=== PATIENT | female | born 1930 | race Hispanic/Latino ===

== ENCOUNTER 2017-04-28 13:45 | Emergency (ER) | payer MEDICARE, OTHER ==
[2017-04-28 14:05] VITALS: BMI 29.5
--- NOTE | 2017-04-28 14:32 | ED PDOC ---
Arrival/HPI - General Chief Complaint: GI Problem Time Seen by Provider: 04/28/17 14:11 Historian: Patient - History of Present Illness Narrative History of Present Illness (Text): 04/28/17 14:43 An 86 year old female presents to the emergency department complaining of constipation for the past five days. Patient reports last bowel movement was three days ago. Reports diaphoresis and some generalized weakness, but denies any abdominal pain, rectal pain, hematochezia, nausea, vomiting, appetite changes or any other complaints at this time. Patient with past medical history of colon cancer, tumor removal 10 years ago. PMD: Dr. Savage Symptom Onset: Sudden Symptom Course: Unchanged Activities at Onset: Rest Context: Home Past Medical History - Provider Review Nursing Documentation Reviewed: Yes - Infectious Disease Hx of Infectious Diseases: None - Tetanus Immunization Tetanus Immunization: Unknown - Reproductive Menopause: Yes - Cardiac Hx Cardiac Disorders: Yes Hx Heart Murmur: Yes Hx Hypertension: Yes Hx Pacemaker: No Other/Comment: Heart murmur - Pulmonary Hx Respiratory Disorders: No - Neurological Hx Neurological Disorder: No Hx Paralysis: No - HEENT Hx Glaucoma: Yes - Renal Hx Renal Disorder: No - Endocrine/Metabolic Hx Endocrine Disorders: Yes Hx Diabetes Mellitus Type 1: Yes Hx Hypothyroidism: Yes - Hematological/Oncological Hx Blood Transfusions: No Hx Blood Transfusion Reaction: No - Musculoskeletal/Rheumatological Hx Musculoskeletal Disorders: No - Gastrointestinal Hx Gastrointestinal Disorders: No - Genitourinary/Gynecological Hx Genitourinary Disorders: No - Psychiatric Hx Depression: No Hx Emotional Abuse: No Hx Physical Abuse: No Hx Substance Use: No - Surgical History Hx Appendectomy: Yes Hx Cholecystectomy: Yes Other/Comment: Colon tumor removal (benign) - Anesthesia Hx Anesthesia: Yes Hx Anesthesia Reactions: No - Suicidal Assessment Feels Threatened In Home Enviroment: No Family/Social History - Physician Review Nursing Documentation Reviewed: Yes Family/Social History: No Known Family HX Smoking Status: Former Smoker Hx Alcohol Use: No Hx Substance Use: No Hx Substance Use Treatment: No Allergies/Home Meds Allergies/Adverse Reactions: Allergies No Known Allergies Allergy (Verified 04/28/17 14:05) Home Medications: Home Meds Medication Instructions Recorded Confirmed Levothyroxine Sodium 175 mcg PO DAILY 10/04/12 04/28/17 [Levothyroxine] Metoprolol Succinate 25 mg PO DAILY 10/04/12 04/28/17 Ezetimibe [Ezetimibe] 10 mg PO DAILY 04/28/17 04/28/17 Levothyroxine Sodium [Levothroid] 150 mcg PO DAILY 04/28/17 04/28/17 Review of Systems - Physician Review All systems were reviewed & negative as marked: Yes - Review of Systems Gastrointestinal: Constipation. absent: Abdominal Pain, Nausea, Vomiting, Appetite Changes, Hematochezia Endocrine: Diaphoresis Physical Exam - Physical Exam Narrative Physical Exam (Text): 04/28/17 14:30 Head: Atraumatic. Normocephalic. Eyes: PERRL. EOMI. Conjunctivae are not pale. ENT: Mucous membranes are moist and intact. Oropharynx is clear and symmetric. Neck: Supple. Full ROM. No JVD. No lymphadenopathy. Cardiovascular: Regular rate. Regular rhythm. No murmurs, rubs, or gallops. Distal pulses are 2+ and symmetric. Pulmonary/Chest: No evidence of respiratory distress. Clear to auscultation bilaterally. No wheezing, rales or rhonchi. Abdominal: mild distention, no pain. 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 external hemorrhoids, not thrombosed. Back: No CVA tenderness. Extremities: No edema. No cyanosis. No clubbing. Full range of motion in all extremities. No calf tenderness. Skin: Skin is warm and dry. No petechiae. No purpura. Neurological: Alert, awake, and oriented to person, place, time, and situation. Normal speech. Psychiatric: Good eye contact. Normal interaction, affect, and behavior. Vital Signs Reviewed: Yes Vital Signs Temp Pulse Resp BP Pulse Ox 04/28/17 15:53 68 17 149/65 98 04/28/17 14:07 98.1 F 72 17 151/66 H 97 Temperature: Afebrile Blood Pressure: Hypertensive Pulse: Regular Respiratory Rate: Normal Appearance: Positive for: Well-Appearing, Non-Toxic, Comfortable Pain Distress: None Mental Status: Positive for: Alert and Oriented X 3 Medical Decision Making ED Course and Treatment: 04/28/17 14:28 Impression: An 86 year old female with constipation. Differential Diagnosis included but are not limited to: bowel obstruction vs. colitis vs. constipation Plan: -- labs -- Radiology of abdomen -- Reassess and disposition Prior Visits: Notes and results from previous visits were reviewed. Patient was last seen in the emergency department on 09/27/16 for evaluation of left ankle pain. Progress Notes: Patient is currently asymptomatic. 04/28/17 15:15 Abdomen Xray: Creator : Elmer Uriarte MD FINDINGS: BOWEL: Normal. No obstruction. No free air. There is moderate to severe constipation BONES: Normal. IMPRESSION: Moderate to severe constipation 04/28/17 15:40 On reevaluation, patient has no pain, nausea or vomiting. Patient is eating without difficulty. Xray of abdomen by my interpretation shows no obstruction or free air, but there are signs of moderate constipation. As she is asymptomatic, will discharge patient home with stool softener. Advise follow up with Dr. Farrell to set up colonoscopy. - Lab Interpretations Lab Results: 04/28/17 14:45 04/28/17 14:45 Lab Results 04/28/17 14:45: Sodium 137, Potassium 4.4, Chloride 99, Carbon Dioxide 27, Anion Gap 15, BUN 15, Creatinine 0.7, Est GFR ( Amer) > 60, Est GFR (Non- Af Amer) > 60, Random Glucose 193 H, Calcium 9.6, Total Bilirubin 0.8, AST 35, ALT 35, Alkaline Phosphatase 127, Total Protein 7.5, Albumin 4.2, Globulin 3.3, Albumin/Globulin Ratio 1.3 04/28/17 14:45: WBC 6.2, RBC 4.52, Hgb 14.0, Hct 40.9, MCV 90.5, MCH 31.0, MCHC 34.2, RDW 12.5, Plt Count 214, MPV 10.4, Gran % 57.7, Lymph % (Auto) 31.2, Amador % (Auto) 8.1 H, Eos % (Auto) 2.7, Baso % (Auto) 0.3, Gran # 3.58, Lymph # 1.9, Amador # 0.5, Eos # 0.2, Baso # 0.02 I have reviewed the lab results: Yes - RAD Interpretation Radiology Orders: 04/28/17 14:26 ABD 2 VIEWS (FLAT/UP OR DECUB) [RAD] Stat - Scribe Statement The provider has reviewed the documentation as recorded by the Nesha Villeda Provider Scribe Attestation: All medical record entries made by the Scribe were at my direction and personally dictated by me. I have reviewed the chart and agree that the record accurately reflects my personal performance of the history, physical exam, medical decision making, and the department course for this patient. I have also personally directed, reviewed, and agree with the discharge instructions and disposition. Disposition/Present on Arrival - Present on Arrival History of DVT/PE: No History of Uncontrolled Diabetes: Yes Urinary Catheter: No History of Decub. 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 If you develop ANY abdominal pain, any nausea or vomiting, any chest pain or shortness of breath, any bloody urine or stool, any lightheadedness or dizziness , any swelling, any persistent or worsening of symptoms, get rechecked immediately. Take stool softener as directed. If you have not moved your bowels or develop any pain or symptoms, you must get rechecked. Prescriptions: Docusate [Colace] 100 mg PO DAILY #7 cap Referrals: Jose A Farrell MD [Staff Provider] - Follow up with primary Rj Savage MD [Primary Care Provider] - Follow up with primary Forms: [employer] (Serbian)
[2017-04-28 14:57] LABS: BASO # 0.02 K/mm3 (0.0-2.0); BASO % 0.3 % (0.0-3.0); EOS # 0.2 (0.0-0.7); EOS % 2.7 % (1.5-5.0); GRAN # 3.58 (1.4-6.5); GRAN % 57.7 % (50.0-68.0); LYMPH # 1.9 (1.2-3.4); LYMPH % 31.2 % (22.0-35.0); MEAN CELL VOLUME 90.5 fl (80.0-105.0); MEAN CORPUSCULAR HGB CONC 34.2 g/dl (31.0-37.0); MEAN PLATELET VOLUME 10.4 fl (7.0-11.0); MONO # 0.5 (0.1-0.6); MONO % 8.1 % (1.0-6.0); PLATELET COUNT 214 10^3/uL (120.0-450.0); RBC 4.52 10^6/uL (3.5-6.1); RED CELL DISTRIBUTION WIDTH 12.5 % (11.5-14.5); WHITE BLOOD COUNT 6.2 10^3/ul (4.5-11.0)
[2017-04-28 15:11] LABS: ALB/GLOB RATIO 1.3 (1.1-1.8); ALBUMIN 4.2 g/dL (3.0-4.8); ALT/SGPT 35 U/L (7-56); AST/SGOT 35 U/L (15-39); BLOOD UREA NITROGEN 15 mg/dL (7-21); CALCIUM 9.6 mg/dL (8.4-10.5); GFR AFRICAN-AMERICAN > 60; GFR NON-AFRICAN AMERICAN > 60
--- NOTE | 2017-04-28 15:14 | RAD ---
HISTORY: eval for obstruction COMPARISON: No prior. FINDINGS: BOWEL: Normal. No obstruction. No free air. There is moderate to severe constipation BONES: Normal. OTHER FINDINGS: None. IMPRESSION: Moderate to severe constipation
[2017-04-28 15:54] VITALS: BP 149/65; PULSE 68; RESP 17; TEMP 98.1; O2SAT 98
== END 2017-04-28 16:00 | disposition home or self-care (01) ==
LOC: ED 13:45
DX: K59.00 Constipation, unspecified (principal); I10 Essential (primary) hypertension; Z87.891 Personal history of nicotine dependence

== ENCOUNTER 2017-08-12 03:58 | Observation (INO) | payer MEDICARE, OTHER ==
[2017-08-12 03:58] VITALS: BMI 29.5
--- NOTE | 2017-08-12 04:31 | ED PDOC ---
Arrival/HPI - General Chief Complaint: Dizziness/Lightheaded Time Seen by Provider: 08/12/17 03:59 Historian: Patient, EMS - History of Present Illness Narrative History of Present Illness (Text): 08/12/17 04:21 Leia Mcgraw is an 86 year old female, whose past medical history includes diabetes on insulin, hypothyroidism, glaucoma, hypertension, and hyperlipidemia , who presents to the Emergency department brought in by EMS complaining of dizziness. Patient states she has been experiencing recurrent episodes of dizziness since 21:00 yesterday evening and notes she feels near-syncopal. Patient states she feels off-balance and fell back on to her bed twice tonight. Patient denies any headache, fever, chills, chest pain, shortness of breath, nausea, vomiting, diarrhea, urinary symptoms, back pain, neck pain, or any other complaints. Patient also complaining of incidental left lower extremity pain she has been experiencing for a while. PMD: Dr. Harjinder Savage Time/Duration: Other (tonight) Symptom Onset: Gradual Symptom Course: Unchanged Activities at Onset: Light Context: Home Past Medical History - Provider Review Nursing Documentation Reviewed: Yes - Infectious Disease Hx of Infectious Diseases: None - Tetanus Immunization Tetanus Immunization: Unknown - Reproductive Menopause: No - Cardiac Hx Cardiac Disorders: Yes Hx Heart Murmur: Yes Hx Hypertension: Yes Hx Pacemaker: No Other/Comment: Heart murmur - Pulmonary Hx Respiratory Disorders: No - Neurological Hx Neurological Disorder: No Hx Paralysis: No - HEENT Hx Glaucoma: Yes - Renal Hx Renal Disorder: No - Endocrine/Metabolic Hx Endocrine Disorders: Yes Hx Diabetes Mellitus Type 1: Yes Hx Hypothyroidism: Yes - Hematological/Oncological Hx Blood Transfusions: No Hx Blood Transfusion Reaction: No - Musculoskeletal/Rheumatological Hx Musculoskeletal Disorders: No - Gastrointestinal Hx Gastrointestinal Disorders: No - Genitourinary/Gynecological Hx Genitourinary Disorders: No - Psychiatric Hx Depression: No Hx Emotional Abuse: No Hx Physical Abuse: No Hx Substance Use: No - Surgical History Hx Appendectomy: Yes Hx Cholecystectomy: Yes Other/Comment: Colon tumor removal (benign) - Anesthesia Hx Anesthesia: Yes Hx Anesthesia Reactions: No - Suicidal Assessment Feels Threatened In Home Enviroment: No Family/Social History - Physician Review Nursing Documentation Reviewed: Yes Family/Social History: Unknown Family HX Smoking Status: Former Smoker Hx Alcohol Use: No Hx Substance Use: No Hx Substance Use Treatment: No Allergies/Home Meds Allergies/Adverse Reactions: Allergies No Known Allergies Allergy (Verified 04/28/17 14:05) Home Medications: Home Meds Medication Instructions Recorded Confirmed Levothyroxine Sodium 175 mcg PO DAILY 10/04/12 08/12/17 [Levothyroxine] Metoprolol Succinate 25 mg PO DAILY 10/04/12 08/12/17 Ezetimibe [Ezetimibe] 10 mg PO DAILY 04/28/17 08/12/17 Levothyroxine Sodium [Levothroid] 150 mcg PO DAILY 04/28/17 08/12/17 Review of Systems - Physician Review All systems were reviewed & negative as marked: Yes - Review of Systems Constitutional: Normal Eyes: Normal ENT: Normal Respiratory: Normal. absent: SOB, Cough Cardiovascular: Other (+near-syncopal) Gastrointestinal: Normal. absent: Abdominal Pain, Diarrhea, Nausea, Vomiting Genitourinary Female: Normal. absent: Dysuria, Frequency, Hematuria, Urine Output Changes Musculoskeletal: Other (+left lower extremity pain). absent: Back Pain, Neck Pain Skin: Normal. absent: Rash Neurological: Dizziness Endocrine: Normal Hemo/Lymphatic: Normal Psychiatric: Normal Physical Exam Vital Signs Reviewed: Yes Vital Signs Temp Pulse Resp BP Pulse Ox 08/12/17 03:58 97.7 F 71 18 157/75 H 96 Temperature: Afebrile Blood Pressure: Hypertensive Pulse: Regular Respiratory Rate: Normal Appearance: Positive for: Well-Appearing, Non-Toxic, Comfortable Pain Distress: None Mental Status: Positive for: Alert and Oriented X 3 - Systems Exam Head: Present: Atraumatic, Normocephalic Pupils: Present: PERRL Extroacular Muscles: Present: EOMI Conjunctiva: Present: Normal Mouth: Present: Moist Mucous Membranes Neck: Present: Normal Range of Motion. No: Meningeal Signs, MIDLINE TENDERNESS , Paraspinal Tenderness Respiratory/Chest: Present: Clear to Auscultation, Good Air Exchange. No: Respiratory Distress, Accessory Muscle Use Cardiovascular: Present: Regular Rate and Rhythm, Normal S1, S2. No: Murmurs Abdomen: Present: Normal Bowel Sounds. No: Tenderness, Distention, Peritoneal Signs Back: Present: Normal Inspection Upper Extremity: Present: Normal Inspection. No: Cyanosis, Edema Lower Extremity: Present: Normal Inspection. No: Edema Neurological: Present: GCS=15, CN II-XII Intact, Speech Normal, Motor Func Grossly Intact, Normal Sensory Function, Normal Cerebellar Funct, Memory Normal Skin: Present: Warm, Dry, Normal Color. No: Rashes Psychiatric: Present: Alert, Oriented x 3, Normal Insight, Normal Concentration Medical Decision Making ED Course and Treatment: 08/12/17 04:21 Impression: 86 year old female complaining of dizziness and near-syncope tonight. Differential Diagnosis included but are not limited to: near syncope Plan: -- CT Head w/o contrast -- EKG -- CXR -- Labs, cardiac enzymes -- US Duplex Lower Extremities -- Antivert -- Reassess and disposition Prior Visits: Notes and results from previous visits were reviewed. On 04/28/2017, pt was seen in the Emergency department for constipation. Pt was d/c home. Progress Notes: Reviewed EKG, NSR at 68 bpm. Non-specific T wave changes laterally. 08/12/17 05:11 Reviewed chest X-ray, shows no acute processes. 08/12/17 05:14 CT of head reviewed by radiologist, shows: Brain: No intracranial hemorrhage. No mass. Few scattered foci of decreased attenuation within periventricular/subcortical white matter. No definite edema. Ventricles: No hydrocephalus. Bones/joints: No acute fracture. Soft tissues: Unremarkable. Vasculature: Atherosclerotic disease of intracranial arteries. Lymph nodes: No pathologically enlarged lymph nodes. Sinuses: No acute sinusitis. Mastoid air cells: No mastoid effusion. Orbits: Unremarkable as visualized. IMPRESSION: 1. Nonspecific white matter changes. Acute infarction may be CT occult within first 24 hours. If a focal deficit persists, consider followup CT or MRI for further evaluation. 2. Incidental/non-acute findings are described above 08/12/17 05:22 Case discussed with adjunct faculty for medical terminology promotional advertising assistant, who is aware and agrees with plan. 08/12/17 05:[address]G. Dave, who is aware and agrees with plan. Accepts patient to the hospitalist service. Patient will go on to [facility] observation for near syncope and intractable dizziness. 08/12/17 06:21 Reviewed sono, US Duplex Lower Extremities negative for DVT. - Lab Interpretations Lab Results: 08/12/17 04:20 08/12/17 04:20 Lab Results 08/12/17 04:20: WBC 6.1, RBC 4.49, Hgb 14.1, Hct 41.4, MCV 92.2, MCH 31.4, MCHC 34.1, RDW 12.7, Plt Count 209, MPV 10.8 08/12/17 04:20: Sodium 136, Potassium 4.4, Chloride 99, Carbon Dioxide 28, Anion Gap 14, BUN 20, Creatinine 0.7, Est GFR ( Amer) > 60, Est GFR (Non- Af Amer) > 60, Random Glucose 366 H* D, Calcium 9.9, Total Bilirubin 0.7, AST 30 , ALT 36, Alkaline Phosphatase 133 H, Lactate Dehydrogenase 477, Total Creatine Kinase 74, Troponin I < 0.01, Total Protein 7.9, Albumin 4.2, Globulin 3.7, Albumin/Globulin Ratio 1.1 08/12/17 04:20: PT 10.4, INR 0.96, APTT 33.9 I have reviewed the lab results: Yes - RAD Interpretation Radiology Orders: 08/12/17 04:22 HEAD W/O CONTRAST [CT] Stat CHEST PORTABLE [RAD] Stat Fats And Oils Loader: ED Physician, Radiologist - EKG Interpretation Interpreted by ED Physician: Yes Type: 12 lead EKG - Medication Orders Current Medication Orders: Discontinued Medications Hydromorphone HCl (Dilaudid) 0.5 mg IVP STAT STA Stop: 08/12/17 06:18 Insulin Human Regular (Humulin R) 5 units SC STAT STA Stop: 08/12/17 05:18 Meclizine HCl (Antivert) 25 mg PO STAT STA Stop: 08/12/17 04:34 Last Admin: 08/12/17 04:56 Dose: 25 mg Tramadol/Acetaminophen (Ultracet 37.5/325 Mg) 1 tab PO STAT STA Stop: 08/12/17 05:32 - Scribe Statement The provider has reviewed the documentation as recorded by the Nesha Anthony Provider Scribe Attestation: All medical record entries made by the Scribe were at my direction and personally dictated by me. I have reviewed the chart and agree that the record accurately reflects my personal performance of the history, physical exam, medical decision making, and the department course for this patient. I have also personally directed, reviewed, and agree with the discharge instructions and disposition. Disposition/Present on Arrival - Present on Arrival Any Indicators Present on Arrival: No History of DVT/PE: No History of Uncontrolled Diabetes: Yes Urinary Catheter: No History of Decub. Ulcer: No History Surgical Site Infection Following: None - Disposition Have Diagnosis and Disposition been Completed?: Yes Diagnosis: Near syncope, Dizziness of unknown cause Disposition: HOSPITALIZED Disposition Time: 05:16 Patient Plan: Observation Patient Problems: Current Active Problems Problem Status Onset Dizziness of unknown cause Acute Near syncope Acute Condition: STABLE
[2017-08-12 04:46] LABS: HEMATOCRIT 41.4 % (36.0-48.0); MEAN CELL VOLUME 92.2 fl (80.0-105.0); MEAN CORPUSCULAR HEMOGLOBIN 31.4 pg (25.0-35.0); MEAN CORPUSCULAR HGB CONC 34.1 g/dl (31.0-37.0); WHITE BLOOD COUNT 6.1 10^3/ul (4.5-11.0)
[2017-08-12 04:47] LABS: MEAN PLATELET VOLUME 10.8 fl (7.0-11.0); RED CELL DISTRIBUTION WIDTH 12.7 % (11.5-14.5)
[2017-08-12 04:53] LABS: INR 0.96 (0.93-1.08); PARTIAL THROMBOPLASTIN TIME 33.9 Seconds (25.1-36.5)
[2017-08-12 04:56] LABS: TROPONIN I < 0.01 ng/mL
--- NOTE | 2017-08-12 05:05 | CT ---
EXAM: CT Head Without Intravenous Contrast CLINICAL HISTORY: 86 years old, female; Signs and symptoms; Dizziness; Additional info: Dizzy TECHNIQUE: Axial computed tomography images of the head/brain without intravenous contrast. All CT scans at this facility use one or more dose reduction techniques, viz.: automated exposure control; ma/kV adjustment per patient size (including targeted exams where dose is matched to indication; i.e. head); or iterative reconstruction technique. COMPARISON: No relevant prior studies available. FINDINGS: Brain: No intracranial hemorrhage. No mass. Few scattered foci of decreased attenuation within periventricular/subcortical white matter. No definite edema. Ventricles: No hydrocephalus. Bones/joints: No acute fracture. Soft tissues: Unremarkable. Vasculature: Atherosclerotic disease of intracranial arteries. Lymph nodes: No pathologically enlarged lymph nodes. Sinuses: No acute sinusitis. Mastoid air cells: No mastoid effusion. Orbits: Unremarkable as visualized. IMPRESSION: 1. Nonspecific white matter changes. Acute infarction may be CT occult within first 24 hours. If a focal deficit persists, consider followup CT or MRI for further evaluation. 2. Incidental/non-acute findings are described above.
[2017-08-12 05:09] LABS: ALB/GLOB RATIO 1.1 (1.1-1.8); ALKALINE PHOSPHATASE 133 U/L (38-126); ALT/SGPT 36 U/L (7-56); AST/SGOT 30 U/L (14-36); BILIRUBIN,TOTAL 0.7 mg/dL (0.2-1.3); BLOOD UREA NITROGEN 20 mg/dL (7-21); CALCIUM 9.9 mg/dL (8.4-10.5); CARBON DIOXIDE 28 mmol/L (21-33); CHLORIDE 99 mmol/L (98-107); GFR AFRICAN-AMERICAN > 60; POTASSIUM 4.4 mmol/L (3.6-5.0); SODIUM 136 mmol/L (132-148); TOTAL PROTEIN 7.9 g/dL (5.8-8.3)
[2017-08-12] MEDS ORDERED: Insulin Regular 1 UNITS/0.01 ML ML SC STA (05:17)
[2017-08-12] MEDS ORDERED: TraMADol/Apap 37.5/325 mg Tab PO STA (05:31)
[2017-08-12 05:57] LABS: GLUCOSE,RANDOM 366 mg/dL (70-110)
[2017-08-12] MEDS ORDERED: HYDROmorphone 0.5 mg/0.5 ml ISec IVP STA (06:17)
[2017-08-12] MEDS ORDERED: Sodium Chloride 0.9% 1,000 ML IV SCH (06:45)
--- NOTE | 2017-08-12 07:00 | CP.PCM.HP ---
<Donald Martinez - Last Filed: 08/12/17 08:13> History of Present Illness - History of Present Illness History of Present Illness: Donald Martinez DO PGY1 - Internal Medicine H&P CC: Lightheadedness HPI: 86 yo F with PMH of HTN, HLD, DM, hypothyroidism, and glaucoma, presents complaining of lightheadedness and falling into her bed last night. A few hours ago, she got up out of bed to use the restroom, and was dizzy and lightheaded when she stood up. This happened again two more times throughout the night, which caused her to fall backward into her bed. She describes the dizziness as seeing things slightly "wobbly" but denies room-spinning vertigo. She denies LOC , headache, focal weakness, confusion, tongue biting, or incontinence, chest pain, palpitations. She reports that she missed her nightly dose of levimir last night, and ended up taking after she was symptomatic. She denies any recent illness, sick contacts, recent travel, diarrhea, nausea/vomiting, dysuria , hematuria, abdominal pain, otalgia, sore throat. She does reports to frequent urination, but attributes that to drinking a lot of water. She also admits to profound thirst and dry mouth. ROS: 12 point ROS is negative except as in HPI. PMH: As above PSH: Appendectomy, unknown colon surgery for tumor, cholecystectomy Soc: 10pyh quit 30 years ago, denies alcohol or illicits FHx: Noncontributory All: NKDA Present on Admission - Present on Admission Any Indicators Present on Admission: No Past Patient History - Infectious Disease Hx of Infectious Diseases: None - Tetanus Immunizations Tetanus Immunization: Unknown - Past Social History Smoking Status: Former Smoker - CARDIAC Hx Cardiac Disorders: Yes Hx Heart Murmur: Yes Hx Hypertension: Yes Hx Pacemaker: No Other/Comment: Heart murmur - PULMONARY Hx Respiratory Disorders: No - NEUROLOGICAL Hx Neurological Disorder: No Hx Paralysis: No - HEENT Hx Glaucoma: Yes - RENAL Hx Chronic Kidney Disease: No - ENDOCRINE/METABOLIC Hx Endocrine Disorders: Yes Hx Diabetes Mellitus Type 1: Yes Hx Hypothyroidism: Yes - HEMATOLOGICAL/ONCOLOGICAL Hx Blood Transfusions: No Hx Blood Transfusion Reaction: No - MUSCULOSKELETAL/RHEUMATOLOGICAL Hx Musculoskeletal Disorders: No - GASTROINTESTINAL Hx Gastrointestinal Disorders: No - GENITOURINARY/GYNECOLOGICAL Hx Genitourinary Disorders: No - PSYCHIATRIC Hx Depression: No Hx Emotional Abuse: No Hx Physical Abuse: No Hx Substance Use: No - SURGICAL HISTORY Hx Appendectomy: Yes Hx Cholecystectomy: Yes Other/Comment: Colon tumor removal (benign) - ANESTHESIA Hx Anesthesia: Yes Hx Anesthesia Reactions: No Meds Allergies/Adverse Reactions: Allergies Allergy/AdvReac Type Severity Reaction Status Date / Time No Known Allergies Allergy Verified 08/12/17 13:10 Physical Exam - Constitutional Appears: Non-toxic, No Acute Distress - Head Exam Head Exam: ATRAUMATIC, NORMOCEPHALIC - Eye Exam Eye Exam: EOMI, Normal appearance - ENT Exam ENT Exam: Mucous Membranes Dry - Neck Exam Neck exam: Positive for: Normal Inspection - Respiratory Exam Respiratory Exam: Clear to Auscultation Bilateral, NORMAL BREATHING PATTERN - Cardiovascular Exam Cardiovascular Exam: RRR, +S1, +S2 - GI/Abdominal Exam GI & Abdominal Exam: Normal Bowel Sounds, Soft. absent: Firm, Guarding, Rebound , Rigid, Tenderness - Extremities Exam Extremities exam: Negative for: calf tenderness, pedal edema - Neurological Exam Neurological exam: Alert, Oriented x3 Additional comments: No pronator drift. CN II-XII grossly intact. 5/5 muscle strength throughout. - Psychiatric Exam Psychiatric exam: Normal Affect, Normal Mood - Skin Skin Exam: Dry, Intact, Normal Color Additional comments: Poor turgor Results - Vital Signs Recent Vital Signs: Last Vital Signs Temp 97.7 F 08/12/17 03:58 Pulse 71 08/12/17 03:58 Resp 18 08/12/17 03:58 BP 157/75 H 08/12/17 03:58 Pulse Ox 96 08/12/17 03:58 - Labs Result Diagrams: 08/12/17 04:20 08/12/17 04:20 Labs: Laboratory Results - last 24 hr 08/12/17 06:39 POC Glucose (mg/dL) 233 H Assessment & Plan - Assessment and Plan (Free Text) Assessment: 86 yo F with PMH of HTN, HLD, DM, hypothyroidism, and glaucoma, presents complaining of lightheadedness and falling into her bed last night. Plan: 1. Presyncope - Patient denies chest pain or palpitations; EKG shows no acute changes and troponin negative in the ER - Head CT negative for any acute intracranial abnormalities - Likely 2/2 dehydration 2/2 hyperglycemia vs hypothyroidism vs arrhythmia - Patient was hyperglycemic, and admits to missing her dose of insulin yesterday ; dehydrated on exam - Ordered orthostatics PRN - Rehydrate with IVF; bolus 1L if positive orthostatic vitals - Improve glycemic control as below - Check TSH - Consult neuro (Antonieta Ayon), appreciate help 2. h/o DM - Currently uncontrolled; no anion gap at this time - Start IVF - Start ISS med with accucheck ACHS - Start levimir 20u daily, which is what she takes at home - Continue to monitor 3. h/o HTN - Patient takes metoprolol at home, not sure if she takes anything else - Resume metoprolol - Continue to monitor and titrate medications 4. h/o Hypothyroidism - Patient is not sure of current dose of levothyroxine - Previously documented 150mcg; will resume, and monitor response; will call patient's pharmacy for more information - Check TSH 5. h/o HLD and glaucoma - Patient is not sure what she takes at home, will call her pharmacy to confirm GI/DVT Ppx - protonix and heparin Patient seen, discussed, and reviewed with attending <León Dave - Last Filed: 08/13/17 00:35> Results - Vital Signs Recent Vital Signs: Last Vital Signs Temp 98.4 F 08/12/17 14:02 Pulse 66 08/12/17 22:00 Resp 18 08/12/17 14:02 BP 160/90 H 08/12/17 14:02 Pulse Ox 96 08/12/17 03:58 - Labs Result Diagrams: 08/12/17 04:20 08/12/17 04:20 Labs: Laboratory Results - last 24 hr 08/12/17 08/12/17 08/12/17 06:39 10:00 13:30 POC Glucose (mg/dL) 233 H Lactate Dehydrogenase 457 Total Creatine Kinase 65 Troponin I < 0.01 Free T4 1.14 Urine Color Urine Appearance Urine pH Ur Specific [place] Urine Protein Urine Glucose (UA) Urine Ketones Urine Blood Urine Nitrate Urine Bilirubin Urine Urobilinogen Ur Leukocyte Esterase Urine RBC Urine WBC Ur Epithelial Cells Urine Bacteria 08/12/17 08/12/17 21:45 22:15 POC Glucose (mg/dL) Lactate Dehydrogenase 505 Total Creatine Kinase 92 Troponin I < 0.01 Free T4 Urine Color Yellow Urine Appearance Clear Urine pH 6.0 Ur Specific [place] 1.020 Urine Protein Negative Urine Glucose (UA) 250 H Urine Ketones Negative Urine Blood Negative Urine Nitrate Negative Urine Bilirubin Negative Urine Urobilinogen 0.2 Ur Leukocyte Esterase Small H Urine RBC 0 - 2 Urine WBC 2 - 5 Ur Epithelial Cells 0 - 2 Urine Bacteria Trace
[2017-08-12] MEDS: Insulin Reg-MEDIUM-Coverage SC SCH ×5 (07:30→21:13)
--- NOTE | 2017-08-12 08:48 | RAD ---
HISTORY: fever COMPARISON: 11/01/2016 FINDINGS: LUNGS: No active pulmonary disease. PLEURA: No significant pleural effusion identified, no pneumothorax apparent. CARDIOVASCULAR: Normal. OSSEOUS STRUCTURES: No significant abnormalities. VISUALIZED UPPER ABDOMEN: Normal. OTHER FINDINGS: None. IMPRESSION: No active disease.
[2017-08-12] MEDS: Metoprolol Succinate 25 mg XL Tab PO SCH (09:41)
[2017-08-12] MEDS: Levothyroxine 150 MCG TAB PO SCH (09:41)
--- NOTE | 2017-08-12 10:13 | CARD ---
APPROVED REPORT EKG Measurement Heart [id number] <Conclusion> Normal sinus rhythm ST & T wave abnormality, consider lateral ischemia, new since ECG 09/27/16
[2017-08-12 13:56] LABS: TROPONIN I < 0.01 ng/mL
[2017-08-12] MEDS ORDERED: Influenza Vaccine 60 mcg/0.5 mL SYR (4YR UP) IM ONE (14:29)
[2017-08-12] MEDS ORDERED: Pneumococcal 23-Valent Vaccine IM ONE (14:29)
[2017-08-12] MEDS ORDERED: Insulin Detemir 100 units/ml Vial (Levemir) SC SCH (22:00)
[2017-08-12 22:09] LABS: URINE BILIRUBIN NEGATIVE (NEGATIVE); URINE BLOOD NEGATIVE (NEGATIVE); URINE GLUCOSE (UA) 250 mg/dL (NEGATIVE); URINE KETONE NEGATIVE (NEGATIVE); URINE LEUKOCYTE ESTERASE SMALL Leu/uL (NEGATIVE); URINE PROTEIN NEGATIVE mg/dL (<30 mg/dL); URINE UROBILINOGEN 0.2 E.U./dL (<1 E.U./dL)
[2017-08-12 22:14] LABS: URINE APPEARANCE CLEAR (CLEAR); URINE COLOR YELLOW (YELLOW); URINE RBC 0 - 2 /hpf (0-2)
[2017-08-12 22:15] LABS: URINE BACTERIA TRACE (NEG); URINE EPITHELIAL CELLS 0 - 2 /hpf (0-5)
[2017-08-12 23:07] LABS: TROPONIN I < 0.01 ng/mL
--- NOTE | 2017-08-13 01:25 | CON ---
CARDIOLOGY CONSULTATION DATE: REASON FOR CONSULTATION: Recurrent dizziness. HISTORY OF PRESENT ILLNESS: The patient is an 86 years old female who has history of diabetes mellitus, hypothyroidism and hypertension as well as hyperlipidemia, presented because of dizziness. The patient did report dizziness as she was going from her bedroom to the bathroom where she lives in the senior citizen home. Patient denies any complete collapse or fainting spells, and denies any history of falls in the recent past. The patient did report that she had dizziness 3 times so far; she did activate EMS. The patient denies any retrosternal chest pain and is unaware of any history of heart attack or stroke in the past. SOCIAL HISTORY: Patient is a nonsmoker, nondrinker. She lives by herself. She has no family members alive and claims to have no friends. MEDICATIONS: Colace 100 mg daily, heparin 5000 units subcutaneously twice a day, Levemir 20 units subcutaneously once a day, Synthroid 150 mcg once a day, Toprol-XL 25 mg once a day, Zetia 10 mg once a day. REVIEW OF SYSTEMS: The patient does report left leg pain which she attributes to trying to push furniture with her leg. No fever or chills. No syncope or fall. PHYSICAL EXAMINATION: GENERAL: The patient is an elderly female, who does not appear to be in acute distress. VITAL SIGNS: Blood pressure 160/90, heart rate 64, temperature 98.4, respiration 18. HEENT: Normocephalic. NECK: No JVD. CHEST: Clear. HEART: S1, S2 regular. ABDOMEN: Soft. EXTREMITIES: No edema, no calf tenderness. LABORATORY DATA: CBC is entirely within normal limits. PT, PTT and INR are within normal limits. SMA-7 is within normal limits except for glucose of 366, alkaline phosphatase elevated at 133, TSH level is elevated at 7.34. Two sets of troponins are negative. EKG revealed sinus rhythm with nonspecific lateral ST-T wave changes although official reports consider lateral ischemia. Head CT scan without contrast revealed nonspecific white matter changes. Chest x-ray revealed borderline cardiomegaly, prominent bronchovascular markings and haziness involving the left lower lobe. ASSESSMENT: 1. Recurrent dizziness. 2. Uncontrolled diabetes mellitus. 3. Hypertension. 4. Hyperlipidemia. 5. Abnormal electrocardiogram with nonspecific wave changes. RECOMMENDATIONS: Continue current subcutaneous heparin 5000 units twice a day, normal saline at 10 mL an hour, Synthroid at 150 mcg once a day, Toprol-XL 25 mg once a day, Zetia 10 mg once a day. Continue telemetry monitoring, obtain an echocardiogram. I will follow the venous Doppler of lower extremities, obtain a carotid Doppler. Oliver Plascencia MD
--- NOTE | 2017-08-13 02:09 | CON ---
DATE: HISTORY OF PRESENT ILLNESS: This is an 86-year-old white female with past medical history of diabetes, hypothyroidism, hypertension, hyperlipidemia, came to the Emergency Room with dizziness and passing out kind of a spell. Patient off-balanced, fell backwards on her bed twice and did not hit her. LABORATORY DATA: WBC 6.1, hemoglobin 14.1, hematocrit 41.4, platelet 209. Sodium 136, potassium 4.4, chloride 99, CO2 of 28, glucose 366, BUN 20, creatinine 0.7. PHYSICAL EXAMINATION: VITAL SIGNS: Blood pressure 157/75. HEENT: Normocephalic, atraumatic. NECK: Supple. NEUROLOGIC: Alert, awake, oriented x3. No aphasia. Cranial nerves II to XII are tested. Pupils reactive. EOM intact. Visual field full. No facial asymmetry. Tongue midline. Motor examination, moves all the extremities equally. Tone normal. Deep tendon reflexes 1+. Both plantars downgoing. Sensory appears intact. Cerebellar and gait deferred. IMPRESSION: Dizziness, possibly vertebrobasilar, more likely benign positional vertigo. CAT scan of the head was negative. PLAN: Continue present management. We will follow up. Erik Ayno MD
[2017-08-13] MEDS: Levothyroxine 150 MCG TAB PO SCH (05:13)
[2017-08-13] MEDS ORDERED: Pantoprazole 40 mg EC Tab PO SCH (06:00)
[2017-08-13 07:09] LABS: BASO # 0.04 K/mm3 (0.0-2.0); BASO % 0.6 % (0.0-3.0); EOS # 0.2 (0.0-0.7); EOS % 2.7 % (1.5-5.0); GRAN # 3.61 (1.4-6.5); GRAN % 56.8 % (50.0-68.0); HEMATOCRIT 38.8 % (36.0-48.0); LYMPH % 31.9 % (22.0-35.0); MEAN CELL VOLUME 93.3 fl (80.0-105.0); MEAN CORPUSCULAR HEMOGLOBIN 31.3 pg (25.0-35.0); MEAN CORPUSCULAR HGB CONC 33.5 g/dl (31.0-37.0); MONO # 0.5 (0.1-0.6); RED CELL DISTRIBUTION WIDTH 12.7 % (11.5-14.5); WHITE BLOOD COUNT 6.4 10^3/ul (4.5-11.0)
[2017-08-13 07:29] LABS: ALB/GLOB RATIO 1.2 (1.1-1.8); ALKALINE PHOSPHATASE 136 U/L (38-126); ALT/SGPT 43 U/L (7-56); AST/SGOT 37 U/L (14-36); BILIRUBIN,TOTAL 0.7 mg/dL (0.2-1.3); BLOOD UREA NITROGEN 18 mg/dL (7-21); CALCIUM 9.4 mg/dL (8.4-10.5); CARBON DIOXIDE 31 mmol/L (21-33); CHLORIDE 100 mmol/L (98-107); GFR AFRICAN-AMERICAN > 60; GLUCOSE,RANDOM 196 mg/dL (70-110); MAGNESIUM 2.1 mg/dL (1.7-2.2); PHOSPHOROUS 3.9 mg/dL (2.5-4.5); POTASSIUM 4.1 mmol/L (3.6-5.0); SODIUM 135 mmol/L (132-148); TOTAL PROTEIN 6.9 g/dL (5.8-8.3)
[2017-08-13] MEDS: Insulin Reg-MEDIUM-Coverage SC SCH ×2 (08:12→11:53)
[2017-08-13 08:51] VITALS: O2SAT 97
[2017-08-13] MEDS: Metoprolol Succinate 25 mg XL Tab PO SCH (10:05)
--- NOTE | 2017-08-13 12:01 | CP.PCM.DIS ---
<Wolf Carmen - Last Filed: 08/13/17 15:12> Provider - Provider Date of Admission: 08/12/17 05:14 Attending physician: Ara Cruz MD Primary care physician: Rj Savage MD Time Spent in preparation of Discharge (in minutes): 45 Diagnosis - Discharge Diagnosis (1) Hypertension Status: Chronic Priority: Medium (2) Hyperlipidemia Status: Chronic Priority: Medium (3) Diabetes Status: Chronic Priority: Medium (4) Dizziness of unknown cause Status: Acute Priority: Medium (5) Near syncope Status: Acute Priority: Medium Hospital Course - Lab Results Lab Results: Most Recent Lab Values WBC 6.4 10^3/ul (4.5-11.0) 08/13/17 06:30 RBC 4.16 10^6/uL (3.5-6.1) 08/13/17 06:30 Hgb 13.0 g/dL (12.0-16.0) 08/13/17 06:30 Hct 38.8 % (36.0-48.0) 08/13/17 06:30 MCV 93.3 fl (80.0-105.0) 08/13/17 06:30 MCH 31.3 pg (25.0-35.0) 08/13/17 06:30 MCHC 33.5 g/dl (31.0-37.0) 08/13/17 06:30 RDW 12.7 % (11.5-14.5) 08/13/17 06:30 Plt Count 211 10^3/uL (120.0-450.0) 08/13/17 06:30 MPV 11.0 fl (7.0-11.0) 08/13/17 06:30 Gran % 56.8 % (50.0-68.0) 08/13/17 06:30 Lymph % (Auto) 31.9 % (22.0-35.0) 08/13/17 06:30 [place] % (Auto) 8.0 % (1.0-6.0) H 08/13/17 06:30 Eos % (Auto) 2.7 % (1.5-5.0) 08/13/17 06:30 Baso % (Auto) 0.6 % (0.0-3.0) 08/13/17 06:30 Gran # 3.61 (1.4-6.5) 08/13/17 06:30 Lymph # 2.0 (1.2-3.4) 08/13/17 06:30 [place] # 0.5 (0.1-0.6) 08/13/17 06:30 Eos # 0.2 (0.0-0.7) 08/13/17 06:30 Baso # 0.04 K/mm3 (0.0-2.0) 08/13/17 06:30 PT 10.4 SECONDS (9.4-12.5) 08/12/17 04:20 INR 0.96 (0.93-1.08) 08/12/17 04:20 APTT 33.9 Seconds (25.1-36.5) 08/12/17 04:20 Sodium 135 mmol/L (132-148) 08/13/17 06:30 Potassium 4.1 mmol/L (3.6-5.0) 08/13/17 06:30 Chloride 100 mmol/L (98-107) 08/13/17 06:30 Carbon Dioxide 31 mmol/L (21-33) 08/13/17 06:30 Anion Gap 9 (10-20) L 08/13/17 06:30 BUN 18 mg/dL (7-21) 08/13/17 06:30 Creatinine 0.7 mg/dl (0.7-1.2) 08/13/17 06:30 Est GFR ( Amer) > 60 08/13/17 06:30 Est GFR (Non-Af Amer) > 60 08/13/17 06:30 POC Glucose (mg/dL) 233 mg/dL (65-110) H 08/12/17 06:39 Random Glucose 196 mg/dL (70-110) H 08/13/17 06:30 Hemoglobin A1c 10.8 % (4.2-6.5) H 08/12/17 04:30 Calcium 9.4 mg/dL (8.4-10.5) 08/13/17 06:30 Phosphorus 3.9 mg/dL (2.5-4.5) 08/13/17 06:30 Magnesium 2.1 mg/dL (1.7-2.2) 08/13/17 06:30 Total Bilirubin 0.7 mg/dL (0.2-1.3) 08/13/17 06:30 AST 37 U/L (14-36) H D 08/13/17 06:30 ALT 43 U/L (7-56) 08/13/17 06:30 Alkaline Phosphatase 136 U/L (38-126) H 08/13/17 06:30 Lactate Dehydrogenase 505 U/L (333-699) 08/12/17 22:15 Total Creatine Kinase 92 U/L (35-230) 08/12/17 22:15 Troponin I < 0.01 ng/mL 08/12/17 22:15 Total Protein 6.9 g/dL (5.8-8.3) 08/13/17 06:30 Albumin 3.7 g/dL (3.0-4.8) 08/13/17 06:30 Globulin 3.2 gm/dL 08/13/17 06:30 Albumin/Globulin Ratio 1.2 (1.1-1.8) 08/13/17 06:30 Free T4 1.14 ng/dL (0.78-2.19) 08/12/17 10:00 TSH 3rd Generation 6.02 mIU/mL (0.46-4.68) H 08/13/17 06:30 Urine Color Yellow (YELLOW) 08/12/17 21:45 Urine Appearance Clear (CLEAR) 08/12/17 21:45 Urine pH 6.0 (4.7-8.0) 08/12/17 21:45 Ur Specific [place] 1.020 (1.005-1.035) 08/12/17 21:45 Urine Protein Negative mg/dL (<30 mg/dL) 08/12/17 21:45 Urine Glucose (UA) 250 mg/dL (NEGATIVE) H 08/12/17 21:45 Urine Ketones Negative mg/dL (NEGATIVE) 08/12/17 21:45 Urine Blood Negative (NEGATIVE) 08/12/17 21:45 Urine Nitrate Negative (NEGATIVE) 08/12/17 21:45 Urine Bilirubin Negative (NEGATIVE) 08/12/17 21:45 Urine Urobilinogen 0.2 E.U./dL (<1 E.U./dL) 08/12/17 21:45 Ur Leukocyte Esterase Small [place]/uL (NEGATIVE) H 08/12/17 21:45 Urine RBC 0 - 2 /hpf (0-2) 08/12/17 21:45 Urine WBC 2 - 5 /hpf (0-6) 08/12/17 21:45 Ur Epithelial Cells 0 - 2 /hpf (0-5) 08/12/17 21:45 Urine Bacteria Trace (NEG) 08/12/17 21:45 - Hospital Course Hospital Course: Patient is a a 86 year old female with a past medical history of HTN, HLD, DM, hypothyroidism, and glaucoma, who was admitted for evaluation and treatment of lightheadedness and fall. With the use of physical examinations, lab work, and imaging the patient was diagnosed with and treated for presyncope along with the patients chronic medical conditions. During their hospital stay the patient was seen by a geophysical observer, neurologist, and physical therapist whose recommendations were both appreciated and utilized in the care for this patient. During their hospital stay the patient underwent a carotid doppler ultrasound, and lower extremity which were reviewed, appreciated, and utilized in the management of the patients clinical course. Patient was treated with antihypertensive medications, analgestics, amongst other empiric/therapeutic medications. At this time the patient is medically stable for discharge. Patient understands and appreciates discharge plan. Patient instructed to follow up with primary care physicians and referrals within three to five days from discharge. Furthermore, the patient is instructed to take medications as prescribed and to return to emergency room for evaluation of intractable headache, fever, chills, dizziness, chest pain, shortness of breath, abdominal pain, nausea, vomiting, diarrhea, constipation, and urinary symptoms. This is a brief summary of the patients hospital course. Please see patient chart for full details. Discharge Exam - Head Exam Head Exam: ATRAUMATIC, NORMOCEPHALIC - Additional Findings Additional findings: - Constitutional Appears: Non-toxic, No Acute Distress - Head Exam Head Exam: ATRAUMATIC, NORMOCEPHALIC - Eye Exam Eye Exam: EOMI, Normal appearance - ENT Exam ENT Exam: Mucous Membranes Dry - Neck Exam Neck exam: Positive for: Normal Inspection - Respiratory Exam Respiratory Exam: Clear to Auscultation Bilateral, NORMAL BREATHING PATTERN - Cardiovascular Exam Cardiovascular Exam: RRR, +S1, +S2 - GI/Abdominal Exam GI & Abdominal Exam: Normal Bowel Sounds, Soft. absent: Firm, Guarding, Rebound , Rigid, Tenderness - Extremities Exam Extremities exam: Negative for: calf tenderness, pedal edema - Neurological Exam Neurological exam: Patient is awake, alert, responds to verbal stimuli, answers questions appropriately, follows commands, and moves extremities past midline Additional comments: - Psychiatric Exam Psychiatric exam: Normal Affect, Normal Mood - Skin Skin Exam: Dry, Intact, Normal Color Additional comments: Discharge Plan - Follow Up Plan Condition: STABLE Disposition: HOME/ ROUTINE Patient education suggested?: Yes Additional Instructions: Patient Instructions: Take medications as prescribed. Follow up with PMD and referrals within three to five days from discharge. Attain lipid profile from PMD. Attain echocardiogram from geophysical observer. Return to the emergency room for evaluation of intractable headache, fever, chills, dizziness, chest pain, shortness of breath, abdominal pain, nausea, vomiting, diarrhea, constipation, and urinary symptoms. Referrals: Rj Savage MD [Primary Care Provider] - Rafi Navas MD [Staff Provider] - Kane Ayon MD [Staff Provider] - <Ara Cruz - Last Filed: 08/13/17 15:54> Provider - Provider Date of Admission: 08/12/17 05:14 Attending physician: Ara Cruz MD Primary care physician: Rj Savage MD Hospital Course - Lab Results Lab Results: Most Recent Lab Values WBC 6.4 10^3/ul (4.5-11.0) 08/13/17 06:30 RBC 4.16 10^6/uL (3.5-6.1) 08/13/17 06:30 Hgb 13.0 g/dL (12.0-16.0) 08/13/17 06:30 Hct 38.8 % (36.0-48.0) 08/13/17 06:30 MCV 93.3 fl (80.0-105.0) 08/13/17 06:30 MCH 31.3 pg (25.0-35.0) 08/13/17 06:30 MCHC 33.5 g/dl (31.0-37.0) 08/13/17 06:30 RDW 12.7 % (11.5-14.5) 08/13/17 06:30 Plt Count 211 10^3/uL (120.0-450.0) 08/13/17 06:30 MPV 11.0 fl (7.0-11.0) 08/13/17 06:30 Gran % 56.8 % (50.0-68.0) 08/13/17 06:30 Lymph % (Auto) 31.9 % (22.0-35.0) 08/13/17 06:30 [place] % (Auto) 8.0 % (1.0-6.0) H 08/13/17 06:30 Eos % (Auto) 2.7 % (1.5-5.0) 08/13/17 06:30 Baso % (Auto) 0.6 % (0.0-3.0) 08/13/17 06:30 Gran # 3.61 (1.4-6.5) 08/13/17 06:30 Lymph # 2.0 (1.2-3.4) 08/13/17 06:30 [place] # 0.5 (0.1-0.6) 08/13/17 06:30 Eos # 0.2 (0.0-0.7) 08/13/17 06:30 Baso # 0.04 K/mm3 (0.0-2.0) 08/13/17 06:30 PT 10.4 SECONDS (9.4-12.5) 08/12/17 04:20 INR 0.96 (0.93-1.08) 08/12/17 04:20 APTT 33.9 Seconds (25.1-36.5) 08/12/17 04:20 Sodium 135 mmol/L (132-148) 08/13/17 06:30 Potassium 4.1 mmol/L (3.6-5.0) 08/13/17 06:30 Chloride 100 mmol/L (98-107) 08/13/17 06:30 Carbon Dioxide 31 mmol/L (21-33) 08/13/17 06:30 Anion Gap 9 (10-20) L 08/13/17 06:30 BUN 18 mg/dL (7-21) 08/13/17 06:30 Creatinine 0.7 mg/dl (0.7-1.2) 08/13/17 06:30 Est GFR ( Amer) > 60 08/13/17 06:30 Est GFR (Non-Af Amer) > 60 08/13/17 06:30 POC Glucose (mg/dL) 233 mg/dL (65-110) H 08/12/17 06:39 Random Glucose 196 mg/dL (70-110) H 08/13/17 06:30 Hemoglobin A1c 10.8 % (4.2-6.5) H 08/12/17 04:30 Calcium 9.4 mg/dL (8.4-10.5) 08/13/17 06:30 Phosphorus 3.9 mg/dL (2.5-4.5) 08/13/17 06:30 Magnesium 2.1 mg/dL (1.7-2.2) 08/13/17 06:30 Total Bilirubin 0.7 mg/dL (0.2-1.3) 08/13/17 06:30 AST 37 U/L (14-36) H D 08/13/17 06:30 ALT 43 U/L (7-56) 08/13/17 06:30 Alkaline Phosphatase 136 U/L (38-126) H 08/13/17 06:30 Lactate Dehydrogenase 505 U/L (333-699) 08/12/17 22:15 Total Creatine Kinase 92 U/L (35-230) 08/12/17 22:15 Troponin I < 0.01 ng/mL 08/12/17 22:15 Total Protein 6.9 g/dL (5.8-8.3) 08/13/17 06:30 Albumin 3.7 g/dL (3.0-4.8) 08/13/17 06:30 Globulin 3.2 gm/dL 08/13/17 06:30 Albumin/Globulin Ratio 1.2 (1.1-1.8) 08/13/17 06:30 Free T4 1.14 ng/dL (0.78-2.19) 08/12/17 10:00 TSH 3rd Generation 6.02 mIU/mL (0.46-4.68) H 08/13/17 06:30 Urine Color Yellow (YELLOW) 08/12/17 21:45 Urine Appearance Clear (CLEAR) 08/12/17 21:45 Urine pH 6.0 (4.7-8.0) 08/12/17 21:45 Ur Specific [place] 1.020 (1.005-1.035) 08/12/17 21:45 Urine Protein Negative mg/dL (<30 mg/dL) 08/12/17 21:45 Urine Glucose (UA) 250 mg/dL (NEGATIVE) H 08/12/17 21:45 Urine Ketones Negative mg/dL (NEGATIVE) 08/12/17 21:45 Urine Blood Negative (NEGATIVE) 08/12/17 21:45 Urine Nitrate Negative (NEGATIVE) 08/12/17 21:45 Urine Bilirubin Negative (NEGATIVE) 08/12/17 21:45 Urine Urobilinogen 0.2 E.U./dL (<1 E.U./dL) 08/12/17 21:45 Ur Leukocyte Esterase Small [place]/uL (NEGATIVE) H 08/12/17 21:45 Urine RBC 0 - 2 /hpf (0-2) 08/12/17 21:45 Urine WBC 2 - 5 /hpf (0-6) 08/12/17 21:45 Ur Epithelial Cells 0 - 2 /hpf (0-5) 08/12/17 21:45 Urine Bacteria Trace (NEG) 08/12/17 21:45 Attending/Attestation - Attestation I have personally seen and examined this patient.: Yes I have fully participated in the care of the patient.: Yes I have reviewed all pertinent clinical information, including history, physical exam and plan: Yes Notes (Text): 08/13/17 15:50 86 year old female with past medical history of hypertension, diabetes, and hypothyroidism who presented with complaint of dizziness and lightheadedness. CT head was negative for acute findings. Orthostatics were negative as well. Carotid dopplers were reviewed as above. She was seen by cardiology, neurology and physical therapy. Symptoms improved and she was ambulating without complaints. Patient is discharged home to follow up with her pmd. Recommend outpatient echocardiogram. Ara Cruz MD Hospitalist.
[2017-08-13 13:16] VITALS: RESP 16
[2017-08-13 13:21] VITALS: BP 177/98; PULSE 75; TEMP 98
--- NOTE | 2017-08-13 13:37 | US ---
PROCEDURE: Bilateral carotid artery duplex ultrasound HISTORY: Carotid stenosis syncope PHYSICIAN(S): Rafi Townsend MD. TECHNIQUE: Duplex sonography and color-flow Doppler were used to evaluate the carotid bifurcations and limited segments of the vertebral arteries bilaterally. FINDINGS: The exam is very limited by body habitus and tortuous vessels There is mild smooth heterogeneous plaque noted at the carotid bifurcations bilaterally. The peak systolic velocity in the proximal right internal carotid artery is 78 cm/sec. This corresponds to a 20 to 39% proximal right ICA stenosis. Normal systolic velocities are noted in the proximal right external carotid artery. There is antegrade flow in the right vertebral artery. The peak systolic velocity in the proximal left internal carotid artery is 61 cm/sec. This corresponds to a 20 to 39% proximal left ICA stenosis. Normal systolic velocities are noted in the proximal left external carotid artery. There is antegrade flow in the left vertebral artery. IMPRESSION: 1. Bilateral 20-39% proximal ICA stenoses. 2. Antegrade flow in both vertebral arteries.
--- NOTE | 2017-08-13 13:56 | US ---
PROCEDURE: Left lower extremity venous US HISTORY: Leg pain and swelling. Evaluate for DVT. PHYSICIAN(S): Rafi Townsend MD. TECHNIQUE: Duplex sonography and color-flow Doppler with graded compression were used to evaluate the deep venous system of the left lower extremity. FINDINGS: The visualized deep venous system of the left lower extremity is sonographically normal and compressible. Normal wave forms and augmentation are seen. There is no sonographic evidence for deep venous thrombosis in the visualized segments of the left lower extremity. IMPRESSION: 1. No sonographic evidence for deep venous thrombosis in the visualized segments of the left lower extremity.
--- NOTE | 2017-08-13 16:59 | PN ---
DATE: SUBJECTIVE: The patient denies any dizziness. She ambulated. No reported sustained arrhythmia. PHYSICAL EXAMINATION: VITAL SIGNS: Blood pressure 177/98, heart rate 75, temperature 98, and respirations 16. HEENT: Normocephalic. NECK: No JVD. CHEST: Clear. HEART: S1 and S2 regular. ABDOMEN: Soft. EXTREMITIES: No edema. LABORATORY DATA: SMA-7 is within normal limits except for glucose of 196 and anion gap of 9. TSH level is elevated at 6.02. Today's hemoglobin, hematocrit, white count, and platelet counts are within normal limit. I did review of the Neurology evaluation and the impression was dizziness, possibly vertebrobasilar, more likely benign positional vertigo and continue present management. ASSESSMENT: 1. Recurrent dizziness. 2. Uncontrolled diabetes mellitus. 3. Hypertension. 4. Hyperlipidemia. RECOMMENDATIONS: Continue current subcutaneous heparin 5000 units q.12 hours, Protonix 40 mg once a day, Synthroid 150 mcg once a day, Toprol XL 25 mg once a day, and Zetia 10 mg once a day. The case was discussed with medical team. Followup carotid Doppler prior to discharge. Oliver Plascencia MD
== END 2017-08-13 17:06 | disposition home or self-care (01) ==
LOC: ED 03:58 → ERH 05:14 → 3RSO 06:58
PROVIDERS: ADMIT Internal Medicine; ATTEND Internal Medicine
DX: H81.10 Benign paroxysmal vertigo, unspecified ear (principal); R42 Dizziness and giddiness; R55 Syncope and collapse; R40.2412 Glasgow coma scale score 13-15, at arrival to emergency department; I10 Essential (primary) hypertension; E10.65 Type 1 diabetes mellitus with hyperglycemia; E03.9 Hypothyroidism, unspecified; E78.5 Hyperlipidemia, unspecified; H40.9 Unspecified glaucoma; W19.XXXA Unspecified fall, initial encounter; Y92.003 Bedroom of unspecified non-institutional (private) residence as the place of occurrence of the external cause; Z79.4 Long term (current) use of insulin; Z87.891 Personal history of nicotine dependence; Z90.49 Acquired absence of other specified parts of digestive tract; R74.8 Abnormal levels of other serum enzymes; R94.31 Abnormal electrocardiogram [ECG] [EKG]
CPT/HCPCS: 36415; 70450; 71010; 80053; 81001; 82550; 82948; 83036; 83615; 83735; 84100; 84439; 84443; 84484; 85025; 85027; 85610; 85730; 87086; 93005; 93880; 93971; 96372; 96374; 97161; 99285; G0378; G8978; G8979; G8980; J1170; J1644

== ENCOUNTER 2017-12-24 13:36 | Emergency (ER) | payer MEDICARE, OTHER ==
[2017-12-24 13:39] VITALS: BMI 31.8
[2017-12-24 13:56] VITALS: RESP 18; TEMP 98.5
--- NOTE | 2017-12-24 14:22 | ED PDOC ---
Arrival/HPI - General Chief Complaint: Lower Extremity Problem/Injury Time Seen by Provider: 12/24/17 14:15 Historian: Patient - History of Present Illness Time/Duration: Other (2 days) Symptom Onset: Sudden Symptom Course: Unchanged Quality: Aching Severity Level: Moderate Associated Symptoms (Text): 12/24/17 14:20 Patient reports that 2 days prior to arrival the wind blew on her door which knocked her to the ground injuring her right lower extremity. This was a mechanical fall. No head trauma loss of consciousness syncope dizziness and lightheadedness numbness tingling or paresthesias. No chest pain palpitations or dyspnea. No abdominal pain nausea or vomiting. Patient has pain with weightbearing. She is fine when sitting or lying down. She lives at home alone and is unable to care for herself. 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) Hx Cataracts: Yes (LEFT WITH BLURRY VISION) Hx Glaucoma: Yes (RIGHT EYE) - Renal Hx Renal Disorder: No - Endocrine/Metabolic Hx Diabetes Mellitus Type 1: Yes Hx Hypothyroidism: Yes - Hematological/Oncological Hx Blood Disorders: No - Musculoskeletal/Rheumatological Hx Musculoskeletal Disorders: Yes Hx Falls: Yes (08-11-17) Hx Unsteady Gait: Yes - Gastrointestinal Hx Gastrointestinal Disorders: Yes (ACUTE COLITIS) Hx Gall Bladder Disease: Yes (CHOLECYSTECTOMY.APPENDECTOMY) - Genitourinary/Gynecological Hx Genitourinary Disorders: No - Psychiatric Hx Psychophysiologic Disorder: Yes (SMOKED CIGAREETES H/O) Hx Depression: No Hx Emotional Abuse: No Hx Physical Abuse: No Hx Substance Use: No - Surgical History Hx Appendectomy: Yes Hx Cholecystectomy: Yes Other/Comment: Colon tumor removal (benign) - Anesthesia Hx Anesthesia: Yes Hx Anesthesia Reactions: No - Suicidal Assessment Feels Threatened In Home Enviroment: No Family/Social History - Physician Review Nursing Documentation Reviewed: Yes Family/Social History: Unknown Family HX Smoking Status: Former Smoker Hx Alcohol Use: No Hx Substance Use: No Hx Substance Use Treatment: No Allergies/Home Meds Allergies/Adverse Reactions: Allergies No Known Allergies Allergy (Verified 08/12/17 13:10) Home Medications: Home Meds Medication Instructions Recorded Confirmed Levothyroxine Sodium 175 mcg PO DAILY 10/04/12 12/24/17 [Levothyroxine] Metoprolol Succinate 25 mg PO DAILY 10/04/12 12/24/17 Ezetimibe [Ezetimibe] 10 mg PO DAILY 04/28/17 12/24/17 Levothyroxine Sodium [Levothroid] 150 mcg PO DAILY 04/28/17 12/24/17 Insulin Glargine, Recombina 30 unit SC HS 12/24/17 12/24/17 [Lantus] Insulin Lispro [humALOG] 10 units SC TID 12/24/17 12/24/17 Review of Systems - Physician Review All systems were reviewed & negative as marked: Yes - Review of Systems Constitutional: Normal Respiratory: Normal Cardiovascular: Normal Gastrointestinal: Normal Genitourinary Female: Normal Neurological: Normal Physical Exam Vital Signs Temp Pulse Resp BP Pulse Ox 12/24/17 13:55 98.5 F 68 18 130/65 94 L Temperature: Afebrile Blood Pressure: Normal Pulse: Regular Respiratory Rate: Normal Appearance: Positive for: Well-Appearing, Non-Toxic, Comfortable Pain Distress: None Mental Status: Positive for: Alert and Oriented X 3 - Systems Exam Head: Present: Atraumatic, Normocephalic Pupils: Present: PERRL Extroacular Muscles: Present: EOMI Conjunctiva: Present: Normal Mouth: Present: Moist Mucous Membranes Respiratory/Chest: Present: Clear to Auscultation, Good Air Exchange. No: Respiratory Distress, Accessory Muscle Use Cardiovascular: Present: Regular Rate and Rhythm, Normal S1, S2. No: Murmurs Abdomen: No: Tenderness, Distention, Peritoneal Signs, Rebound, Guarding Upper Extremity: Present: Normal Inspection. No: Cyanosis, Edema Lower Extremity: Present: Normal Inspection, NORMAL PULSES, Normal ROM, Tenderness, Neurovascularly Intact, Other (Plus minus right knee tenderness with no swelling and no skin changes. The ankle and foot are normal. The hip is nontender.). No: Edema, CALF TENDERNESS, Cyanosis, Michael's Sign, Swelling, Erythema, Deformity Neurological: Present: GCS=15, CN II-XII Intact, Speech Normal, Motor Func Grossly Intact Skin: Present: Warm, Dry, Normal Color. No: Rashes Psychiatric: Present: Alert, Oriented x 3, Normal Insight, Normal Concentration Medical Decision Making ED Course and Treatment: 12/24/17 16:08 X-rays are negative. Patient has a walker at home. She lives in a building with an elevator. She feels that she will be able to manage at home on her own. She will be discharged to follow-up with PMD. Follow-up in the ER as needed. Tylenol or Advil for discomfort. - RAD Interpretation Radiology Orders: 12/24/17 14:15 HIP MIN 2V W/ PELVIS RT [RAD] Stat 12/24/17 14:16 FEMUR MIN 2 VIEWS RT [RAD] Stat KNEE RIGHT 2 VIEWS (AP & LAT) [RAD] Stat Pelvis, right knee, right femur, right hip show no fracture or dislocation. 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 Ulcer: No History Surgical Site Infection Following: None - Disposition Have Diagnosis and Disposition been Completed?: Yes Diagnosis: Contusion, hip and thigh Disposition: HOME/ ROUTINE Disposition Time: 16:10 Patient Plan: Discharge Condition: GOOD Discharge Instructions (ExitCare): Contusion (DC), Hip Pointer (DC) Additional Instructions: Rest ice and elevation. Tylenol or Advil as directed on bottle as needed. Follow -up with PMD. Follow up in ER as needed. Referrals: Rj Savage MD [Primary Care Provider] - Follow up with primary Forms: [employer] (Hungarian)
--- NOTE | 2017-12-24 16:17 | RAD ---
PROCEDURE: Right Femur Radiographs. HISTORY: trauma COMPARISON: None. TECHNIQUE: AP and Lateral Radiographs of the right femur. FINDINGS: FEMUR: Normal. No fracture. SOFT TISSUES: Normal. OTHER FINDINGS: None. IMPRESSION: Unremarkable radiographs of the right femur.
--- NOTE | 2017-12-24 16:17 | RAD ---
PROCEDURE: Right Hip and pelvis Radiographs. HISTORY: trauma COMPARISON: None. FINDINGS: BONES: Normal. No fracture. JOINTS: Normal. SOFT TISSUES: Normal. OTHER FINDINGS: None. IMPRESSION: Negative study
--- NOTE | 2017-12-24 16:18 | RAD ---
PROCEDURE: Right Knee Radiographs. HISTORY: trauma COMPARISON: None. FINDINGS: BONES: Normal. No fracture. JOINTS: Normal. No osteoarthritis. JOINT EFFUSION: None. OTHER FINDINGS: None. IMPRESSION: Normal radiographs of the right knee.
[2017-12-24 17:42] VITALS: BP 124/78; PULSE 72; O2SAT 98
== END 2017-12-24 17:47 | disposition home or self-care (01) ==
LOC: ED 13:36
DX: S70.01XA Contusion of right hip, initial encounter (principal); S70.11XA Contusion of right thigh, initial encounter; W18.39XA Other fall on same level, initial encounter; Y92.009 Unspecified place in unspecified non-institutional (private) residence as the place of occurrence of the external cause

== ENCOUNTER 2017-12-29 08:00 | Inpatient (IN) | payer MEDICARE ==
--- NOTE | 2017-12-29 08:23 | ED PDOC ---
Arrival/HPI - General Time Seen by Provider: 12/29/17 08:09 Historian: Patient - History of Present Illness Narrative History of Present Illness (Text): 12/29/17 08:20 87 year old female, whose PMH includes hypertension, diabetes, and COPD, who presents to the emergency department s/p mechanical fall one week ago. Patient was seen in the emergency department and x-ray readings were negative for fractures. Patient denies falling again and is complaining of not being able to bear weight or put pressure on right posterior leg. Patient denies head trauma, nausea, vomiting, shortness of breath, chest pain, or other complaints. PMD: Dr. 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) Hx Cataracts: Yes (LEFT WITH BLURRY VISION) Hx Glaucoma: Yes (RIGHT EYE) - Renal Hx Renal Disorder: No - Endocrine/Metabolic Hx Diabetes Mellitus Type 1: Yes Hx Hypothyroidism: Yes - Hematological/Oncological Hx Blood Disorders: No - Musculoskeletal/Rheumatological Hx Musculoskeletal Disorders: Yes Hx Falls: Yes (08-11-17) Hx Unsteady Gait: Yes - Gastrointestinal Hx Gastrointestinal Disorders: Yes (ACUTE COLITIS) Hx Gall Bladder Disease: Yes (CHOLECYSTECTOMY.APPENDECTOMY) - Genitourinary/Gynecological Hx Genitourinary Disorders: No - Psychiatric Hx Psychophysiologic Disorder: Yes (SMOKED CIGAREETES H/O) Hx Depression: No Hx Emotional Abuse: No Hx Physical Abuse: No Hx Substance Use: No - Surgical History Hx Appendectomy: Yes Hx Cholecystectomy: Yes Other/Comment: Colon tumor removal (benign) - Anesthesia Hx Anesthesia: Yes Hx Anesthesia Reactions: No - Suicidal Assessment Feels Threatened In Home Enviroment: No Family/Social History - Physician Review Nursing Documentation Reviewed: Yes Family/Social History: Unknown Family HX Smoking Status: Former Smoker Hx Alcohol Use: No Hx Substance Use: No Hx Substance Use Treatment: No Allergies/Home Meds Allergies/Adverse Reactions: Allergies No Known Allergies Allergy (Verified 08/12/17 13:10) Home Medications: Home Meds Medication Instructions Recorded Confirmed Levothyroxine Sodium 175 mcg PO DAILY 10/04/12 12/29/17 [Levothyroxine] Metoprolol Succinate 25 mg PO DAILY 10/04/12 12/29/17 Ezetimibe [Ezetimibe] 10 mg PO DAILY 04/28/17 12/29/17 Insulin Glargine, Recombina 30 unit SC HS 12/24/17 12/29/17 [Lantus] Insulin Lispro [humALOG] 10 units SC TID 12/24/17 12/29/17 Review of Systems - Physician Review All systems were reviewed & negative as marked: Yes - Review of Systems Constitutional: absent: Fevers Respiratory: absent: SOB Cardiovascular: absent: Chest Pain Musculoskeletal: Other (right leg posterior pain ) Physical Exam Vital Signs Reviewed: Yes Vital Signs Temp Pulse Resp BP Pulse Ox 12/29/17 12:00 82 18 155/80 H 96 12/29/17 10:00 78 18 165/70 H 96 12/29/17 08:00 98.5 F 82 18 169/67 H 96 Temperature: Afebrile Blood Pressure: Normal Pulse: Regular Respiratory Rate: Normal Appearance: Positive for: Well-Appearing, Non-Toxic, Comfortable Pain Distress: None Mental Status: Positive for: Alert and Oriented X 3 - Systems Exam Head: Present: Atraumatic, Normocephalic Pupils: Present: PERRL Extroacular Muscles: Present: EOMI Conjunctiva: Present: Normal Respiratory/Chest: Present: Clear to Auscultation, Good Air Exchange. No: Respiratory Distress, Accessory Muscle Use, Wheezes, Rales, Retracting, Rhonchi Cardiovascular: Present: Regular Rate and Rhythm, Normal S1, S2. No: Murmurs Abdomen: No: Tenderness, Distention, Peritoneal Signs, Rebound, Guarding Lower Extremity: Present: NORMAL PULSES, Normal ROM, Tenderness (right legt posterior tenderness), Neurovascularly Intact, Capillary Refill < 2 s. No: Normal Inspection, Edema, Erythema, Deformity Neurological: Present: GCS=15, CN II-XII Intact, Speech Normal Skin: Present: Warm, Dry, Normal Color. No: Rashes Psychiatric: Present: Alert, Oriented x 3, Normal Insight, Normal Concentration Medical Decision Making ED Course and Treatment: 12/29/17 Impression: 87 year old female with right leg posterior tenderness. Plan: -- CT lower extremity -- Labs -- Toradol -- Reassess and disposition Progress Notes: 12/29/17 10:[address]: Creator : Elmer Uriarte MD FINDINGS: There is no evidence of fracture or bony abnormality. There is no soft tissue abnormality.There is no evidence of subcutaneous edema or muscular edema. No evidence of hemorrhage. IMPRESSION: Negative study 12/29/17 13:50 pt lives byherself. cannot ambulate at home. needs pt eval for gait dysfunction. discussed with abigail bruno for admission - Lab Interpretations Lab Results: 12/29/17 08:30 12/29/17 08:30 Lab Results 12/29/17 08:41: POC Glucose (mg/dL) 268 H 12/29/17 08:30: Sodium 134, Potassium 3.9, Chloride 95 L, Carbon Dioxide 27, Anion Gap 15, BUN 20, Creatinine 0.8, Est GFR ( Amer) > 60, Est GFR (Non- Af Amer) > 60, Random Glucose 299 H, Calcium 9.4, Total Bilirubin 0.7, AST 39 H , ALT 34, Alkaline Phosphatase 129 H, Total Protein 7.6, Albumin 3.9, Globulin 3.7, Albumin/Globulin Ratio 1.0 L 12/29/17 08:30: PT 11.9, INR 1.03, APTT 32.2 12/29/17 08:30: WBC 5.9, RBC 4.29, Hgb 13.7, Hct 39.4, MCV 91.8, MCH 31.9, MCHC 34.8, RDW 12.8, Plt Count 198, MPV 10.2, Gran % 73.8 H, Lymph % (Auto) 12.4 L, [place] % (Auto) 13.6 H, Eos % (Auto) 0.0 L, Baso % (Auto) 0.2, Gran # 4.36, Lymph # (Auto) 0.7 L, [place] # (Auto) 0.8 H, Eos # (Auto) 0.0, Baso # (Auto) 0.01 I have reviewed the lab results: Yes - RAD Interpretation Radiology Orders: 12/29/17 08:21 EXT LOWER W/O CONTRAST RIGHT [CT] Stat 12/29/17 09:08 DUPLEX LOWER EXTRM VEIN RIGHT [US] Stat 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 - Medication Orders Current Medication Orders: Acetaminophen (Tylenol 325mg Tab) 650 mg PO Q4 PRN PRN Reason: Pain, moderate (4-7) Ezetimibe (Zetia) 10 mg PO DAILY ISAI Insulin Detemir (Levemir) 10 unit SC Q12 ISAI Insulin Human Lispro (Humalog) 5 units SC TID ISAI Insulin Human Lispro (Humalog Med) 0 units SC ACHS ISAI PRN Reason: Protocol Levothyroxine Sodium (Synthroid) 175 mcg PO DAILY ISAI Metoprolol Succinate (Toprol Xl) 25 mg PO DAILY ISAI Discontinued Medications Ketorolac Tromethamine (Toradol) 30 mg IVP STAT STA Stop: 12/29/17 08:21 Last Admin: 12/29/17 08:43 Dose: 30 mg MAR Pain Assessment Document 12/29/17 08:43 LUKASZ (Rec: 12/29/17 08:43 LUKASZ [id number]) Pain Reassessment Is this a pain reassessment? No Sleep Is patient sleeping during reassessment? No Presence of Pain Presence of Pain Yes Pain Scale Used Pain Scale Used Numeric Location Left, Right or Bilateral Right Pain Location Body Site Leg Description Description Constant Intensity of Pain at present 51 IVP Administration Document 12/29/17 08:43 LUKASZ (Rec: 12/29/17 08:43 LUKASZ [id number]) Charges for Administration # of IVP Administrations 1 - Scribe Statement The provider has reviewed the documentation as recorded by the Nesha Norwood Provider Scribe Attestation: All medical record entries made by the Scribmike were at my direction and personally dictated by me. I have reviewed the chart and agree that the record accurately reflects my personal performance of the history, physical exam, medical decision making, and the department course for this patient. I have also personally directed, reviewed, and agree with the discharge instructions and disposition. Disposition/Present on Arrival - Present on Arrival Any Indicators Present on Arrival: No History of DVT/PE: No History of Uncontrolled Diabetes: Yes Urinary Catheter: No History Surgical Site Infection Following: None - Disposition Have Diagnosis and Disposition been Completed?: Yes Diagnosis: Fall, Gait abnormality, Leg pain Disposition: HOSPITALIZED Disposition Time: 13:52 Condition: STABLE
[2017-12-29 08:59] LABS: BASO # 0.01 K/mm3 (0.0-2.0); BASO % 0.2 % (0.0-3.0); GRAN # 4.36 (1.4-6.5); GRAN % 73.8 % (50.0-68.0); HEMOGLOBIN 13.7 g/dL (12.0-16.0); LYMPH # 0.7 (1.2-3.4); LYMPH % 12.4 % (22.0-35.0); MEAN CELL VOLUME 91.8 fl (80.0-105.0); MEAN CORPUSCULAR HEMOGLOBIN 31.9 pg (25.0-35.0); MEAN CORPUSCULAR HGB CONC 34.8 g/dl (31.0-37.0); MEAN PLATELET VOLUME 10.2 fl (7.0-11.0); MONO # 0.8 (0.1-0.6); MONO % 13.6 % (1.0-6.0); RBC 4.29 10^6/uL (3.5-6.1); RED CELL DISTRIBUTION WIDTH 12.8 % (11.5-14.5); WHITE BLOOD COUNT 5.9 10^3/ul (4.5-11.0)
[2017-12-29 09:04] LABS: ALBUMIN 3.9 g/dL (3.0-4.8); BLOOD UREA NITROGEN 20 mg/dL (7-21); CALCIUM 9.4 mg/dL (8.4-10.5); GFR AFRICAN-AMERICAN > 60; GFR NON-AFRICAN AMERICAN > 60
[2017-12-29 09:05] LABS: ALT/SGPT 34 U/L (7-56); AST/SGOT 39 U/L (14-36)
[2017-12-29 09:14] LABS: INR 1.03 (0.93-1.08); PARTIAL THROMBOPLASTIN TIME 32.2 Seconds (25.1-36.5); PROTHROMBIN TIME 11.9 SECONDS (9.4-12.5)
--- NOTE | 2017-12-29 10:32 | CT ---
PROCEDURE: CT of the right hip and femur without contrast HISTORY: trauma- right hip to right knee pain COMPARISON: TECHNIQUE: CT was performed from the right hip to the knee. Sagittal and coronal reconstructions were provided FINDINGS: There is no evidence of fracture or bony abnormality. There is no soft tissue abnormality. There is no evidence of subcutaneous edema or muscular edema. No evidence of hemorrhage. IMPRESSION: Negative study
--- NOTE | 2017-12-29 11:01 | CP.PCM.HP ---
<Wolf Carmen - Last Filed: 12/29/17 14:59> History of Present Illness - History of Present Illness History of Present Illness: Subjective: CC: Fall HPI: Patient is a 86 yo F with PMHx of HTN, HLD, DM, hypothyroidism, and glaucoma who presents to the ED for evaluation and treatment of a fall. States she fell approximately 1 week ago without any provking event and was evaluated in an emergency department at that time. Patient was deemed to have experienced a mechanical fall without loss of consciousness. Now complains of a 5 day history of right thigh pain and sleepiness. She remembers the events of the fall and denies head trauma. The pain is described as being sharp, non-radiating, and remains localized to the right posterior/medial thigh when bearing weight. The pain relieved with lying down. She has taken Tylenol PRN for the pain with minimal relief. Admits to fatigue. Denies fever, chills, chest pain, shortness of breath, abdominal pain, nausea, vomiting, diarrhea, constipation, and urinary symptoms. PMH: HTN, HLD, DM, hypothyroidism, and glaucoma, colon cancer PSH: Appendectomy, unknown colon surgery for tumor, cholecystectomy Soc: 10pyh quit 30 years ago, denies alcohol or illicits FHx: Noncontributory Allergies: NKDA Primary care physician: Dr. Savage Pharmacy: [facility] in [place] [phone] Physical Examination: - Head Exam Head Exam: ATRAUMATIC, NORMOCEPHALIC - Constitutional Appears: Non-toxic, No Acute Distress - Head Exam Head Exam: ATRAUMATIC, NORMOCEPHALIC - Eye Exam Eye Exam: EOMI - ENT Exam ENT Exam: Mucous Membranes Moist - Neck Exam Neck exam: Positive for: Full Rom - Respiratory Exam Respiratory Exam: - Cardiovascular Exam Cardiovascular Exam: +S1, +S2 - GI/Abdominal Exam GI & Abdominal Exam: Normal Bowel Sounds, Soft, Non tender to palpation absent : Distended, Firm, Mass, Rebound, Rigid - Extremities Exam Extremities exam: Positive for: normal inspection. Negative for: calf tenderness, pedal edema - MSK Exam MSK exam: tender to palpation right lateral thigh - Neurological Exam Neurological exam: Alert, Oriented x3 - Psychiatric Exam Psychiatric exam: Normal Affect, Normal Mood - Skin Skin Exam: Intact, Normal Color, Warm Assessment and Plan: Patient is a 86 yo F with PMHx of HTN, HLD, DM, hypothyroidism, and glaucoma who was admitted for evaluation and treatment of a fall. Fall - CT of right LE reviewed and appreciated- There is no evidence of fracture or bony abnormality. There is no soft tissue abnormality. There is no evidence of subcutaneous edema or muscular edema. No evidence of hemorrhage - right LE US- ordered by ED attending, pending at time of admission - PT/OT consulted appreciate recommendations Hx of DM - blood glucoses trended and appreciated - achs - ISS - levemir - humalog Hx of HTN - continue toprol Hx of HLD - continue zeita Prophylaxis - dvt ppx- scd - gi ppx- not indicated Patient seen with, case reviewed with, and plan approved by attending physician , Dr. Dave. 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) Hx Cataracts: Yes (LEFT WITH BLURRY VISION) Hx Glaucoma: Yes (RIGHT EYE) - RENAL Hx Chronic Kidney Disease: No - ENDOCRINE/METABOLIC Hx Diabetes Mellitus Type 1: Yes Hx Hypothyroidism: Yes - HEMATOLOGICAL/ONCOLOGICAL Hx Blood Disorders: No - MUSCULOSKELETAL/RHEUMATOLOGICAL Hx Musculoskeletal Disorders: Yes Hx Falls: Yes (08-11-17) Hx Unsteady Gait: Yes - GASTROINTESTINAL Hx Gastrointestinal Disorders: Yes (ACUTE COLITIS) Hx Gall Bladder Disease: Yes (CHOLECYSTECTOMY.APPENDECTOMY) - GENITOURINARY/GYNECOLOGICAL Hx Genitourinary Disorders: No - PSYCHIATRIC Hx Psychophysiologic Disorder: Yes (SMOKED CIGAREETES H/O) Hx Depression: No Hx Emotional Abuse: No Hx Physical Abuse: No Hx Substance Use: No - SURGICAL HISTORY Hx Appendectomy: Yes Hx Cholecystectomy: Yes Other/Comment: Colon tumor removal (benign) - ANESTHESIA Hx Anesthesia: Yes Hx Anesthesia Reactions: No Meds Allergies/Adverse Reactions: Allergies Allergy/AdvReac Type Severity Reaction Status Date / Time No Known Allergies Allergy Verified 08/12/17 13:10 Results - Vital Signs Recent Vital Signs: Last Vital Signs Temp 98.5 F 12/29/17 08:00 Pulse 82 12/29/17 08:00 Resp 18 12/29/17 08:00 BP 169/67 H 12/29/17 08:00 Pulse Ox 96 12/29/17 08:00 - Labs Result Diagrams: 12/29/17 08:30 12/29/17 08:30 <Dolores Dave - Last Filed: 12/29/17 17:51> Results - Vital Signs Recent Vital Signs: Last Vital Signs Temp 99.4 F 12/29/17 14:25 Pulse 87 12/29/17 14:25 Resp 18 12/29/17 14:25 BP 111/55 L 12/29/17 14:25 Pulse Ox 92 L 12/29/17 14:00 - Labs Result Diagrams: 12/29/17 08:30 12/29/17 08:30 Labs: Laboratory Results - last 24 hr 12/29/17 16:05 POC Glucose (mg/dL) 261 H Attending/Attestation - Attestation I have personally seen and examined this patient.: Yes I have fully participated in the care of the patient.: Yes I have reviewed all pertinent clinical information: Yes Notes (Text): I have seen and examined the patient at bedside. Agree with the patient's note dictated by the resident. Labs, vitals and imaging reviewed by me. RLE US pending. PT eval pending. Upon discharge patient will follow up with Dr Tao. Dr Dolores Dave
--- NOTE | 2017-12-29 11:12 | US ---
PROCEDURE: Right lower extremity venous US HISTORY: Leg pain and swelling. Evaluate for DVT. PHYSICIAN(S): Rafi Townsend M.D. TECHNIQUE: Duplex sonography and color-flow Doppler with graded compression were used to evaluate the deep venous system of the right lower extremity. FINDINGS: The visualized deep venous system of the right lower extremity is sonographically normal and compressible. Normal waveforms and augmentation are seen. There is no sonographic evidence for deep venous thrombosis in the visualized segments of the right lower extremity. IMPRESSION: 1. No sonographic evidence for deep venous thrombosis in the visualized segments of the right lower extremity.
[2017-12-29] MEDS ORDERED: Metoprolol Succinate 25 mg XL Tab PO SCH (13:00)
[2017-12-29] MEDS ORDERED: Insulin Detemir 100 units/ml Vial (Levemir) SC SCH ×2 (13:00→22:00)
[2017-12-29] MEDS: Insulin Lispro 1 UNITS/0.01 ML SC SCH ×2 (13:58→17:57)
[2017-12-29] MEDS: Levothyroxine 175 MCG TAB PO SCH (17:55)
[2017-12-29] MEDS: Insulin Lispro (humaLOG) MEDIUM Coverage SC SCH ×2 (17:58→21:42)
[2017-12-30 08:46] LABS: BASO # 0.01 K/mm3 (0.0-2.0); BASO % 0.3 % (0.0-3.0); EOS % 0.3 % (1.5-5.0); GRAN # 2.08 (1.4-6.5); GRAN % 52.7 % (50.0-68.0); HEMOGLOBIN 12.8 g/dL (12.0-16.0); LYMPH # 1.3 (1.2-3.4); LYMPH % 32.5 % (22.0-35.0); MEAN CORPUSCULAR HEMOGLOBIN 31.1 pg (25.0-35.0); MEAN CORPUSCULAR HGB CONC 34.1 g/dl (31.0-37.0); MEAN PLATELET VOLUME 10.4 fl (7.0-11.0); MONO # 0.6 (0.1-0.6); MONO % 14.2 % (1.0-6.0); RBC 4.12 10^6/uL (3.5-6.1); RED CELL DISTRIBUTION WIDTH 12.8 % (11.5-14.5); WHITE BLOOD COUNT 3.9 10^3/ul (4.5-11.0)
[2017-12-30 09:02] LABS: ALB/GLOB RATIO 1.2 (1.1-1.8); ALBUMIN 3.7 g/dL (3.0-4.8); ALT/SGPT 34 U/L (7-56); AST/SGOT 45 U/L (14-36); BLOOD UREA NITROGEN 27 mg/dL (7-21); CALCIUM 8.3 mg/dL (8.4-10.5); GFR AFRICAN-AMERICAN > 60; GFR NON-AFRICAN AMERICAN > 60
[2017-12-30] MEDS ORDERED: Potassium Chloride 20 mEq ER Tab PO ONE (10:09)
[2017-12-30] MEDS: Insulin Detemir 100 units/ml Vial (Levemir) SC SCH ×2 (10:35→22:29)
[2017-12-30] MEDS: Insulin Lispro 1 UNITS/0.01 ML SC SCH ×3 (10:36→18:25)
[2017-12-30] MEDS: Insulin Lispro (humaLOG) MEDIUM Coverage SC SCH ×4 (10:37→22:24)
[2017-12-30] MEDS: Metoprolol Succinate 25 mg XL Tab PO SCH (10:37)
[2017-12-30] MEDS: Levothyroxine 175 MCG TAB PO SCH (10:37)
[2017-12-30] MEDS ORDERED: Albuterol-Ipratrop 3 mg / 0.5 (3 ml) UD IH PRN (13:08)
--- NOTE | 2017-12-30 17:49 | CP.PCM.PN ---
<Darryl Cheung - Last Filed: 12/30/17 17:45> Subjective - Date & Time of Evaluation Date of Evaluation: 12/30/17 Time of Evaluation: 10:00 - Subjective Subjective: Patient seen and examined at bedside. No overnight events reported. Patient complains of right medial thigh pain that hasn't improved since admision. Patient offers no other complaints at this time. Objective - Vital Signs/Intake and Output Vital Signs (last 24 hours): Temp Pulse Resp BP Pulse Ox 98.9 F 82 20 106/52 L 94 L 12/29/17 22:00 12/29/17 22:00 12/29/17 22:00 12/29/17 22:00 12/29/17 22:00 Intake and Output: 12/30/17 12/30/17 06:59 18:59 Intake Total 780 480 Balance 780 480 - Medications Medications: Current Medications Acetaminophen (Tylenol 325mg Tab) 650 mg PO Q4 PRN PRN Reason: Pain, moderate (4-7) Albuterol/Ipratropium (Duoneb 3 Mg/0.5 Mg (3 Ml) Ud) 3 ml IH [id number] PRN PRN Reason: Cough Ezetimibe (Zetia) 10 mg PO DAILY [facility] Last Admin: 12/30/17 10:37 Dose: 10 mg Insulin Detemir (Levemir) 12 unit SC Q12 [facility] Last Admin: 12/30/17 10:35 Dose: 12 unit Insulin Human Lispro (Humalog) 5 units SC TID [facility] Last Admin: 12/30/17 16:29 Dose: 5 units Insulin Human Lispro (Humalog Med) 0 units SC ACHS [facility] PRN Reason: Protocol Last Admin: 12/30/17 16:29 Dose: 1 units Levothyroxine Sodium (Synthroid) 175 mcg PO DAILY [facility] Last Admin: 12/30/17 10:37 Dose: 175 mcg Metoprolol Succinate (Toprol Xl) 12.5 mg PO DAILY [facility] Last Admin: 12/30/17 10:37 Dose: 12.5 mg Montelukast Sodium (Singulair) 10 mg PO HS [facility] - Labs Labs: 12/30/17 07:00 12/30/17 06:20 PT 11.9 SECONDS (9.4-12.5) 12/29/17 08:30 INR 1.03 (0.93-1.08) 12/29/17 08:30 APTT 32.2 Seconds (25.1-36.5) 12/29/17 08:30 - Additional Findings Additional findings: - Head Exam Head Exam: ATRAUMATIC, NORMOCEPHALIC - Constitutional Appears: Non-toxic, No Acute Distress - Head Exam Head Exam: ATRAUMATIC, NORMOCEPHALIC - Eye Exam Eye Exam: EOMI - ENT Exam ENT Exam: Mucous Membranes Moist - Neck Exam Neck exam: Positive for: Full Rom - Respiratory Exam Respiratory Exam: - Cardiovascular Exam Cardiovascular Exam: +S1, +S2 - GI/Abdominal Exam GI & Abdominal Exam: Normal Bowel Sounds, Soft, Non tender to palpation absent : Distended, Firm, Mass, Rebound, Rigid - Extremities Exam Extremities exam: Positive for: normal inspection. Negative for: calf tenderness, pedal edema - MSK Exam MSK exam: tender to palpation right medial thigh - Neurological Exam Neurological exam: Alert, Oriented x3 - Psychiatric Exam Psychiatric exam: Normal Affect, Normal Mood - Skin Skin Exam: Intact, Normal Color, Warm Assessment and Plan - Assessment and Plan (Free Text) Assessment: Patient is a 86 yo F with PMHx of HTN, HLD, DM, hypothyroidism, and glaucoma who was admitted for evaluation and treatment of a fall. Plan: Fall - CT of right LE reviewed and appreciated- There is no evidence of fracture or bony abnormality. There is no soft tissue abnormality. There is no evidence of subcutaneous edema or muscular edema. No evidence of hemorrhage - right LE US- ordered by ED attending, pending at time of admission - PT/OT consulted appreciate recommendations PT recommends TCU -TCU Eval. Hx of DM - blood glucoses trended and appreciated - achs - ISS - levemir - humalog Hx of HTN - continue toprol Hx of HLD - continue Ezetimibe Prophylaxis - dvt ppx- scd - gi ppx- not indicated Patient seen and examined with Dr. Dave <Dolores Dave - Last Filed: 12/31/17 16:17> Objective - Vital Signs/Intake and Output Vital Signs (last 24 hours): Temp Pulse Resp BP Pulse Ox 98.5 F 76 20 140/66 96 12/30/17 22:00 12/30/17 22:00 12/30/17 22:00 12/30/17 22:00 12/30/17 22:00 Intake and Output: 12/31/17 12/31/17 06:59 18:59 Intake Total 120 480 Balance 120 480 - Medications Medications: Current Medications Acetaminophen (Tylenol 325mg Tab) 650 mg PO Q4 PRN PRN Reason: Pain, moderate (4-7) Albuterol/Ipratropium (Duoneb 3 Mg/0.5 Mg (3 Ml) Ud) 3 ml IH [id number] PRN PRN Reason: Cough Last Admin: 12/31/17 09:16 Dose: 3 ml Benzonatate (Tessalon Perles) 100 mg PO TID [facility] Last Admin: 12/31/17 14:45 Dose: 100 mg Ezetimibe (Zetia) 10 mg PO DAILY [facility] Last Admin: 12/31/17 11:03 Dose: 10 mg Guaifenesin (Robitussin) 200 mg PO Q4H PRN PRN Reason: Cough and congestion Last Admin: 12/31/17 14:45 Dose: 200 mg Insulin Detemir (Levemir) 12 unit SC Q12 [facility] Last Admin: 12/31/17 12:31 Dose: 12 unit Insulin Human Lispro (Humalog) 5 units SC TID [facility] Last Admin: 12/31/17 14:49 Dose: 5 units Insulin Human Lispro (Humalog Med) 0 units SC ACHS [facility] PRN Reason: Protocol Last Admin: 12/31/17 14:46 Dose: 1 units Levothyroxine Sodium (Synthroid) 175 mcg PO DAILY [facility] Last Admin: 12/31/17 11:03 Dose: 175 mcg Metoprolol Succinate (Toprol Xl) 12.5 mg PO DAILY [facility] Last Admin: 12/31/17 11:03 Dose: 12.5 mg Montelukast Sodium (Singulair) 10 mg PO HS [facility] Last Admin: 12/30/17 22:35 Dose: 10 mg - Labs Labs: 12/31/17 06:00 12/31/17 06:00 PT 11.9 SECONDS (9.4-12.5) 12/29/17 08:30 INR 1.03 (0.93-1.08) 12/29/17 08:30 APTT 32.2 Seconds (25.1-36.5) 12/29/17 08:30 Attending/Attestation - Attestation I have personally seen and examined this patient.: Yes I have fully participated in the care of the patient.: Yes I have reviewed all pertinent clinical information, including history, physical exam and plan: Yes Notes (Text): I have seen and examined the patient at bedside. Agree with the patient's note dictated by the resident. Labs, vitals and imaging reviewed by me. PT recommended TCU. Upon discharge patient will follow up with Dr Tao. Dr Dolores Dave
[2017-12-31 07:09] LABS: BASO # 0.01 K/mm3 (0.0-2.0); BASO % 0.2 % (0.0-3.0); EOS % 0.5 % (1.5-5.0); GRAN # 2.11 (1.4-6.5); GRAN % 47.6 % (50.0-68.0); HEMOGLOBIN 12.6 g/dL (12.0-16.0); LYMPH # 1.6 (1.2-3.4); LYMPH % 36.1 % (22.0-35.0); MEAN CELL VOLUME 91.4 fl (80.0-105.0); MEAN CORPUSCULAR HEMOGLOBIN 30.9 pg (25.0-35.0); MEAN CORPUSCULAR HGB CONC 33.8 g/dl (31.0-37.0); MEAN PLATELET VOLUME 10.4 fl (7.0-11.0); MONO # 0.7 (0.1-0.6); MONO % 15.6 % (1.0-6.0); RBC 4.08 10^6/uL (3.5-6.1); RED CELL DISTRIBUTION WIDTH 12.9 % (11.5-14.5); WHITE BLOOD COUNT 4.4 10^3/ul (4.5-11.0)
[2017-12-31 07:34] LABS: ALB/GLOB RATIO 1.1 (1.1-1.8); ALBUMIN 3.6 g/dL (3.0-4.8); ALT/SGPT 34 U/L (7-56); AST/SGOT 41 U/L (14-36); BLOOD UREA NITROGEN 21 mg/dL (7-21); CALCIUM 8.5 mg/dL (8.4-10.5); GFR AFRICAN-AMERICAN > 60; GFR NON-AFRICAN AMERICAN 59
[2017-12-31] MEDS: Insulin Lispro (humaLOG) MEDIUM Coverage SC SCH ×4 (08:34→21:56)
[2017-12-31] MEDS: Insulin Lispro 1 UNITS/0.01 ML SC SCH ×3 (11:02→17:33)
[2017-12-31] MEDS: Levothyroxine 175 MCG TAB PO SCH (11:03)
[2017-12-31] MEDS: Metoprolol Succinate 25 mg XL Tab PO SCH (11:03)
[2017-12-31 12:25] LABS: HEPATITIS B SURFACE AG Negative (NEGATIVE)
[2017-12-31 12:31] LABS: HEPATITIS A IGM NEGATIVE (NEGATIVE); HEPATITIS B CORE AB NEGATIVE (NEGATIVE)
[2017-12-31] MEDS: Insulin Detemir 100 units/ml Vial (Levemir) SC SCH ×2 (12:31→22:00)
[2017-12-31 12:43] LABS: HEPATITIS C ANTIBODY NEGATIVE (NEGATIVE)
[2017-12-31] MEDS ORDERED: guaiFENesin 200 mg/10 ml Syrup UD PO PRN (12:57)
--- NOTE | 2017-12-31 15:26 | RAD ---
HISTORY: r/o infiltrate COMPARISON: 08/12/2017 FINDINGS: LUNGS: No active pulmonary disease. PLEURA: No significant pleural effusion identified, no pneumothorax apparent. CARDIOVASCULAR: Normal. OSSEOUS STRUCTURES: No significant abnormalities. VISUALIZED UPPER ABDOMEN: Normal. OTHER FINDINGS: None. IMPRESSION: No active disease.
--- NOTE | 2017-12-31 17:23 | CP.PCM.PN ---
<Darryl Cheung - Last Filed: 12/31/17 17:19> Subjective - Date & Time of Evaluation Date of Evaluation: 12/31/17 Time of Evaluation: 08:45 - Subjective Subjective: Patient seen and examined at beside. Reports little improvement in pain. Patient also reports worsening of her cough. Denies any CP or SOB. Objective - Vital Signs/Intake and Output Vital Signs (last 24 hours): Temp Pulse Resp BP Pulse Ox 98.5 F 76 20 140/66 96 12/30/17 22:00 12/30/17 22:00 12/30/17 22:00 12/30/17 22:00 12/30/17 22:00 Intake and Output: 12/31/17 12/31/17 06:59 18:59 Intake Total 120 480 Balance 120 480 - Medications Medications: Current Medications Acetaminophen (Tylenol 325mg Tab) 650 mg PO Q4 PRN PRN Reason: Pain, moderate (4-7) Albuterol/Ipratropium (Duoneb 3 Mg/0.5 Mg (3 Ml) Ud) 3 ml IH [id number] PRN PRN Reason: Cough Last Admin: 12/31/17 09:16 Dose: 3 ml Benzonatate (Tessalon Perles) 100 mg PO TID [facility] Last Admin: 12/31/17 14:45 Dose: 100 mg Ezetimibe (Zetia) 10 mg PO DAILY [facility] Last Admin: 12/31/17 11:03 Dose: 10 mg Guaifenesin (Robitussin) 200 mg PO Q4H PRN PRN Reason: Cough and congestion Last Admin: 12/31/17 14:45 Dose: 200 mg Insulin Detemir (Levemir) 12 unit SC Q12 [facility] Last Admin: 12/31/17 12:31 Dose: 12 unit Insulin Human Lispro (Humalog) 5 units SC TID [facility] Last Admin: 12/31/17 14:49 Dose: 5 units Insulin Human Lispro (Humalog Med) 0 units SC ACHS [facility] PRN Reason: Protocol Last Admin: 12/31/17 14:46 Dose: 1 units Levothyroxine Sodium (Synthroid) 175 mcg PO DAILY [facility] Last Admin: 12/31/17 11:03 Dose: 175 mcg Metoprolol Succinate (Toprol Xl) 12.5 mg PO DAILY [facility] Last Admin: 12/31/17 11:03 Dose: 12.5 mg Montelukast Sodium (Singulair) 10 mg PO HS [facility] Last Admin: 12/30/17 22:35 Dose: 10 mg - Labs Labs: 12/31/17 06:00 12/31/17 06:00 PT 11.9 SECONDS (9.4-12.5) 12/29/17 08:30 INR 1.03 (0.93-1.08) 12/29/17 08:30 APTT 32.2 Seconds (25.1-36.5) 12/29/17 08:30 - Additional Findings Additional findings: - Head Exam Head Exam: ATRAUMATIC, NORMOCEPHALIC - Constitutional Appears: Non-toxic, No Acute Distress - Head Exam Head Exam: ATRAUMATIC, NORMOCEPHALIC - Eye Exam Eye Exam: EOMI - ENT Exam ENT Exam: Mucous Membranes Moist - Neck Exam Neck exam: Positive for: Full Rom - Respiratory Exam Respiratory Exam: - Cardiovascular Exam Cardiovascular Exam: +S1, +S2 - GI/Abdominal Exam GI & Abdominal Exam: Normal Bowel Sounds, Soft, Non tender to palpation absent : Distended, Firm, Mass, Rebound, Rigid - Extremities Exam Extremities exam: Positive for: normal inspection. Negative for: calf tenderness, pedal edema - MSK Exam MSK exam: tender to palpation right medial thigh - Neurological Exam Neurological exam: Alert, Oriented x3 - Psychiatric Exam Psychiatric exam: Normal Affect, Normal Mood - Skin Skin Exam: Intact, Normal Color, Warm Assessment and Plan - Assessment and Plan (Free Text) Assessment: Patient is a 86 yo F with PMHx of HTN, HLD, DM, hypothyroidism, and glaucoma who was admitted for evaluation and treatment of a fall. Plan: Fall - CT of right LE reviewed and appreciated- There is no evidence of fracture or bony abnormality. There is no soft tissue abnormality. There is no evidence of subcutaneous edema or muscular edema. No evidence of hemorrhage - right LE US-NO DVT - PT/OT consulted appreciate recommendations PT recommends TCU -TCU Eval PENDING Cough PRN Robitussin [facility] Kathleen Chaney Hx of DM - blood glucoses trended and appreciated - achs - ISS - levemir - humalog Hx of HTN - continue toprol Hx of HLD - continue Ezetimibe Prophylaxis - dvt ppx- scd - gi ppx- not indicated Patient seen and examined with Dr. Jolie Cheung, PGY-1 <Dolores Dave - Last Filed: 12/31/17 17:36> Objective - Vital Signs/Intake and Output Vital Signs (last 24 hours): Temp Pulse Resp BP Pulse Ox 98.5 F 76 20 140/66 96 12/30/17 22:00 12/30/17 22:00 12/30/17 22:00 12/30/17 22:00 12/30/17 22:00 Intake and Output: 12/31/17 12/31/17 06:59 18:59 Intake Total 120 480 Balance 120 480 - Medications Medications: Current Medications Acetaminophen (Tylenol 325mg Tab) 650 mg PO Q4 PRN PRN Reason: Pain, moderate (4-7) Albuterol/Ipratropium (Duoneb 3 Mg/0.5 Mg (3 Ml) Ud) 3 ml IH [id number] PRN PRN Reason: Cough Last Admin: 12/31/17 09:16 Dose: 3 ml Benzonatate (Tessalon Perles) 100 mg PO TID [facility] Last Admin: 12/31/17 14:45 Dose: 100 mg Ezetimibe (Zetia) 10 mg PO DAILY [facility] Last Admin: 12/31/17 11:03 Dose: 10 mg Guaifenesin (Robitussin) 200 mg PO Q4H PRN PRN Reason: Cough and congestion Last Admin: 12/31/17 14:45 Dose: 200 mg Insulin Detemir (Levemir) 12 unit SC Q12 [facility] Last Admin: 12/31/17 12:31 Dose: 12 unit Insulin Human Lispro (Humalog) 5 units SC TID [facility] Last Admin: 12/31/17 14:49 Dose: 5 units Insulin Human Lispro (Humalog Med) 0 units SC ACHS [facility] PRN Reason: Protocol Last Admin: 12/31/17 14:46 Dose: 1 units Levothyroxine Sodium (Synthroid) 175 mcg PO DAILY [facility] Last Admin: 12/31/17 11:03 Dose: 175 mcg Metoprolol Succinate (Toprol Xl) 12.5 mg PO DAILY [facility] Last Admin: 12/31/17 11:03 Dose: 12.5 mg Montelukast Sodium (Singulair) 10 mg PO HS [facility] Last Admin: 12/30/17 22:35 Dose: 10 mg - Labs Labs: 12/31/17 06:00 12/31/17 06:00 PT 11.9 SECONDS (9.4-12.5) 12/29/17 08:30 INR 1.03 (0.93-1.08) 12/29/17 08:30 APTT 32.2 Seconds (25.1-36.5) 12/29/17 08:30 Attending/Attestation - Attestation I have personally seen and examined this patient.: Yes I have fully participated in the care of the patient.: Yes I have reviewed all pertinent clinical information, including history, physical exam and plan: Yes Notes (Text): I have seen and examined the patient at bedside. Agree with the patient's note dictated by the resident. Labs, vitals and imaging reviewed by me. Patient continues to complain of right thigh pain. US ordered for further evaluation. PT recommended TCU. Upon discharge patient will follow up with Dr Tao. Dr Dolores Dave
[2018-01-01 06:50] LABS: BASO # 0.02 K/mm3 (0.0-2.0); BASO % 0.5 % (0.0-3.0); EOS % 0.2 % (1.5-5.0); GRAN # 1.99 (1.4-6.5); GRAN % 48.8 % (50.0-68.0); HEMOGLOBIN 13.2 g/dL (12.0-16.0); LYMPH # 1.5 (1.2-3.4); LYMPH % 37.5 % (22.0-35.0); MEAN CELL VOLUME 91.5 fl (80.0-105.0); MEAN CORPUSCULAR HEMOGLOBIN 31.1 pg (25.0-35.0); MEAN CORPUSCULAR HGB CONC 33.9 g/dl (31.0-37.0); MONO # 0.5 (0.1-0.6); RBC 4.25 10^6/uL (3.5-6.1); RED CELL DISTRIBUTION WIDTH 12.9 % (11.5-14.5); WHITE BLOOD COUNT 4.1 10^3/ul (4.5-11.0)
[2018-01-01 07:11] LABS: ALB/GLOB RATIO 1.1 (1.1-1.8); ALBUMIN 3.6 g/dL (3.0-4.8); ALT/SGPT 31 U/L (7-56); AST/SGOT 40 U/L (14-36); BLOOD UREA NITROGEN 18 mg/dL (7-21); CALCIUM 8.7 mg/dL (8.4-10.5); GFR AFRICAN-AMERICAN > 60; GFR NON-AFRICAN AMERICAN > 60
[2018-01-01] MEDS: Insulin Lispro (humaLOG) MEDIUM Coverage SC SCH ×2 (08:13→11:52)
[2018-01-01] MEDS: Insulin Detemir 100 units/ml Vial (Levemir) SC SCH (10:00)
[2018-01-01] MEDS: Metoprolol Succinate 25 mg XL Tab PO SCH (10:00)
[2018-01-01] MEDS: Levothyroxine 175 MCG TAB PO SCH (10:00)
[2018-01-01] MEDS: Insulin Lispro 1 UNITS/0.01 ML SC SCH ×2 (10:04→14:13)
[2018-01-01] MEDS ORDERED: Hemorrohoidal Ointment (2 oz) TOP SCH (10:45)
[2018-01-01 11:20] VITALS: RESP 18
--- NOTE | 2018-01-01 13:18 | US ---
PROCEDURE: Ultrasound extremity nonvascular. HISTORY: right thigh pain after trauma COMPARISON: 12/29/2017 right lower extremity duplex venous sonography TECHNIQUE: Standard protocol for this study/examination. FINDINGS: No abnormal fluid collections or masses. No sinus tract identified. No cutaneous or subcutaneous edema identified. IMPRESSION: Negative study
--- NOTE | 2018-01-01 15:19 | CP.PCM.DIS ---
<Darryl Cheung - Last Filed: 01/01/18 15:13> Provider - Provider Date of Admission: 12/29/17 10:41 Attending physician: Selma Cochran MD Primary care physician: Rj Savage MD Time Spent in preparation of Discharge (in minutes): 45 Diagnosis - Discharge Diagnosis (1) Leg pain Status: Acute Hospital Course - Lab Results Lab Results: Most Recent Lab Values WBC 4.1 10^3/ul (4.5-11.0) L 01/01/18 06:15 RBC 4.25 10^6/uL (3.5-6.1) 01/01/18 06:15 Hgb 13.2 g/dL (12.0-16.0) 01/01/18 06:15 Hct 38.9 % (36.0-48.0) 01/01/18 06:15 MCV 91.5 fl (80.0-105.0) 01/01/18 06:15 MCH 31.1 pg (25.0-35.0) 01/01/18 06:15 MCHC 33.9 g/dl (31.0-37.0) 01/01/18 06:15 RDW 12.9 % (11.5-14.5) 01/01/18 06:15 Plt Count 179 10^3/uL (120.0-450.0) 01/01/18 06:15 MPV 10.0 fl (7.0-11.0) 01/01/18 06:15 Gran % 48.8 % (50.0-68.0) L 01/01/18 06:15 Lymph % (Auto) 37.5 % (22.0-35.0) H 01/01/18 06:15 Will % (Auto) 13.0 % (1.0-6.0) H 01/01/18 06:15 Eos % (Auto) 0.2 % (1.5-5.0) L 01/01/18 06:15 Baso % (Auto) 0.5 % (0.0-3.0) 01/01/18 06:15 Gran # 1.99 (1.4-6.5) 01/01/18 06:15 Lymph # (Auto) 1.5 (1.2-3.4) 01/01/18 06:15 Will # (Auto) 0.5 (0.1-0.6) 01/01/18 06:15 Eos # (Auto) 0.0 (0.0-0.7) 01/01/18 06:15 Baso # (Auto) 0.02 K/mm3 (0.0-2.0) 01/01/18 06:15 PT 11.9 SECONDS (9.4-12.5) 12/29/17 08:30 INR 1.03 (0.93-1.08) 12/29/17 08:30 APTT 32.2 Seconds (25.1-36.5) 12/29/17 08:30 Sodium 139 mmol/L (132-148) 01/01/18 06:15 Potassium 4.2 mmol/L (3.6-5.0) 01/01/18 06:15 Chloride 101 mmol/L (98-107) 01/01/18 06:15 Carbon Dioxide 30 mmol/L (21-33) 01/01/18 06:15 Anion Gap 12 (10-20) 01/01/18 06:15 BUN 18 mg/dL (7-21) 01/01/18 06:15 Creatinine 0.8 mg/dl (0.7-1.2) 01/01/18 06:15 Est GFR ( Amer) > 60 01/01/18 06:15 Est GFR (Non-Af Amer) > 60 01/01/18 06:15 POC Glucose (mg/dL) 181 mg/dL (65-110) H 01/01/18 14:17 Random Glucose 98 mg/dL (70-110) 01/01/18 06:15 Calcium 8.7 mg/dL (8.4-10.5) 01/01/18 06:15 Total Bilirubin 0.4 mg/dL (0.2-1.3) 01/01/18 06:15 AST 40 U/L (14-36) H 01/01/18 06:15 ALT 31 U/L (7-56) 01/01/18 06:15 Alkaline Phosphatase 88 U/L (38-126) 01/01/18 06:15 Total Protein 6.9 g/dL (5.8-8.3) 04/16/18 06:15 Albumin 3.6 g/dL (3.0-4.8) 01/01/18 06:15 Globulin 3.3 gm/dL 01/01/18 06:15 Albumin/Globulin Ratio 1.1 (1.1-1.8) 01/01/18 06:15 Procalcitonin 0.07 NG/ML (0.19-0.49) L 12/31/17 07:00 Hepatitis A IgM Ab Negative (NEGATIVE) 12/31/17 06:00 Hep Bs Antigen Negative (NEGATIVE) 12/31/17 06:00 Hep B Core IgM Ab Negative (NEGATIVE) 12/31/17 06:00 Hepatitis C Antibody Negative (NEGATIVE) 12/31/17 06:00 - Hospital Course Hospital Course: Patient is a 86 yo F with PMHx of HTN, HLD, DM, hypothyroidism, Colon CA, and glaucoma who was admitted for evaluation and treatment of right leg pain 2/2 to a mechanical fall. CT and US of the right lower extremity were negative for any acute abnormalities. Patient was treated with analgesic. PT recommended that patient go to TCU for rehab due to unsteady gait 2/2 to pain. Hospital course complicated with cough which was treated with PRN Robitussin and [facility] Tessalon Perles. Patient will cont. the medications she had during her inpatient stay in the TCU. She is agreeable to the plan. Patient discussed with Attending Darryl Cheung, PGY-1 Discharge Exam - Additional Findings Additional findings: - Head Exam Head Exam: ATRAUMATIC, NORMOCEPHALIC - Constitutional Appears: Non-toxic, No Acute Distress - Head Exam Head Exam: ATRAUMATIC, NORMOCEPHALIC - Eye Exam Eye Exam: EOMI - ENT Exam ENT Exam: Mucous Membranes Moist - Neck Exam Neck exam: Positive for: Full Rom - Respiratory Exam Respiratory Exam: - Cardiovascular Exam Cardiovascular Exam: +S1, +S2 - GI/Abdominal Exam GI & Abdominal Exam: Normal Bowel Sounds, Soft, Non tender to palpation absent : Distended, Firm, Mass, Rebound, Rigid - Extremities Exam Extremities exam: Positive for: normal inspection. Negative for: calf tenderness, pedal edema - MSK Exam MSK exam: tender to palpation right medial thigh - Neurological Exam Neurological exam: Alert, Oriented x3 - Psychiatric Exam Psychiatric exam: Normal Affect, Normal Mood - Skin Skin Exam: Intact, Normal Color, Warm Discharge Plan - Follow Up Plan Condition: STABLE Disposition: REHAB FACILITY/REHAB UNIT Instructions: Heart Healthy Diet, Preventing Falls in the Older Adult, Dizziness, Nonvertigo, (DC), Weakness (GEN) Additional Instructions: Patient transferred to TCU For rehab. SHe is to continue all the medications she was on during her inpatient stay. Referrals: Rj Savage MD [Primary Care Provider] - <Selma Cochran - Last Filed: 01/02/18 14:36> Provider - Provider Date of Admission: 12/29/17 10:41 Attending physician: Selma Cochran MD Primary care physician: Rj Savage MD Hospital Course - Lab Results Lab Results: Most Recent Lab Values WBC 4.1 10^3/ul (4.5-11.0) L 01/01/18 06:15 RBC 4.25 10^6/uL (3.5-6.1) 01/01/18 06:15 Hgb 13.2 g/dL (12.0-16.0) 01/01/18 06:15 Hct 38.9 % (36.0-48.0) 01/01/18 06:15 MCV 91.5 fl (80.0-105.0) 01/01/18 06:15 MCH 31.1 pg (25.0-35.0) 01/01/18 06:15 MCHC 33.9 g/dl (31.0-37.0) 01/01/18 06:15 RDW 12.9 % (11.5-14.5) 01/01/18 06:15 Plt Count 179 10^3/uL (120.0-450.0) 01/01/18 06:15 MPV 10.0 fl (7.0-11.0) 01/01/18 06:15 Gran % 48.8 % (50.0-68.0) L 01/01/18 06:15 Lymph % (Auto) 37.5 % (22.0-35.0) H 01/01/18 06:15 Will % (Auto) 13.0 % (1.0-6.0) H 01/01/18 06:15 Eos % (Auto) 0.2 % (1.5-5.0) L 01/01/18 06:15 Baso % (Auto) 0.5 % (0.0-3.0) 01/01/18 06:15 Gran # 1.99 (1.4-6.5) 01/01/18 06:15 Lymph # (Auto) 1.5 (1.2-3.4) 01/01/18 06:15 Will # (Auto) 0.5 (0.1-0.6) 01/01/18 06:15 Eos # (Auto) 0.0 (0.0-0.7) 01/01/18 06:15 Baso # (Auto) 0.02 K/mm3 (0.0-2.0) 01/01/18 06:15 PT 11.9 SECONDS (9.4-12.5) 12/29/17 08:30 INR 1.03 (0.93-1.08) 12/29/17 08:30 APTT 32.2 Seconds (25.1-36.5) 12/29/17 08:30 Sodium 139 mmol/L (132-148) 01/01/18 06:15 Potassium 4.2 mmol/L (3.6-5.0) 01/01/18 06:15 Chloride 101 mmol/L (98-107) 01/01/18 06:15 Carbon Dioxide 30 mmol/L (21-33) 01/01/18 06:15 Anion Gap 12 (10-20) 01/01/18 06:15 BUN 18 mg/dL (7-21) 01/01/18 06:15 Creatinine 0.8 mg/dl (0.7-1.2) 01/01/18 06:15 Est GFR ( Amer) > 60 01/01/18 06:15 Est GFR (Non-Af Amer) > 60 01/01/18 06:15 POC Glucose (mg/dL) 163 mg/dL (65-110) H 01/01/18 15:52 Random Glucose 98 mg/dL (70-110) 01/01/18 06:15 Calcium 8.7 mg/dL (8.4-10.5) 01/01/18 06:15 Total Bilirubin 0.4 mg/dL (0.2-1.3) 01/01/18 06:15 AST 40 U/L (14-36) H 01/01/18 06:15 ALT 31 U/L (7-56) 01/01/18 06:15 Alkaline Phosphatase 88 U/L (38-126) 01/01/18 06:15 Total Protein 6.9 g/dL (5.8-8.3) 01/01/18 06:15 Albumin 3.6 g/dL (3.0-4.8) 01/01/18 06:15 Globulin 3.3 gm/dL 01/01/18 06:15 Albumin/Globulin Ratio 1.1 (1.1-1.8) 01/01/18 06:15 Procalcitonin 0.07 NG/ML (0.19-0.49) L 12/31/17 07:00 Hepatitis A IgM Ab Negative (NEGATIVE) 12/31/17 06:00 Hep Bs Antigen Negative (NEGATIVE) 12/31/17 06:00 Hep B Core IgM Ab Negative (NEGATIVE) 12/31/17 06:00 Hepatitis C Antibody Negative (NEGATIVE) 12/31/17 06:00 Attending/Attestation - Attestation I have personally seen and examined this patient.: Yes I have fully participated in the care of the patient.: Yes I have reviewed all pertinent clinical information, including history, physical exam and plan: Yes Notes (Text): 01/02/18 14:34 attending note; patient seen and examined with resident. Patient is a 87-year-old female admitted with right thigh pain. CT is negative. Ultrasound is negative. PT evaluation appreciated. Diabetes; Continue Levemir and sliding scale. transferred to TCU for physical therapy and gait training. Upon discharge patient will follow up with Dr Tao.
[2018-01-01 15:57] VITALS: BP 141/78; PULSE 87; TEMP 98.6; O2SAT 98
[2018-01-01] MEDS ORDERED: Nystatin 100,000 Units/gm Topical Pow(15 gm) TOP SCH (18:00)
== END 2018-01-01 16:30 | DRG 556 ==
LOC: ED 08:00 → ERH 10:41 → 5RNO 13:43
PROVIDERS: ADMIT Hospitalist; ATTEND Internal Medicine
DX: M79.651 Pain in right thigh (principal); E03.9 Hypothyroidism, unspecified; E10.9 Type 1 diabetes mellitus without complications; E78.5 Hyperlipidemia, unspecified; H40.9 Unspecified glaucoma; H54.7 Unspecified visual loss; I10 Essential (primary) hypertension; J44.9 Chronic obstructive pulmonary disease, unspecified; Z87.891 Personal history of nicotine dependence; Z85.038 Personal history of other malignant neoplasm of large intestine; Z90.49 Acquired absence of other specified parts of digestive tract; Z79.4 Long term (current) use of insulin

== ENCOUNTER 2018-01-01 16:30 | Inpatient (IN) | payer OTHER ==
[2018-01-01 17:00] VITALS: BMI 26.7
[2018-01-01] MEDS ORDERED: Albuterol-Ipratrop 3 mg / 0.5 (3 ml) UD IH PRN (18:20)
[2018-01-01] MEDS ORDERED: Nystatin 100,000 Units/gm Topical Pow(15 gm) TOP PRN (18:20)
[2018-01-01] MEDS ORDERED: Hemorrohoidal Ointment (2 oz) TOP PRN (18:20)
[2018-01-01] MEDS ORDERED: Pneumococcal 23-Valent Vaccine IM ONE (19:06)
[2018-01-01] MEDS: Insulin Lispro 1 UNITS/0.01 ML SC SCH (22:28)
[2018-01-02] MEDS: Levothyroxine 175 MCG TAB PO SCH (05:33)
[2018-01-02] MEDS: Insulin Lispro 1 UNITS/0.01 ML SC SCH ×3 (06:29→17:38)
[2018-01-02 06:59] LABS: HEMOGLOBIN 12.1 g/dL (12.0-16.0); MEAN CELL VOLUME 91.1 fl (80.0-105.0); MEAN CORPUSCULAR HEMOGLOBIN 30.8 pg (25.0-35.0); MEAN CORPUSCULAR HGB CONC 33.8 g/dl (31.0-37.0); MEAN PLATELET VOLUME 10.4 fl (7.0-11.0); RBC 3.93 10^6/uL (3.5-6.1); RED CELL DISTRIBUTION WIDTH 12.9 % (11.5-14.5)
[2018-01-02 07:32] LABS: ALB/GLOB RATIO 1.1 (1.1-1.8); ALBUMIN 3.4 g/dL (3.0-4.8); ALT/SGPT 30 U/L (7-56); AST/SGOT 37 U/L (14-36); BLOOD UREA NITROGEN 16 mg/dL (7-21); CALCIUM 8.3 mg/dL (8.4-10.5); GFR AFRICAN-AMERICAN > 60; GFR NON-AFRICAN AMERICAN > 60
--- NOTE | 2018-01-02 07:40 | CP.PCM.HP ---
<Darryl Cheung - Last Filed: 01/02/18 08:57> History of Present Illness - History of Present Illness History of Present Illness: Patient is a 86 yo F with PMHx of HTN, HLD, DM, hypothyroidism, Colon CA, and glaucoma who was admitted for evaluation and treatment of right leg pain 2/2 to a mechanical fall. CT and US of the right lower extremity were negative for any acute abnormalities. Patient was treated with analgesic. PT recommended that patient go to TCU for rehab due to unsteady gait 2/2 to pain. Patient is being admitted to TCU for rehab. At this time she complains of right proximal lower extremity pain. Specific region is inconsistent. ROS: POSITIVES: Right proximal Lower extremity pain. NEGATIVES: Fever, chills, chest pain, SOB, abdominal pain, changes in bowel habits, urinary symptoms. PMH: HTN, HLD, DM, hypothyroidism, and glaucoma, colon cancer PSH: Appendectomy, unknown colon surgery for tumor, cholecystectomy Soc: 10pyh quit 30 years ago, denies alcohol or illicits FHx: Noncontributory Allergies: NKDA Primary care physician: Dr. Savage Pharmacy: [facility] in [place] [phone] Present on Admission - Present on Admission Any Indicators Present on Admission: No Review of Systems - Review of Systems All systems: reviewed and no additional remarkable complaints except Review of Systems: As per HPI 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) Hx Cataracts: Yes (LEFT WITH BLURRY VISION) Hx Glaucoma: Yes (RIGHT EYE) - RENAL Hx Chronic Kidney Disease: No - ENDOCRINE/METABOLIC Hx Diabetes Mellitus Type 2: Yes Hx Hypothyroidism: Yes - HEMATOLOGICAL/ONCOLOGICAL Hx Blood Disorders: No - MUSCULOSKELETAL/RHEUMATOLOGICAL Hx Falls: Yes (08-11-17) - GASTROINTESTINAL Hx Gastrointestinal Disorders: Yes - GENITOURINARY/GYNECOLOGICAL Hx Genitourinary Disorders: Yes (urinary frequency,stress incontinence) Hx Reproductive Disorders: No - PSYCHIATRIC Hx Psychophysiologic Disorder: Yes (SMOKED CIGAREETES H/O) Hx Depression: No Hx Emotional Abuse: No Hx Physical Abuse: No Hx Substance Use: No - SURGICAL HISTORY Hx Appendectomy: Yes Hx Cholecystectomy: Yes Other/Comment: Colon tumor removal (benign) - ANESTHESIA Hx Anesthesia: Yes Hx Anesthesia Reactions: No Meds Allergies/Adverse Reactions: Allergies Allergy/AdvReac Type Severity Reaction Status Date / Time No Known Allergies Allergy Verified 08/12/17 13:10 Physical Exam - Additional Findings Additional findings: - Head Exam Head Exam: ATRAUMATIC, NORMOCEPHALIC - Constitutional Appears: Non-toxic, No Acute Distress - Head Exam Head Exam: ATRAUMATIC, NORMOCEPHALIC - Eye Exam Eye Exam: EOMI - ENT Exam ENT Exam: Mucous Membranes Moist - Neck Exam Neck exam: Positive for: Full Rom - Respiratory Exam Respiratory Exam: - Cardiovascular Exam Cardiovascular Exam: +S1, +S2 - GI/Abdominal Exam GI & Abdominal Exam: Normal Bowel Sounds, Soft, Non tender to palpation absent : Distended, Firm, Mass, Rebound, Rigid - Extremities Exam Extremities exam: Positive for: normal inspection. Negative for: calf tenderness, pedal edema - MSK Exam MSK exam: tender to palpation right medial thigh - Neurological Exam Neurological exam: Alert, Oriented x3 - Psychiatric Exam Psychiatric exam: Normal Affect, Normal Mood - Skin Skin Exam: Intact, Normal Color, Warm Results - Vital Signs Recent Vital Signs: Last Vital Signs Temp 98 F 01/01/18 18:53 Pulse 80 01/01/18 18:53 Resp 18 01/01/18 18:53 BP 153/71 H 01/01/18 18:53 Pulse Ox - Labs Result Diagrams: 01/02/18 06:30 01/02/18 06:30 Labs: Laboratory Results - last 24 hr 01/01/18 01/01/18 01/02/18 17:03 21:59 05:27 WBC RBC Hgb Hct MCV MCH MCHC RDW Plt Count MPV Sodium Potassium Chloride Carbon Dioxide Anion Gap BUN Creatinine Est GFR ( Amer) Est GFR (Non-Af Amer) POC Glucose (mg/dL) 134 H 161 H 109 Random Glucose Calcium Total Bilirubin AST ALT Alkaline Phosphatase Total Protein Albumin Globulin Albumin/Globulin Ratio 01/02/18 01/02/18 06:30 06:30 WBC 4.0 L RBC 3.93 Hgb 12.1 Hct 35.8 L MCV 91.1 MCH 30.8 MCHC 33.8 RDW 12.9 Plt Count 172 MPV 10.4 Sodium 136 Potassium 3.8 Chloride 100 Carbon Dioxide 29 Anion Gap 11 BUN 16 Creatinine 0.7 Est GFR ( Amer) > 60 Est GFR (Non-Af Amer) > 60 POC Glucose (mg/dL) Random Glucose 113 H Calcium 8.3 L Total Bilirubin 0.5 AST 37 H ALT 30 Alkaline Phosphatase 93 Total Protein 6.5 Albumin 3.4 Globulin 3.1 Albumin/Globulin Ratio 1.1 Assessment & Plan - Assessment and Plan (Free Text) Assessment: 86 yo F with PMHx of HTN, HLD, DM, hypothyroidism, and glaucoma who was admitted to TCU for deconditioning and rehab for Right proximal lower extremity pain and weakness Plan: Right Proximal Lower Ext. Pain and Weakness - CT of right LE reviewed and appreciated- There is no evidence of fracture or bony abnormality. There is no soft tissue abnormality. There is no evidence of subcutaneous edema or muscular edema. No evidence of hemorrhage - right LE US-NO DVT - Cont. PT Cough PRN Robitussin ISAI Tesmeño Chaney Hx of DM - blood glucoses trended and appreciated - achs - ISS - levemir - humalog Hx of HTN - continue toprol Hx of HLD - continue Ezetimibe Prophylaxis - dvt ppx- scd - gi ppx- not indicated Patient seen and examined with Dr. Sammie Cheung, PGY-1 - Date & Time Date: 01/02/18 Time: 09:08 <Selma Cochran - Last Filed: 01/02/18 14:39> Results - Vital Signs Recent Vital Signs: Last Vital Signs Temp 98.3 F 01/02/18 10:00 Pulse 77 01/02/18 10:00 Resp 16 01/02/18 10:00 BP 123/76 01/02/18 10:00 Pulse Ox 96 01/02/18 10:00 - Labs Result Diagrams: 01/02/18 06:30 01/02/18 06:30 Labs: Laboratory Results - last 24 hr 01/01/18 01/01/18 01/02/18 17:03 21:59 05:27 WBC RBC Hgb Hct MCV MCH MCHC RDW Plt Count MPV Sodium Potassium Chloride Carbon Dioxide Anion Gap BUN Creatinine Est GFR ( Amer) Est GFR (Non-Af Amer) POC Glucose (mg/dL) 134 H 161 H 109 Random Glucose Calcium Total Bilirubin AST ALT Alkaline Phosphatase Total Protein Albumin Globulin Albumin/Globulin Ratio 01/02/18 01/02/18 01/02/18 06:30 06:30 11:26 WBC 4.0 L RBC 3.93 Hgb 12.1 Hct 35.8 L MCV 91.1 MCH 30.8 MCHC 33.8 RDW 12.9 Plt Count 172 MPV 10.4 Sodium 136 Potassium 3.8 Chloride 100 Carbon Dioxide 29 Anion Gap 11 BUN 16 Creatinine 0.7 Est GFR ( Amer) > 60 Est GFR (Non-Af Amer) > 60 POC Glucose (mg/dL) 191 H Random Glucose 113 H Calcium 8.3 L Total Bilirubin 0.5 AST 37 H ALT 30 Alkaline Phosphatase 93 Total Protein 6.5 Albumin 3.4 Globulin 3.1 Albumin/Globulin Ratio 1.1 Attending/Attestation - Attestation I have personally seen and examined this patient.: Yes I have fully participated in the care of the patient.: Yes I have reviewed all pertinent clinical information: Yes Notes (Text): 01/02/18 14:37 attending note; attending note; patient seen and examined with resident in TCU. Leg pain is improved. Able to ambulate with physical therapy. Patient is a 87-year-old female admitted with right thigh pain. CT is negative. Ultrasound is negative. continue physical therapy and occupational therapy in TCU. Diabetes; Continue Levemir and sliding scale. hypertension; continue metoprolol. Upon discharge patient will follow up with Dr Tao. 01/02/18 14:38
[2018-01-02] MEDS: Metoprolol Succinate 25 mg XL Tab PO SCH ×2 (08:02→10:14)
[2018-01-02] MEDS ORDERED: Insulin Detemir 100 units/ml Vial (Levemir) SC SCH (10:00)
[2018-01-02] MEDS: Insulin Lispro (humaLOG) MEDIUM Coverage SC SCH ×2 (17:38→21:22)
[2018-01-02] MEDS: Insulin Detemir 100 units/ml Vial (Levemir) SC SCH (21:23)
[2018-01-03] MEDS: Levothyroxine 175 MCG TAB PO SCH (05:26)
[2018-01-03] MEDS: Insulin Lispro 1 UNITS/0.01 ML SC SCH ×3 (06:32→17:31)
[2018-01-03] MEDS: Insulin Lispro (humaLOG) MEDIUM Coverage SC SCH ×4 (06:32→21:59)
[2018-01-03] MEDS: Metoprolol Succinate 25 mg XL Tab PO SCH (09:49)
--- NOTE | 2018-01-03 12:46 | CP.PCM.CON ---
History of Present Illness - History of Present Illness History of Present Illness: Palliative consult requested by Dr Juanis Cochran Reason:Goals of care 87 year old female with history of who was recently admitted after suffering a mechanical fall w/o acute injury. She has since been transitioned to [facility] for deconditioning. She has right lower extremity tenderness, denies fever, chills, nausea, vomiting, diarrhea, chest or abdominal pain, dizziness urinary or bowel changes PMHx: colon cancer, HTN, HLD, DM and glaucoma, hypothyroidism. PSH: appendectomy, cholecystectomy, colon resection. Social History: Former smoker, no alcohol or drug use. Lives alone. Family History: Non Contributory Advance Care Planning: The patient does not have an Advanced Directive/no POA. Review of Systems: Gait dysfunction, blindness, right lower extremity tenderness , otherwise negative 12 point review. 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) Hx Cataracts: Yes (LEFT WITH BLURRY VISION) Hx Glaucoma: Yes (RIGHT EYE) - RENAL Hx Chronic Kidney Disease: No - ENDOCRINE/METABOLIC Hx Diabetes Mellitus Type 2: Yes Hx Hypothyroidism: Yes - HEMATOLOGICAL/ONCOLOGICAL Hx Blood Disorders: No - MUSCULOSKELETAL/RHEUMATOLOGICAL Hx Falls: Yes (08-11-17) - GASTROINTESTINAL Hx Gastrointestinal Disorders: Yes - GENITOURINARY/GYNECOLOGICAL Hx Genitourinary Disorders: Yes (urinary frequency,stress incontinence) Hx Reproductive Disorders: No - PSYCHIATRIC Hx Psychophysiologic Disorder: Yes (SMOKED CIGAREETES H/O) Hx Depression: No Hx Emotional Abuse: No Hx Physical Abuse: No Hx Substance Use: No - SURGICAL HISTORY Hx Appendectomy: Yes Hx Cholecystectomy: Yes Other/Comment: Colon tumor removal (benign) - ANESTHESIA Hx Anesthesia: Yes Hx Anesthesia Reactions: No Meds Allergies/Adverse Reactions: Allergies Allergy/AdvReac Type Severity Reaction Status Date / Time No Known Allergies Allergy Verified 08/12/17 13:10 - Medications Medications: Current Medications Acetaminophen (Tylenol 325mg Tab) 650 mg PO Q4H PRN; Protocol PRN Reason: Pain, Mild (1-3) Albuterol/Ipratropium (Duoneb 3 Mg/0.5 Mg (3 Ml) Ud) 3 ml IH [id number] PRN; Protocol PRN Reason: Shortness of Breath Benzonatate (Tessalon Perles) 100 mg PO TID ISAI PRN Reason: Protocol Last Admin: 01/03/18 09:49 Dose: 100 mg Ezetimibe (Zetia) 10 mg PO DAILY ISAI PRN Reason: Protocol Last Admin: 01/03/18 09:50 Dose: 10 mg Insulin Detemir (Levemir) 30 unit SC HS ISAI PRN Reason: Protocol Last Admin: 01/02/18 21:23 Dose: 30 unit Insulin Human Lispro (Humalog) 10 units SC 0730,1130,1700 [facility] PRN Reason: Protocol Last Admin: 01/03/18 12:31 Dose: 10 units Insulin Human Lispro (Humalog Med) 0 units SC ACHS ISAI PRN Reason: Protocol Last Admin: 01/03/18 12:33 Dose: 3 units Levothyroxine Sodium (Synthroid) 175 mcg PO 0600 [facility] PRN Reason: Protocol Last Admin: 01/03/18 05:26 Dose: 175 mcg Metoprolol Succinate (Toprol Xl) 12.5 mg PO DAILY [facility] PRN Reason: Protocol Last Admin: 01/03/18 09:49 Dose: 12.5 mg Montelukast Sodium (Singulair) 10 mg PO HS [facility] PRN Reason: Protocol Last Admin: 01/02/18 21:24 Dose: 10 mg Multi-Ingredient Ointment (Prep-Hem) 1 ea TOP DAILY PRN; Protocol PRN Reason: Hemorrhoids Nystatin (Nystop Topical Powder) 1 gm TOP BID PRN; Protocol PRN Reason: Rash Physical Exam - Constitutional Appears: Chronically Ill - Head Exam Head Exam: NORMAL INSPECTION - ENT Exam ENT Exam: Mucous Membranes Moist, Normal Oropharynx - Neck Exam Neck exam: Positive for: Normal Inspection - Respiratory Exam Respiratory Exam: Clear to Auscultation Bilateral, NORMAL BREATHING PATTERN - Cardiovascular Exam Cardiovascular Exam: REGULAR RHYTHM, +S1, +S2 - GI/Abdominal Exam GI & Abdominal Exam: Normal Bowel Sounds, Soft Additional comments: no tenderness - Extremities Exam Extremities exam: Positive for: pedal pulses present Additional comments: right fu tenderness - Back Exam Back exam: NORMAL INSPECTION - Neurological Exam Neurological exam: Alert, Oriented x3 - Skin Skin Exam: Dry - Additional Findings Additional findings: Palliative performance scale rating 50% Results - Vital Signs Recent Vital Signs: Last Vital Signs Temp 98.6 F 01/02/18 17:05 Pulse 54 L 01/02/18 17:05 Resp 16 01/02/18 17:05 BP 130/77 01/03/18 09:49 Pulse Ox 100 01/02/18 17:05 - Labs Result Diagrams: 01/02/18 06:30 01/02/18 06:30 Labs: Laboratory Results - last 24 hr 01/02/18 01/03/18 01/03/18 16:14 05:31 11:39 POC Glucose (mg/dL) 176 H 129 H 218 H Assessment & Plan - Assessment and Plan (Free Text) Assessment: 87 year old female with history of glaucoma, DM, HTN, HLD who is admitted to [facility] for gait dysfunction, deconditioning s/p fall at home and right lower extremity tenderness. The patient is alert and oriented. We had a lengthy discussion about future goals of care. The patient lives alone and states she has some friends in the building but no relatives. She lives alone, she verbalizes that she needs to have help and can no longer live alone. States she wants to go to NH. She feels overwhelmed at having to plan for this major life change. Explained that SW would work with her in order to out plan for this change. I also spoke to Leia about advance care planning. Burdens of aggressive resuscitation explained. The patient needs time to think things through. Encouraged to make these decisions while she is able to, especially since she does not have a POA in mind. Reassured that I would continue to work with her in order to complete a directive prior to her discharge. Psychosocial support given. Time spent with patient goals of care and advance care planning discussion, 30 minutes Plan: DM: monitor glucose achs, continue Levemir, ISS, humulog HTN: Continue Tproplo HTN: Continue Ezetimibe Gait dysfunction/ deconditioning: PT/OT RLE tenderenss; US negatuve for DVT. Motor for swelling/pain. Discharge planning with SW for possible NH placement Goals of care abd advance care planning
[2018-01-03] MEDS: Insulin Detemir 100 units/ml Vial (Levemir) SC SCH (21:59)
[2018-01-04] MEDS: Levothyroxine 175 MCG TAB PO SCH (05:48)
[2018-01-04] MEDS: Insulin Lispro 1 UNITS/0.01 ML SC SCH ×3 (06:34→17:38)
[2018-01-04] MEDS: Insulin Lispro (humaLOG) MEDIUM Coverage SC SCH ×4 (06:34→21:48)
[2018-01-04 07:27] LABS: ALB/GLOB RATIO 1.2 (1.1-1.8); ALBUMIN 3.5 g/dL (3.0-4.8); ALT/SGPT 33 U/L (7-56); AST/SGOT 37 U/L (14-36); BLOOD UREA NITROGEN 15 mg/dL (7-21); CALCIUM 8.7 mg/dL (8.4-10.5); GFR AFRICAN-AMERICAN > 60; GFR NON-AFRICAN AMERICAN > 60
[2018-01-04 09:34] LABS: BASO # 0.01 K/mm3 (0.0-2.0); BASO % 0.2 % (0.0-3.0); EOS % 0.9 % (1.5-5.0); GRAN # 2.25 (1.4-6.5); GRAN % 50.3 % (50.0-68.0); HEMOGLOBIN 11.8 g/dL (12.0-16.0); LYMPH # 1.6 (1.2-3.4); LYMPH % 35.8 % (22.0-35.0); MEAN CELL VOLUME 92.4 fl (80.0-105.0); MEAN CORPUSCULAR HGB CONC 33.5 g/dl (31.0-37.0); MEAN PLATELET VOLUME 11.1 fl (7.0-11.0); MONO # 0.6 (0.1-0.6); MONO % 12.8 % (1.0-6.0); RBC 3.81 10^6/uL (3.5-6.1); RED CELL DISTRIBUTION WIDTH 12.8 % (11.5-14.5); WHITE BLOOD COUNT 4.5 10^3/ul (4.5-11.0)
[2018-01-04] MEDS: Metoprolol Succinate 25 mg XL Tab PO SCH (10:55)
[2018-01-04] MEDS ORDERED: Magnesium Citrate Oral SOL (300 ml) PO ONE (12:37)
--- NOTE | 2018-01-04 12:53 | CP.PCM.PN ---
<Darryl Cheung - Last Filed: 01/04/18 12:50> Subjective - Date & Time of Evaluation Date of Evaluation: 01/04/18 Time of Evaluation: 12:50 - Subjective Subjective: Patient has been seen and examined at bedside. Right lower extremity pain has improved. She now complains of left lower extremity pain. Patient also states she has not had a bowel movement in 2 days. Objective - Vital Signs/Intake and Output Vital Signs (last 24 hours): Temp Pulse Resp BP Pulse Ox 98.3 F 82 16 124/58 L 96 01/04/18 06:00 01/04/18 10:55 01/04/18 06:00 01/04/18 10:55 01/04/18 06:00 - Medications Medications: Current Medications Acetaminophen (Tylenol 325mg Tab) 650 mg PO Q4H PRN; Protocol PRN Reason: Pain, Mild (1-3) Last Admin: 01/04/18 10:59 Dose: 650 mg Albuterol/Ipratropium (Duoneb 3 Mg/0.5 Mg (3 Ml) Ud) 3 ml IH [id number] PRN; Protocol PRN Reason: Shortness of Breath Last Admin: 01/03/18 19:47 Dose: 3 ml Benzonatate (Tessalon Perles) 100 mg PO TID ISAI PRN Reason: Protocol Last Admin: 01/04/18 10:55 Dose: 100 mg Ezetimibe (Zetia) 10 mg PO DAILY ISAI PRN Reason: Protocol Last Admin: 01/04/18 10:56 Dose: 10 mg Gabapentin (Neurontin) 100 mg PO TID ISAI PRN Reason: Protocol Insulin Detemir (Levemir) 30 unit SC HS ISAI PRN Reason: Protocol Last Admin: 01/03/18 21:59 Dose: 30 unit Insulin Human Lispro (Humalog) 10 units SC 0730,1130,1700 ISAI PRN Reason: Protocol Last Admin: 01/04/18 11:14 Dose: Not Given Insulin Human Lispro (Humalog Med) 0 units SC ACHS ISAI PRN Reason: Protocol Last Admin: 01/04/18 11:17 Dose: Not Given Levothyroxine Sodium (Synthroid) 175 mcg PO 0600 ISAI PRN Reason: Protocol Last Admin: 01/04/18 05:48 Dose: 175 mcg Metoprolol Succinate (Toprol Xl) 12.5 mg PO DAILY ISAI PRN Reason: Protocol Last Admin: 01/04/18 10:55 Dose: 12.5 mg Montelukast Sodium (Singulair) 10 mg PO HS ISAI PRN Reason: Protocol Last Admin: 01/03/18 21:59 Dose: 10 mg Multi-Ingredient Ointment (Prep-Hem) 1 ea TOP DAILY PRN; Protocol PRN Reason: Hemorrhoids Nystatin (Nystop Topical Powder) 1 gm TOP BID PRN; Protocol PRN Reason: Rash - Labs Labs: 01/04/18 09:00 01/04/18 06:00 - Additional Findings Additional findings: - Head Exam Head Exam: ATRAUMATIC, NORMOCEPHALIC - Constitutional Appears: Non-toxic, No Acute Distress - Head Exam Head Exam: ATRAUMATIC, NORMOCEPHALIC - Eye Exam Eye Exam: EOMI - ENT Exam ENT Exam: Mucous Membranes Moist - Neck Exam Neck exam: Positive for: Full Rom - Respiratory Exam Respiratory Exam: - Cardiovascular Exam Cardiovascular Exam: +S1, +S2 - GI/Abdominal Exam GI & Abdominal Exam: Normal Bowel Sounds, Soft, Non tender to palpation absent : Distended, Firm, Mass, Rebound, Rigid - Extremities Exam Extremities exam: Positive for: normal inspection. Negative for: calf tenderness, pedal edema - MSK Exam MSK exam: tender to palpation right medial thigh - Neurological Exam Neurological exam: Alert, Oriented x3 - Psychiatric Exam Psychiatric exam: Normal Affect, Normal Mood - Skin Skin Exam: Intact, Normal Color, Warm Assessment and Plan - Assessment and Plan (Free Text) Assessment: 86 yo F with PMHx of HTN, HLD, DM, hypothyroidism, and glaucoma who was admitted to TCU for deconditioning and rehab for Right proximal lower extremity pain and weakness Plan: B/L Lower Ext. Pain and Weakness - CT of right LE reviewed and appreciated- There is no evidence of fracture or bony abnormality. There is no soft tissue abnormality. There is no evidence of subcutaneous edema or muscular edema. No evidence of hemorrhage - right LE US-NO DVT - Cont. PT - Start Neurontin 100 TID Cough PRN Robitussin ISAI Tessalon Perles Constipation Magnesium Citrate 300ml Hx of DM - blood glucoses trended and appreciated - achs - ISS - levemir - humalog Hx of HTN - continue toprol Hx of HLD - continue Ezetimibe Prophylaxis - dvt ppx- scd - gi ppx- not indicated Patient seen and examined with Dr. Sammie Cheung, PGY-1 <Selma Cochran - Last Filed: 01/04/18 14:22> Objective - Vital Signs/Intake and Output Vital Signs (last 24 hours): Temp Pulse Resp BP Pulse Ox 98.2 F 82 20 124/58 L 95 01/04/18 13:06 01/04/18 13:06 01/04/18 13:06 01/04/18 13:06 01/04/18 13:06 - Medications Medications: Current Medications Acetaminophen (Tylenol 325mg Tab) 650 mg PO Q4H PRN; Protocol PRN Reason: Pain, Mild (1-3) Last Admin: 01/04/18 10:59 Dose: 650 mg Albuterol/Ipratropium (Duoneb 3 Mg/0.5 Mg (3 Ml) Ud) 3 ml IH [id number] PRN; Protocol PRN Reason: Shortness of Breath Last Admin: 01/03/18 19:47 Dose: 3 ml Benzonatate (Tessalon Perles) 100 mg PO TID PRN; Protocol PRN Reason: Cough Ezetimibe (Zetia) 10 mg PO DAILY ISAI PRN Reason: Protocol Last Admin: 01/04/18 10:56 Dose: 10 mg Gabapentin (Neurontin) 100 mg PO TID ISAI PRN Reason: Protocol Insulin Detemir (Levemir) 30 unit SC HS ISAI PRN Reason: Protocol Last Admin: 01/03/18 21:59 Dose: 30 unit Insulin Human Lispro (Humalog) 10 units SC 0730,1130,1700 ISAI PRN Reason: Protocol Last Admin: 01/04/18 11:14 Dose: Not Given Insulin Human Lispro (Humalog Med) 0 units SC ACHS ISAI PRN Reason: Protocol Last Admin: 01/04/18 11:17 Dose: Not Given Levothyroxine Sodium (Synthroid) 175 mcg PO 0600 ISAI PRN Reason: Protocol Last Admin: 01/04/18 05:48 Dose: 175 mcg Metoprolol Succinate (Toprol Xl) 12.5 mg PO DAILY ISAI PRN Reason: Protocol Last Admin: 01/04/18 10:55 Dose: 12.5 mg Montelukast Sodium (Singulair) 10 mg PO HS ISAI PRN Reason: Protocol Last Admin: 01/03/18 21:59 Dose: 10 mg Multi-Ingredient Ointment (Prep-Hem) 1 ea TOP DAILY PRN; Protocol PRN Reason: Hemorrhoids Nystatin (Nystop Topical Powder) 1 gm TOP BID PRN; Protocol PRN Reason: Rash - Labs Labs: 01/04/18 09:00 01/04/18 06:00 Attending/Attestation - Attestation I have personally seen and examined this patient.: Yes I have fully participated in the care of the patient.: Yes I have reviewed all pertinent clinical information, including history, physical exam and plan: Yes Notes (Text): 01/04/18 14:15 attending note; patient seen and examined with resident in TCU. Leg pain is improved. Able to ambulate with physical therapy. Patient is a 87-year-old female admitted with right thigh pain. CT is negative. Ultrasound is negative. continue physical therapy and occupational therapy in TCU. Started on Neurontin. Diabetes; Continue Levemir and sliding scale. Levemir dosage adjusted. hypertension; continue metoprolol. Palliative care consultation appreciated. Upon discharge patient will follow up with Dr Tao. 01/04/18 14:21
[2018-01-04] MEDS: Insulin Detemir 100 units/ml Vial (Levemir) SC SCH (21:49)
[2018-01-05] MEDS: Levothyroxine 175 MCG TAB PO SCH (05:45)
[2018-01-05] MEDS: Insulin Lispro 1 UNITS/0.01 ML SC SCH ×3 (06:35→17:53)
[2018-01-05] MEDS: Insulin Lispro (humaLOG) MEDIUM Coverage SC SCH ×4 (06:36→21:44)
[2018-01-05] MEDS: Metoprolol Succinate 25 mg XL Tab PO SCH (07:45)
[2018-01-05] MEDS: Insulin Detemir 100 units/ml Vial (Levemir) SC SCH (21:45)
[2018-01-06] MEDS: Levothyroxine 175 MCG TAB PO SCH (05:33)
[2018-01-06] MEDS: Insulin Lispro 1 UNITS/0.01 ML SC SCH ×3 (06:42→17:33)
[2018-01-06] MEDS: Insulin Lispro (humaLOG) MEDIUM Coverage SC SCH ×4 (06:43→21:41)
--- NOTE | 2018-01-06 07:35 | CP.PCM.PN ---
<Wolf Carmen - Last Filed: 01/06/18 11:59> Subjective - Date & Time of Evaluation Date of Evaluation: 01/06/18 Time of Evaluation: 11:00 - Subjective Subjective: Subjective: Patient seen and examined at bedside. Resting comfortably in bed. No acute overnight events. Patient admits to baseline left lower extremity discomfort. Offers no new complaints at this time. Denies fever, chills, chest pain, shortness of breath, abdominal pain, nausea, vomiting, diarrhea, constipation, and urinary symptoms. 12-point review of systems negative except as indicated in the HPI Physical Examination: - Constitutional Appears: Non-toxic, No Acute Distress - Head Exam Head Exam: ATRAUMATIC, NORMOCEPHALIC - Eye Exam Eye Exam: EOMI - ENT Exam ENT Exam: Mucous Membranes Moist - Neck Exam Neck exam: Positive for: Full Rom - Respiratory Exam Respiratory Exam: - Cardiovascular Exam Cardiovascular Exam: +S1, +S2 - GI/Abdominal Exam GI & Abdominal Exam: Normal Bowel Sounds, Soft, Non tender to palpation absent : Distended, Firm, Mass, Rebound, Rigid - Extremities Exam Extremities exam: Positive for: normal inspection. Negative for: calf tenderness, pedal edema - Neurological Exam Neurological exam: Patient is awake, alert, responds to verbal stimuli, answers questions appropriately, follows commands - Psychiatric Exam Psychiatric exam: Normal Affect, Normal Mood - Skin Skin Exam: Intact, Normal Color, Warm Assessment and Plan: 86 yo F with PMHx of HTN, HLD, DM, hypothyroidism, and glaucoma who was admitted to TCU for deconditioning and rehab for Right proximal lower extremity pain and weakness B/L Lower Ext. Pain and Weakness - CT of right LE reviewed and appreciated- There is no evidence of fracture or bony abnormality. There is no soft tissue abnormality. There is no evidence of subcutaneous edema or muscular edema. No evidence of hemorrhage - right LE US-NO DVT - Cont. physical therapy - c/w tylenol prn pain - c/w neurontin 100 TID Cough - PRN Robitussin - ISAI Tessalon Perles Constipation - Magnesium Citrate 300ml Hx of DM - blood glucoses trended and appreciated - achs - ISS - levemir - humalog Hx of HTN - continue toprol Hx of HLD - continue Ezetimibe Prophylaxis - dvt ppx- scd - gi ppx- not indicated Patient seen, case discussed with, and plan approved by attending physician, Dr. Cochran. Objective - Vital Signs/Intake and Output Vital Signs (last 24 hours): Temp Pulse Resp BP Pulse Ox 98.6 F 68 20 118/88 95 01/05/18 16:48 01/05/18 16:48 01/05/18 16:48 01/05/18 16:48 01/05/18 16:48 - Medications Medications: Current Medications Acetaminophen (Tylenol 325mg Tab) 650 mg PO Q4H PRN; Protocol PRN Reason: Pain, Mild (1-3) Last Admin: 01/05/18 09:33 Dose: 650 mg Albuterol/Ipratropium (Duoneb 3 Mg/0.5 Mg (3 Ml) Ud) 3 ml IH [id number] PRN; Protocol PRN Reason: Shortness of Breath Last Admin: 01/03/18 19:47 Dose: 3 ml Benzonatate (Tessalon Perles) 100 mg PO TID PRN; Protocol PRN Reason: Cough Last Admin: 01/04/18 16:06 Dose: 100 mg Ezetimibe (Zetia) 10 mg PO DAILY ISAI PRN Reason: Protocol Last Admin: 01/05/18 09:36 Dose: 10 mg Gabapentin (Neurontin) 100 mg PO TID ISAI PRN Reason: Protocol Last Admin: 01/05/18 17:54 Dose: 100 mg Insulin Detemir (Levemir) 25 unit SC HS ISAI PRN Reason: Protocol Last Admin: 01/05/18 21:45 Dose: 25 unit Insulin Human Lispro (Humalog) 10 units SC 0730,1130,1700 ISAI PRN Reason: Protocol Last Admin: 01/06/18 06:42 Dose: Not Given Insulin Human Lispro (Humalog Med) 0 units SC ACHS ISAI PRN Reason: Protocol Last Admin: 01/06/18 06:43 Dose: Not Given Levothyroxine Sodium (Synthroid) 175 mcg PO 0600 ISAI PRN Reason: Protocol Last Admin: 01/06/18 05:33 Dose: 175 mcg Metoprolol Succinate (Toprol Xl) 12.5 mg PO 0800 ISAI PRN Reason: Protocol Montelukast Sodium (Singulair) 10 mg PO HS ISAI PRN Reason: Protocol Last Admin: 01/05/18 21:46 Dose: 10 mg Multi-Ingredient Ointment (Prep-Hem) 1 ea TOP DAILY PRN; Protocol PRN Reason: Hemorrhoids Nystatin (Nystop Topical Powder) 1 gm TOP BID PRN; Protocol PRN Reason: Rash - Labs Labs: 01/04/18 09:00 01/04/18 06:00 <Selma Cochran - Last Filed: 01/06/18 13:40> Objective - Vital Signs/Intake and Output Vital Signs (last 24 hours): Temp Pulse Resp BP Pulse Ox 98.6 F 61 20 165/76 H 95 01/05/18 16:48 01/06/18 08:10 01/05/18 16:48 01/06/18 08:10 01/05/18 16:48 - Medications Medications: Current Medications Acetaminophen (Tylenol 325mg Tab) 650 mg PO Q4H PRN; Protocol PRN Reason: Pain, Mild (1-3) Last Admin: 01/05/18 09:33 Dose: 650 mg Albuterol/Ipratropium (Duoneb 3 Mg/0.5 Mg (3 Ml) Ud) 3 ml IH [id number] PRN; Protocol PRN Reason: Shortness of Breath Last Admin: 01/03/18 19:47 Dose: 3 ml Benzonatate (Tessalon Perles) 100 mg PO TID PRN; Protocol PRN Reason: Cough Last Admin: 01/04/18 16:06 Dose: 100 mg Ezetimibe (Zetia) 10 mg PO DAILY ISAI PRN Reason: Protocol Last Admin: 01/06/18 09:53 Dose: 10 mg Gabapentin (Neurontin) 100 mg PO TID ISAI PRN Reason: Protocol Last Admin: 01/06/18 13:00 Dose: 100 mg Insulin Detemir (Levemir) 25 unit SC HS ISAI PRN Reason: Protocol Last Admin: 01/05/18 21:45 Dose: 25 unit Insulin Human Lispro (Humalog) 10 units SC 0730,1130,1700 ISAI PRN Reason: Protocol Last Admin: 01/06/18 12:56 Dose: 10 units Insulin Human Lispro (Humalog Med) 0 units SC ACHS ISAI PRN Reason: Protocol Last Admin: 01/06/18 11:30 Dose: 1 units Levothyroxine Sodium (Synthroid) 175 mcg PO 0600 ISAI PRN Reason: Protocol Last Admin: 01/06/18 05:33 Dose: 175 mcg Metoprolol Succinate (Toprol Xl) 12.5 mg PO 0800 ISAI PRN Reason: Protocol Last Admin: 01/06/18 08:10 Dose: 12.5 mg Montelukast Sodium (Singulair) 10 mg PO HS ISAI PRN Reason: Protocol Last Admin: 01/05/18 21:46 Dose: 10 mg Multi-Ingredient Ointment (Prep-Hem) 1 ea TOP DAILY PRN; Protocol PRN Reason: Hemorrhoids Nystatin (Nystop Topical Powder) 1 gm TOP BID PRN; Protocol PRN Reason: Rash - Labs Labs: 01/04/18 09:00 01/04/18 06:00 Attending/Attestation - Attestation I have personally seen and examined this patient.: Yes I have fully participated in the care of the patient.: Yes I have reviewed all pertinent clinical information, including history, physical exam and plan: Yes Notes (Text): 01/06/18 13:38 attending note; patient seen and examined with resident in TCU. Leg pain is improved. Able to ambulate with physical therapy. Patient is a 87-year-old female admitted with right thigh pain. CT is negative. Ultrasound is negative. continue physical therapy and occupational therapy in TCU. Started on Neurontin. Diabetes; Continue Levemir and sliding scale. Levemir dosage adjusted. hypertension; continue metoprolol. Palliative care consultation appreciated. patient is planning to go home next week. Patient is planning for long-term Placement at [place] after returning home. Upon discharge patient will follow up with Dr Tao. case discussed [facility] PMD in detail yesterday.
[2018-01-06] MEDS: Metoprolol Succinate 25 mg XL Tab PO SCH (08:10)
[2018-01-06] MEDS: Insulin Detemir 100 units/ml Vial (Levemir) SC SCH (21:40)
[2018-01-07] MEDS: Levothyroxine 175 MCG TAB PO SCH (05:26)
[2018-01-07] MEDS: Insulin Lispro 1 UNITS/0.01 ML SC SCH ×3 (07:31→17:12)
[2018-01-07] MEDS: Insulin Lispro (humaLOG) MEDIUM Coverage SC SCH ×4 (07:40→22:40)
[2018-01-07] MEDS: Metoprolol Succinate 25 mg XL Tab PO SCH (08:54)
[2018-01-07] MEDS: Insulin Detemir 100 units/ml Vial (Levemir) SC SCH (22:40)
[2018-01-08] MEDS: Levothyroxine 175 MCG TAB PO SCH (05:40)
[2018-01-08] MEDS: Insulin Lispro 1 UNITS/0.01 ML SC SCH ×3 (06:45→17:10)
[2018-01-08] MEDS: Insulin Lispro (humaLOG) MEDIUM Coverage SC SCH ×4 (06:45→21:29)
[2018-01-08] MEDS: Metoprolol Succinate 25 mg XL Tab PO SCH (08:12)
--- NOTE | 2018-01-08 14:27 | CP.PCM.PN ---
<Oscar Torres - Last Filed: 01/08/18 14:25> Subjective - Date & Time of Evaluation Date of Evaluation: 01/08/18 Time of Evaluation: 14:25 - Subjective Subjective: Medicine Progress Note Pt seen and examined at bedside. No acute overnight events. Pt states that her left hip is achey. But PT is going well overall. Pt denies CP, SOB, n/v/d, abdominal pain, fevers, chills, KHANNA, or dizziness. Objective - Vital Signs/Intake and Output Vital Signs (last 24 hours): Temp Pulse Resp BP Pulse Ox 98.7 F 73 18 135/66 93 L 01/07/18 16:00 01/08/18 08:12 01/07/18 16:00 01/08/18 08:12 01/07/18 16:00 - Medications Medications: Current Medications Acetaminophen (Tylenol 325mg Tab) 650 mg PO Q4H PRN; Protocol PRN Reason: Pain, Mild (1-3) Last Admin: 01/08/18 09:53 Dose: 650 mg Albuterol/Ipratropium (Duoneb 3 Mg/0.5 Mg (3 Ml) Ud) 3 ml IH [id number] PRN; Protocol PRN Reason: Shortness of Breath Last Admin: 01/03/18 19:47 Dose: 3 ml Benzonatate (Tessalon Perles) 100 mg PO TID PRN; Protocol PRN Reason: Cough Last Admin: 01/08/18 09:53 Dose: 100 mg Ezetimibe (Zetia) 10 mg PO DAILY ISAI PRN Reason: Protocol Last Admin: 01/08/18 09:53 Dose: 10 mg Gabapentin (Neurontin) 100 mg PO TID ISAI PRN Reason: Protocol Last Admin: 01/08/18 09:53 Dose: 100 mg Insulin Detemir (Levemir) 25 unit SC HS ISAI PRN Reason: Protocol Last Admin: 01/07/18 22:40 Dose: Not Given Insulin Human Lispro (Humalog) 10 units SC 0730,1130,1700 ISAI PRN Reason: Protocol Last Admin: 01/08/18 11:06 Dose: 10 units Insulin Human Lispro (Humalog Med) 0 units SC ACHS ISAI PRN Reason: Protocol Last Admin: 01/08/18 11:06 Dose: 3 units Levothyroxine Sodium (Synthroid) 175 mcg PO 0600 ISAI PRN Reason: Protocol Last Admin: 01/08/18 05:40 Dose: 175 mcg Metoprolol Succinate (Toprol Xl) 12.5 mg PO 0800 ISAI PRN Reason: Protocol Last Admin: 01/08/18 08:12 Dose: 12.5 mg Montelukast Sodium (Singulair) 10 mg PO HS ISAI PRN Reason: Protocol Last Admin: 01/07/18 21:51 Dose: 10 mg Multi-Ingredient Ointment (Prep-Hem) 1 ea TOP DAILY PRN; Protocol PRN Reason: Hemorrhoids Nystatin (Nystop Topical Powder) 1 gm TOP BID PRN; Protocol PRN Reason: Rash - Labs Labs: 01/04/18 09:00 01/04/18 06:00 - Constitutional Appears: No Acute Distress - Head Exam Head Exam: NORMAL INSPECTION - Eye Exam Eye Exam: Normal appearance - ENT Exam ENT Exam: Normal Exam - Neck Exam Neck Exam: Normal Inspection - Respiratory Exam Respiratory Exam: Clear to Ausculation Bilateral. absent: Rales, Rhonchi, Wheezes - Cardiovascular Exam Cardiovascular Exam: RRR, +S1, +S2. absent: Gallop, Rubs, Murmur - GI/Abdominal Exam GI & Abdominal Exam: Soft. absent: Distended, Guarding, Tenderness, Rebound - Extremities Exam Extremities Exam: Normal Inspection - Back Exam Back Exam: NORMAL INSPECTION - Neurological Exam Neurological Exam: Alert, Awake, Oriented x3 - Psychiatric Exam Psychiatric exam: Normal Affect, Normal Mood - Skin Skin Exam: Dry, Intact, Normal Color, Warm Assessment and Plan - Assessment and Plan (Free Text) Assessment: 86 yo F with PMHx of HTN, HLD, DM, hypothyroidism, and glaucoma who was admitted to TCU for deconditioning and rehab for Right proximal lower extremity pain and weakness Plan: B/L Lower Ext. Pain and Weakness - CT of right LE reviewed and appreciated- There is no evidence of fracture or bony abnormality. There is no soft tissue abnormality. There is no evidence of subcutaneous edema or muscular edema. No evidence of hemorrhage - right LE US-NO DVT - Cont. physical therapy - c/w tylenol prn pain - c/w neurontin 100 TID Cough - PRN Robitussin - ISAI Tessalon Perles Constipation - Magnesium Citrate 300ml Hx of DM - blood glucoses trended and appreciated - achs - ISS - levemir - humalog Hx of HTN - continue toprol Hx of HLD - continue Ezetimibe Prophylaxis - dvt ppx- scd - gi ppx- not indicated Dispo: Last day of TCU tomorrow, will d/c with med recs. Patient seen, case discussed with, and plan approved by attending physician, Dr. Dave. Mati Torres, PGY1 <Dolores Dave - Last Filed: 01/08/18 17:25> Objective - Vital Signs/Intake and Output Vital Signs (last 24 hours): Temp Pulse Resp BP Pulse Ox 98.3 F 84 19 164/82 H 94 L 01/08/18 10:00 01/08/18 10:00 01/08/18 10:00 01/08/18 10:00 01/08/18 10:00 - Medications Medications: Current Medications Acetaminophen (Tylenol 325mg Tab) 650 mg PO Q4H PRN; Protocol PRN Reason: Pain, Mild (1-3) Last Admin: 01/08/18 09:53 Dose: 650 mg Albuterol/Ipratropium (Duoneb 3 Mg/0.5 Mg (3 Ml) Ud) 3 ml IH [id number] PRN; Protocol PRN Reason: Shortness of Breath Last Admin: 01/03/18 19:47 Dose: 3 ml Benzonatate (Tessalon Perles) 100 mg PO TID PRN; Protocol PRN Reason: Cough Last Admin: 01/08/18 09:53 Dose: 100 mg Ezetimibe (Zetia) 10 mg PO DAILY ISAI PRN Reason: Protocol Last Admin: 01/08/18 09:53 Dose: 10 mg Gabapentin (Neurontin) 100 mg PO TID ISAI PRN Reason: Protocol Last Admin: 01/08/18 17:12 Dose: Not Given Insulin Detemir (Levemir) 25 unit SC HS ISAI PRN Reason: Protocol Last Admin: 01/07/18 22:40 Dose: Not Given Insulin Human Lispro (Humalog) 10 units SC 0730,1130,1700 ISAI PRN Reason: Protocol Last Admin: 01/08/18 17:10 Dose: 10 units Insulin Human Lispro (Humalog Med) 0 units SC ACHS ISAI PRN Reason: Protocol Last Admin: 01/08/18 17:10 Dose: 1 units Levothyroxine Sodium (Synthroid) 175 mcg PO 0600 ISAI PRN Reason: Protocol Last Admin: 01/08/18 05:40 Dose: 175 mcg Metoprolol Succinate (Toprol Xl) 12.5 mg PO 0800 ISAI PRN Reason: Protocol Last Admin: 01/08/18 08:12 Dose: 12.5 mg Montelukast Sodium (Singulair) 10 mg PO HS ISAI PRN Reason: Protocol Last Admin: 01/07/18 21:51 Dose: 10 mg Multi-Ingredient Ointment (Prep-Hem) 1 ea TOP DAILY PRN; Protocol PRN Reason: Hemorrhoids Nystatin (Nystop Topical Powder) 1 gm TOP BID PRN; Protocol PRN Reason: Rash - Labs Labs: 01/04/18 09:00 01/04/18 06:00 Attending/Attestation - Attestation I have personally seen and examined this patient.: Yes I have fully participated in the care of the patient.: Yes I have reviewed all pertinent clinical information, including history, physical exam and plan: Yes Notes (Text): I have seen and examined patient with resident in TCU. Agree with the above note. Briefly this is 87 year old female with DM-2, HTN who was admitted for right thigh pain which has resolved. She has been participating in PT without any problem. Upon discharge patient will follow up with Dr Tao.
[2018-01-08 17:39] VITALS: O2SAT 93
[2018-01-08] MEDS: Insulin Detemir 100 units/ml Vial (Levemir) SC SCH (22:00)
[2018-01-09] MEDS: Levothyroxine 175 MCG TAB PO SCH (05:36)
[2018-01-09] MEDS: Insulin Lispro (humaLOG) MEDIUM Coverage SC SCH (06:32)
[2018-01-09] MEDS: Insulin Lispro 1 UNITS/0.01 ML SC SCH (06:32)
[2018-01-09] MEDS: Metoprolol Succinate 25 mg XL Tab PO SCH (08:49)
[2018-01-09 11:11] VITALS: BP 127/89; PULSE 68; RESP 18; TEMP 98.5
--- NOTE | 2018-01-09 15:01 | CP.PCM.DIS ---
<Oscar Torres - Last Filed: 01/09/18 14:54> Provider - Provider Date of Admission: 01/01/18 16:30 Attending physician: Dolores Dave MD Primary care physician: Rj Savage MD Consults: Palliative: [place] Time Spent in preparation of Discharge (in minutes): 45 Hospital Course - Lab Results Lab Results: Most Recent Lab Values WBC 4.5 10^3/ul (4.5-11.0) 01/04/18 09:00 RBC 3.81 10^6/uL (3.5-6.1) 01/04/18 09:00 Hgb 11.8 g/dL (12.0-16.0) L 01/04/18 09:00 Hct 35.2 % (36.0-48.0) L 01/04/18 09:00 MCV 92.4 fl (80.0-105.0) 01/04/18 09:00 MCH 31.0 pg (25.0-35.0) 01/04/18 09:00 MCHC 33.5 g/dl (31.0-37.0) 01/04/18 09:00 RDW 12.8 % (11.5-14.5) 01/04/18 09:00 Plt Count 210 10^3/uL (120.0-450.0) 01/04/18 09:00 MPV 11.1 fl (7.0-11.0) H 01/04/18 09:00 Gran % 50.3 % (50.0-68.0) 01/04/18 09:00 Lymph % (Auto) 35.8 % (22.0-35.0) H 01/04/18 09:00 Ware % (Auto) 12.8 % (1.0-6.0) H 01/04/18 09:00 Eos % (Auto) 0.9 % (1.5-5.0) L 01/04/18 09:00 Baso % (Auto) 0.2 % (0.0-3.0) 01/04/18 09:00 Gran # 2.25 (1.4-6.5) 01/04/18 09:00 Lymph # (Auto) 1.6 (1.2-3.4) 01/04/18 09:00 Ware # (Auto) 0.6 (0.1-0.6) 01/04/18 09:00 Eos # (Auto) 0.0 (0.0-0.7) 01/04/18 09:00 Baso # (Auto) 0.01 K/mm3 (0.0-2.0) 01/04/18 09:00 Sodium 139 mmol/L (132-148) 01/04/18 06:00 Potassium 4.4 mmol/L (3.6-5.0) 01/04/18 06:00 Chloride 102 mmol/L (98-107) 01/04/18 06:00 Carbon Dioxide 30 mmol/L (21-33) 01/04/18 06:00 Anion Gap 12 (10-20) 01/04/18 06:00 BUN 15 mg/dL (7-21) 01/04/18 06:00 Creatinine 0.8 mg/dl (0.7-1.2) 01/04/18 06:00 Est GFR ( Amer) > 60 01/04/18 06:00 Est GFR (Non-Af Amer) > 60 01/04/18 06:00 POC Glucose (mg/dL) 193 mg/dL (65-110) H 01/09/18 11:14 Random Glucose 162 mg/dL (70-110) H 01/04/18 06:00 Calcium 8.7 mg/dL (8.4-10.5) 01/04/18 06:00 Total Bilirubin 0.5 mg/dL (0.2-1.3) 01/04/18 06:00 AST 37 U/L (14-36) H 01/04/18 06:00 ALT 33 U/L (7-56) 01/04/18 06:00 Alkaline Phosphatase 82 U/L (38-126) 01/04/18 06:00 Total Protein 6.6 g/dL (5.8-8.3) 01/04/18 06:00 Albumin 3.5 g/dL (3.0-4.8) 01/04/18 06:00 Globulin 3.0 gm/dL 01/04/18 06:00 Albumin/Globulin Ratio 1.2 (1.1-1.8) 01/04/18 06:00 - Hospital Course Hospital Course: Patient is a 86 yo F with PMHx of HTN, HLD, DM, hypothyroidism, Colon CA, and glaucoma who was admitted for evaluation and treatment of right leg pain 2/2 to a mechanical fall. CT and US of the right lower extremity were negative for any acute abnormalities. Patient was treated with analgesic. PT recommended that patient go to TCU for rehab due to unsteady gait 2/2 to pain. Patient was admitted to TCU for rehab. At time of TCU admission, she complains of right proximal lower extremity pain. Specific region is inconsistent. Patient continued PT/OT while in TCU. Patient progressed well and was ambulating well on discharge. Patient had one instance where she complained of left hip pain. However, that improved with PT. Patient was discharged at end of TCU visit and restarted home medications. Discharge Diagnosis - B/L LE pain and weakness - DM - HTN - HLD Discharge Exam - Head Exam Head Exam: NORMAL INSPECTION - Eye Exam Eye Exam: Normal appearance - ENT Exam ENT Exam: Normal Exam - Neck Exam Neck exam: Normal Inspection - Respiratory Exam Respiratory Exam: Clear to PA & Lateral. absent: Rales, Rhonchi, Wheezes - Cardiovascular Exam Cardiovascular Exam: RRR, +S1, +S2. absent: Gallop, Rubs, Systolic Murmur - GI/Abdominal Exam GI & Abdominal Exam: Normal Bowel Sounds. absent: Distended, Guarding, Rebound , Soft, Tenderness - Extremities Exam Extremities exam: normal inspection - Back Exam Back exam: NORMAL INSPECTION - Neurological Exam Neurological exam: Alert, CN II-XII Intact, Oriented x3 - Psychiatric Exam Psychiatric exam: Normal Affect, Normal Mood - Skin Skin Exam: Dry, Intact, Normal Color, Warm Discharge Plan - Follow Up Plan Condition: GOOD Disposition: HOME/ ROUTINE Instructions: Preventing Falls in the Older Adult, Diabetes Type 2 (DC), Generalized Weakness (DC) Additional Instructions: 1. Follow up with PMD within 1 week 2. Take medications as prescribed 3. Return to ED if symptoms worsen Referrals: Rj Savage MD [Primary Care Provider] - <Dolores Dave - Last Filed: 01/09/18 15:38> Provider - Provider Date of Admission: 01/01/18 16:30 Attending physician: Dolores Dave MD Primary care physician: Rj Savage MD Hospital Course - Lab Results Lab Results: Most Recent Lab Values WBC 4.5 10^3/ul (4.5-11.0) 01/04/18 09:00 RBC 3.81 10^6/uL (3.5-6.1) 01/04/18 09:00 Hgb 11.8 g/dL (12.0-16.0) L 01/04/18 09:00 Hct 35.2 % (36.0-48.0) L 01/04/18 09:00 MCV 92.4 fl (80.0-105.0) 01/04/18 09:00 MCH 31.0 pg (25.0-35.0) 01/04/18 09:00 MCHC 33.5 g/dl (31.0-37.0) 01/04/18 09:00 RDW 12.8 % (11.5-14.5) 01/04/18 09:00 Plt Count 210 10^3/uL (120.0-450.0) 01/04/18 09:00 MPV 11.1 fl (7.0-11.0) H 01/04/18 09:00 Gran % 50.3 % (50.0-68.0) 01/04/18 09:00 Lymph % (Auto) 35.8 % (22.0-35.0) H 01/04/18 09:00 Ware % (Auto) 12.8 % (1.0-6.0) H 01/04/18 09:00 Eos % (Auto) 0.9 % (1.5-5.0) L 01/04/18 09:00 Baso % (Auto) 0.2 % (0.0-3.0) 01/04/18 09:00 Gran # 2.25 (1.4-6.5) 01/04/18 09:00 Lymph # (Auto) 1.6 (1.2-3.4) 01/04/18 09:00 Ware # (Auto) 0.6 (0.1-0.6) 01/04/18 09:00 Eos # (Auto) 0.0 (0.0-0.7) 01/04/18 09:00 Baso # (Auto) 0.01 K/mm3 (0.0-2.0) 01/04/18 09:00 Sodium 139 mmol/L (132-148) 01/04/18 06:00 Potassium 4.4 mmol/L (3.6-5.0) 01/04/18 06:00 Chloride 102 mmol/L (98-107) 01/04/18 06:00 Carbon Dioxide 30 mmol/L (21-33) 01/04/18 06:00 Anion Gap 12 (10-20) 01/04/18 06:00 BUN 15 mg/dL (7-21) 01/04/18 06:00 Creatinine 0.8 mg/dl (0.7-1.2) 01/04/18 06:00 Est GFR ( Amer) > 60 01/04/18 06:00 Est GFR (Non-Af Amer) > 60 01/04/18 06:00 POC Glucose (mg/dL) 193 mg/dL (65-110) H 01/09/18 11:14 Random Glucose 162 mg/dL (70-110) H 01/04/18 06:00 Calcium 8.7 mg/dL (8.4-10.5) 01/04/18 06:00 Total Bilirubin 0.5 mg/dL (0.2-1.3) 01/04/18 06:00 AST 37 U/L (14-36) H 01/04/18 06:00 ALT 33 U/L (7-56) 01/04/18 06:00 Alkaline Phosphatase 82 U/L (38-126) 01/04/18 06:00 Total Protein 6.6 g/dL (5.8-8.3) 01/04/18 06:00 Albumin 3.5 g/dL (3.0-4.8) 01/04/18 06:00 Globulin 3.0 gm/dL 01/04/18 06:00 Albumin/Globulin Ratio 1.2 (1.1-1.8) 01/04/18 06:00 Attending/Attestation - Attestation I have personally seen and examined this patient.: Yes I have fully participated in the care of the patient.: Yes I have reviewed all pertinent clinical information, including history, physical exam and plan: Yes Notes (Text): I have seen and examined patient with resident in TCU. Agree with the above note. Briefly this is 87 year old female with DM-2, HTN who was admitted for right thigh pain which has resolved. She has been participating in PT without any problem. Patient wants to go home today. Upon discharge patient will follow up with Dr Tao.
== END 2018-01-09 12:23 | disposition home or self-care (01) | DRG 556 ==
LOC: TRCU 16:30
PROVIDERS: ADMIT Hospitalist; ATTEND Hospitalist
PROC: F07Z9FZ Gait Training/Functional Ambulation Treatment using Assistive, Adaptive, Supportive or Protective Equipment (ICD-10-PCS; principal; 2018-01-02)
PROC: F07M6ZZ Therapeutic Exercise Treatment of Musculoskeletal System - Whole Body (ICD-10-PCS; 2018-01-02)
PROC: F08Z0ZZ Bathing/Showering Techniques Treatment (ICD-10-PCS; 2018-01-02)
PROC: F08Z1ZZ Dressing Techniques Treatment (ICD-10-PCS; 2018-01-02)
PROC: F08Z2ZZ Grooming/Personal Hygiene Treatment (ICD-10-PCS; 2018-01-02)
PROC: F08Z4ZZ Home Management Treatment (ICD-10-PCS; 2018-01-02)
DX: M79.651 Pain in right thigh (principal); R53.1 Weakness; J44.9 Chronic obstructive pulmonary disease, unspecified; E03.9 Hypothyroidism, unspecified; E11.9 Type 2 diabetes mellitus without complications; E78.5 Hyperlipidemia, unspecified; H40.9 Unspecified glaucoma; H54.7 Unspecified visual loss; I10 Essential (primary) hypertension; K59.00 Constipation, unspecified; Z85.038 Personal history of other malignant neoplasm of large intestine; Z87.891 Personal history of nicotine dependence; Z90.49 Acquired absence of other specified parts of digestive tract; R35.0 Frequency of micturition; N39.3 Stress incontinence (female) (male); K64.9 Unspecified hemorrhoids

== ENCOUNTER 2018-01-11 08:39 | Emergency (ER) | payer MEDICARE ==
[2018-01-11 08:43] VITALS: BMI 31.1
[2018-01-11] MEDS ORDERED: Sodium Chloride 0.9% 500 ML IV STA (09:13)
--- NOTE | 2018-01-11 09:18 | ED PDOC ---
Arrival/HPI - General Chief Complaint: Pain, Chronic Time Seen by Provider: 01/11/18 08:56 Historian: Patient, EMS - History of Present Illness Narrative History of Present Illness (Text): 01/11/18 09:14 pt p/w + worsening left leg pain, unable to walk, pt is now bed-bound; pt was just recently discharged from the hospital ~ 2 days ago, s/p fall few days ago; pt states at home, she is not eating, pt has no appetite; pt is unable to take care of herself since she lives alone; pt states no fever/chills/sweats, no cp/ sob/palpitations, no abd pain, no n/v, + left lower leg numbness/tingling, no rectal/vaginal numbness/tingling, no incontinence, no new fall/trauma; pt states her leg pain is severe at >10/10; pt states no gross bleeding/rashes pt is here for further eval pt's without other complaints. PCP: Mutter[facility]al pt lives alone Time/Duration: < week (last 2 days) Symptom Onset: Sudden Symptom Course: Worsening Quality: Other (left leg burning/pain) Severity Level: Severe Activities at Onset: Rest Context: Home Past Medical History - Provider Review Nursing Documentation Reviewed: Yes - Travel History Have you recently traveled outside [place] w/in the past 3 mons?: No - Past History Past History: No Previous - Infectious Disease Hx of Infectious Diseases: None - Tetanus Immunization Tetanus Immunization: Unknown - Reproductive Menopause: Yes Currently : No - Cardiac Hx Hypertension: Yes - Pulmonary Hx Chronic Obstructive Pulmonary Disease (COPD): Yes - Neurological Hx Neurological Disorder: Yes Hx Dizziness: Yes Other/Comment: neuropathy - HEENT Hx HEENT Disorder: Yes 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) Hx Cataracts: Yes (LEFT WITH BLURRY VISION) Hx Glaucoma: Yes (RIGHT EYE) - Renal Hx Renal Disorder: No - Endocrine/Metabolic Hx Diabetes Mellitus Type 2: Yes Hx Hypothyroidism: Yes - Hematological/Oncological Hx Blood Disorders: No - Musculoskeletal/Rheumatological Hx Falls: Yes (08-11-17) Other/Comment: neuropathy - Gastrointestinal Hx Gastrointestinal Disorders: Yes (ACUTE COLITIS) - Genitourinary/Gynecological Hx Genitourinary Disorders: No - Psychiatric Hx Psychophysiologic Disorder: Yes (SMOKED CIGAREETES H/O) Hx Depression: No Hx Emotional Abuse: No Hx Physical Abuse: No Hx Substance Use: No - Surgical History Hx Appendectomy: Yes Hx Cholecystectomy: Yes Other/Comment: Colon tumor removal (benign) - Anesthesia Hx Anesthesia: Yes Hx Anesthesia Reactions: No - Suicidal Assessment Feels Threatened In Home Enviroment: No Family/Social History - Physician Review Nursing Documentation Reviewed: Yes Family/Social History: No Known Family HX Smoking Status: Former Smoker Hx Alcohol Use: No Hx Substance Use: No Hx Substance Use Treatment: No Allergies/Home Meds Allergies/Adverse Reactions: Allergies No Known Allergies Allergy (Verified 01/11/18 08:55) Home Medications: Home Meds Medication Instructions Recorded Confirmed Levothyroxine Sodium 150 mcg PO TID 10/04/12 01/11/18 Metoprolol Succinate 25 mg PO DAILY 10/04/12 01/01/18 Ezetimibe 10 mg PO DAILY 04/28/17 01/11/18 Insulin Glargine, Recombina 30 unit SC HS 12/24/17 01/01/18 [Lantus] Insulin Lispro [humALOG] 10 units SC TID 12/24/17 01/01/18 Review of Systems - Review of Systems Constitutional: Fatigue Eyes: Normal ENT: Normal Respiratory: Normal Cardiovascular: Normal Gastrointestinal: Normal Genitourinary Female: Normal Musculoskeletal: Other (left leg pain, unable to walk) Skin: Normal Neurological: Normal Endocrine: Normal Hemo/Lymphatic: Normal Psychiatric: Normal Physical Exam Vital Signs Reviewed: Yes Vital Signs Temp Pulse Resp BP Pulse Ox 01/11/18 12:30 73 18 176/87 H 96 01/11/18 08:49 97.3 F L 77 21 171/78 H 97 Temperature: Afebrile Blood Pressure: Hypertensive Pulse: Regular Respiratory Rate: Normal Appearance: Positive for: Well-Appearing, Uncomfortable, Other (uncomfortable, resting in bed, alert/awake, GCS = 15, oriented x 3, cooperative; mild distress due to left leg pain) Pain Distress: Mild Mental Status: Positive for: Alert and Oriented X 3 - Systems Exam Head: Present: Atraumatic, Normocephalic, Other (mild bi-temporal wasting) Pupils: Present: PERRL, Other ( no nystagmus, no photophobia, sclera anicteric) Extroacular Muscles: Present: EOMI Conjunctiva: Present: Normal Ears: Present: Normal Mouth: Present: Dry, Other (fair dentitions, no drooling/stridor, dry oral mucosa, uvula/tongue are midline) Pharnyx: Present: Normal Nose (External): Present: Atraumatic Nose (Internal): Present: Normal Inspection Neck: Present: Normal Range of Motion, Trachea Midline, Other (no midline tenderness, no step off). No: Meningeal Signs, MIDLINE TENDERNESS Respiratory/Chest: Present: Clear to Auscultation, Good Air Exchange, Other ( CTA b/l, no w/r/r, no accessory muscle use noted, no tachypenia) Cardiovascular: Present: Regular Rate and Rhythm, Normal S1, S2. No: Murmurs Abdomen: Present: Normal Bowel Sounds, Other (well nourished female, no f) Back: Present: Normal Inspection. No: CVA Tenderness, Midline Tenderness Upper Extremity: Present: Normal Inspection, Normal ROM, NORMAL PULSES, Neurovascularly Intact Lower Extremity: Present: Normal Inspection, Neurovascularly Intact, Other (+ decr ROM to b/l lower ext, strength 4+/5 b/l; + diffuse left leg pain, no jerrell' s sign, no pitting edema noted b/l) Neurological: Present: GCS=15, CN II-XII Intact, Speech Normal Skin: Present: Warm, Dry, Normal Color, Other (cap refill ~ 1sec, no ulcerations , no petechiae; no rashes) Psychiatric: Present: Alert, Oriented x 3 Medical Decision Making ED Course and Treatment: Impression: ambulatory dysfunction, left leg pain I have considered all differential diagnoses regarding patients chief medical complaints/clinical findings which include but are not limited to: Plan: -- EKG -- US lower extremity -- Radiology left hip -- Radiology obstructive series, abdomen -- Labs -- Urinalysis -- IV fluids, Toradol, Neurontin -- Reassess and disposition Prior Visits: Notes and results from previous visits were reviewed. Patient last seen in the ED on 12/29/17 for evaluation of right posterior leg pain s/p mechanical fall. Patient was admitted for fall, leg pain and gait abnormality. Patient was discharged 01/01/18. Progress Notes: 01/11/18 10:[address] Amber Dave, who knows patient well during hospitalization a few days ago; hospitalists had discussed with patient at length prior to her discharge regarding possible prison placement, case managers had been working closely with her as well, pt had rejected the suggestion, and states she would like to try going home, at which point pt was discharged to home and continued with self care at home. litigation services manager is notified currently and will try to arrange for prison placement at [facility]. 1230 pt is comfortable, states pain is easier to tolerate pt states her pain level is ~ 5/10 pt is awaiting case managers bed placement 01/11/18 15:107 Case discussed with Matt hospice social worker, whom is at patient's bedside in the emergency department. He is currently working on direct bed placement at [facility]. Patient has been accepted to the facility, currently awaiting discharge around 16:30-17:00. 01/11/18 17:30 pt is made aware of her medical results pt is encouraged fluid hydration pt will f/u as directed pt will be discharged to [facility] for further rehab/treatment/ stabilization Re-evaluation Time: 16:30 Reassessment Condition: Improving,but remains with symptoms - Lab Interpretations Lab Results: 01/11/18 09:37 01/11/18 09:37 Lab Results 01/11/18 09:37: Sodium 143, Potassium 4.2, Chloride 103, Carbon Dioxide 29, Anion Gap 16, BUN 16, Creatinine 0.7, Est GFR ( Amer) > 60, Est GFR (Non- Af Amer) > 60, Random Glucose 91, Calcium 9.7, Total Bilirubin 0.7, AST 37 H, ALT 40, Alkaline Phosphatase 105, Troponin I < 0.01, Total Protein 7.8, Albumin 4.3, Globulin 3.6, Albumin/Globulin Ratio 1.2, Lipase 52 01/11/18 09:37: PT 11.6, INR 1.01, APTT 31.7 01/11/18 09:37: WBC 6.9 D, RBC 4.18, Hgb 13.3, Hct 38.8, MCV 92.8, MCH 31.8, MCHC 34.3, RDW 12.9, Plt Count 347, MPV 9.6, Gran % 70.3 H, Lymph % (Auto) 18.9 L, [place] % (Auto) 9.8 H, Eos % (Auto) 0.7 L, Baso % (Auto) 0.3, Gran # 4.83, Lymph # (Auto) 1.3, [place] # (Auto) 0.7 H, Eos # (Auto) 0.1, Baso # (Auto) 0.02 I have reviewed the lab results: Yes Interpretation: All labs normal - RAD Interpretation Narrative RAD Interpretations (Text): 01/11/18 11:26 Left Hip X-ray Radiographs. Creator : Elmer Uriarte MD FINDINGS: BONES: Normal. No fracture. JOINTS: There is mild joint space narrowing bilaterally SOFT TISSUES: Normal. IMPRESSION: Mild joint space narrowing bilaterally 01/11/18 11:26 abdomen xray- Creator : Elmer Uriarte MD FINDINGS: BOWEL: Normal. No obstruction. No free air. BONES: Normal. IMPRESSION: No active disease. 01/11/18 11:24 Chest X-ray Creator : Elmer Uriarte MD FINDINGS: LUNGS: No active pulmonary disease. PLEURA: No significant pleural effusion identified. No pneumothorax apparent. CARDIOVASCULAR: Normal. OSSEOUS STRUCTURES: No significant abnormalities. VISUALIZED UPPER ABDOMEN: Normal. IMPRESSION: No active disease. 01/11/18 16:21 PROCEDURE: Left lower extremity venous US HISTORY: Leg pain and swelling. Evaluate for DVT. PHYSICIAN(S): Rafi Townsend MD. TECHNIQUE: Duplex sonography and color-flow Doppler with graded compression were used to evaluate the deep venous system of the left lower extremity. FINDINGS: The visualized deep venous system of the left lower extremity is sonographically normal and compressible. Normal wave forms and augmentation are seen. There is no sonographic evidence for deep venous thrombosis in the visualized segments of the left lower extremity. IMPRESSION: 1. No sonographic evidence for deep venous thrombosis in the visualized segments of the left lower extremity. Radiology Orders: 01/11/18 09:11 DUPLEX LOWER EXTRM VEIN LEFT [US] Stat 01/11/18 09:12 HIP MIN 2V W/ PELVIS LT [RAD] Stat obstructive series [ABD 2 VIEWS (FLAT/UP OR DECUB)] [RAD] Stat 01/11/18 09:18 CHEST TWO VIEWS (PA/LAT) [RAD] Stat Crossing Flagman: Radiologist - EKG Interpretation EKG Interpretation (Text): 01/11/18 17:37 NSR at 65 bpm, normal axis, no ectopy, inverted T in leads I, L, no st changes, ABNL EKG; unchanged compare with old ekg 07/2017 Interpreted by ED Physician: Yes Type: 12 lead EKG Comparison: Similar to previous EKG - Medication Orders Current Medication Orders: Discontinued Medications Gabapentin (Neurontin) 200 mg PO ONCE ONE PRN Reason: Protocol Stop: 01/11/18 09:20 Last Admin: 01/11/18 09:37 Dose: 200 mg Sodium Chloride (Sodium Chloride 0.9%) 500 mls @ 999 mls/hr IV .Q31M STA Stop: 01/11/18 09:43 Last Admin: 01/11/18 09:20 Dose: 999 mls/hr eMAR Start Stop Document 01/11/18 09:20 EQ (Rec: 01/11/18 09:20 [id number]) Intravenous Solution Start Date 01/11/18 Start Time 09:20 Ketorolac Tromethamine (Toradol) 15 mg IVP STAT STA Stop: 01/11/18 09:15 Last Admin: 01/11/18 09:20 Dose: 15 mg MAR Pain Assessment Document 01/11/18 09:20 EQ (Rec: 01/11/18 09:20 [id number]) Pain Reassessment Is this a pain reassessment? No Sleep Is patient sleeping during reassessment? No Presence of Pain Presence of Pain Yes IVP Administration Document 01/11/18 09:20 EQ (Rec: 01/11/18 09:20 [id number]) Charges for Administration # of IVP Administrations 1 Disposition/Present on Arrival - Present on Arrival Any Indicators Present on Arrival: No History of DVT/PE: No History of Uncontrolled Diabetes: Yes Urinary Catheter: No History of Decub. Ulcer: No History Surgical Site Infection Following: None - Disposition Have Diagnosis and Disposition been Completed?: Yes Diagnosis: Ambulatory dysfunction, Left leg pain, Weakness Disposition: OTHER INSTITUTION Disposition Time: 16:00 Patient Plan: Discharge (retirement/[facility]) Patient Problems: Current Active Problems Problem Status Onset Ambulatory dysfunction Acute Left leg pain Acute Condition: STABLE Discharge Instructions (ExitCare): Muscle and Bone Pain (DC), Weakness (ED), Fatigue Print Language: SRI LANKAN Additional Instructions: Make sure to see your doctor in 1-2 days YOU are going to prison ([facility] for further rehab/care) DRINK PLENTY OF FLUIDS take your medications as prescribed RETURN TO ED IF worse pain, cant breath, persistent vomiting, high fever >101- 102 for hours, altered behavior, slurr speech, facial changes, focal weakness ( arm/leg or both), unable to urinate, heavy/persistent bleeding, passing out, chest pain, or other medical emergencies Referrals: Rj Savage MD [Primary Care Provider] - Follow up with primary Forms: [employer] ([place])
[2018-01-11 09:41] LABS: BASO # 0.02 K/mm3 (0.0-2.0); BASO % 0.3 % (0.0-3.0); EOS # 0.1 (0.0-0.7); EOS % 0.7 % (1.5-5.0); GRAN # 4.83 (1.4-6.5); GRAN % 70.3 % (50.0-68.0); HEMOGLOBIN 13.3 g/dL (12.0-16.0); LYMPH # 1.3 (1.2-3.4); LYMPH % 18.9 % (22.0-35.0); MEAN CELL VOLUME 92.8 fl (80.0-105.0); MEAN CORPUSCULAR HEMOGLOBIN 31.8 pg (25.0-35.0); MEAN CORPUSCULAR HGB CONC 34.3 g/dl (31.0-37.0); MEAN PLATELET VOLUME 9.6 fl (7.0-11.0); MONO # 0.7 (0.1-0.6); MONO % 9.8 % (1.0-6.0); RBC 4.18 10^6/uL (3.5-6.1); RED CELL DISTRIBUTION WIDTH 12.9 % (11.5-14.5); WHITE BLOOD COUNT 6.9 10^3/ul (4.5-11.0)
[2018-01-11 09:51] LABS: INR 1.01 (0.93-1.08); PARTIAL THROMBOPLASTIN TIME 31.7 Seconds (25.1-36.5); PROTHROMBIN TIME 11.6 SECONDS (9.4-12.5)
[2018-01-11 10:02] LABS: ALB/GLOB RATIO 1.2 (1.1-1.8); ALBUMIN 4.3 g/dL (3.0-4.8); ALT/SGPT 40 U/L (7-56); AST/SGOT 37 U/L (14-36); BLOOD UREA NITROGEN 16 mg/dL (7-21); CALCIUM 9.7 mg/dL (8.4-10.5); GFR AFRICAN-AMERICAN > 60; GFR NON-AFRICAN AMERICAN > 60; LIPASE 52 U/L (23-300); TROPONIN I < 0.01 ng/mL
--- NOTE | 2018-01-11 11:20 | RAD ---
HISTORY: unable to walk, left leg pain, constipation COMPARISON: 12/21/2017 TECHNIQUE: Chest PA and lateral FINDINGS: LUNGS: No active pulmonary disease. PLEURA: No significant pleural effusion identified. No pneumothorax apparent. CARDIOVASCULAR: Normal. OSSEOUS STRUCTURES: No significant abnormalities. VISUALIZED UPPER ABDOMEN: Normal. OTHER FINDINGS: None. IMPRESSION: No active disease.
--- NOTE | 2018-01-11 11:21 | RAD ---
HISTORY: please include chest xray COMPARISON: No prior. FINDINGS: BOWEL: Normal. No obstruction. No free air. BONES: Normal. OTHER FINDINGS: None. IMPRESSION: No active disease.
--- NOTE | 2018-01-11 11:22 | RAD ---
PROCEDURE: Left Hip X-ray Radiographs. HISTORY: no fall, left leg pain COMPARISON: None. FINDINGS: BONES: Normal. No fracture. JOINTS: There is mild joint space narrowing bilaterally SOFT TISSUES: Normal. OTHER FINDINGS: None. IMPRESSION: Mild joint space narrowing bilaterally
[2018-01-11 18:11] VITALS: BP 153/71; PULSE 77; TEMP 98.5
[2018-01-11 18:38] VITALS: RESP 19; O2SAT 96
--- NOTE | 2018-01-12 08:44 | CARD ---
APPROVED REPORT EKG Measurement Heart [id number] <Conclusion> Normal sinus rhythm Nonspecific T wave abnormality Abnormal ECG
== END 2018-01-11 18:38 ==
LOC: ED 08:39
DX: M79.605 Pain in left leg (principal); R53.1 Weakness; R26.2 Difficulty in walking, not elsewhere classified; E03.9 Hypothyroidism, unspecified; E11.9 Type 2 diabetes mellitus without complications; I10 Essential (primary) hypertension; J44.9 Chronic obstructive pulmonary disease, unspecified; Z87.891 Personal history of nicotine dependence
CPT/HCPCS: 71046; 73502; 74019; 80053; 83690; 84484; 85025; 85610; 85730; 93005; 93971; 96374; 99284; J1885; J7040

== ENCOUNTER 2018-08-13 15:02 | Emergency (ER) | payer MEDICARE ==
[2018-08-13 15:23] VITALS: TEMP 98.3; BMI 29.0
[2018-08-13] MEDS ORDERED: Iohexol 240 (50 ml) ONE (15:52)
--- NOTE | 2018-08-13 16:18 | ED PDOC ---
Arrival/HPI - General Chief Complaint: Abdominal Pain Time Seen by Provider: 08/13/18 15:20 Historian: Patient - History of Present Illness Narrative History of Present Illness (Text): 08/13/18 15:43 87 year old female, with past medical history of HTN, HLD, DM, hypothyroidism, and glaucoma and past surgical history of appendectomy, unknown colon surgery for tumor, and cholecystectomy, presents to the Emergency department complaining of rectal pain since Monday. Patient states pain worsens with bowel movement and reports her last bowel movement was this morning consisting of brown soft stool. Patient denies any other associated somatic complaints. Patient denies any blood in stool or hematuria. Patient denies any fevers, chills, headache, dizziness, chest pain, shortness of breath, dyspnea on exertion, cough, abdomin al pain, nausea, vomiting, diarrhea, back pain, neck pain, or any other complaints. PMD: Dr. Savage Time/Duration: < week Symptom Onset: Gradual Symptom Course: Unchanged Quality: Aching Activities at Onset: Light Context: Home 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) Hx Cataracts: Yes (LEFT WITH BLURRY VISION) Hx Glaucoma: Yes (RIGHT EYE) - Renal Hx Renal Disorder: No - Endocrine/Metabolic Hx Diabetes Mellitus Type 2: Yes Hx Hypothyroidism: Yes - Hematological/Oncological Hx Blood Disorders: No - Integumentary Hx Dermatological Disorder: No - Musculoskeletal/Rheumatological Hx Musculoskeletal Disorders: Yes Hx Falls: Yes (08-11-17) Other/Comment: neuropathy - Gastrointestinal Hx Gastrointestinal Disorders: Yes (ACUTE COLITIS) - Genitourinary/Gynecological Hx Genitourinary Disorders: No - Psychiatric Hx Psychophysiologic Disorder: Yes (SMOKED CIGAREETES H/O) Hx Depression: No Hx Emotional Abuse: No Hx Physical Abuse: No Hx Substance Use: No - Surgical History Hx Appendectomy: Yes Hx Cholecystectomy: Yes Other/Comment: Colon tumor removal (benign) - Anesthesia Hx Anesthesia: Yes Hx Anesthesia Reactions: No - Suicidal Assessment Feels Threatened In Home Enviroment: No Family/Social History - Physician Review Nursing Documentation Reviewed: Yes Family/Social History: Unknown Family HX Smoking Status: Former Smoker Hx Alcohol Use: No Hx Substance Use: No Hx Substance Use Treatment: No Allergies/Home Meds Allergies/Adverse Reactions: Allergies No Known Allergies Allergy (Verified 08/13/18 15:28) Home Medications: Home Meds Medication Instructions Recorded Confirmed Levothyroxine Sodium 150 mcg PO TID 10/04/12 01/11/18 Metoprolol Succinate 25 mg PO DAILY 10/04/12 01/01/18 Ezetimibe 10 mg PO DAILY 04/28/17 01/11/18 Insulin Glargine, Recombina 30 unit SC HS 12/24/17 01/01/18 [Lantus] Insulin Lispro [humALOG] 10 units SC TID 12/24/17 01/01/18 Review of Systems - Physician Review All systems were reviewed & negative as marked: Yes - Review of Systems Constitutional: absent: Fevers Respiratory: absent: SOB, Cough Cardiovascular: absent: Chest Pain Gastrointestinal: Other (Rectal pain). absent: Abdominal Pain, Diarrhea, Nausea, Vomiting Genitourinary Female: absent: Dysuria, Urine Output Changes Musculoskeletal: absent: Back Pain, Neck Pain Skin: absent: Rash Neurological: absent: Headache, Dizziness Physical Exam Vital Signs Reviewed: Yes Vital Signs Temp Pulse Resp BP Pulse Ox 08/13/18 15:22 98.3 F 77 16 156/108 H 94 L Temperature: Afebrile Blood Pressure: Hypertensive Pulse: Regular Respiratory Rate: Normal Appearance: Positive for: Well-Appearing, Non-Toxic, Comfortable Pain Distress: None Mental Status: Positive for: Alert and Oriented X 3 - Systems Exam Head: Present: Atraumatic, Normocephalic Pupils: Present: PERRL Extroacular Muscles: Present: EOMI Conjunctiva: Present: Normal Respiratory/Chest: Present: Clear to Auscultation, Good Air Exchange. No: Respiratory Distress, Accessory Muscle Use Cardiovascular: Present: Regular Rate and Rhythm, Normal S1, S2. No: Murmurs Abdomen: No: Tenderness, Distention, Peritoneal Signs Genitourinary/Pelvic Exam: Present: Other (Rectal tenderness. External hemmorhoids noted, non-thrombosed, non-bleeding, reducible. Scribe Tasfia present as Yam Curer.) Back: Present: Normal Inspection Upper Extremity: Present: Normal Inspection. No: Cyanosis, Edema Lower Extremity: Present: Normal Inspection. No: Edema Neurological: Present: GCS=15, CN II-XII Intact, Speech Normal Skin: Present: Warm, Dry, Normal Color. No: Rashes Psychiatric: Present: Alert, Oriented x 3, Normal Insight, Normal Concentration Medical Decision Making ED Course and Treatment: 08/13/18 15:43 Impression: 87 year old female presents to the Emergency department complaining of rectal pain. Plan: -- CT of Abdomen/Pelvis -- Labs -- Toradol -- Reassess and disposition Prior Visits: Notes and results from previous visits were reviewed. Progress Notes: 08/13/18 18:10 CT of Abdomen/Pelvis reviewed by radiologist, shows: Acute inflammatory changes/colitis primarily affecting descending colon, sigmoid and rectum. Postoperative changes consisting of an anastomotic suture line rectosigmoid junction. Adjacent to this to the left is a soft tissue mass without drainable collection. No sinus tract or fistulous communication identified. She has her glucose at times in the 300's so this is baseline for her after she has juice and she had juice in the ED. She will take her insulin tonight as prescribed. No DKA. CT results explained in detail to the patient. She will follow up with her GI doctor and her PMD. She was advised to make sure she follow to make sure this is not a new mass. She will make sure to do that she states. Her pain improved. She is comfortable. - RAD Interpretation Radiology Orders: 08/13/18 15:43 ABD PELVIS PO & IV CONTRAST [CT] Stat Substation Superintendent: Radiologist - Medication Orders Current Medication Orders: Discontinued Medications Ketorolac Tromethamine (Toradol) 30 mg IVP STAT STA Stop: 08/13/18 15:44 - Scribe Statement The provider has reviewed the documentation as recorded by the Nesha Prince. All medical record entries made by the Nesha were at my direction and personally dictated by me. I have reviewed the chart and agree that the record accurately reflects my personal performance of the history, physical exam, medical decision making, and the department course for this patient. I have also personally directed, reviewed, and agree with the discharge instructions and disposition. Disposition/Present on Arrival - Present on Arrival Any Indicators Present on Arrival: Yes History of DVT/PE: No History of Uncontrolled Diabetes: Yes Urinary Catheter: No History of Decub. Ulcer: No History Surgical Site Infection Following: None - Disposition Have Diagnosis and Disposition been Completed?: Yes Diagnosis: Colitis, Hyperglycemia Disposition: HOME/ ROUTINE Disposition Time: 18:45 Patient Plan: Discharge Patient Problems: Current Active Problems Problem Status Onset Colitis Acute Hyperglycemia Acute Condition: IMPROVED Discharge Instructions (ExitCare): Diarrhea in Adolescents and Adults, Hyperglycemia, Adult (DC) Additional Instructions: DANY SAMPSON, thank you for letting us take care of you today. Your provider was James Patel DO and you were treated for Colitis, Diabetes. The em ergency medical care you received today was directed at your acute symptoms. If you were prescribed any medication, please fill it and take as directed. It may take several days for your symptoms to resolve. Return to the Emergency Department if your symptoms worsen, do not improve, or if you have any other problems. Please contact your doctor or call one of the physicians/clinics you have been r eferred to that are listed on the Patient Visit Information form that is included in your discharge packet. Bring any paperwork you were given at discharge with you along with any medications you are taking to your follow up visit. Our treatment cannot replace ongoing medical care by a primary care provider outside of the emergency department. Thank you for allowing the [facility] team to be part of your care today. If you had an X-Ray or CT scan: A Radiologist will review the ED reading if any change in treatment is needed we will contact you. If you had a blood, urine, or wound culture: It will take several days for the results, if any change in treatment is needed we will contact you. If you had an STI test: It will take 48 hours for the results. Please call after 1 week if you have not heard back. Referrals: Rj Savage MD [Primary Care Provider] - Follow up with primary Forms: [employer] (Liberian), WORK NOTE
[2018-08-13 16:59] LABS: BASO # 0.03 K/mm3 (0.0-2.0); BASO % 0.4 % (0.0-3.0); EOS # 0.1 (0.0-0.7); EOS % 1.2 % (1.5-5.0); GRAN # 5.19 (1.4-6.5); GRAN % 69.2 % (50.0-68.0); HEMOGLOBIN 13.6 g/dL (12.0-16.0); LYMPH # 1.6 (1.2-3.4); LYMPH % 21.3 % (22.0-35.0); MEAN CELL VOLUME 92.6 fl (80.0-105.0); MEAN CORPUSCULAR HEMOGLOBIN 31.5 pg (25.0-35.0); MEAN PLATELET VOLUME 10.7 fl (7.0-11.0); MONO # 0.6 (0.1-0.6); MONO % 7.9 % (1.0-6.0); RBC 4.32 10^6/uL (3.5-6.1); RED CELL DISTRIBUTION WIDTH 13.5 % (11.5-14.5); WHITE BLOOD COUNT 7.5 10^3/uL (4.5-11.0)
[2018-08-13 17:07] LABS: INR 0.95; PARTIAL THROMBOPLASTIN TIME 31.9 Seconds (25.1-36.5); PROTHROMBIN TIME 10.8 SECONDS (9.4-12.5)
[2018-08-13] MEDS ORDERED: Sodium Chloride 0.9% 1,000 ML IV STA (17:08)
[2018-08-13 17:21] LABS: ALBUMIN 3.9 g/dL (3.0-4.8); ALT/SGPT 31 U/L (7-56); AST/SGOT 34 U/L (14-36); BLOOD UREA NITROGEN 16 mg/dL (7-21); CALCIUM 9.1 mg/dL (8.4-10.5); GFR NON-AFRICAN AMERICAN > 60
[2018-08-13] MEDS ORDERED: Insulin Regular 1 UNITS/0.01 ML ML SC STA (17:25)
[2018-08-13 17:29] LABS: VENOUS BLOOD GAS BASE EXCESS 2.4 mmol/L (0.0-2.0); VENOUS BLOOD GAS PO2 36 mm/Hg (30-55)
[2018-08-13] MEDS ORDERED: Iohexol 350 MG/100 ML VIAL ONE (17:34)
--- NOTE | 2018-08-13 18:13 | CT ---
Date of service: 08/13/2018 PROCEDURE: CT Abdomen and Pelvis with contrast HISTORY: Rectal pain. Relevant surgical history: Resection of a sigmoid or rectal mass by history thought to be benign. COMPARISON: None. TECHNIQUE: Intravenous contrast dose: 100 cc Omnipaque 350 Radiation dose: Total exam DLP = 1337.18 mGy-cm. This CT exam was performed using one or more of the following dose reduction techniques: Automated exposure control, adjustment of the mA and/or kV according to patient size, and/or use of iterative reconstruction technique. FINDINGS: LOWER THORAX: Unremarkable. LIVER: Unremarkable. No gross lesion or ductal dilatation. GALLBLADDER AND BILE DUCTS: Cholelithiasis without CT evidence of acute cholecystitis. PANCREAS: Mildly atrophic pancreas without focal abnormality. SPLEEN: Unremarkable. ADRENALS: Unremarkable. No mass. KIDNEYS AND URETERS: Unremarkable. No hydronephrosis. No solid mass. VASCULATURE: Unremarkable. No aortic aneurysm. No atherosclerotic calcification or mural plaque present. BOWEL: In the wall of the descending colon, sigmoid and rectum consistent with acute colitis. Surgical suture line identified rectosigmoid junction. There is soft tissue asymmetry to the left of this, there is no drainable collection. There is no mechanical obstructing lesion. APPENDIX: The appendix is not visible. PERITONEUM: Unremarkable. No free fluid. No free air. LYMPH NODES: Unremarkable. No enlarged lymph nodes. BLADDER: Unremarkable. REPRODUCTIVE: Unremarkable. BONES: No acute fracture. OTHER FINDINGS: None. IMPRESSION: Acute inflammatory changes/colitis primarily affecting descending colon, sigmoid and rectum. Postoperative changes consisting of an anastomotic suture line rectosigmoid junction. Adjacent to this to the left is a soft tissue mass without drainable collection. No sinus tract or fistulous communication identified. Communication of results: I discussed findings directly with the attending physician in the emergency department Dr. Patel at 18:04.
[2018-08-13 20:04] VITALS: BP 160/59; PULSE 69; O2SAT 97
[2018-08-13 20:13] VITALS: RESP 19
== END 2018-08-13 19:27 | disposition home or self-care (01) ==
LOC: ED 15:02
DX: K52.9 Noninfective gastroenteritis and colitis, unspecified (principal); E11.65 Type 2 diabetes mellitus with hyperglycemia; I10 Essential (primary) hypertension; E78.5 Hyperlipidemia, unspecified; E03.9 Hypothyroidism, unspecified; Z87.891 Personal history of nicotine dependence; Z90.49 Acquired absence of other specified parts of digestive tract
CPT/HCPCS: 74177; 80053; 82803; 82948; 83735; 85025; 85610; 85730; 96360; 96372; 99283; J7030; Q9966; Q9967

== ENCOUNTER 2018-09-06 09:41 | Inpatient (IN) | payer MEDICARE ==
[2018-09-06 09:42] VITALS: BMI 29.0
[2018-09-06 10:57] LABS: BASO # 0.03 K/mm3 (0.0-2.0); BASO % 0.5 % (0.0-3.0); EOS # 0.1 (0.0-0.7); EOS % 1.3 % (1.5-5.0); GRAN # 4.29 (1.4-6.5); GRAN % 70.2 % (50.0-68.0); HEMOGLOBIN 14.3 g/dL (12.0-16.0); LYMPH # 1.2 (1.2-3.4); MEAN CELL VOLUME 93.1 fl (80.0-105.0); MEAN CORPUSCULAR HGB CONC 34.4 g/dl (31.0-37.0); MEAN PLATELET VOLUME 10.9 fl (7.0-11.0); MONO # 0.5 (0.1-0.6); RBC 4.47 10^6/uL (3.5-6.1); RED CELL DISTRIBUTION WIDTH 13.2 % (11.5-14.5); WHITE BLOOD COUNT 6.1 10^3/uL (4.5-11.0)
[2018-09-06 11:18] LABS: ACETAMINOPHEN < 10.0 ug/ml (10.0-20.0); SALICYLATE < 1 mg/dL (2.0-20.0)
[2018-09-06 11:23] LABS: ALB/GLOB RATIO 1.2 (1.1-1.8); ALBUMIN 4.1 g/dL (3.0-4.8); ALT/SGPT 31 U/L (7-56); AST/SGOT 27 U/L (14-36); BLOOD UREA NITROGEN 13 mg/dL (7-21); CALCIUM 9.6 mg/dL (8.4-10.5); GFR NON-AFRICAN AMERICAN > 60
--- NOTE | 2018-09-06 11:43 | ED PDOC ---
Arrival/HPI - General Chief Complaint: Anxiety Time Seen by Provider: 09/06/18 09:45 Historian: Patient - History of Present Illness Narrative History of Present Illness (Text): 09/06/18 11:37 88yo female with past medical history of hypertension, Diabetes, hypothyroid who present with complaint of anxiety. States she has been worried about everything lately. Notes that she lives alone and worries about her bills and other things. She states she have never seen a Psychiatrist in the past. she denies Si/Hi, hallucination, any somatic complaint. 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) Hx Cataracts: Yes (LEFT WITH BLURRY VISION) Hx Glaucoma: Yes (RIGHT EYE) - Renal Hx Renal Disorder: No - Endocrine/Metabolic Hx Diabetes Mellitus Type 2: Yes Hx Hypothyroidism: Yes - Hematological/Oncological Hx Blood Disorders: No - Integumentary Hx Dermatological Disorder: No - Musculoskeletal/Rheumatological Hx Musculoskeletal Disorders: Yes Hx Falls: Yes (08-11-17) Other/Comment: neuropathy - Gastrointestinal Hx Gastrointestinal Disorders: Yes (ACUTE COLITIS) - Genitourinary/Gynecological Hx Genitourinary Disorders: No - Psychiatric Hx Psychophysiologic Disorder: Yes (SMOKED CIGAREETES H/O) Hx Depression: No Hx Emotional Abuse: No Hx Physical Abuse: No Hx Substance Use: No - Surgical History Hx Appendectomy: Yes Hx Cholecystectomy: Yes Other/Comment: Colon tumor removal (benign) - Anesthesia Hx Anesthesia: Yes Hx Anesthesia Reactions: No Hx Malignant Hyperthermia: No - Suicidal Assessment Feels Threatened In Home Enviroment: No Family/Social History - Physician Review Nursing Documentation Reviewed: Yes Family/Social History: Unknown Family HX Smoking Status: Former Smoker Hx Alcohol Use: No Hx Substance Use: No Hx Substance Use Treatment: No Allergies/Home Meds Allergies/Adverse Reactions: Allergies No Known Allergies Allergy (Verified 09/06/18 18:23) Home Medications: Home Meds Medication Instructions Recorded Confirmed RX: Levothyroxine Sodium 150 mcg PO TID 10/04/12 09/06/18 RX: Metoprolol Succinate 25 mg PO DAILY 10/04/12 09/06/18 RX: Ezetimibe 10 mg PO DAILY 04/28/17 09/06/18 RX: Insulin Glargine, Recombina 30 unit SC HS 12/24/17 09/06/18 [Lantus] RX: Insulin Lispro [humALOG] 10 units SC TID 12/24/17 09/06/18 Review of Systems - Physician Review All systems were reviewed & negative as marked: Yes - Review of Systems Constitutional: Normal Eyes: Normal ENT: Normal Respiratory: Normal Cardiovascular: Normal Gastrointestinal: Normal Genitourinary Female: Normal Musculoskeletal: Normal Skin: Normal Neurological: Normal Endocrine: Normal Hemo/Lymphatic: Normal Psychiatric: Anxiety Physical Exam Vital Signs Reviewed: Yes Vital Signs Temp Pulse Resp BP Pulse Ox 09/06/18 09:53 98.0 F 78 18 160/70 H 97 Temperature: Afebrile Blood Pressure: Normal Pulse: Regular Respiratory Rate: Normal Appearance: Positive for: Well-Appearing, Non-Toxic, Comfortable Pain Distress: None Mental Status: Positive for: Alert and Oriented X 3 - Systems Exam Head: Present: Atraumatic, Normocephalic Pupils: Present: PERRL Extroacular Muscles: Present: EOMI Conjunctiva: Present: Normal Mouth: Present: Moist Mucous Membranes Neck: Present: Normal Range of Motion Respiratory/Chest: Present: Clear to Auscultation, Good Air Exchange. No: Respi ratory Distress, Accessory Muscle Use Cardiovascular: Present: Regular Rate and Rhythm, Normal S1, S2. No: Murmurs Abdomen: No: Tenderness, Distention, Peritoneal Signs Back: Present: Normal Inspection Upper Extremity: Present: Normal Inspection. No: Cyanosis, Edema Lower Extremity: Present: Normal Inspection. No: Edema Neurological: Present: GCS=15, CN II-XII Intact, Speech Normal Skin: Present: Warm, Dry, Normal Color. No: Rashes Psychiatric: Present: Alert, Oriented x 3, Normal Insight, Normal Concentration, Anxious Medical Decision Making ED Course and Treatment: 09/06/18 19:40 88yo female present to emergency department for anxiety . Labs EKG chest xray Labs was unremarkable with exception of hyperglycemia and she was given insulin. Repeat FS was 205 She was medically cleared for psych evaluation. she was seen in emergency department by ALISA Jo. she DC with Dr. Rodrigez and she requested pt be admitted to her service for anxiety. - Lab Interpretations Lab Results: 09/06/18 10:45 09/06/18 10:45 Lab Results 09/06/18 10:45: Alcohol, Quantitative < 10 09/06/18 10:45: Salicylates < 1 L, Acetaminophen < 10.0 L 09/06/18 10:45: Sodium 136, Potassium 4.7, Chloride 98, Carbon Dioxide 29, Anion Gap 13, BUN 13, Creatinine 0.6 L, Est GFR ( Amer) > 60, Est GFR (Non-Af Amer) > 60, Random Glucose 363 H* D, Calcium 9.6, Magnesium 2.0, Total Bilirubin 0.6, AST 27, ALT 31, Alkaline Phosphatase 114, Total Protein 7.5, Albumin 4.1, Globulin 3.3, Albumin/Globulin Ratio 1.2 09/06/18 10:45: WBC 6.1, RBC 4.47, Hgb 14.3, Hct 41.6, MCV 93.1, MCH 32.0, MCHC 34.4, RDW 13.2, Plt Count 213, MPV 10.9, Gran % 70.2 H, Lymph % (Auto) 20.0 L, [place] % (Auto) 8.0 H, Eos % (Auto) 1.3 L, Baso % (Auto) 0.5, Gran # 4.29, Lymph # (Auto) 1.2, [place] # (Auto) 0.5, Eos # (Auto) 0.1, Baso # (Auto) 0.03 Disposition/Present on Arrival - Present on Arrival Any Indicators Present on Arrival: No History of DVT/PE: No History of Uncontrolled Diabetes: Yes Urinary Catheter: No History of Decub. Ulcer: No History Surgical Site Infection Following: None - Disposition Have Diagnosis and Disposition been Completed?: Yes Diagnosis: Anxiety, Depression, Diabetes Disposition: HOSPITALIZED Disposition Time: 12:35 Patient Plan: Admission Patient Problems: Current Active Problems Problem Status Onset Anxiety Acute Depression Acute Diabetes Chronic Condition: STABLE
[2018-09-06] MEDS ORDERED: Insulin Regular 1 UNITS/0.01 ML ML SC STA (12:48)
--- NOTE | 2018-09-06 13:50 | RAD ---
Date of service: 09/06/2018 HISTORY: admission COMPARISON: 01/11/2018 FINDINGS: LUNGS: No active pulmonary disease. PLEURA: No significant pleural effusion identified, no pneumothorax apparent. CARDIOVASCULAR: No aortic atherosclerotic calcification present. Normal cardiac size. No pulmonary vascular congestion. OSSEOUS STRUCTURES: No significant abnormalities. VISUALIZED UPPER ABDOMEN: Normal. OTHER FINDINGS: None. IMPRESSION: No active disease.
[2018-09-06 14:41] LABS: URINE BILIRUBIN NEGATIVE (NEGATIVE); URINE BLOOD NEGATIVE (NEGATIVE); URINE GLUCOSE (UA) >=1000 mg/dL (NEGATIVE); URINE LEUKOCYTE ESTERASE NEGATIVE Leu/uL (NEGATIVE); URINE PROTEIN 30 mg/dL (<30 mg/dL); URINE UROBILINOGEN 0.2 E.U./dL (<1 E.U./dL)
[2018-09-06 14:43] LABS: URINE APPEARANCE SL CLOUDY (CLEAR); URINE COLOR YELLOW (YELLOW)
[2018-09-06 14:44] LABS: URINE RBC NEGATIVE /hpf (0-2)
[2018-09-06 14:45] LABS: URINE BACTERIA FEW /hpf
--- NOTE | 2018-09-06 14:57 | CARD ---
APPROVED REPORT Date of service: 09/06/2018 EKG Measurement Heart [id number] <Conclusion> Normal sinus rhythm with sinus arrhythmia PRWP T wave abnormality, consider lateral ischemia
[2018-09-06 14:59] LABS: BARBITURATES, UR NEGATIVE (NEGATIVE); BENZODIAZEPINES, UR NEGATIVE (NEGATIVE); OPIATES, UR NEGATIVE (NEGATIVE); PHENCYCLIDINE, UR NEGATIVE (NEGATIVE)
[2018-09-06] MEDS ORDERED: Insulin Lispro (humaLOG) LOW Coverage SC SCH (16:30)
[2018-09-06] MEDS: Insulin Lispro (humaLOG) LOW Coverage SC SCH ×2 (17:43→21:02)
--- NOTE | 2018-09-06 18:58 | PCM.BM ---
<Perez Pérez - Last Filed: 09/06/18 18:55> Treatment Plan Problems - Problems identified on initial assessmt Anxiety Date Initiated: 09/06/18 Time Initiated: 17:00 Assessment reference: NA Status: Active Priority: 1 Altered Sleep Patterns Date Initiated: 09/06/18 Time Initiated: 17:00 Assessment reference: NA Status: Active Priority: 2 Treatment assets and liabiliti Patient Assests: cooperative, ADL independent, negotiates basic needs, cognitively intact, good interpersonal skills, strong anthony Patient Liabilities: live alone, poor support system, medical problems - Milieu Protocol Maintain good personal hygiene: daily Encourage regular showers, every shift Remind patient to perform daily oral care, every shift Assist patient to perform ADL's Maintain personal safety: every shift Educate patient to report safety concerns to staff, every shift Monitor environment for contraband/sharps Medication safety: Monitor for expected outcome, potential side effects: every shift, Assess barriers to learning: every shift, Assess readiness for medication education: every shift Family Contact Family involvement: Famliy/SO not involved Family contact: Patient declines to allow family contact at present - Goals for Treatment Patient goals for treatment: Less anxiety Discharge/Continuing Care - Education Needs Education Needs: Patient Medication, Patient Diagnosis/Disease Process, Patient Coping Skills, Patient Anger Management skills, Patient Placement options, Patient Community resources, Patient Activities of Daily Living, Patient Pain, Patient Nutrition, Patient Uses of Medical Equipment, Patient Health Practices/Safety, Patient Personal Hygiene/Grooming, Patient Aftercare Safety Plan - Discharge Discharge Criteria: Tolerates medication w/o severe side effects, Normal sleep pattern <Rain Cade - Last Filed: 09/07/18 14:38> - Diagnosis (1) Generalized anxiety disorder Status: Acute Interventions: 09/07/18 14:39 Psychoeducation Psychopharmacology/adjustment of medications as needed/ monitoring possible side effects Evaluate pt on daily basis Discussion of importance of being compliant with medications and follow up appointments Suicide and homicide risk assessment and prevention, coping strategies, safety plan Reduction of symptoms Relaxation techniques and breathing exercises Improve functional status Family involvement Cognitive behavioral therapy as outpatient (2) Depression Status: Acute Interventions: 09/07/18 14:39 Psychoeducation Psychopharmacology/adjustment of medications as needed/ monitoring possible side effects Evaluate pt on daily basis Compliance with medications and follow up appointments Suicide and homicide risk assessment and prevention Relapse prevention Reduction of symptoms Improve functional status Family involvement As outpatient: cognitive behavioral therapy <Katharina Saucedo - Last Filed: 09/07/18 15:35> Family Contact Family involvement: Famliy/SO not involved <Deysi Gonzalez - Last Filed: 09/10/18 16:21>
[2018-09-06] MEDS: Insulin Detemir 100 units/ml Vial (Levemir) SC SCH (21:04)
[2018-09-07] MEDS ORDERED: Levothyroxine 175 MCG TAB PO SCH (06:00)
[2018-09-07] MEDS: Levothyroxine 150 MCG TAB PO SCH (06:41)
[2018-09-07 08:30] LABS: GLUCOSE,FASTING 203 mg/dL (65-110); HDL CHOLESTEROL 45 mg/dL (29-60)
[2018-09-07 08:40] LABS: LDL CHOLESTEROL 195 mg/dL (0-129)
[2018-09-07] MEDS: Insulin Lispro (humaLOG) LOW Coverage SC SCH ×4 (08:52→22:25)
[2018-09-07] MEDS: Insulin Detemir 100 units/ml Vial (Levemir) SC SCH ×2 (08:54→22:25)
[2018-09-07] MEDS: Metoprolol Succinate 25 mg XL Tab PO SCH (09:02)
--- NOTE | 2018-09-07 09:23 | CP.PCM.HP ---
History of Present Illness - History of Present Illness History of Present Illness: Medical H&P This is an 88 year old female with history of hypertension, diabetes, colon cancer, neuropathy and hypothyroidism, who came to the Emergency Room at the [facility] for anxiety. Patient says that she keeps worrying about things and is unable to stop. She complains of constipation. She denies chest pain or shortness of breath. She says that she has not seen a psychiatrist before and she has not experienced this kind of anxiety in the past. Present on Admission - Present on Admission Any Indicators Present on Admission: No History of DVT/PE: No History of Uncontrolled Diabetes: Yes Urinary Catheter: No Decubitus Ulcer Present: No Review of Systems - Constitutional Constitutional: absent: Chills, Fever, Weight Loss - Cardiovascular Cardiovascular: absent: Chest Pain, Diaphoresis, Dyspnea - Respiratory Respiratory: absent: Cough, Dyspnea, Hemoptysis - Gastrointestinal Gastrointestinal: absent: Abdominal Pain, Nausea, Vomiting Past Patient History - Infectious Disease Hx of Infectious Diseases: None - Tetanus Immunizations Tetanus Immunization: Unknown - Past Social History Smoking Status: Former Smoker 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 Alcohol: None Drugs: Denies - CARDIAC Hx Cardiac Disorders: Yes Hx Hypertension: Yes - NEUROLOGICAL Other/Comment: neuropathy - HEENT Hx HEENT Problems: Yes 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) Hx Cataracts: Yes (LEFT WITH BLURRY VISION) Hx Glaucoma: Yes (RIGHT EYE) - RENAL Hx Chronic Kidney Disease: No - ENDOCRINE/METABOLIC Hx Diabetes Mellitus Type 2: Yes Hx Hypothyroidism: Yes - HEMATOLOGICAL/ONCOLOGICAL Hx Blood Disorders: No - INTEGUMENTARY Hx Dermatological Problems: No - MUSCULOSKELETAL/RHEUMATOLOGICAL Hx Musculoskeletal Disorders: Yes Hx Falls: Yes (08-11-17) Other/Comment: neuropathy - GASTROINTESTINAL Hx Gastrointestinal Disorders: Yes (ACUTE COLITIS) - GENITOURINARY/GYNECOLOGICAL Hx Genitourinary Disorders: No - PSYCHIATRIC Hx Psychophysiologic Disorder: Yes (SMOKED CIGAREETES H/O) Hx Depression: No Hx Emotional Abuse: No Hx Physical Abuse: No Hx Substance Use: No - SURGICAL HISTORY Hx Appendectomy: Yes Hx Cholecystectomy: Yes Other/Comment: Colon tumor removal (benign) - ANESTHESIA Hx Anesthesia: Yes Hx Anesthesia Reactions: No Hx Malignant Hyperthermia: No Meds Allergies/Adverse Reactions: Allergies Allergy/AdvReac Type Severity Reaction Status Date / Time No Known Allergies Allergy Verified 12/20/18 18:23 Physical Exam - Constitutional Appears: No Acute Distress - Head Exam Head Exam: ATRAUMATIC, NORMOCEPHALIC - Respiratory Exam Respiratory Exam: Clear to Auscultation Bilateral, NORMAL BREATHING PATTERN - Cardiovascular Exam Cardiovascular Exam: REGULAR RHYTHM, +S1, +S2 - GI/Abdominal Exam GI & Abdominal Exam: Normal Bowel Sounds, Soft. absent: Tenderness - Extremities Exam Extremities exam: Positive for: normal inspection - Neurological Exam Neurological exam: Alert, CN II-XII Intact, Oriented x3 Results - Vital Signs Recent Vital Signs: Last Vital Signs Temp 98.5 F 09/07/18 06:37 Pulse 59 L 09/07/18 06:37 Resp 16 09/07/18 06:37 BP 152/71 H 09/07/18 06:37 Pulse Ox 97 09/06/18 15:44 - Labs Result Diagrams: 09/06/18 10:45 09/06/18 10:45 Labs: Laboratory Results - last 24 hr 09/06/18 09/06/18 09/06/18 10:45 10:45 10:45 WBC 6.1 RBC 4.47 Hgb 14.3 Hct 41.6 MCV 93.1 MCH 32.0 MCHC 34.4 RDW 13.2 Plt Count 213 MPV 10.9 Gran % 70.2 H Lymph % (Auto) 20.0 L [place] % (Auto) 8.0 H Eos % (Auto) 1.3 L Baso % (Auto) 0.5 Gran # 4.29 Lymph # (Auto) 1.2 [place] # (Auto) 0.5 Eos # (Auto) 0.1 Baso # (Auto) 0.03 Sodium 136 Potassium 4.7 Chloride 98 Carbon Dioxide 29 Anion Gap 13 BUN 13 Creatinine 0.6 L Est GFR ( Amer) > 60 Est GFR (Non-Af Amer) > 60 POC Glucose (mg/dL) Random Glucose 363 H* D Fasting Glucose Calcium 9.6 Magnesium 2.0 Total Bilirubin 0.6 AST 27 ALT 31 Alkaline Phosphatase 114 Total Protein 7.5 Albumin 4.1 Globulin 3.3 Albumin/Globulin Ratio 1.2 Triglycerides Cholesterol LDL Cholesterol Direct HDL Cholesterol TSH 3rd Generation Urine Color Urine Appearance Urine pH Ur Specific [place] Urine Protein Urine Glucose (UA) Urine Ketones Urine Blood Urine Nitrate Urine Bilirubin Urine Urobilinogen Ur Leukocyte Esterase Urine RBC Urine WBC Ur Epithelial Cells Urine Bacteria Salicylates < 1 L Urine Opiates Screen Urine Methadone Screen Acetaminophen < 10.0 L Ur Barbiturates Screen Ur Phencyclidine Scrn Ur Amphetamines Screen U Benzodiazepines Scrn U Oth Cocaine Metabols U Cannabinoids Screen Alcohol, Quantitative 09/06/18 09/06/18 09/06/18 10:45 14:30 14:30 WBC RBC Hgb Hct MCV MCH MCHC RDW Plt Count MPV Gran % Lymph % (Auto) [place] % (Auto) Eos % (Auto) Baso % (Auto) Gran # Lymph # (Auto) [place] # (Auto) Eos # (Auto) Baso # (Auto) Sodium Potassium Chloride Carbon Dioxide Anion Gap BUN Creatinine Est GFR ( Amer) Est GFR (Non-Af Amer) POC Glucose (mg/dL) Random Glucose Fasting Glucose Calcium Magnesium Total Bilirubin AST ALT Alkaline Phosphatase Total Protein Albumin Globulin Albumin/Globulin Ratio Triglycerides Cholesterol LDL Cholesterol Direct HDL Cholesterol TSH 3rd Generation Urine Color Yellow Urine Appearance Sl cloudy Urine pH 6.0 Ur Specific [place] 1.020 Urine Protein 30 H Urine Glucose (UA) >=1000 Urine Ketones Negative Urine Blood Negative Urine Nitrate Negative Urine Bilirubin Negative Urine Urobilinogen 0.2 Ur Leukocyte Esterase Negative Urine RBC Negative Urine WBC 1 - 3 Ur Epithelial Cells 3 - 4 Urine Bacteria Few Salicylates Urine Opiates Screen Negative Urine Methadone Screen Negative Acetaminophen Ur Barbiturates Screen Negative Ur Phencyclidine Scrn Negative Ur Amphetamines Screen Negative U Benzodiazepines Scrn Negative U Oth Cocaine Metabols Negative U Cannabinoids Screen Negative Alcohol, Quantitative < 10 09/06/18 09/06/18 09/06/18 15:03 16:57 20:55 WBC RBC Hgb Hct MCV MCH MCHC RDW Plt Count MPV Gran % Lymph % (Auto) [place] % (Auto) Eos % (Auto) Baso % (Auto) Gran # Lymph # (Auto) [place] # (Auto) Eos # (Auto) Baso # (Auto) Sodium Potassium Chloride Carbon Dioxide Anion Gap BUN Creatinine Est GFR ( Amer) Est GFR (Non-Af Amer) POC Glucose (mg/dL) 205 H 256 H 201 H Random Glucose Fasting Glucose Calcium Magnesium Total Bilirubin AST ALT Alkaline Phosphatase Total Protein Albumin Globulin Albumin/Globulin Ratio Triglycerides Cholesterol LDL Cholesterol Direct HDL Cholesterol TSH 3rd Generation Urine Color Urine Appearance Urine pH Ur Specific [place] Urine Protein Urine Glucose (UA) Urine Ketones Urine Blood Urine Nitrate Urine Bilirubin Urine Urobilinogen Ur Leukocyte Esterase Urine RBC Urine WBC Ur Epithelial Cells Urine Bacteria Salicylates Urine Opiates Screen Urine Methadone Screen Acetaminophen Ur Barbiturates Screen Ur Phencyclidine Scrn Ur Amphetamines Screen U Benzodiazepines Scrn U Oth Cocaine Metabols U Cannabinoids Screen Alcohol, Quantitative 09/07/18 09/07/18 09/07/18 08:00 08:00 08:44 WBC RBC Hgb Hct MCV MCH MCHC RDW Plt Count MPV Gran % Lymph % (Auto) [place] % (Auto) Eos % (Auto) Baso % (Auto) Gran # Lymph # (Auto) [place] # (Auto) Eos # (Auto) Baso # (Auto) Sodium Potassium Chloride Carbon Dioxide Anion Gap BUN Creatinine Est GFR ( Amer) Est GFR (Non-Af Amer) POC Glucose (mg/dL) 184 H Random Glucose Fasting Glucose 203 H Calcium Magnesium Total Bilirubin AST ALT Alkaline Phosphatase Total Protein Albumin Globulin Albumin/Globulin Ratio Triglycerides 193 H Cholesterol 283 H LDL Cholesterol Direct 195 H HDL Cholesterol 45 TSH 3rd Generation 31.20 H Urine Color Urine Appearance Urine pH Ur Specific [place] Urine Protein Urine Glucose (UA) Urine Ketones Urine Blood Urine Nitrate Urine Bilirubin Urine Urobilinogen Ur Leukocyte Esterase Urine RBC Urine WBC Ur Epithelial Cells Urine Bacteria Salicylates Urine Opiates Screen Urine Methadone Screen Acetaminophen Ur Barbiturates Screen Ur Phencyclidine Scrn Ur Amphetamines Screen U Benzodiazepines Scrn U Oth Cocaine Metabols U Cannabinoids Screen Alcohol, Quantitative Assessment & Plan - Assessment and Plan (Free Text) Assessment: DMII Hypothyroidism HTN HLP Anxiety H/O colon cancer? Plan: continue insulin and continue to monitor blood sugar; will check HbA1c continue Metoprolol for HTN continue Synthroid; TSH is elevated; will check free T4 and free T3 Cholesterol is also elevated; will start Lipitor and continue Zetia
--- NOTE | 2018-09-07 14:38 | PCM.PSYCH ---
Initial Psychiatric Evaluation - Initial Psychiatric Evaluation Type of Admission: Voluntary Legal Status: Capacity (Patient has capacity to sign consent for treatment) Chief Complaint (in patient's own words): ""I've been anxious for a few months now over things, and I lose sleep over it. I start thinking about my age, and going into a penitentiary... and if I do, am I going to be able to afford it. I live alone, so that's another thing I think about. If I need help, will I be able to finance it? Then things like will I be able to send out my [employer] cards on time? That I thought about, and said to myself even if they got there late the person would know that I am still thinking about them. Medicial issues, I've been constipated. They say I'm a worrier, whatever that means. But I don't really have anyone to talk to about it, and that would really help." Patient's Reaction to Hospitalization: Patient was admitted to the psychiatric inpatient unit for evaluation of depression and anxiety which interfere with patient functionality. History of Present Illness and Precipitating Events: The patient is a 58-year old female multiple medical issues, hypertension, diabetes, hypothyroidism, patient came to the emergency room complaining of uncontrolled anxiety, memory problems, inability to function, on top of that patient reported being depressed, patient reported all of her family , she has nobody to talk to, patient also was depressed about the fact that her closest friend had a stroke recently and patient did not want to burden her either. Patient was willing to admit herself into the hospital for medication management as well as observation and stabilization. Patient was seen and examined today, patient presented with marginal personal hygiene, uncombed hair, a lot of stains on her gown. Acceptable ADLs. Patient reported that her family , patient does not have any siblings or any relatives, patient reported for the past year or so she was feeling more dep ressed as well as anxious times patient would feel hopeless and helpless, but denied any suicidal ideation because "it is against of my adventism". Patient reported anxiety and depression affect her sleep, patient will be up all night long, thinking about her finances, future, will business. Patient also reported that she feels constantly anxious and worried at times patient would forget to take her medications because anxiety. "I've been anxious for a few months now over things, and I lose sleep over it. I start thinking about my age, and going into a penitentiary... and if I do, am I going to be able to afford it. I live alone, so that's another thing I think about. If I need help, will I be able to finance it? Then things like will I be able to send out my [employer] cards on time? That I thought about, and said to myself even if they got there late the person would know that I am still thinking about them. Medicial issues, I've been constipated. They say I'm a worrier, whatever that means. 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 Still will call for a neurological evaluation. Patient denied hearing voices denied seeing things denied paranoid ideations, and does not appear to be psychotic. Patient denied using any drugs, denied smoking, denied drinking alcohol, patient reported that she used to smoke and drink but quit in 80s. Medical history: Hypertension, hypothyroidism, diabetes, primary care physician is Dr. Savage, but will be seen by Dr. Godfrey because does not see pt in the hospital. Primary care physician prescribed patient Xanax. History: Patient denied history of being admitted to the psychiatric inpatient unit, patient denied history of suicidal attempts. Family history: Patient reported strong family history of alcohol use disorder, patient denied family history of suicidal attempts. Patient was educated about Cymbalta, Neurontin, risk/benefits/alternatives were discussed with the patient patient is willing to take medications. Med list was confirmed by patient pharmacy, filed into the chart, patient was on Xanax 0.25 mg daily as needed. 09/06/18 10:45 09/06/18 10:45 Lab Results 09/07/18 12:46: POC Glucose (mg/dL) 300 H 09/07/18 09:20: Free T4 0.50 L 09/07/18 08:44: POC Glucose (mg/dL) 184 H 09/07/18 08:00: TSH 3rd Generation 31.20 H 12/21/18 08:00: Fasting Glucose 203 H, Triglycerides 193 H, Cholesterol 283 H, LDL Cholesterol Direct 195 H, HDL Cholesterol 45 09/06/18 20:55: POC Glucose (mg/dL) 201 H 09/06/18 16:57: POC Glucose (mg/dL) 256 H 09/06/18 15:03: POC Glucose (mg/dL) 205 H 09/06/18 14:30: Urine Opiates Screen Negative, Urine Methadone Screen Negative, Ur Barbiturates Screen Negative, Ur Phencyclidine Scrn Negative, Ur Amphetamines Screen Negative, U Benzodiazepines Scrn Negative, U Oth Cocaine Metabols Negative, U Cannabinoids Screen Negative 09/06/18 14:30: Urine Color Yellow, Urine Appearance Sl cloudy, Urine pH 6.0, Ur Specific [place] 1.020, Urine Protein 30 H, Urine Glucose (UA) >=1000, Urine Ketones Negative, Urine Blood Negative, Urine Nitrate Negative, Urine Bilirubin Negative, Urine Urobilinogen 0.2, Ur Leukocyte Esterase Negative, Urine RBC Negative, Urine WBC 1 - 3, Ur Epithelial Cells 3 - 4, Urine Bacteria Few 09/06/18 10:45: Alcohol, Quantitative < 10 09/06/18 10:45: Salicylates < 1 L, Acetaminophen < 10.0 L 09/06/18 10:45: Sodium 136, Potassium 4.7, Chloride 98, Carbon Dioxide 29, Anion Gap 13, BUN 13, Creatinine 0.6 L, Est GFR ( Amer) > 60, Est GFR (Non-Af Amer) > 60, Random Glucose 363 H* D, Calcium 9.6, Magnesium 2.0, Total Bilirubin 0.6, AST 27, ALT 31, Alkaline Phosphatase 114, Total Protein 7.5, Albumin 4.1, Globulin 3.3, Albumin/Globulin Ratio 1.2 09/06/18 10:45: WBC 6.1, RBC 4.47, Hgb 14.3, Hct 41.6, MCV 93.1, MCH 32.0, MCHC 34.4, RDW 13.2, Plt Count 213, MPV 10.9, Gran % 70.2 H, Lymph % (Auto) 20.0 L, Sterling % (Auto) 8.0 H, Eos % (Auto) 1.3 L, Baso % (Auto) 0.5, Gran # 4.29, Lymph # (Auto) 1.2, Sterling # (Auto) 0.5, Eos # (Auto) 0.1, Baso # (Auto) 0.03 Vital Signs Temp Pulse Resp BP Pulse Ox 09/07/18 06:37 98.5 F 59 L 16 152/71 H 09/06/18 16:42 70 165/85 H 09/06/18 16:30 99.1 F 70 20 165/85 H 09/06/18 16:15 20 09/06/18 15:44 98.1 F 73 16 155/66 H 97 09/06/18 15:41 98.1 F 73 16 155/66 H 09/06/18 09:53 98.0 F 78 18 160/70 H 97 The patient failed the outpatient lower level of care: Yes Current Medications: Active Medications Generic Name Dose Route Start Last Admin Trade Name Freq PRN Reason Stop Dose Admin Alprazolam 0.25 mg 09/06/18 19:57 Xanax PO 09/13/18 20:01 BID PRN Anxiety Protocol Atorvastatin Calcium 10 mg 09/07/18 17:00 Lipitor PO DIN ISAI Ezetimibe 10 mg 09/07/18 08:00 09/07/18 09:02 Zetia PO 10 mg DAILY ISAI Administration Insulin Detemir 15 unit 09/06/18 22:00 09/07/18 08:54 Levemir SC 1 units ACBHS ISAI Administration Insulin Human Lispro 0 units 09/06/18 16:30 09/07/18 12:54 Humalog Low SC 4 unit ACHS ISAI Administration Protocol Levothyroxine Sodium 150 mcg 09/07/18 06:00 09/07/18 06:41 Synthroid PO 150 mcg THFRSA@0600 [facility] Administration Levothyroxine Sodium 175 mcg 09/09/18 06:00 Synthroid PO SUMOTUWE@0600 ISAI Lisinopril 10 mg 09/06/18 16:30 09/07/18 09:02 Zestril PO 10 mg DAILY ISAI Administration Metoprolol Succinate 25 mg 09/07/18 08:00 09/07/18 09:02 Toprol Xl PO 25 mg BRK ISAI Administration Zaleplon 5 mg 09/06/18 19:58 Sonata PO HS PRN Insomnia Present on Admission - Present on Admission Any Indicators Present on Admission: No Review of Systems - Review of Systems Systems not reviewed;Unavailable: Acuity of Condition - Constitutional Constitutional: As Per HPI - EENT Eyes: As Per HPI Ears: As Per HPI Nose/Mouth/Throat: As Per HPI - Breasts Breasts: As Per HPI - Cardiovascular Cardiovascular: As Per HPI - Respiratory Respiratory: As Per HPI - Gastrointestinal Gastrointestinal: As Per HPI - Genitourinary Genitourinary: As Per HPI - Reproductive: Female Reproductive:Female: As Per HPI - Menstruation Menstruation: As Per HPI - Musculoskeletal Musculoskeletal: As Per HPI - Integumentary Integumentary: As Per HPI - Neurological Neurological: As Per HPI - Psychiatric Psychiatric: As Per HPI - Endocrine Endocrine: As Per HPI - Hematologic/Lymphatic Hematologic: As Per HPI Past Patient History - Past Psychiatric History Previous Treatment History: None Prior Professional Help: See HPI Prior Psychiatric Treatment: See HPI At what hospital: See HPI Duration: See HPI Nature of Treatment: See HPI Explanation of prior treatment: See HPI - PSYCHIATRIC Hx Psychophysiologic Disorder: Yes (SMOKED CIGAREETES H/O) Hx Depression: No Hx Emotional Abuse: No Hx Physical Abuse: No Hx Substance Use: No - Infectious Disease Hx of Infectious Diseases: None - Tetanus Immunizations Tetanus Immunization: Unknown - Past Social History 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 Alcohol: None Drugs: Denies - CARDIAC Hx Cardiac Disorders: Yes Hx Hypertension: Yes - PULMONARY Hx Respiratory Disorders: Yes Hx Chronic Obstructive Pulmonary Disease (COPD): Yes - NEUROLOGICAL Other/Comment: neuropathy - HEENT Hx HEENT Problems: Yes 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) Hx Cataracts: Yes (LEFT WITH BLURRY VISION) Hx Glaucoma: Yes (RIGHT EYE) - RENAL Hx Chronic Kidney Disease: No - ENDOCRINE/METABOLIC Hx Diabetes Mellitus Type 2: Yes Hx Hypothyroidism: Yes - HEMATOLOGICAL/ONCOLOGICAL Hx Blood Disorders: No - INTEGUMENTARY Hx Dermatological Problems: No - MUSCULOSKELETAL/RHEUMATOLOGICAL Hx Musculoskeletal Disorders: Yes Hx Falls: Yes (08-11-17) Other/Comment: neuropathy - GASTROINTESTINAL Hx Gastrointestinal Disorders: Yes (ACUTE COLITIS) - GENITOURINARY/GYNECOLOGICAL Hx Genitourinary Disorders: No - SURGICAL HISTORY Hx Appendectomy: Yes Hx Cholecystectomy: Yes Other/Comment: Colon tumor removal (benign) - ANESTHESIA Hx Anesthesia: Yes Hx Anesthesia Reactions: No Hx Malignant Hyperthermia: No - Medical/Surgical History Reviewed & confirmed: by wv Meds Allergies/Adverse Reactions: Allergies Allergy/AdvReac Type Severity Reaction Status Date / Time No Known Allergies Allergy Verified 09/06/18 18:23 Mental Status Examination - Personal Presentation Personal Presentation: Looks stated age - Affect Affect: Flat - Motor Activity Motor Activity: Calm - Reliability in Providing Information Reliability in Providing Information: Fair - Speech Speech: Organized - Mood Mood: Depressed, Anxious - Formal Thought Process Formal Thought Process: No Impairment - Obsessions/Compulsions Obsessions: None Compulsions: None - Cognitive Functions Orientation: Person, Place, Situation, Time Sensorium: Alert Attention/Concentration: Easily distracted Estimate of Intelligence: Average Judgement: Intact, as evidence by: Insight regarding need for hospitalization - Risk Risk: Diminished functioning - Strength & Assets Inventory Strength & Assets Inventory: Intelligence, Skills, Spiritual affiliations, Cooperative - Limitations Limitations: Living alone, Other (A lot of medical issues, no support, severe symptoms of anxiety and depression) Psychiatric Physical Exam - Physical Exam Reviewed and confirmed: Emergency Department Physical Exam Results - Vital Signs Recent Vital Signs: Last Vital Signs Temp 98.5 F 09/07/18 06:37 Pulse 59 L 09/07/18 06:37 Resp 16 09/07/18 06:37 BP 152/71 H 09/07/18 06:37 Pulse Ox 97 09/06/18 15:44 - Labs Result Diagrams: 09/06/18 10:45 09/06/18 10:45 Labs: Laboratory Results - last 24 hr 09/06/18 09/06/18 09/06/18 14:30 14:30 15:03 POC Glucose (mg/dL) 205 H Fasting Glucose Triglycerides Cholesterol LDL Cholesterol Direct HDL Cholesterol Free T4 TSH 3rd Generation Urine Color Yellow Urine Appearance Sl cloudy Urine pH 6.0 Ur Specific [place] 1.020 Urine Protein 30 H Urine Glucose (UA) >=1000 Urine Ketones Negative Urine Blood Negative Urine Nitrate Negative Urine Bilirubin Negative Urine Urobilinogen 0.2 Ur Leukocyte Esterase Negative Urine RBC Negative Urine WBC 1 - 3 Ur Epithelial Cells 3 - 4 Urine Bacteria Few Urine Opiates Screen Negative Urine Methadone Screen Negative Ur Barbiturates Screen Negative Ur Phencyclidine Scrn Negative Ur Amphetamines Screen Negative U Benzodiazepines Scrn Negative U Oth Cocaine Metabols Negative U Cannabinoids Screen Negative 09/06/18 09/06/18 09/07/18 16:57 20:55 08:00 POC Glucose (mg/dL) 256 H 201 H Fasting Glucose 203 H Triglycerides 193 H Cholesterol 283 H LDL Cholesterol Direct 195 H HDL Cholesterol 45 Free T4 TSH 3rd Generation Urine Color Urine Appearance Urine pH Ur Specific [place] Urine Protein Urine Glucose (UA) Urine Ketones Urine Blood Urine Nitrate Urine Bilirubin Urine Urobilinogen Ur Leukocyte Esterase Urine RBC Urine WBC Ur Epithelial Cells Urine Bacteria Urine Opiates Screen Urine Methadone Screen Ur Barbiturates Screen Ur Phencyclidine Scrn Ur Amphetamines Screen U Benzodiazepines Scrn U Oth Cocaine Metabols U Cannabinoids Screen 09/07/18 09/07/18 09/07/18 08:00 08:44 09:20 POC Glucose (mg/dL) 184 H Fasting Glucose Triglycerides Cholesterol LDL Cholesterol Direct HDL Cholesterol Free T4 0.50 L TSH 3rd Generation 31.20 H Urine Color Urine Appearance Urine pH Ur Specific [place] Urine Protein Urine Glucose (UA) Urine Ketones Urine Blood Urine Nitrate Urine Bilirubin Urine Urobilinogen Ur Leukocyte Esterase Urine RBC Urine WBC Ur Epithelial Cells Urine Bacteria Urine Opiates Screen Urine Methadone Screen Ur Barbiturates Screen Ur Phencyclidine Scrn Ur Amphetamines Screen U Benzodiazepines Scrn U Oth Cocaine Metabols U Cannabinoids Screen 09/07/18 12:46 POC Glucose (mg/dL) 300 H Fasting Glucose Triglycerides Cholesterol LDL Cholesterol Direct HDL Cholesterol Free T4 TSH 3rd Generation Urine Color Urine Appearance Urine pH Ur Specific [place] Urine Protein Urine Glucose (UA) Urine Ketones Urine Blood Urine Nitrate Urine Bilirubin Urine Urobilinogen Ur Leukocyte Esterase Urine RBC Urine WBC Ur Epithelial Cells Urine Bacteria Urine Opiates Screen Urine Methadone Screen Ur Barbiturates Screen Ur Phencyclidine Scrn Ur Amphetamines Screen U Benzodiazepines Scrn U Oth Cocaine Metabols U Cannabinoids Screen - EKG Data EKG Interpreted by: ER Physician DSM Plan - DSM 5 DSM 5 Diagnosis: Major depressive disorder, severe no psychosis Generalized anxiety disorder Rule out pseudodementia Rule out mood disorder due to general medical condition - Recommended/Plan of Treatment Treatment Recommendations and Plan of Treatment: Milieu/structure/supportive therapy Medical consult appreciated, see medical team note for more detailed info Neurology consult will be involved because patient was complaining of memory issues, rule out dementia Consider to call endocrinology consultation SW consultation for discharge plan and social issues Med management Xanax will be continued 0.25 mg twice a day as needed for anxiety Sonata 5 mg at the nighttime as needed for insomnia Cymbalta 20 mg daily will be started for depression/anxiety/diabetic neuropathy We will be considering to start Neurontin for neuropathy Follow up on labs Will monitor closely Pt was educated about risk/benefits and alternatives of medications, coping strategies (safety plan, suicide prevention), relapse prevention, importance of follow up with psychiatrist and therapist, stay away from drugs/alcohol/smoking Projected ELOS: 7 days Prognosis: Fair Discharge Plan and Discharge Criteria: Pt will be not depressed or manic, will be more hopeful, will be not psychotic or anxious, will be not having thoughts of harming self or others, will be tolerating medications well, will not have major side effects, will be able to function, will not pose threat to self or others. - Tobacco Cessation Tobacco Use Status for the last 30 days: Non User Tobacco Use Treatment Practical Counseling Provided: No Tobacco Use Treatment FDA-Approved Cessation Medication Provided: No - Alcohol or Substance Abuse Does the patient have an Alcohol or Substance Abuse Disorder: No Initial Psych Certification - Initial Certification I certify that the inpatient psychiatric facility admission was medically necessary for either: Treatment which could reasonbly be expected to improve pt's condition I estimate of hospitalization is necessary for proper treatment of the patient: 7 Unit of Time: Days My plans for post-hospital care for this patient are: Possible adult day treatment Center Follow-up with psychiatrist Group therapy
--- NOTE | 2018-09-07 16:07 | CON ---
DATE: 09/07/2018 NEUROLOGY CONSULT CHIEF COMPLIANT: Evaluate for dementia. CURRENT HISTORY OF PRESENT ILLNESS: An 88-year-old woman with past medical history of type 2 diabetes mellitus, colon cancer, hypothyroidism, came in for anxiety and depression and has underlying anxiety and depression. She has elevated A1c of of 12, which is showing completely uncontrolled diabetes as well as elevated blood sugar of 363. She has elevated triglycerides, total cholesterol and LDL, which all can make her cognitively slow. She is alert and oriented to person, place and year. Recall after 5 minutes is 1 out of 3. She is unable to do proverbs correctly. She knows the President of [place]. She is able to draw the clock, but her attention span and thought process are mildly slow. She also has underlying depression and anxiety which massively affect. She moves all extremities equally. She has a picture of diabetic neuropathy on examination. PAST MEDICAL HISTORY: As above. SOCIAL HISTORY: No illicit drug use, smoking or EtOH abuse. ALLERGIES: NO KNOWN DRUG ALLERGIES. MEDICATIONS: Reviewed by nurses' reconciliation sheet. FAMILY HISTORY: Noncontributory. REVIEW OF SYSTEMS: A 14-point review of systems is negative except as per HPI. LABORATORY DATA: Today's blood sugar is 300. PHYSICAL EXAMINATION: GENERAL: The patient is seen up in the chair. No acute distress. VITAL SIGNS: Temperature 98.5, pulse rate 70, blood pressure 165/85, respiratory rate 18, oxygen saturation 98% on room air. HEENT: Atraumatic and normocephalic. PERRLA. Extraocular muscles intact. NECK: Supple. No JVD. No adenopathy noted. LUNGS: Clear to auscultation. No adventitious sounds. HEART: S1 and S2 normal. Normal rate and rhythm. No murmurs, rubs or gallops. ABDOMEN: Soft, nontender and nondistended. Bowel sounds are present. EXTREMITIES: No clubbing and no cyanosis. Peripheral pulses are 2+ felt bilaterally. NEUROLOGICAL: The patient is alert and oriented to person, place and year. Recall after 5 minutes is 0 out of 3. Poor attention span. Slow thought process, very anxious and depressive affect. Speech is fluent without any errors. Cranial nerves II through XII are intact. Motor exam: Moves all extremities equally. No pronator drift seen. Sensory: Decreased light touch and pinprick up to the calves bilaterally. Decreased vibration of the toes. DTRs are 2+ throughout and 1 at both knees and ankles. Coordination: [id number] is intact. No dysmetria noted. Gait is deferred for now. IMPRESSION: 1. Mild cognitive impairment superimposed on underlying depression and anxiety, affecting the attention aspect of her memory. 2. Diabetic peripheral neuropathy for uncontrolled diabetes, affecting her gait and balance. PLAN: 1. Physical therapy for underlying balance and muscle strengthening for underlying gait. 2. Namenda 10 mg p.o. t.i.d. for mild cognitive impairment given that she has poor attention span and slow thought process. 3. Diabetes control on diabetic diet and need to keep her blood sugars from 140 to 180 and needs Endocrinology consult in regards to diabetic management. 4. Continue underlying psychiatric management. Thank you for this consult. Kane Ayon MD
[2018-09-08] MEDS: Levothyroxine 150 MCG TAB PO SCH (06:29)
[2018-09-08] MEDS: Insulin Lispro 1 UNITS/0.01 ML SC SCH ×3 (07:30→17:04)
[2018-09-08] MEDS: Insulin Detemir 100 units/ml Vial (Levemir) SC SCH ×3 (07:35→21:41)
[2018-09-08] MEDS: Insulin Lispro (humaLOG) LOW Coverage SC SCH ×4 (08:03→21:35)
[2018-09-08] MEDS: Metoprolol Succinate 25 mg XL Tab PO SCH (08:55)
--- NOTE | 2018-09-08 09:32 | PCM.PYCHPN ---
Psychiatric Progress Note - Psychiatric Progress Note Patient seen today, length of contact: 25 min Problems Identified/Issues Discussed: I reviewed assessment and recent notes. Patient was interviewed at bedside. Grooming is fair and patient is oriented x3. Patient reports that she is feeling better and would like to be discharged soon. Indicates that she has "things to do" and that she is anxious to leave and return to household commitments. She denies any SI or AVH. She denies any new discomfort or pain. She seems comfortable and well-related. Affect is constricted, it isn't apathetic or listless. Behavior has been pleasant and in good control and there have been no behavioral issues on the unit. Diagnostic Results: Major depressive disorder, severe no psychosis Generalized anxiety disorder Rule out pseudodementia Rule out mood disorder due to general medical condition Mental Status Examination - Cognitive Function Orientation: Person, Place, Situation, Time Attention: WNL Concentration: Poor Association: WNL - Mood Mood: Depressed, Anxious - Affect Affect: Constricted, Flat - Speech Speech: Appropriate - Formal Thought Process Formal Thought Process: No Impairment - Suicidal Ideation Suicidal Ideation: No - Homicidal Ideation Homicidal Ideation: No Goal/Treatment Plan - Goal/Treatment Plan Progress Toward Problem(s) and Goals/Treatment Plan: * c/w current tx and plan * Vitals reviewed and noted below: Selected Entries 09/07/18 09/07/18 06:37 15:00 Temperature 98.5 F Pulse Rate 59 L 61 Respiratory 16 Rate Blood Pressure 152/71 H 153/75 H * No new weekend lab results thus far
--- NOTE | 2018-09-08 09:34 | PN ---
DATE: 09/08/2018 SUBJECTIVE: The patient is in [facility], Behavioral Care Unit. The patient is admitted with altered mental state and depression. The patient has past history of hypertension and chronic lung disease. The patient has history of hyperlipidemia, diabetes mellitus and peripheral neuropathy. The patient also has history of dementia. The patient is seen this morning, he is lying down in bed. She states she feels comfortable, but she says something is wrong with the mind. PHYSICAL EXAMINATION: VITAL SIGNS: Pulse is 57, respirations are 20 per minute and blood pressure 132/59. HEENT: The patient's head is normocephalic. suarez facies SKIN: Dry. NECK: The thyroid is not clinically enlarged. Carotid pulse are present. No lymphadenopathy. LUNGS: Trachea is central. Breath sounds are vesicular. No adventitious sounds. Breath sounds seem to be diminished bilaterally. HEART: Normal sinus rhythm. S1 and S2, present. No murmur. ABDOMEN: Soft. Liver and spleen not palpable. CENTRAL NERVOUS SYSTEM: No focal deficit. LABORATORY DATA: The white count is 6000. His differential is within normal range. Chemistry, the patient's blood sugar ranges from 204 to 300 at this time. The patient's free T4 level is low 0.5, T3 level 1.38. The patient's TSH is elevated. The patient did not remember to take her thyroid medication and this may be happening often, leading to the high TSH levels. At this time, the patient's chemistries otherwise; liver and kidney functions are within normal range. Chest x-ray is clear. MEDICATIONS: The patient is on Cymbalta 200 mg daily. The patient is on insulin-coverage Humalog with meals. The patient gets Levemir twice a day. The patient is on Lipitor 10 mg daily, Namenda 10 mg daily. The patient is on sleep medication Sonata 5 mg daily, Synthroid 150 mcg p.o. daily alternating with 175 mcg daily certain days of the week and she takes metoprolol extended release 25 mg daily, Xanax 0.25 mg daily, lisinopril 10 mg daily, Zetia 10 mg daily. The patient is going to also get 10 mg of Lipitor to help her with lowering the cholesterol. We will consider doing the morning cortisol level, to check the patient's cortisol level because of the patient's face. We will check the cortisol level and evaluate the patient for any other medical diagnoses. Leida Hu MD [facility]
[2018-09-09 05:48] VITALS: O2SAT 95
[2018-09-09] MEDS: Levothyroxine 175 MCG TAB PO SCH (06:13)
[2018-09-09] MEDS: Insulin Lispro (humaLOG) LOW Coverage SC SCH ×4 (08:33→21:35)
[2018-09-09] MEDS: Insulin Lispro 1 UNITS/0.01 ML SC SCH ×3 (08:33→17:00)
[2018-09-09] MEDS: Metoprolol Succinate 25 mg XL Tab PO SCH (08:48)
--- NOTE | 2018-09-09 08:58 | PCM.PYCHPN ---
Psychiatric Progress Note - Psychiatric Progress Note Patient seen today, length of contact: 25 min Problems Identified/Issues Discussed: I reviewed recent notes and patient was interviewed at bedside again. Grooming is fair and patient remains oriented x3. Patient appears a little guarded dennismike villagomez continues to report that she is feeling better and would like to be discharged soon. Indicates that she has "things to do" and that she is anxious to leave and return to household commitments. She denies any SI or AVH. She denies any new discomfort or pain. Complains of a little dizziness which she believes is secondary to her medications. Patient seems comfortable and well- related. Affect is constricted, mildly flat and unenthusiastic however it isn't apathetic or listless. Behavior has been pleasant and in good control. She socializes appropriately and there have been no behavioral issues on the unit. Diagnostic Results: Major depressive disorder, severe no psychosis Generalized anxiety disorder Rule out pseudodementia Rule out mood disorder due to general medical condition Medication Change: No Medical Record Reviewed: Yes Mental Status Examination - Cognitive Function Orientation: Person, Place, Situation, Time Attention: WNL Concentration: Poor (improving) Association: WNL - Mood Mood: Depressed (improving per patient), Anxious - Affect Affect: Constricted, Flat - Speech Speech: Appropriate - Formal Thought Process Formal Thought Process: No Impairment - Suicidal Ideation Suicidal Ideation: No - Homicidal Ideation Homicidal Ideation: No Goal/Treatment Plan - Goal/Treatment Plan Progress Toward Problem(s) and Goals/Treatment Plan: * c/w current tx and plan * Appreciate f/u by Dr. Hu on 09/09/18~synthroid increased to 175 mg po daily. To check cortisol level and evaluate patient for other medical diagnosis. * Vitals reviewed and noted below: 09/09/18 05:46 Temperature 98.8 F Pulse Rate 58 L Respiratory 18 Rate Blood Pressure 120/61 * No new weekend lab results thus far
[2018-09-09] MEDS: Insulin Detemir 100 units/ml Vial (Levemir) SC SCH ×2 (11:01→21:35)
--- NOTE | 2018-09-09 12:00 | PN ---
DATE: 09/09/2018 The patient is in [facility], Behavioral Care Unit. SUBJECTIVE: The patient is an 88-year-old white female. She was admitted with depression. She says that her mind is not working properly. She has history of diabetes. She has history of dementia, hyperlipidemia, and insulin-dependent diabetes mellitus. The patient also has hyperlipidemia and hypothyroidism. The patient is seen this morning. She seems to be comfortable. PHYSICAL EXAMINATION VITAL SIGNS: Pulse is 58, blood pressure 120/60, respirations are 18. HEENT: The patient's head is normocephalic. The face shows evidence of possible Jesus's. NECK: The thyroid is not enlarged clinically. LUNGS: Clear. HEART: Normal sinus rhythm. ABDOMEN: Soft. Liver and spleen not palpable. [employer]: No focal neurological deficits. LABORATORY DATA: Hemoglobin is 14.3, differential is within normal range. The patient's chemistry, the blood sugar is 152. The patient is on insulin coverage with Levemir and also with NovoLog. The patient's pending having, morning cortisol level and to confirm if the patient has any pituitary deficiency. MEDICATIONS: The patient is on Colace, Cymbalta, insulin coverage as mentioned. The patient is on Lipitor 10 mg daily, Namenda 10 mg daily, Sonata 5 mg at bedtime, Synthroid 150 mcg daily alternating with 175 mcg on a daily basis, alternate days the patient gets higher dose. The patient is also getting metoprolol 25 mg daily. DIET: Heart healthy diet. PLAN: The patient is clinically improving. We will continue current medical management and follow up. Leida Hu MD MTDMaggie
[2018-09-10] MEDS ORDERED: Levothyroxine 150 MCG TAB PO SCH (06:00)
[2018-09-10] MEDS: Levothyroxine 175 MCG TAB PO SCH (06:22)
[2018-09-10 07:25] VITALS: RESP 20
[2018-09-10] MEDS: Insulin Detemir 100 units/ml Vial (Levemir) SC SCH ×2 (09:19→21:16)
[2018-09-10] MEDS: Insulin Lispro (humaLOG) LOW Coverage SC SCH ×4 (09:21→21:16)
[2018-09-10] MEDS: Insulin Lispro 1 UNITS/0.01 ML SC SCH ×3 (09:25→17:25)
--- NOTE | 2018-09-10 09:29 | PN ---
DATE: 09/10/2018 SUBJECTIVE: The patient is in [facility], Behavioral Care Unit, room 513, bed 1. The patient was admitted with depression. The patient has past history of hypothyroidism, dementia, insulin-dependant diabetes, hyperlipidemia and hypertension. The patient clinically seems to be improved, but the patient says that her mind is not working properly. PHYSICAL EXAMINATION: VITAL SIGNS: This morning, pulse is 55, blood pressure 100/55, respirations are 20 and temperature is 98.4. HEENT: Head is normocephalic. Face shows evidence of suarez facies. The patient does not have Jesus's. LUNGS: Clear. HEART: Normal sinus rhythm. ABDOMEN: Soft. Liver and spleen not palpable. CENTRAL NERVOUS SYSTEM: No focal deficit. MEDICATIONS: The patient is on insulin coverage. The patient gets Cymbalta for depression and leg pain. The patient is on insulin coverage as mentioned, Lipitor for hyperlipidemia, the patient gets Namenda for dementia, Sonata for sleep, Synthroid for hypothyroidism and metoprolol the patient gets 25 mg. Heart rate is stabilized. The patient is on Xanax 0.25 mg daily and Zofran 10 mg daily. LABORATORY DATA: Blood work done, the CBC is within normal range. The patient's chemistry blood sugar is 184 and cortisol level done; a.m. cortisol is in normal range. The patient condition is clinically stable. Overall prognosis is guarded. Leida Hu MD MTDMaggie
[2018-09-10] MEDS: Metoprolol Succinate 25 mg XL Tab PO SCH (09:34)
--- NOTE | 2018-09-10 14:44 | PCM.PYCHPN ---
Psychiatric Progress Note - Psychiatric Progress Note Patient seen today, length of contact: 30 minutes Patient Chief Complaint: "I am feeling better " Problems Identified/Issues Discussed: Suicide/ homicide prevention, past psychiatric h/o, current psychiatric symptoms, medical problems, risk/benefits and alternatives of medications, medications compliance, coping strategies, substance abuse h/o, relapse prevention, importance of follow up with psychiatrist and therapist, discharge plan. Medical Problems: Uncontrolled diabetes, diabetic neuropathy, hypertension, and anymore please see medical team notes for more detailed information. Diagnostic Results: 09/06/18 10:45 09/06/18 10:45 Lab Results 09/09/18 16:16: POC Glucose (mg/dL) 184 H 09/09/18 12:06: POC Glucose (mg/dL) 169 H 09/09/18 07:00: Cortisol AM Sample 10.0 09/09/18 06:49: POC Glucose (mg/dL) 120 H 09/08/18 20:47: POC Glucose (mg/dL) 152 H 09/08/18 16:16: POC Glucose (mg/dL) 162 H 09/08/18 11:37: POC Glucose (mg/dL) 184 H 09/08/18 07:48: POC Glucose (mg/dL) 103 09/07/18 22:23: POC Glucose (mg/dL) 204 H 09/07/18 16:47: POC Glucose (mg/dL) 212 H 09/07/18 12:46: POC Glucose (mg/dL) 300 H 09/07/18 09:20: Free T4 0.50 L 09/07/18 09:20: Free T3 pg/mL 1.38 L 09/07/18 08:44: POC Glucose (mg/dL) 184 H 09/07/18 08:00: Hemoglobin A1c 11.7 H 09/07/18 08:00: RPR Nonreactive 09/07/18 08:00: TSH 3rd Generation 31.20 H 09/07/18 08:00: Fasting Glucose 203 H, Triglycerides 193 H, Cholesterol 283 H, LDL Cholesterol Direct 195 H, HDL Cholesterol 45 09/06/18 20:55: POC Glucose (mg/dL) 201 H 09/06/18 16:57: POC Glucose (mg/dL) 256 H 09/06/18 15:03: POC Glucose (mg/dL) 205 H 09/06/18 14:30: Urine Opiates Screen Negative, Urine Methadone Screen Negative, Ur Barbiturates Screen Negative, Ur Phencyclidine Scrn Negative, Ur Amphetamines Screen Negative, U Benzodiazepines Scrn Negative, U Oth Cocaine Metabols Negative, U Cannabinoids Screen Negative 09/06/18 14:30: Urine Color Yellow, Urine Appearance Sl cloudy, Urine pH 6.0, Ur Specific [place] 1.020, Urine Protein 30 H, Urine Glucose (UA) >=1000, Urine Ketones Negative, Urine Blood Negative, Urine Nitrate Negative, Urine Bilirubin Negative, Urine Urobilinogen 0.2, Ur Leukocyte Esterase Negative, Urine RBC Negative, Urine WBC 1 - 3, Ur Epithelial Cells 3 - 4, Urine Bacteria Few 09/06/18 10:45: Alcohol, Quantitative < 10 09/06/18 10:45: Salicylates < 1 L, Acetaminophen < 10.0 L 09/06/18 10:45: Sodium 136, Potassium 4.7, Chloride 98, Carbon Dioxide 29, Anion Gap 13, BUN 13, Creatinine 0.6 L, Est GFR ( Amer) > 60, Est GFR (Non-Af Amer) > 60, Random Glucose 363 H* D, Calcium 9.6, Magnesium 2.0, Total Bilirubin 0.6, AST 27, ALT 31, Alkaline Phosphatase 114, Total Protein 7.5, Albumin 4.1, Globulin 3.3, Albumin/Globulin Ratio 1.2 09/06/18 10:45: WBC 6.1, RBC 4.47, Hgb 14.3, Hct 41.6, MCV 93.1, MCH 32.0, MCHC 34.4, RDW 13.2, Plt Count 213, MPV 10.9, Gran % 70.2 H, Lymph % (Auto) 20.0 L, [place] % (Auto) 8.0 H, Eos % (Auto) 1.3 L, Baso % (Auto) 0.5, Gran # 4.29, Lymph # (Auto) 1.2, [place] # (Auto) 0.5, Eos # (Auto) 0.1, Baso # (Auto) 0.03 Vital Signs Temp Pulse Resp BP Pulse Ox 09/10/18 09:34 60 123/69 09/10/18 09:29 60 09/10/18 07:00 98.4 F 55 L 20 100/55 L 09/09/18 16:30 61 132/62 09/09/18 08:48 58 L 120/61 09/09/18 08:47 58 L 120/61 09/09/18 05:46 98.8 F 58 L 18 120/61 95 09/08/18 08:55 66 132/64 09/08/18 07:12 98.2 F 57 L 20 132/59 L 09/07/18 15:00 61 153/75 H 09/07/18 06:37 98.5 F 59 L 16 152/71 H 09/06/18 16:42 70 165/85 H 09/06/18 16:30 99.1 F 70 20 165/85 H 09/06/18 16:15 20 09/06/18 15:44 98.1 F 73 16 155/66 H 97 09/06/18 15:41 98.1 F 73 16 155/66 H 09/06/18 09:53 98.0 F 78 18 160/70 H 97 DSM 5 Symptoms Update: The patient is a 58-year old female multiple medical issues, hyper tension, diabetes, hypothyroidism, patient came to the emergency room complaining of uncontrolled anxiety, memory problems, inability to function, on top of that patient reported being depressed, patient reported all of her family , she has nobody to talk to, patient also was depressed about the fact that her closest friend had a stroke recently and patient did not want to burden her either. Patient was willing to admit herself into the hospital for medication management as well as observation and stabilization. Patient was seen and examined today at the treatment team meeting, patient presented with marginal personal hygiene, uncombed hair, a lot of food stains on her gown. Acceptable ADLs. Patient presented to be depressed and mildly anxious, Patient reported that she feel "little depressed" Patient reported that she tolerates medications well, no side effects observed or reported, aims 0, no EPS. hospital food service worker discussed option of ICMS services as well as home services. Earlier as per staff patient was having ? hallucinations patient saw a dog playing on the piano, but was patient said that she did not have any glasses on, but statement about the dog playing piano is odd. So far patient tolerates medications well, no side effects observed or reported, aims 0, no EPS. 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 Please see notes for more information Mental Status Examination - Cognitive Function Orientation: Person, Place, Situation, Time Memory: Impaired Attention: WNL Concentration: Poor (improving) Association: WNL - Mood Mood: Depressed (improving per patient), Anxious - Affect Affect: Constricted, Flat - Speech Speech: Appropriate - Formal Thought Process Formal Thought Process: No Impairment - Suicidal Ideation Suicidal Ideation: No - Homicidal Ideation Homicidal Ideation: No Goal/Treatment Plan - Goal/Treatment Plan Need for Continued Stay: Remain at risks for inpatient hospitalization, Severe depression anxiety, Discharge may exacerbated symptoms, Severe functional impairment Progress Toward Problem(s) and Goals/Treatment Plan: Milieu/structure/supportive therapy Medical consult appreciated, see medical team note for more detailed info Neurology consult will be involved because patient was complaining of memory issues, rule out dementia Consider to call endocrinology consultation SW consultation for discharge plan and social issues Med management Xanax will be continued 0.25 mg twice a day as needed for anxiety Sonata 5 mg at the nighttime as needed for insomnia Cymbalta 30 mg daily will be started for depression/anxiety/diabetic neuropathy We will be considering to start Neurontin for neuropathy Follow up on labs Will monitor closely Pt was educated about risk/benefits and alternatives of medications, coping strategies (safety plan, suicide prevention), relapse prevention, importance of follow up with psychiatrist and therapist, stay away from drugs/alcohol/smoking Estimated Date of D/C: 09/14/18
[2018-09-11] MEDS: Levothyroxine 175 MCG TAB PO SCH (06:07)
[2018-09-11] MEDS: Insulin Lispro (humaLOG) LOW Coverage SC SCH ×4 (08:12→22:02)
--- NOTE | 2018-09-11 08:28 | CP.PCM.PN ---
Subjective - Date & Time of Evaluation Date of Evaluation: 09/11/18 Time of Evaluation: 07:50 - Subjective Subjective: Patient is in the behavioral care unit with anxiety and depression. She has some mild dementia. Objective - Vital Signs/Intake and Output Vital Signs (last 24 hours): Temp Pulse Resp BP Pulse Ox 98.5 F 62 20 141/65 95 09/11/18 07:24 09/11/18 07:24 09/11/18 07:24 09/11/18 07:24 09/09/18 05:46 - Medications Medications: Current Medications Alprazolam (Xanax) 0.25 mg PO BID PRN; Protocol PRN Reason: Anxiety Stop: 09/13/18 20:01 Atorvastatin Calcium (Lipitor) 10 mg PO DIN [facility] Last Admin: 09/10/18 17:26 Dose: 10 mg Docusate Sodium (Colace) 100 mg PO BID [facility] Last Admin: 09/10/18 17:26 Dose: 100 mg Duloxetine HCl (Cymbalta) 30 mg PO DAILY [facility] Ezetimibe (Zetia) 10 mg PO DAILY [facility] Last Admin: 09/10/18 09:34 Dose: 10 mg Insulin Detemir (Levemir) 15 unit SC AMHS [facility] Last Admin: 09/10/18 21:16 Dose: 15 unit Insulin Human Lispro (Humalog Low) 0 units SC ACHS [facility]; Protocol Last Admin: 09/11/18 08:12 Dose: Not Given Insulin Human Lispro (Humalog) 10 units SC ACBL [facility] Last Admin: 09/10/18 12:43 Dose: 10 units Insulin Human Lispro (Humalog) 10 units SC ACD [facility] Last Admin: 09/10/18 17:25 Dose: 10 unit Levothyroxine Sodium (Synthroid) 150 mcg PO THFRSA@0600 [facility] Last Admin: 09/08/18 06:29 Dose: 150 mcg Levothyroxine Sodium (Synthroid) 175 mcg PO SUMOTUWE@0600 [facility] Last Admin: 09/11/18 06:07 Dose: 175 mcg Lisinopril (Zestril) 10 mg PO DAILY [facility] Last Admin: 09/10/18 09:34 Dose: 10 mg Memantine (Namenda) 10 mg PO DAILY [facility] Last Admin: 09/10/18 09:34 Dose: 10 mg Metoprolol Succinate (Toprol Xl) 25 mg PO BRK ISAI Last Admin: 09/10/18 09:34 Dose: 25 mg Zaleplon (Sonata) 5 mg PO HS PRN PRN Reason: Insomnia Last Admin: 09/10/18 21:17 Dose: 5 mg - Labs Labs: 09/06/18 10:45 09/06/18 10:45 - Constitutional Appears: No Acute Distress - Head Exam Head Exam: ATRAUMATIC, NORMOCEPHALIC - Respiratory Exam Respiratory Exam: Clear to Ausculation Bilateral, NORMAL BREATHING PATTERN - Cardiovascular Exam Cardiovascular Exam: REGULAR RHYTHM, +S1, +S2 - Extremities Exam Extremities Exam: Normal Inspection Assessment and Plan - Assessment and Plan (Free Text) Assessment: HTN DMII Hypothyroidism mild dementia Anxiety/Depression Plan: continue behavioral care as per psychiatry continue insulin for diabetes continue synthroid for hypothyroidism continue Toprol and Lisinopril for hypertension continue Lipitor and Zetia for hyperlipidemia Patient started on Namenda for mild dementia as per neurology
[2018-09-11] MEDS: Insulin Lispro 1 UNITS/0.01 ML SC SCH ×3 (08:34→17:43)
[2018-09-11] MEDS: Metoprolol Succinate 25 mg XL Tab PO SCH (08:35)
[2018-09-11] MEDS: Insulin Detemir 100 units/ml Vial (Levemir) SC SCH ×2 (10:40→22:02)
--- NOTE | 2018-09-11 11:04 | PCM.PYCHPN ---
Psychiatric Progress Note - Psychiatric Progress Note Patient seen today, length of contact: 30 minutes Patient Chief Complaint: "I am feeling better " Problems Identified/Issues Discussed: Suicide/ homicide prevention, past psychiatric h/o, current psychiatric symptoms, medical problems, risk/benefits and alternatives of medications, medications compliance, coping strategies, substance abuse h/o, relapse prevention, importance of follow up with psychiatrist and therapist, discharge plan. Medical Problems: Uncontrolled diabetes, diabetic neuropathy, hypertension, and anymore please see medical team notes for more detailed information. Diagnostic Results: 09/06/18 10:45 09/06/18 10:45 Lab Results 09/09/18 16:16: POC Glucose (mg/dL) 184 H 09/09/18 12:06: POC Glucose (mg/dL) 169 H 09/09/18 07:00: Cortisol AM Sample 10.0 09/09/18 06:49: POC Glucose (mg/dL) 120 H 09/08/18 20:47: POC Glucose (mg/dL) 152 H 09/08/18 16:16: POC Glucose (mg/dL) 162 H 09/08/18 11:37: POC Glucose (mg/dL) 184 H 09/08/18 07:48: POC Glucose (mg/dL) 103 09/07/18 22:23: POC Glucose (mg/dL) 204 H 09/07/18 16:47: POC Glucose (mg/dL) 212 H 09/07/18 12:46: POC Glucose (mg/dL) 300 H 09/07/18 09:20: Free T4 0.50 L 09/07/18 09:20: Free T3 pg/mL 1.38 L 09/07/18 08:44: POC Glucose (mg/dL) 184 H 09/07/18 08:00: Hemoglobin A1c 11.7 H 09/07/18 08:00: RPR Nonreactive 09/07/18 08:00: TSH 3rd Generation 31.20 H 09/07/18 08:00: Fasting Glucose 203 H, Triglycerides 193 H, Cholesterol 283 H, LDL Cholesterol Direct 195 H, HDL Cholesterol 45 09/06/18 20:55: POC Glucose (mg/dL) 201 H 09/06/18 16:57: POC Glucose (mg/dL) 256 H 09/06/18 15:03: POC Glucose (mg/dL) 205 H 09/06/18 14:30: Urine Opiates Screen Negative, Urine Methadone Screen Negative, Ur Barbiturates Screen Negative, Ur Phencyclidine Scrn Negative, Ur Amphetamines Screen Negative, U Benzodiazepines Scrn Negative, U Oth Cocaine Metabols Negative, U Cannabinoids Screen Negative 09/06/18 14:30: Urine Color Yellow, Urine Appearance Sl cloudy, Urine pH 6.0, Ur Specific [place] 1.020, Urine Protein 30 H, Urine Glucose (UA) >=1000, Urine Ketones Negative, Urine Blood Negative, Urine Nitrate Negative, Urine Bilirubin Negative, Urine Urobilinogen 0.2, Ur Leukocyte Esterase Negative, Urine RBC Negative, Urine WBC 1 - 3, Ur Epithelial Cells 3 - 4, Urine Bacteria Few 09/06/18 10:45: Alcohol, Quantitative < 10 09/06/18 10:45: Salicylates < 1 L, Acetaminophen < 10.0 L 09/06/18 10:45: Sodium 136, Potassium 4.7, Chloride 98, Carbon Dioxide 29, Anion Gap 13, BUN 13, Creatinine 0.6 L, Est GFR ( Amer) > 60, Est GFR (Non-Af Amer) > 60, Random Glucose 363 H* D, Calcium 9.6, Magnesium 2.0, Total Bilirubin 0.6, AST 27, ALT 31, Alkaline Phosphatase 114, Total Protein 7.5, Albumin 4.1, Globulin 3.3, Albumin/Globulin Ratio 1.2 09/06/18 10:45: WBC 6.1, RBC 4.47, Hgb 14.3, Hct 41.6, MCV 93.1, MCH 32.0, MCHC 34.4, RDW 13.2, Plt Count 213, MPV 10.9, Gran % 70.2 H, Lymph % (Auto) 20.0 L, [place] % (Auto) 8.0 H, Eos % (Auto) 1.3 L, Baso % (Auto) 0.5, Gran # 4.29, Lymph # (Auto) 1.2, [place] # (Auto) 0.5, Eos # (Auto) 0.1, Baso # (Auto) 0.03 Vital Signs Temp Pulse Resp BP Pulse Ox 09/10/18 09:34 60 123/69 09/10/18 09:29 60 09/10/18 07:00 98.4 F 55 L 20 100/55 L 09/09/18 16:30 61 132/62 09/09/18 08:48 58 L 120/61 09/09/18 08:47 58 L 120/61 09/09/18 05:46 98.8 F 58 L 18 120/61 95 09/08/18 08:55 66 132/64 09/08/18 07:12 98.2 F 57 L 20 132/59 L 09/07/18 15:00 61 153/75 H 09/07/18 06:37 98.5 F 59 L 16 152/71 H 09/06/18 16:42 70 165/85 H 09/06/18 16:30 99.1 F 70 20 165/85 H 09/06/18 16:15 20 09/06/18 15:44 98.1 F 73 16 155/66 H 97 09/06/18 15:41 98.1 F 73 16 155/66 H 09/06/18 09:53 98.0 F 78 18 160/70 H 97 DSM 5 Symptoms Update: The patient is a 58-year old female multiple medical issues, hyper tension, diabetes, hypothyroidism, patient came to the emergency room complaining of uncontrolled anxiety, memory problems, inability to function, on top of that patient reported being depressed, patient reported all of her family , she has nobody to talk to, patient also was depressed about the fact that her closest friend had a stroke recently and patient did not want to burden her either. Patient was willing to admit herself into the hospital for medication management as well as observation and stabilization. Patient was seen and examined today at the dining area, patient presented with somewhat improved personal hygiene, uncombed hair, acceptable ADLs. Patient presented to be in better mood today, patient will read this screen writer " Ariel", reported that she feels little bit better today, reported that her anxiety is "better controlled", but still pt presented mildly anxious. Patient reported that she tolerates medications well, no side effects observed or reported, aims 0, no EPS. power lineworker discussed option of ICMS services as well as home services. As per staff no hallucinations or aggression patient is pleasant, compliant with medications and unit rules and regulations. Off note 09/10/2018 patient had some visual hallucinations that dog is playing on the piano. So far patient tolerates medications well, no side effects observed or reported, aims 0, no EPS. Impression: DSM 5 Diagnosis: Major depressive disorder, severe no psychosis Generalized anxiety disorder Rule out pseudodementia Rule out mood disorder due to general medical condition Medication Change: No Medical Record Reviewed: Yes Consults ordered or reviewed: Medical consult appreciated, please see notes for more detailed information Neurology consult appreciated, patient was started on Namenda For mild cognitive dysfunction most likely related to depression, poor balance due to diabetic neuropathy. Please see notes for more information Mental Status Examination - Cognitive Function Orientation: Person, Place, Situation, Time Memory: Impaired Attention: WNL Concentration: Poor (improving) Association: WNL - Mood Mood: Depressed (improving per patient), Anxious - Affect Affect: Constricted, Flat - Speech Speech: Appropriate - Formal Thought Process Formal Thought Process: No Impairment - Suicidal Ideation Suicidal Ideation: No - Homicidal Ideation Homicidal Ideation: No Goal/Treatment Plan - Goal/Treatment Plan Need for Continued Stay: Remain at risks for inpatient hospitalization, Severe depression anxiety, Discharge may exacerbated symptoms, Severe functional impairment Progress Toward Problem(s) and Goals/Treatment Plan: Milieu/structure/supportive therapy Medical consult appreciated, see medical team note for more detailed info Neurology consult will be involved because patient was complaining of memory issues, rule out dementia Consider to call endocrinology consultation SW consultation for discharge plan and social issues Med management Xanax will be continued 0.25 mg twice a day as needed for anxiety Sonata 5 mg at the nighttime as needed for insomnia Cymbalta 30 mg daily for depression/anxiety/diabetic neuropathy We will be considering to start Neurontin for neuropathy Follow up on labs Will monitor closely Pt was educated about risk/benefits and alternatives of medications, coping strategies (safety plan, suicide prevention), relapse prevention, importance of follow up with psychiatrist and therapist, stay away from drugs/alcohol/smoking Estimated Date of D/C: 09/14/18
[2018-09-12] MEDS: Levothyroxine 175 MCG TAB PO SCH (06:43)
[2018-09-12] MEDS: Insulin Lispro 1 UNITS/0.01 ML SC SCH ×3 (07:58→16:43)
[2018-09-12] MEDS: Insulin Lispro (humaLOG) LOW Coverage SC SCH ×4 (08:00→21:15)
[2018-09-12] MEDS: Metoprolol Succinate 25 mg XL Tab PO SCH (08:08)
--- NOTE | 2018-09-12 11:19 | PN ---
DATE: 09/12/2018 SUBJECTIVE: This is an 88-year-old white female. She is very pleasant. She was admitted with depression, altered mental state, poor concentration. PAST MEDICAL HISTORY: The patient has past history of hypertension, hypothyroidism, hyperlipidemia, dementia. The patient has a history of insulin-dependent diabetes. The patient is seen this morning. She is lying down, resting in her bed. She has no complaints. She is confused. PHYSICAL EXAMINATION: VITAL SIGNS: Pulse is 55, blood pressure 124/75, respirations are 20. HEENT: Head is normocephalic. NECK: Thyroid is not clinically enlarged. The carotid pulses are present. JVP is flat. No lymphadenopathy in the neck. LUNGS: Trachea is central. Breath sounds are vesicular. No adventitious sounds. HEART: Normal sinus rhythm. S1 and S2 present. No murmurs. ABDOMEN: Soft. Liver and spleen not palpable. CENTRAL NERVOUS SYSTEM: There is no motor or sensory dysfunction. The patient has no localizing signs. LABORATORY DATA: The patient's blood work is not repeated. They are within normal range. Chemistry: The patient's blood sugar was 171. MEDICATIONS: The patient's medications remains the same. The patient is on Colace for constipation, Cymbalta. The patient is on insulin coverage, Lipitor, Namenda, Sonata for sleep, Synthroid, metoprolol, Xanax, lisinopril, and Zetia. Her prognosis is as expected average. The patient's clinical condition is improving. Leida Hu MD MTDMaggie
[2018-09-12] MEDS: Insulin Detemir 100 units/ml Vial (Levemir) SC SCH ×2 (11:35→21:41)
--- NOTE | 2018-09-12 14:40 | PCM.PYCHPN ---
Psychiatric Progress Note - Psychiatric Progress Note Patient seen today, length of contact: 30 minutes Patient Chief Complaint: "I am feeling better, but I am not sleeping" Problems Identified/Issues Discussed: Suicide/ homicide prevention, past psychiatric h/o, current psychiatric symptoms, medical problems, risk/benefits and alternatives of medications, medications compliance, coping strategies, substance abuse h/o, relapse prevention, importance of follow up with psychiatrist and therapist, discharge plan. Medical Problems: Uncontrolled diabetes, diabetic neuropathy, hypertension, and anymore please see medical team notes for more detailed information. Diagnostic Results: 09/06/18 10:45 09/06/18 10:45 Lab Results 09/09/18 16:16: POC Glucose (mg/dL) 184 H 09/09/18 12:06: POC Glucose (mg/dL) 169 H 09/09/18 07:00: Cortisol AM Sample 10.0 09/09/18 06:49: POC Glucose (mg/dL) 120 H 09/08/18 20:47: POC Glucose (mg/dL) 152 H 09/08/18 16:16: POC Glucose (mg/dL) 162 H 09/08/18 11:37: POC Glucose (mg/dL) 184 H 09/08/18 07:48: POC Glucose (mg/dL) 103 09/07/18 22:23: POC Glucose (mg/dL) 204 H 09/07/18 16:47: POC Glucose (mg/dL) 212 H 09/07/18 12:46: POC Glucose (mg/dL) 300 H 09/07/18 09:20: Free T4 0.50 L 09/07/18 09:20: Free T3 pg/mL 1.38 L 09/07/18 08:44: POC Glucose (mg/dL) 184 H 09/07/18 08:00: Hemoglobin A1c 11.7 H 09/07/18 08:00: RPR Nonreactive 09/07/18 08:00: TSH 3rd Generation 31.20 H 09/07/18 08:00: Fasting Glucose 203 H, Triglycerides 193 H, Cholesterol 283 H, LDL Cholesterol Direct 195 H, HDL Cholesterol 45 09/06/18 20:55: POC Glucose (mg/dL) 201 H 09/06/18 16:57: POC Glucose (mg/dL) 256 H 09/06/18 15:03: POC Glucose (mg/dL) 205 H 09/06/18 14:30: Urine Opiates Screen Negative, Urine Methadone Screen Negative, Ur Barbiturates Screen Negative, Ur Phencyclidine Scrn Negative, Ur Amphetamines Screen Negative, U Benzodiazepines Scrn Negative, U Oth Cocaine Metabols Negative, U Cannabinoids Screen Negative 09/06/18 14:30: Urine Color Yellow, Urine Appearance Sl cloudy, Urine pH 6.0, Ur Specific [place] 1.020, Urine Protein 30 H, Urine Glucose (UA) >=1000, Urine Ketones Negative, Urine Blood Negative, Urine Nitrate Negative, Urine Bilirubin Negative, Urine Urobilinogen 0.2, Ur Leukocyte Esterase Negative, Urine RBC Negative, Urine WBC 1 - 3, Ur Epithelial Cells 3 - 4, Urine Bacteria Few 09/06/18 10:45: Alcohol, Quantitative < 10 09/06/18 10:45: Salicylates < 1 L, Acetaminophen < 10.0 L 09/06/18 10:45: Sodium 136, Potassium 4.7, Chloride 98, Carbon Dioxide 29, Anion Gap 13, BUN 13, Creatinine 0.6 L, Est GFR ( Amer) > 60, Est GFR (Non-Af Amer) > 60, Random Glucose 363 H* D, Calcium 9.6, Magnesium 2.0, Total Bilirubin 0.6, AST 27, ALT 31, Alkaline Phosphatase 114, Total Protein 7.5, Albumin 4.1, Globulin 3.3, Albumin/Globulin Ratio 1.2 09/06/18 10:45: WBC 6.1, RBC 4.47, Hgb 14.3, Hct 41.6, MCV 93.1, MCH 32.0, MCHC 34.4, RDW 13.2, Plt Count 213, MPV 10.9, Gran % 70.2 H, Lymph % (Auto) 20.0 L, [place] % (Auto) 8.0 H, Eos % (Auto) 1.3 L, Baso % (Auto) 0.5, Gran # 4.29, Lymph # (Auto) 1.2, [place] # (Auto) 0.5, Eos # (Auto) 0.1, Baso # (Auto) 0.03 Vital Signs Temp Pulse Resp BP Pulse Ox 09/10/18 09:34 60 123/69 09/10/18 09:29 60 09/10/18 07:00 98.4 F 55 L 20 100/55 L 09/09/18 16:30 61 132/62 09/09/18 08:48 58 L 120/61 09/09/18 08:47 58 L 120/61 09/09/18 05:46 98.8 F 58 L 18 120/61 95 09/08/18 08:55 66 132/64 09/08/18 07:12 98.2 F 57 L 20 132/59 L 09/07/18 15:00 61 153/75 H 09/07/18 06:37 98.5 F 59 L 16 152/71 H 09/06/18 16:42 70 165/85 H 09/06/18 16:30 99.1 F 70 20 165/85 H 09/06/18 16:15 20 09/06/18 15:44 98.1 F 73 16 155/66 H 97 09/06/18 15:41 98.1 F 73 16 155/66 H 09/06/18 09:53 98.0 F 78 18 160/70 H 97 DSM 5 Symptoms Update: The patient is a 58-year old female multiple medical issues, hypertension, diabetes, hypothyroidism, patient came to the emergency room complaining of uncontrolled anxiety, memory problems, inability to function, on top of that patient reported being depressed, patient reported all of her family , she has nobody to talk to, patient also was depressed about the fact that her closest friend had a stroke recently and patient did not want to burden her either. Patient was willing to admit herself into the hospital for medication management as well as observation and stabilization. Patient was seen and examined today in her room, patient presented with somewhat improved personal hygiene, appears to be sleepy, patient complaining of insomnia, patient reported that her anxiety is under control, patient was asking intelligent questions, all verbal presented with some improvements of her depressive symptoms as well as anxiety symptoms, "my anxiety is better controlled", but still pt presented mildly anxious. Patient reported that she tolerates medications well, no side effects observed or reported, aims 0, no EPS. cinder worker discussed option of ICMS services as well as home services. As per staff no hallucinations or aggression patient is pleasant, compliant with medications and unit rules and regulations. Off note 09/10/2018 patient had some visual hallucinations that dog is playing on the piano. So far patient tolerates medications well, no side effects observed or reported, aims 0, no EPS. Impression: DSM 5 Diagnosis: Major depressive disorder, severe no psychosis Generalized anxiety disorder Rule out pseudodementia Rule out mood disorder due to general medical condition Medication Change: No Medical Record Reviewed: Yes Mental Status Examination - Cognitive Function Orientation: Person, Place, Situation, Time Memory: Impaired Attention: WNL Concentration: Poor (improving) Association: WNL - Mood Mood: Depressed (improving per patient), Anxious - Affect Affect: Constricted, Flat - Speech Speech: Appropriate - Formal Thought Process Formal Thought Process: No Impairment - Suicidal Ideation Suicidal Ideation: No - Homicidal Ideation Homicidal Ideation: No Goal/Treatment Plan - Goal/Treatment Plan Need for Continued Stay: Remain at risks for inpatient hospitalization, Severe depression anxiety, Discharge may exacerbated symptoms, Severe functional impairment Progress Toward Problem(s) and Goals/Treatment Plan: Milieu/structure/supportive therapy Medical consult appreciated, see medical team note for more detailed info Neurology consult will be involved because patient was complaining of memory issues, rule out dementia Consider to call endocrinology consultation SW consultation for discharge plan and social issues Med management Xanax will be continued 0.25 mg twice a day as needed for anxiety Sonata 5 mg at the nighttime as needed for insomnia Cymbalta 30 mg daily for depression/anxiety/diabetic neuropathy We will be considering to start Neurontin for neuropathy Follow up on labs Will monitor closely Pt was educated about risk/benefits and alternatives of medications, coping strategies (safety plan, suicide prevention), relapse prevention, importance of follow up with psychiatrist and therapist, stay away from drugs/alcohol/smoking Estimated Date of D/C: 09/14/18
[2018-09-13] MEDS: Levothyroxine 150 MCG TAB PO SCH (05:29)
[2018-09-13] MEDS: Insulin Lispro 1 UNITS/0.01 ML SC SCH ×3 (08:31→16:50)
[2018-09-13] MEDS: Insulin Lispro (humaLOG) LOW Coverage SC SCH ×4 (08:31→21:21)
[2018-09-13] MEDS: Metoprolol Succinate 25 mg XL Tab PO SCH (08:40)
--- NOTE | 2018-09-13 09:50 | PN ---
DATE: 09/13/2018 SUBJECTIVE: The patient is in [facility], Behavioral Care Unit in room 513, bed 1. The patient was admitted with altered mental state. The patient has complained of being confused and unable to cope with the day-to-day activities. The patient also complained of feeling lonely. The patient's past history she has diabetes, insulin-dependant. The patient has hypertension. The patient has dementia. The patient has hypothyroidism. PHYSICAL EXAMINATION: GENERAL: The patient is seen this morning. She is quiet, comfortably lying down in bed. VITAL SIGNS: Pulse is 58, blood pressure 128/64 and respirations are 20. LUNGS: The patient's lungs are clear. HEART: Normal sinus rhythm. ABDOMEN: Soft. Liver and spleen not palpable. 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 MEDICATIONS: The patient's medications remain the same. The patient is on insulin coverage. LABORATORY DATA: The lab test results were not repeated. They were within normal range. Blood sugar is elevated. We will continue current management and followup. Leiad Hu MD MTDMaggie
[2018-09-13] MEDS: Insulin Detemir 100 units/ml Vial (Levemir) SC SCH ×2 (14:05→21:23)
--- NOTE | 2018-09-13 14:44 | PCM.PYCHPN ---
Psychiatric Progress Note - Psychiatric Progress Note Patient seen today, length of contact: 30 minutes Patient Chief Complaint: "I am feeling better, but I am not sleeping" Problems Identified/Issues Discussed: Suicide/ homicide prevention, past psychiatric h/o, current psychiatric symptoms, medical problems, risk/benefits and alternatives of medications, medications compliance, coping strategies, substance abuse h/o, relapse prevention, importance of follow up with psychiatrist and therapist, discharge plan. Medical Problems: Uncontrolled diabetes, diabetic neuropathy, hypertension, and anymore please see medical team notes for more detailed information. Diagnostic Results: 09/06/18 10:45 09/06/18 10:45 Lab Results 09/09/18 16:16: POC Glucose (mg/dL) 184 H 09/09/18 12:06: POC Glucose (mg/dL) 169 H 09/09/18 07:00: Cortisol AM Sample 10.0 09/09/18 06:49: POC Glucose (mg/dL) 120 H 09/08/18 20:47: POC Glucose (mg/dL) 152 H 09/08/18 16:16: POC Glucose (mg/dL) 162 H 09/08/18 11:37: POC Glucose (mg/dL) 184 H 09/08/18 07:48: POC Glucose (mg/dL) 103 09/07/18 22:23: POC Glucose (mg/dL) 204 H 09/07/18 16:47: POC Glucose (mg/dL) 212 H 09/07/18 12:46: POC Glucose (mg/dL) 300 H 09/07/18 09:20: Free T4 0.50 L 09/07/18 09:20: Free T3 pg/mL 1.38 L 09/07/18 08:44: POC Glucose (mg/dL) 184 H 09/07/18 08:00: Hemoglobin A1c 11.7 H 09/07/18 08:00: RPR Nonreactive 09/07/18 08:00: TSH 3rd Generation 31.20 H 09/07/18 08:00: Fasting Glucose 203 H, Triglycerides 193 H, Cholesterol 283 H, LDL Cholesterol Direct 195 H, HDL Cholesterol 45 09/06/18 20:55: POC Glucose (mg/dL) 201 H 09/06/18 16:57: POC Glucose (mg/dL) 256 H 09/06/18 15:03: POC Glucose (mg/dL) 205 H 09/06/18 14:30: Urine Opiates Screen Negative, Urine Methadone Screen Negative, Ur Barbiturates Screen Negative, Ur Phencyclidine Scrn Negative, Ur Amphetamines Screen Negative, U Benzodiazepines Scrn Negative, U Oth Cocaine Metabols Negative, U Cannabinoids Screen Negative 09/06/18 14:30: Urine Color Yellow, Urine Appearance Sl cloudy, Urine pH 6.0, Ur Specific [place] 1.020, Urine Protein 30 H, Urine Glucose (UA) >=1000, Urine Ketones Negative, Urine Blood Negative, Urine Nitrate Negative, Urine Bilirubin Negative, Urine Urobilinogen 0.2, Ur Leukocyte Esterase Negative, Urine RBC Negative, Urine WBC 1 - 3, Ur Epithelial Cells 3 - 4, Urine Bacteria Few 09/06/18 10:45: Alcohol, Quantitative < 10 09/06/18 10:45: Salicylates < 1 L, Acetaminophen < 10.0 L 09/06/18 10:45: Sodium 136, Potassium 4.7, Chloride 98, Carbon Dioxide 29, Anion Gap 13, BUN 13, Creatinine 0.6 L, Est GFR ( Amer) > 60, Est GFR (Non-Af Amer) > 60, Random Glucose 363 H* D, Calcium 9.6, Magnesium 2.0, Total Bilirubin 0.6, AST 27, ALT 31, Alkaline Phosphatase 114, Total Protein 7.5, Albumin 4.1, Globulin 3.3, Albumin/Globulin Ratio 1.2 09/06/18 10:45: WBC 6.1, RBC 4.47, Hgb 14.3, Hct 41.6, MCV 93.1, MCH 32.0, MCHC 34.4, RDW 13.2, Plt Count 213, MPV 10.9, Gran % 70.2 H, Lymph % (Auto) 20.0 L, [place] % (Auto) 8.0 H, Eos % (Auto) 1.3 L, Baso % (Auto) 0.5, Gran # 4.29, Lymph # (Auto) 1.2, [place] # (Auto) 0.5, Eos # (Auto) 0.1, Baso # (Auto) 0.03 Vital Signs Temp Pulse Resp BP Pulse Ox 09/10/18 09:34 60 123/69 09/10/18 09:29 60 09/10/18 07:00 98.4 F 55 L 20 100/55 L 09/09/18 16:30 61 132/62 09/09/18 08:48 58 L 120/61 09/09/18 08:47 58 L 120/61 09/09/18 05:46 98.8 F 58 L 18 120/61 95 09/08/18 08:55 66 132/64 09/08/18 07:12 98.2 F 57 L 20 132/59 L 09/07/18 15:00 61 153/75 H 09/07/18 06:37 98.5 F 59 L 16 152/71 H 09/06/18 16:42 70 165/85 H 09/06/18 16:30 99.1 F 70 20 165/85 H 09/06/18 16:15 20 09/06/18 15:44 98.1 F 73 16 155/66 H 97 09/06/18 15:41 98.1 F 73 16 155/66 H 09/06/18 09:53 98.0 F 78 18 160/70 H 97 Temp Pulse Resp BP Pulse Ox 98.6 F 58 L 20 128/64 95 09/13/18 07:03 09/13/18 07:03 09/13/18 07:03 09/13/18 07:03 09/09/18 05:46 DSM 5 Symptoms Update: The patient is a 58-year old female multiple medical issues, hypertension, diabetes, hypothyroidism, patient came to the emergency room complaining of uncontrolled anxiety, memory problems, inability to function, on top of that patient reported being depressed, patient reported all of her family , she has nobody to talk to, patient also was depressed about the fact that her closest friend had a stroke recently and patient did not want to burden her either. Patient was willing to admit herself into the hospital for medication management as well as observation and stabilization. Patient was seen and examined today in her room, patient presented with somewhat improved personal hygiene, appears to be sleepy again, patient complaining of insomnia, patient reported that her anxiety is under control, patient was asking intelligent questions, all verbal presented with some improvements of her depressive symptoms as well as anxiety symptoms, "my anxiety is better controlled", but still pt presented mildly anxious. Patient reported that she tolerates medications well, no side effects observed or reported, aims 0, no EPS. mop worker discussed option of ICMS services as well as home services. As per staff no hallucinations or aggression patient is pleasant, compliant with medications and unit rules and regulations. Off note 09/10/2018 patient had some visual hallucinations that dog is playing on the piano, pt did not have hallucinations since then. So far patient tolerates medications well, no side effects observed or reported, aims 0, no EPS. Impression: DSM 5 Diagnosis: Major depressive disorder, severe no psychosis Generalized anxiety disorder Rule out pseudodementia Rule out mood disorder due to general medical condition Medication Change: No Medical Record Reviewed: Yes Mental Status Examination - Cognitive Function Orientation: Person, Place, Situation, Time Memory: Impaired Attention: WNL Concentration: Poor (improving) Association: WNL - Mood Mood: Depressed (improving per patient), Anxious (Improving as per patient) - Affect Affect: Constricted, Flat - Speech Speech: Appropriate - Formal Thought Process Formal Thought Process: No Impairment - Suicidal Ideation Suicidal Ideation: No - Homicidal Ideation Homicidal Ideation: No Goal/Treatment Plan - Goal/Treatment Plan Need for Continued Stay: Remain at risks for inpatient hospitalization, Severe depression anxiety, Discharge may exacerbated symptoms, Severe functional impairment Progress Toward Problem(s) and Goals/Treatment Plan: Milieu/structure/supportive therapy Medical consult appreciated, see medical team note for more detailed info Neurology consult will be involved because patient was complaining of memory issues, rule out dementia Consider to call endocrinology consultation SW consultation for discharge plan and social issues Med management Xanax will be continued 0.25 mg twice a day as needed for anxiety Sonata 5 mg at the nighttime as needed for insomnia Cymbalta 30 mg daily for depression/anxiety/diabetic neuropathy We will be considering to start Neurontin for neuropathy Follow up on labs Will monitor closely Pt was educated about risk/benefits and alternatives of medications, coping strategies (safety plan, suicide prevention), relapse prevention, importance of follow up with psychiatrist and therapist, stay away from drugs/alcohol/smoking Estimated Date of D/C: 09/14/18
[2018-09-14] MEDS: Levothyroxine 150 MCG TAB PO SCH (05:17)
[2018-09-14 07:16] VITALS: BP 150/71; PULSE 61; TEMP 98.4
--- NOTE | 2018-09-14 08:04 | CP.PCM.PN ---
Subjective - Date & Time of Evaluation Date of Evaluation: 09/14/18 Time of Evaluation: 07:30 - Subjective Subjective: Patient is seen this morning. She is doing well. She is to go home today. Objective - Vital Signs/Intake and Output Vital Signs (last 24 hours): Temp Pulse Resp BP Pulse Ox 98.4 F 61 20 150/71 95 09/14/18 07:15 09/14/18 07:15 09/14/18 07:15 09/14/18 07:15 09/09/18 05:46 - Medications Medications: Current Medications Atorvastatin Calcium (Lipitor) 10 mg PO DIN [facility] Last Admin: 09/13/18 17:00 Dose: 10 mg Docusate Sodium (Colace) 100 mg PO BID [facility] Last Admin: 09/13/18 17:00 Dose: 100 mg Duloxetine HCl (Cymbalta) 30 mg PO DAILY [facility] Last Admin: 09/13/18 08:40 Dose: 30 mg Ezetimibe (Zetia) 10 mg PO DAILY [facility] Last Admin: 09/13/18 08:40 Dose: 10 mg Insulin Detemir (Levemir) 15 unit SC AMHS [facility] Last Admin: 09/13/18 21:23 Dose: 15 unit Insulin Human Lispro (Humalog Low) 0 units SC ACHS [facility]; Protocol Last Admin: 09/13/18 21:21 Dose: 1 unit Insulin Human Lispro (Humalog) 10 units SC ACBL [facility] Last Admin: 09/13/18 14:04 Dose: Not Given Insulin Human Lispro (Humalog) 10 units SC ACD [facility] Last Admin: 09/13/18 16:50 Dose: 10 unit Levothyroxine Sodium (Synthroid) 150 mcg PO THFRSA@0600 [facility] Last Admin: 09/14/18 05:17 Dose: 150 mcg Levothyroxine Sodium (Synthroid) 175 mcg PO SUMOTUWE@0600 [facility] Last Admin: 09/12/18 06:43 Dose: 175 mcg Lisinopril (Zestril) 10 mg PO DAILY [facility] Last Admin: 09/13/18 08:40 Dose: 10 mg Memantine (Namenda) 10 mg PO DAILY [facility] Last Admin: 09/13/18 08:40 Dose: 10 mg Metoprolol Succinate (Toprol Xl) 25 mg PO BRK [facility] Last Admin: 09/13/18 08:40 Dose: 25 mg Zaleplon (Sonata) 5 mg PO HS PRN PRN Reason: Insomnia Last Admin: 09/13/18 21:27 Dose: 5 mg - Labs Labs: 09/06/18 10:45 09/06/18 10:45 - Constitutional Appears: No Acute Distress - Head Exam Head Exam: ATRAUMATIC, NORMOCEPHALIC - Respiratory Exam Respiratory Exam: Clear to Ausculation Bilateral, NORMAL BREATHING PATTERN - Cardiovascular Exam Cardiovascular Exam: REGULAR RHYTHM, +S1, +S2 - GI/Abdominal Exam GI & Abdominal Exam: Soft, Normal Bowel Sounds. absent: Tenderness - Extremities Exam Extremities Exam: Normal Inspection - Neurological Exam Neurological Exam: Alert, Awake Assessment and Plan - Assessment and Plan (Free Text) Assessment: Diabetes mellitus HTN mild dementia hypothyroidism anxiety/depression Plan: continue current medications patient will followup with her primary care doctor as outpatient
[2018-09-14] MEDS: Insulin Lispro 1 UNITS/0.01 ML SC SCH (09:05)
[2018-09-14] MEDS: Insulin Lispro (humaLOG) LOW Coverage SC SCH (09:05)
[2018-09-14] MEDS: Metoprolol Succinate 25 mg XL Tab PO SCH (09:15)
--- NOTE | 2018-09-14 15:17 | PCM.PYCHDC ---
Mental Status Examination - Mental Status Examination Orientation: Person, Place, Situation, Time Memory: Intact Mood: Neutral Affect: Constricted (But reactive and mood congruent) Speech: Appropriate Attention: WNL Concentration: WNL Association: WNL Fund of Knowledge: WNL Formal Thought Process: No Impairment Description of patient's judgement and insight: Pt has improved insight into mental and medical illness, pt was compliant with medications and unit rules and regulations, pt was going to groups, was calm, cooperative, socially appropriate, no behavioral incidents, no agitation, no aggression. Psychotic Thoughts and Behaviors: Pt denied v/a/t hallucinations, denied paranoid ideations, pt does not appear to be psychotic, and thought process is goal directed. Suicidal Ideation: No Current Homicidal Ideation?: No Plan: pt adamantly denied thoughts of harming self or others denied intent or plan. Discharge Summary - Discharge Note Reason for Hospitalization: Patient was admitted to the psychiatric inpatient unit for evaluation of depre ssion and anxiety which interfere with patient functionality. Psychiatric History (includes Medical, Family, Personal Hx): See HPI Laboratory Data: Abnormal Lab Results 09/13/18 09/13/18 09/13/18 11:19 16:00 21:01 POC Glucose (mg/dL) 127 H 219 H 159 H 09/14/18 07:16 POC Glucose (mg/dL) 125 H Consultations:: List each consultation separately and include: 1. Reason for request. 2. Findings. 3. 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 Please see notes for more information Summary of Hospital Course include:: 1. Description of specific treatment plan utilized for patients during their course of treatmen. 2. Summarize the time- course for resolution of acute symptoms and/or regressed behaviors. 3. Describe issues identified and worked on during hospitalization. 4. Describe medication utilized. 5. Describe medical problems identified and treated. 6. Reassessment of suicide risk Summary of Hospital Course: The patient is a 58-year old female multiple medical issues, hypertension, diabetes, hypothyroidism, patient came to the emergency room complaining of uncontrolled anxiety, memory problems, inability to function, on top of that patient reported being depressed, patient reported all of her family , she has nobody to talk to, patient also was depressed about the fact that her closest friend had a stroke recently and patient did not want to burden her either. Patient was willing to admit herself into the hospital for medi cation management as well as observation and stabilization. At the time of admission patient presented to be depressed and anxious, please see admission note for more detailed information. Over the course of this hospitalization patient was seen by multiple specialist including a neurologist who scribed patient on Aricept. Patient was also seen by primary care physician who adjusted patient blood pressure medications well as insulin regimen. Patient was stabilized on the following medications: Cymbalta 30 mg daily for depression and anxiety 8, diabetic neuropathy Sonata 5 mg as needed for insomnia Patient tolerated medications well, no side effects observed or reported, aims 0, no EPS. 09/06/18 10:45 09/06/18 10:45 Lab Results 09/07/18 12:46: POC Glucose (mg/dL) 300 H 09/07/18 09:20: Free T4 0.50 L 09/07/18 08:44: POC Glucose (mg/dL) 184 H 09/07/18 08:00: TSH 3rd Generation 31.20 H 09/07/18 08:00: Fasting Glucose 203 H, Triglycerides 193 H, Cholesterol 283 H, LDL Cholesterol Direct 195 H, HDL Cholesterol 45 09/06/18 20:55: POC Glucose (mg/dL) 201 H 09/06/18 16:57: POC Glucose (mg/dL) 256 H 09/06/18 15:03: POC Glucose (mg/dL) 205 H 09/06/18 14:30: Urine Opiates Screen Negative, Urine Methadone Screen Negative, Ur Barbiturates Screen Negative, Ur Phencyclidine Scrn Negative, Ur Amphetamines Screen Negative, U Benzodiazepines Scrn Negative, U Oth Cocaine Metabols Negative, U Cannabinoids Screen Negative 09/06/18 14:30: Urine Color Yellow, Urine Appearance Sl cloudy, Urine pH 6.0, Ur Specific [place] 1.020, Urine Protein 30 H, Urine Glucose (UA) >=1000, Urine Ketones Negative, Urine Blood Negative, Urine Nitrate Negative, Urine Bilirubin Negative, Urine Urobilinogen 0.2, Ur Leukocyte Esterase Negative, Urine RBC Negative, Urine WBC 1 - 3, Ur Epithelial Cells 3 - 4, Urine Bacteria Few 09/06/18 10:45: Alcohol, Quantitative < 10 09/06/18 10:45: Salicylates < 1 L, Acetaminophen < 10.0 L 09/06/18 10:45: Sodium 136, Potassium 4.7, Chloride 98, Carbon Dioxide 29, Anion Gap 13, BUN 13, Creatinine 0.6 L, Est GFR ( Amer) > 60, Est GFR (Non-Af Amer) > 60, Random Glucose 363 H* D, Calcium 9.6, Magnesium 2.0, Total Bilirubin 0.6, AST 27, ALT 31, Alkaline Phosphatase 114, Total Protein 7.5, Albumin 4.1, Globulin 3.3, Albumin/Globulin Ratio 1.2 09/06/18 10:45: WBC 6.1, RBC 4.47, Hgb 14.3, Hct 41.6, MCV 93.1, MCH 32.0, MCHC 34.4, RDW 13.2, Plt Count 213, MPV 10.9, Gran % 70.2 H, Lymph % (Auto) 20.0 L, [place] % (Auto) 8.0 H, Eos % (Auto) 1.3 L, Baso % (Auto) 0.5, Gran # 4.29, Lymph # (Auto) 1.2, [place] # (Auto) 0.5, Eos # (Auto) 0.1, Baso # (Auto) 0.03 Vital Signs Temp Pulse Resp BP Pulse Ox 09/07/18 06:37 98.5 F 59 L 16 152/71 H 09/06/18 16:42 70 165/85 H 09/06/18 16:30 99.1 F 70 20 165/85 H 09/06/18 16:15 20 09/06/18 15:44 98.1 F 73 16 155/66 H 97 09/06/18 15:41 98.1 F 73 16 155/66 H 09/06/18 09:53 98.0 F 78 18 160/70 H 97 Over the course of this hospitalization pt was attending groups, pt also had medication management, had therapeutic milieu. Overall pt improved significantly, pt's affect became brighter, pt was less depressed, less anxious, patient was socially appropriate, no behavioral issues, pts insight improved as well and soon pt deemed to be ready for discharge. At the time of the discharge pt denied been depressed, denied thoughts of harming self or others, denied psychotic symptoms, and pt does not appeared to be psychotic, denied been anxious, pt is not in imminent danger to self or others, pt was referred to [facility], information about follow up appointment, time and address provided to the pt, it is patient responsibility to follow up with outpatient clinic, PMD as well as specialists (see SW note for more detailed information). Patient also was referred t home health services, please see manager social work notes for more detailed information. In case pt will need to obtain results of studies pending at discharge pt was provided with contact information of Psychiatric Inpatient unit [phone] as well as Medical Record Department [phone]. Patient denied smoking, denied using drugs, denies alcohol consumption pt was provided with prescriptions for all of medications (please see medication reconciliation form) Pt was educated about safety plan in case of worsening of symptoms or in case of suicidal or homicidal ideation call 911 or go to the nearest ER, also was educated to take meds as prescribed and stay away from drugs, pt verbalized understanding. - Diagnosis (1) Generalized anxiety disorder Current Visit: Yes Status: Chronic Priority: High (2) Depression Current Visit: Yes Status: Chronic Priority: Medium - Final Diagnosis (DSM 5) Condition upon Discharge: STABLE Disposition: HOME/ ROUTINE Follow-up Treatment Plan: At the time of the discharge pt denied been depressed, denied thoughts of harming self or others, denied psychotic symptoms, and pt does not appeared to be psychotic, denied been anxious, pt is not in imminent danger to self or others, pt was referred to [facility], information about follow up appointment, time and address provided to the pt, it is patient responsibility to follow up with outpatient clinic, PMD as well as specialists (see SW note for more detailed information). Patient also was referred t home health services, please see manager social work notes for more detailed information. In case pt will need to obtain results of studies pending at discharge pt was provided with contact information of Psychiatric Inpatient unit [phone] as well as Medical Record Department [phone]. Patient denied smoking, denied using drugs, denies alcohol consumption pt was provided with prescriptions for all of medications (please see medication reconciliation form) Pt was educated about safety plan in case of worsening of symptoms or in case of suicidal or homicidal ideation call 911 or go to the nearest ER, also was educated to take meds as prescribed and stay away from drugs, pt verbalized unde rstanding. Patient was seen by diabetes education nurse, input appreciated. Prescriptions/Medication Reconciliation: DULoxetine [Cymbalta] 30 mg PO DAILY #14 ecc Zaleplon [Sonata] 5 mg PO HS PRN #14 cap PRN Reason: Insomnia - Smoking Cessation Smoking Cessation Medication prescribed: No Reason for not providing: Patient denies smoking - Antipsychotic Medications Pt discharged on 2 or more routine antipsychotic medications: No
== END 2018-09-14 16:02 | disposition home or self-care (01) | DRG 880 ==
LOC: ED 09:41 → ERH 12:47 → PSYC 15:56
PROVIDERS: ADMIT Psychiatry & Neurology Psychiatry; ATTEND Psychiatry & Neurology Psychiatry
DX: F41.1 Generalized anxiety disorder (principal); F32.89 Other specified depressive episodes; E03.9 Hypothyroidism, unspecified; E11.42 Type 2 diabetes mellitus with diabetic polyneuropathy; E11.65 Type 2 diabetes mellitus with hyperglycemia; E78.1 Pure hyperglyceridemia; E78.5 Hyperlipidemia, unspecified; F03.90 Unspecified dementia, unspecified severity, without behavioral disturbance, psychotic disturbance, mood disturbance, and anxiety; G47.00 Insomnia, unspecified; H40.9 Unspecified glaucoma; H54.7 Unspecified visual loss; I10 Essential (primary) hypertension; J44.9 Chronic obstructive pulmonary disease, unspecified; K59.00 Constipation, unspecified; Z79.4 Long term (current) use of insulin; Z85.038 Personal history of other malignant neoplasm of large intestine; Z87.891 Personal history of nicotine dependence; Z90.49 Acquired absence of other specified parts of digestive tract

== ENCOUNTER 2018-09-23 11:59 | Inpatient (IN) | payer MEDICARE ==
[2018-09-23 12:32] VITALS: BMI 27.3
--- NOTE | 2018-09-23 12:46 | ED PDOC ---
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 Patient states she is worried about a lot of things and lives alone. Patient was recently admitted for similar symptoms on 09/06/2019. Patient denies any fever, chills, back pain, neck pain, abdominal pain, nausea, vomiting, suicidal ideation, homicidal ideation, hallucinations, or any other complaints. 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) Hx Cataracts: Yes (LEFT WITH BLURRY VISION) Hx Glaucoma: Yes (RIGHT EYE) - Renal Hx Renal Disorder: No - Endocrine/Metabolic Hx Diabetes Mellitus Type 2: Yes Hx Hypothyroidism: Yes - Hematological/Oncological Hx Blood Disorders: No - Integumentary Hx Dermatological Disorder: No - Musculoskeletal/Rheumatological Hx Musculoskeletal Disorders: Yes Hx Falls: Yes (08-11-17) Other/Comment: neuropathy - Gastrointestinal Hx Gastrointestinal Disorders: Yes (ACUTE COLITIS) - Genitourinary/Gynecological Hx Genitourinary Disorders: No - Psychiatric Hx Psychophysiologic Disorder: Yes (SMOKED CIGAREETES H/O) Hx Depression: No Hx Emotional Abuse: No Hx Physical Abuse: No Hx Substance Use: No - Surgical History Hx Appendectomy: Yes Hx Cholecystectomy: Yes Other/Comment: Colon tumor removal (benign) - Anesthesia Hx Anesthesia: Yes Hx Anesthesia Reactions: No Hx Malignant Hyperthermia: No - Suicidal Assessment Feels Threatened In Home Enviroment: No Family/Social History - Physician Review Nursing Documentation Reviewed: Yes Family/Social History: Unknown Family HX Smoking Status: Former Smoker Hx Alcohol Use: No Hx Substance Use: No Hx Substance Use Treatment: No Allergies/Home Meds Allergies/Adverse Reactions: Allergies No Known Allergies Allergy (Verified 09/06/18 18:23) Home Medications: Home Meds Medication Instructions Recorded Confirmed Metoprolol Succinate 25 mg PO DAILY 10/04/12 09/23/18 Insulin Lispro [humALOG] 10 units SC TID 12/24/17 09/23/18 Rosuvastatin Calcium [Crestor] 10 mg PO DAILY 09/23/18 09/23/18 Review of Systems - Physician Review All systems were reviewed & negative as marked: Yes - Review of Systems Constitutional: Normal Eyes: Normal ENT: Normal Respiratory: Normal. absent: SOB Cardiovascular: Normal. absent: Chest Pain Gastrointestinal: Normal. absent: Abdominal Pain Genitourinary Female: Normal Musculoskeletal: Normal Skin: Normal. absent: Rash Neurological: Normal. absent: Headache Endocrine: Normal Hemo/Lymphatic: Normal Psychiatric: Anxiety. absent: Suicidal Ideation Physical Exam - Physical Exam Narrative Physical Exam (Text): 09/23/18 12:50 Constitutional: Tearful. No acute distress. Head: Normocephalic. Atraumatic. Eyes: PERRL. ENT: Moist mucous membranes. Neck: Supple. Cardiovascular: Regular rate. Chest: No tenderness. Respiratory: Clear to auscultation bilaterally. GI: Soft. Nontender. Nondistended. Back: No CVA tenderness. Musculoskeletal: No tenderness or swelling of extremities. Skin: No rash. Neurologic: Alert, no focal deficit. 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 Plan: -- EKG -- Labs -- Acetominophen -- magnesium -- phosphorous -- salicytate -- CXR -- UA -- reassess and disposition Progress Notes: EKG NSR 64 bpm, T wave inversions laterally, largely unchanged from last 3 EKG since 08/12/2017. 09/23/18 13:38 CXR reviewed, shows: No Active Disease. - Lab Interpretations Lab Results: Lab Results 09/23/18 12:14: POC Glucose (mg/dL) 157 H - Scribe Statement The provider has reviewed the documentation as recorded by the Scribe Tess K. Sanderlin All medical record entries made by the Scribe were at my direction and personally dictated by me. I have reviewed the chart and agree that the record accurately reflects my personal performance of the history, physical exam, medical decision making, and the department course for this patient. I have also personally directed, reviewed, and agree with the discharge instructions and disposition. Disposition/Present on Arrival - Present on Arrival Any Indicators Present on Arrival: Yes History of DVT/PE: No History of Uncontrolled Diabetes: Yes Urinary Catheter: No History Surgical Site Infection Following: None - Disposition Have Diagnosis and Disposition been Completed?: Yes Diagnosis: Anxiety Disposition: HOSPITALIZED Disposition Time: 14:36 Patient Plan: Admission Condition: FAIR
[2018-09-23 13:37] LABS: BASO # 0.04 K/mm3 (0.0-2.0); BASO % 0.7 % (0.0-3.0); EOS # 0.1 (0.0-0.7); EOS % 1.4 % (1.5-5.0); GRAN # 3.71 (1.4-6.5); HEMOGLOBIN 14.9 g/dL (12.0-16.0); LYMPH # 1.6 (1.2-3.4); LYMPH % 27.5 % (22.0-35.0); MEAN CORPUSCULAR HEMOGLOBIN 32.2 pg (25.0-35.0); MEAN CORPUSCULAR HGB CONC 34.3 g/dl (31.0-37.0); MEAN PLATELET VOLUME 10.2 fl (7.0-11.0); MONO # 0.4 (0.1-0.6); MONO % 6.4 % (1.0-6.0); RBC 4.63 10^6/uL (3.5-6.1); RED CELL DISTRIBUTION WIDTH 12.8 % (11.5-14.5); WHITE BLOOD COUNT 5.8 10^3/uL (4.5-11.0)
--- NOTE | 2018-09-23 13:37 | RAD ---
Date of service: 09/23/2018 PROCEDURE: CHEST RADIOGRAPH, 1 VIEW HISTORY: anxiety COMPARISON: None available. FINDINGS: LUNGS: Clear. PLEURA: No pneumothorax or pleural fluid seen. CARDIOVASCULAR: No aortic atherosclerotic calcification present. Normal. OSSEOUS STRUCTURES: No significant abnormalities. VISUALIZED UPPER ABDOMEN: Normal. OTHER FINDINGS: None. IMPRESSION: No active disease.
[2018-09-23 13:51] LABS: ACETAMINOPHEN < 10.0 ug/ml (10.0-20.0); ALB/GLOB RATIO 1.1 (1.1-1.8); ALBUMIN 4.3 g/dL (3.0-4.8); ALT/SGPT 28 U/L (7-56); AST/SGOT 33 U/L (14-36); BLOOD UREA NITROGEN 14 mg/dL (7-21); CALCIUM 9.8 mg/dL (8.4-10.5); GFR NON-AFRICAN AMERICAN > 60; SALICYLATE < 1 mg/dL (2.0-20.0)
[2018-09-23 14:34] LABS: BARBITURATES, UR NEGATIVE (NEGATIVE); BENZODIAZEPINES, UR NEGATIVE (NEGATIVE); OPIATES, UR NEGATIVE (NEGATIVE); PHENCYCLIDINE, UR NEGATIVE (NEGATIVE)
[2018-09-23 14:48] LABS: URINE BILIRUBIN NEGATIVE (NEGATIVE); URINE BLOOD NEGATIVE (NEGATIVE); URINE GLUCOSE (UA) NEGATIVE (NEGATIVE); URINE LEUKOCYTE ESTERASE NEGATIVE Leu/uL (NEGATIVE); URINE PROTEIN TRACE mg/dL (<30 mg/dL); URINE UROBILINOGEN 0.2 E.U./dL (<1 E.U./dL)
[2018-09-23 14:50] LABS: URINE APPEARANCE CLEAR (CLEAR); URINE COLOR YELLOW (YELLOW)
[2018-09-23 15:01] LABS: URINE BACTERIA MOD /hpf; URINE WBC 0 - 2 /hpf (0-6)
[2018-09-23 15:02] LABS: URINE AMORPHOUS SEDIMENT FEW /hpf
[2018-09-23 16:05] VITALS: O2SAT 99
[2018-09-23] MEDS ORDERED: Alum-Mag Hydrox-Simethicone Susp (30 mL) PO PRN (17:30)
[2018-09-23] MEDS ORDERED: Magnesium Hydroxide Susp 30 ml UD PO PRN (17:30)
--- NOTE | 2018-09-23 17:47 | PCM.BM ---
<BetoPerez - Last Filed: 09/23/18 17:44> Treatment Plan Problems - Problems identified on initial assessmt Anxiety Date Initiated: 09/23/18 Time Initiated: 17:00 Assessment reference: NA Status: Active Priority: 1 Feelings of Worthlessness Date Initiated: 09/23/18 Time Initiated: 17:00 Assessment reference: NA Status: Active Priority: 2 Ineffective Coping Date Initiated: 09/23/18 Time Initiated: 17:00 Assessment reference: NA Status: Active Priority: 3 Social Isolation Date Initiated: 09/23/18 Time Initiated: 17:00 Assessment reference: NA Status: Active Priority: 4 Altered Sleep Patterns Date Initiated: 09/23/18 Time Initiated: 17:00 Assessment reference: NA Status: Active Priority: 5 Treatment assets and liabiliti Patient Assests: cooperative, motivated, ADL independent, negotiates basic needs, cognitively intact, good interpersonal skills, strong anthony Patient Liabilities: live alone, financial problems, poor support system - Milieu Protocol Maintain good personal hygiene: daily Encourage regular showers, every shift Remind patient to perform daily oral care, every shift Assist patient to perform ADL's Maintain personal safety: every shift Educate patient to report safety concerns to staff, every shift Monitor environment for contraband/sharps Medication safety: Monitor for expected outcome, potential side effects: every shift, Assess barriers to learning: every shift, Assess readiness for medication education: every shift Family Contact Family involvement: Famliy/SO not involved Family contact: Patient declines to allow family contact at present Family contact name: Zero family contacts - Goals for Treatment 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 Discharge/Continuing Care - Education Needs Education Needs: Patient Medication, Patient Diagnosis/Disease Process, Patient Coping Skills, Patient Anger Management skills, Patient Placement options, Pat ient Community resources, Patient Activities of Daily Living, Patient Pain, Patient Nutrition, Patient Uses of Medical Equipment, Patient Health Practices/Safety, Patient Personal Hygiene/Grooming, Patient Aftercare Safety Plan - Discharge Discharge Criteria: Tolerates medication w/o severe side effects, Normal sleep pattern <Rain Cade - Last Filed: 09/24/18 08:51> - Diagnosis (1) Depression Status: Chronic Interventions: 09/24/18 08:51 Psychoeducation Psychopharmacology/adjustment of medications as needed/ monitoring possible side effects Evaluate pt on daily basis Compliance with medications and follow up appointments Suicide and homicide risk assessment and prevention Relapse prevention Reduction of symptoms Improve functional status Family involvement As outpatient: cognitive behavioral therapy (2) Generalized anxiety disorder Status: Chronic Interventions: 09/24/18 08:51 Psychoeducation Psychopharmacology/adjustment of medications as needed/ monitoring possible side effects Evaluate pt on daily basis Discussion of importance of being compliant with medications and follow up appointments Suicide and homicide risk assessment and prevention, coping strategies, safety plan Reduction of symptoms Relaxation techniques and breathing exercises Improve functional status Family involvement Cognitive behavioral therapy as outpatient <Deysi Gonzalez - Last Filed: 09/24/18 11:45>
--- NOTE | 2018-09-23 20:39 | CARD ---
APPROVED REPORT Date of service: 09/23/2018 EKG Measurement Heart [id number] <Conclusion> Normal sinus rhythm ST & T wave abnormality, consider lateral ischemia Abnormal ECG
[2018-09-23] MEDS: Insulin Detemir 100 units/ml Vial (Levemir) SC SCH (21:22)
[2018-09-23] MEDS ORDERED: Insulin Lispro 1 UNITS/0.01 ML SC SCH (22:00)
[2018-09-24] MEDS: Levothyroxine 175 MCG TAB PO SCH (06:30)
[2018-09-24 07:50] LABS: GLUCOSE,FASTING 173 mg/dL (65-110); HDL CHOLESTEROL 31 mg/dL (29-60)
[2018-09-24 08:01] LABS: LDL CHOLESTEROL 142 mg/dL (0-129)
[2018-09-24] MEDS: Metoprolol Succinate 25 mg XL Tab PO SCH (08:28)
--- NOTE | 2018-09-24 08:31 | CP.PCM.HP ---
History of Present Illness - History of Present Illness History of Present Illness: Medical H&P 88 year old female with history of hypertension, diabetes, hypothyroidism came to the ER for feeling anxious. Patient also has dementia with poor memory. She is sitting in the chair with no acute medical complaints. Present on Admission - Present on Admission Any Indicators Present on Admission: No History of DVT/PE: No History of Uncontrolled Diabetes: No Urinary Catheter: No Decubitus Ulcer Present: No Review of Systems - Constitutional Constitutional: absent: Chills, Excessive Sweating, Fever - Cardiovascular Cardiovascular: absent: Chest Pain, Diaphoresis, Dyspnea - Respiratory Respiratory: absent: Cough, Dyspnea, Hemoptysis - Gastrointestinal Gastrointestinal: absent: Abdominal Pain, Nausea, Vomiting Past Patient History - Infectious Disease Hx of Infectious Diseases: None - Tetanus Immunizations Tetanus Immunization: Unknown - Past Social History Smoking Status: Former Smoker - CARDIAC Hx Cardiac Disorders: Yes Hx Hypertension: Yes - PULMONARY Hx Respiratory Disorders: Yes Hx Chronic Obstructive Pulmonary Disease (COPD): Yes - NEUROLOGICAL Other/Comment: neuropathy - HEENT Hx HEENT Problems: Yes Hx Cataracts: Yes (LEFT WITH BLURRY VISION) Hx Glaucoma: Yes (RIGHT EYE) - RENAL Hx Chronic Kidney Disease: No - ENDOCRINE/METABOLIC Hx Diabetes Mellitus Type 2: Yes Hx Hypothyroidism: Yes - HEMATOLOGICAL/ONCOLOGICAL Hx Blood Disorders: No - INTEGUMENTARY Hx Dermatological Problems: No - MUSCULOSKELETAL/RHEUMATOLOGICAL Hx Musculoskeletal Disorders: Yes Hx Falls: Yes (08-11-17) Other/Comment: neuropathy - GASTROINTESTINAL Hx Gastrointestinal Disorders: Yes (ACUTE COLITIS) - GENITOURINARY/GYNECOLOGICAL Hx Genitourinary Disorders: No - PSYCHIATRIC Hx Anxiety: Yes Hx Depression: Yes Hx Substance Use: No - SURGICAL HISTORY Hx Appendectomy: Yes Hx Cholecystectomy: Yes Other/Comment: Colon tumor removal (benign) - ANESTHESIA Hx Anesthesia: Yes Hx Anesthesia Reactions: No Hx Malignant Hyperthermia: No Meds Allergies/Adverse Reactions: Allergies Allergy/AdvReac Type Severity Reaction Status Date / Time No Known Allergies Allergy Verified 09/06/18 18:23 Physical Exam - Constitutional Appears: No Acute Distress - Head Exam Head Exam: ATRAUMATIC, NORMOCEPHALIC - Respiratory Exam Respiratory Exam: Clear to Auscultation Bilateral, NORMAL BREATHING PATTERN - Cardiovascular Exam Cardiovascular Exam: REGULAR RHYTHM, +S1, +S2 - GI/Abdominal Exam GI & Abdominal Exam: Normal Bowel Sounds, Soft. absent: Tenderness - Extremities Exam Extremities exam: Positive for: normal inspection - Neurological Exam Neurological exam: Alert Results - Vital Signs Recent Vital Signs: Last Vital Signs Temp 97.8 F 09/24/18 06:45 Pulse 57 L 09/24/18 06:45 Resp 19 09/24/18 06:45 BP 124/66 09/24/18 06:45 Pulse Ox 99 09/23/18 16:05 - Labs Result Diagrams: 09/23/18 13:00 09/23/18 13:00 Labs: Laboratory Results - last 24 hr 09/23/18 09/23/18 09/23/18 12:14 13:00 13:00 WBC 5.8 RBC 4.63 Hgb 14.9 Hct 43.5 MCV 94.0 MCH 32.2 MCHC 34.3 RDW 12.8 Plt Count 221 MPV 10.2 Gran % 64.0 Lymph % (Auto) 27.5 [place] % (Auto) 6.4 H Eos % (Auto) 1.4 L Baso % (Auto) 0.7 Gran # 3.71 Lymph # (Auto) 1.6 [place] # (Auto) 0.4 Eos # (Auto) 0.1 Baso # (Auto) 0.04 Sodium 137 Potassium 4.0 Chloride 99 Carbon Dioxide 29 Anion Gap 13 BUN 14 Creatinine 0.7 Est GFR ( Amer) > 60 Est GFR (Non-Af Amer) > 60 POC Glucose (mg/dL) 157 H Random Glucose 186 H Fasting Glucose Calcium 9.8 Phosphorus 3.7 Magnesium 2.1 Total Bilirubin 0.7 AST 33 ALT 28 Alkaline Phosphatase 152 H D Total Protein 8.1 Albumin 4.3 Globulin 3.8 Albumin/Globulin Ratio 1.1 Triglycerides Cholesterol LDL Cholesterol Direct HDL Cholesterol TSH 3rd Generation Urine Color Urine Appearance Urine pH Ur Specific [place] Urine Protein Urine Glucose (UA) Urine Ketones Urine Blood Urine Nitrate Urine Bilirubin Urine Urobilinogen Ur Leukocyte Esterase Urine RBC Urine WBC Ur Epithelial Cells Amorphous Sediment Urine Bacteria Urine Other Salicylates Urine Opiates Screen Urine Methadone Screen Acetaminophen Ur Barbiturates Screen Ur Phencyclidine Scrn Ur Amphetamines Screen U Benzodiazepines Scrn U Oth Cocaine Metabols U Cannabinoids Screen Alcohol, Quantitative 09/23/18 09/23/18 09/23/18 13:00 13:00 14:02 WBC RBC Hgb Hct MCV MCH MCHC RDW Plt Count MPV Gran % Lymph % (Auto) [place] % (Auto) Eos % (Auto) Baso % (Auto) Gran # Lymph # (Auto) [place] # (Auto) Eos # (Auto) Baso # (Auto) Sodium Potassium Chloride Carbon Dioxide Anion Gap BUN Creatinine Est GFR ( Amer) Est GFR (Non-Af Amer) POC Glucose (mg/dL) Random Glucose Fasting Glucose Calcium Phosphorus Magnesium Total Bilirubin AST ALT Alkaline Phosphatase Total Protein Albumin Globulin Albumin/Globulin Ratio Triglycerides Cholesterol LDL Cholesterol Direct HDL Cholesterol TSH 3rd Generation Urine Color Yellow Urine Appearance Clear Urine pH 6.0 Ur Specific [place] 1.025 Urine Protein Trace H Urine Glucose (UA) Negative Urine Ketones 15 H Urine Blood Negative Urine Nitrate Negative Urine Bilirubin Negative Urine Urobilinogen 0.2 Ur Leukocyte Esterase Negative Urine RBC 1 - 3 H Urine WBC 0 - 2 Ur Epithelial Cells 4 - 5 Amorphous Sediment Few Urine Bacteria Mod Urine Other Fiber Salicylates < 1 L Urine Opiates Screen Urine Methadone Screen Acetaminophen < 10.0 L Ur Barbiturates Screen Ur Phencyclidine Scrn Ur Amphetamines Screen U Benzodiazepines Scrn U Oth Cocaine Metabols U Cannabinoids Screen Alcohol, Quantitative < 10 09/23/18 09/23/18 09/24/18 14:02 21:16 05:30 WBC RBC Hgb Hct MCV MCH MCHC RDW Plt Count MPV Gran % Lymph % (Auto) [place] % (Auto) Eos % (Auto) Baso % (Auto) Gran # Lymph # (Auto) [place] # (Auto) Eos # (Auto) Baso # (Auto) Sodium Potassium Chloride Carbon Dioxide Anion Gap BUN Creatinine Est GFR ( Amer) Est GFR (Non-Af Amer) POC Glucose (mg/dL) 276 H Random Glucose Fasting Glucose 173 H Calcium Phosphorus Magnesium Total Bilirubin AST ALT Alkaline Phosphatase Total Protein Albumin Globulin Albumin/Globulin Ratio Triglycerides 142 Cholesterol 200 LDL Cholesterol Direct 142 H HDL Cholesterol 31 TSH 3rd Generation Urine Color Urine Appearance Urine pH Ur Specific [place] Urine Protein Urine Glucose (UA) Urine Ketones Urine Blood Urine Nitrate Urine Bilirubin Urine Urobilinogen Ur Leukocyte Esterase Urine RBC Urine WBC Ur Epithelial Cells Amorphous Sediment Urine Bacteria Urine Other Salicylates Urine Opiates Screen Negative Urine Methadone Screen Negative Acetaminophen Ur Barbiturates Screen Negative Ur Phencyclidine Scrn Negative Ur Amphetamines Screen Negative U Benzodiazepines Scrn Negative U Oth Cocaine Metabols Negative U Cannabinoids Screen Negative Alcohol, Quantitative 09/24/18 05:30 WBC RBC Hgb Hct MCV MCH MCHC RDW Plt Count MPV Gran % Lymph % (Auto) [place] % (Auto) Eos % (Auto) Baso % (Auto) Gran # Lymph # (Auto) [place] # (Auto) Eos # (Auto) Baso # (Auto) Sodium Potassium Chloride Carbon Dioxide Anion Gap BUN Creatinine Est GFR ( Amer) Est GFR (Non-Af Amer) POC Glucose (mg/dL) Random Glucose Fasting Glucose Calcium Phosphorus Magnesium Total Bilirubin AST ALT Alkaline Phosphatase Total Protein Albumin Globulin Albumin/Globulin Ratio Triglycerides Cholesterol LDL Cholesterol Direct HDL Cholesterol TSH 3rd Generation 18.70 H Urine Color Urine Appearance Urine pH Ur Specific [place] Urine Protein Urine Glucose (UA) Urine Ketones Urine Blood Urine Nitrate Urine Bilirubin Urine Urobilinogen Ur Leukocyte Esterase Urine RBC Urine WBC Ur Epithelial Cells Amorphous Sediment Urine Bacteria Urine Other Salicylates Urine Opiates Screen Urine Methadone Screen Acetaminophen Ur Barbiturates Screen Ur Phencyclidine Scrn Ur Amphetamines Screen U Benzodiazepines Scrn U Oth Cocaine Metabols U Cannabinoids Screen Alcohol, Quantitative Assessment & Plan - Assessment and Plan (Free Text) Assessment: HTN Diabetes mellitus Hypothyroidism Dementia Plan: continue insulin for diabetes continue Lipitor for hyperlipidemia continue synthroid for hypothyroidism
[2018-09-24] MEDS: Insulin Detemir 100 units/ml Vial (Levemir) SC SCH ×2 (09:00→21:15)
[2018-09-24] MEDS: Insulin Lispro 1 UNITS/0.01 ML SC SCH ×3 (09:42→17:44)
--- NOTE | 2018-09-24 14:35 | PCM.PSYCH ---
Initial Psychiatric Evaluation - Initial Psychiatric Evaluation Type of Admission: Voluntary Legal Status: Capacity (Patient had capacity to sign consent for treatment) Chief Complaint (in patient's own words): "I am very anxious, I do not even know [place] 88 years old or 89 years old, I am forgetting to take my medications, I think I need to have placement to the [facility] because I do not feel safe in my own apartment..." Patient's Reaction to Hospitalization: Patient was admitted to the psychiatric inpatient unit for evaluation and sta bilization of depressive symptoms, anxiety, inability to function, memory problems and confusion History of Present Illness and Precipitating Events: Shortly patient is a 88 year old female, whose past medical history includes hypertension, diabetes, and hypothyroidism, and mild cognitive impairment, history of all with depression and anxiety, patient has 1 previous psychiatric admission in August 2018 here in [facility], patient was brought by [facility] for evaluation and stabilization of depressive symptoms, uncontrolled anxiety, memory problems, confusion, inability to function independently. Patient was seen and examined today at the treatment team meeting, patient presented to be alert, very pleasant, anxious and confused. Hygiene is fair, patient ambulates with a help of a walker, needs assistance with her ADLs. Patient reported after discharge from the hospital she was feeling anxious, worried about her bills, patient reported that she does not feel safe at her own apartment because "I keep forgetting to take my medications, if I took medication I am not sure what I took." Patient reported that she was feeling anxious about paying her bills, she expressed her concerns about signing her apartment lease. Patient reported that at the same time she has memory problems, reported that "I don't even know if I am 88 or 89..." Patient reported that she feels depressed, hopeless and helpless, but denied any thoughts of harming herself or others. Patient denied hallucinations, or any other perceptual disturbances. As per nursing staff patient complained of feeling "paranoid, unsafe and scared at home because I feel very lonely, depressed, and hopeless". Patient denied using any drugs, denied smoking, denied drinking alcohol, patient reported that she used to smoke and drink but quit in 80s. Medical history: Hypertension, hypothyroidism, diabetes, primary care physician is Dr. Savage, but will be seen by Dr. Godfrey because does not see pt in the hospital. Primary care physician prescribed patient Xanax. Last admission patient was seen by neurologist, patient was diagnosed with mild cognitive impairment, please see consultation note for more detailed information. History: Patient denied history of being admitted to the psychiatric inpatient unit, patient denied history of suicidal attempts. Family history: Patient reported strong family history of alcohol use disorder, patient denied family history of suicidal attempts. Patient was educated about Cymbalta, sonata, risk/benefits/alternatives were discussed with the patient patient is willing to take medications. med list as per previous admission. Prescriptions/Medication Reconciliation: DULoxetine [Cymbalta] 30 mg PO DAILY #14 ecc Zaleplon [Sonata] 5 mg PO HS PRN #14 cap PRN Reason: Insomnia 09/23/18 13:00 09/23/18 13:00 Lab Results 09/24/18 05:30: TSH 3rd Generation 18.70 H 09/24/18 05:30: Fasting Glucose 173 H, Triglycerides 142, Cholesterol 200, LDL Cholesterol Direct 142 H, HDL Cholesterol 31 09/23/18 21:16: POC Glucose (mg/dL) 276 H 09/23/18 14:02: Urine Opiates Screen Negative, Urine Methadone Screen Negative, Ur Barbiturates Screen Negative, Ur Phencyclidine Scrn Negative, Ur Amphetamines Screen Negative, U Benzodiazepines Scrn Negative, U Oth Cocaine Metabols Negative, U Cannabinoids Screen Negative 09/23/18 14:02: Urine Color Yellow, Urine Appearance Clear, Urine pH 6.0, Ur Specific [place] 1.025, Urine Protein Trace H, Urine Glucose (UA) Negative, Urine Ketones 15 H, Urine Blood Negative, Urine Nitrate Negative, Urine Bilirubin Negative, Urine Urobilinogen 0.2, Ur Leukocyte Esterase Negative, Urine RBC 1 - 3 H, Urine WBC 0 - 2, Ur Epithelial Cells 4 - 5, Amorphous Sediment Few, Urine Bacteria Mod, Urine Other Fiber 09/23/18 13:00: Alcohol, Quantitative < 10 09/23/18 13:00: Salicylates < 1 L, Acetaminophen < 10.0 L 09/23/18 13:00: Sodium 137, Potassium 4.0, Chloride 99, Carbon Dioxide 29, Anion Gap 13, BUN 14, Creatinine 0.7, Est GFR ( Amer) > 60, Est GFR (Non-Af Amer) > 60, Random Glucose 186 H, Calcium 9.8, Phosphorus 3.7, Magnesium 2.1, Total Bilirubin 0.7, AST 33, ALT 28, Alkaline Phosphatase 152 H D, Total Protein 8.1, Albumin 4.3, Globulin 3.8, Albumin/Globulin Ratio 1.1 09/23/18 13:00: WBC 5.8, RBC 4.63, Hgb 14.9, Hct 43.5, MCV 94.0, MCH 32.2, MCHC 34.3, RDW 12.8, Plt Count 221, MPV 10.2, Gran % 64.0, Lymph % (Auto) 27.5, Barber % (Auto) 6.4 H, Eos % (Auto) 1.4 L, Baso % (Auto) 0.7, Gran # 3.71, Lymph # (Auto) 1.6, Barber # (Auto) 0.4, Eos # (Auto) 0.1, Baso # (Auto) 0.04 09/23/18 12:14: POC Glucose (mg/dL) 157 H Vital Signs Temp Pulse Resp BP Pulse Ox 09/24/18 08:28 62 122/64 09/24/18 06:45 97.8 F 57 L 19 124/66 09/23/18 16:05 87 18 123/67 99 09/23/18 12:22 97.8 F 85 18 168/78 H 97 The patient failed the outpatient lower level of care: Yes Current Medications: Active Medications Generic Name Dose Route Start Last Admin Trade Name Freq PRN Reason Stop Dose Admin Acetaminophen 650 mg 09/23/18 17:29 Tylenol 325mg Tab PO Q6H PRN Pain, moderate (4-7) Al Hydrox/Mg Hydrox/Simethicone 30 ml 09/23/18 17:30 Maalox Plus 30 Ml PO DAILY PRN Indigestion / Heartburn Atorvastatin Calcium 40 mg 09/24/18 17:00 Lipitor PO DIN ISAI Duloxetine HCl 30 mg 09/24/18 08:00 09/24/18 08:28 Cymbalta PO 30 mg DAILY ISAI Administration Insulin Detemir 15 unit 09/23/18 22:00 09/23/18 21:22 Levemir SC 15 u AMHS ISAI Administration Insulin Human Lispro 10 units 09/24/18 07:30 Humalog SC AC ISAI Levothyroxine Sodium 150 mcg 09/27/18 06:00 Synthroid PO THFRSA@0600 ISAI Levothyroxine Sodium 175 mcg 09/24/18 06:00 09/24/18 06:30 Synthroid PO 175 mcg SUMOTUWE@0600 ISAI Administration Magnesium Hydroxide 30 ml 09/23/18 17:30 Milk Of Magnesia PO DAILY PRN Constipation Metoprolol Succinate 25 mg 09/24/18 08:00 09/24/18 08:28 Toprol Xl PO 25 mg BRK ISAI Administration Zaleplon 5 mg 09/23/18 17:51 09/23/18 21:24 Sonata PO 5 mg HS PRN Administration Insomnia Present on Admission - Present on Admission Any Indicators Present on Admission: No Review of Systems - Review of Systems Systems not reviewed;Unavailable: Acuity of Condition - Constitutional Constitutional: As Per HPI - EENT Eyes: As Per HPI Ears: As Per HPI Nose/Mouth/Throat: As Per HPI - Breasts Breasts: As Per HPI - Cardiovascular Cardiovascular: As Per HPI - Respiratory Respiratory: As Per HPI - Gastrointestinal Gastrointestinal: As Per HPI - Genitourinary Genitourinary: As Per HPI - Reproductive: Female Reproductive:Female: As Per HPI - Menstruation Menstruation: As Per HPI - Musculoskeletal Musculoskeletal: As Per HPI - Integumentary Integumentary: As Per HPI - Neurological Neurological: As Per HPI - Psychiatric Psychiatric: As Per HPI - Endocrine Endocrine: As Per HPI - Hematologic/Lymphatic Hematologic: As Per HPI Past Patient History - Past Psychiatric History Previous Treatment History: Inpatient Prior Professional Help: as per HPI Prior Psychiatric Treatment: as per HPI At [facility]: as per HPI Duration: as per HPI Nature of Treatment: as per HPI Explanation of prior treatment: as per HPI - PSYCHIATRIC Hx Anxiety: Yes Hx Depression: Yes Hx Substance Use: No - Infectious Disease Hx of Infectious Diseases: None - Tetanus Immunizations Tetanus Immunization: Unknown - CARDIAC Hx Cardiac Disorders: Yes Hx Hypertension: Yes - PULMONARY Hx Respiratory Disorders: Yes Hx Chronic Obstructive Pulmonary Disease (COPD): Yes - NEUROLOGICAL Other/Comment: neuropathy - HEENT Hx HEENT Problems: Yes Hx Cataracts: Yes (LEFT WITH BLURRY VISION) Hx Glaucoma: Yes (RIGHT EYE) - RENAL Hx Chronic Kidney Disease: No - ENDOCRINE/METABOLIC Hx Diabetes Mellitus Type 2: Yes Hx Hypothyroidism: Yes - HEMATOLOGICAL/ONCOLOGICAL Hx Blood Disorders: No - INTEGUMENTARY Hx Dermatological Problems: No - MUSCULOSKELETAL/RHEUMATOLOGICAL Hx Musculoskeletal Disorders: Yes Hx Falls: Yes (08-11-17) Other/Comment: neuropathy - GASTROINTESTINAL Hx Gastrointestinal Disorders: Yes (ACUTE COLITIS) - GENITOURINARY/GYNECOLOGICAL Hx Genitourinary Disorders: No - SURGICAL HISTORY Hx Appendectomy: Yes Hx Cholecystectomy: Yes Other/Comment: Colon tumor removal (benign) - ANESTHESIA Hx Anesthesia: Yes Hx Anesthesia Reactions: No Hx Malignant Hyperthermia: No - Medical/Surgical History Reviewed & confirmed: by nj Meds Allergies/Adverse Reactions: Allergies Allergy/AdvReac Type Severity Reaction Status Date / Time No Known Allergies Allergy Verified 09/06/18 18:23 Mental Status Examination - Personal Presentation Personal Presentation: Looks stated age - Affect Affect: Flat - Motor Activity Motor Activity: Calm (But very anxious) - Reliability in Providing Information Reliability in Providing Information: Poor, due to cognitve impairment - Speech Speech: Organized - Mood Mood: Depressed, Anxious - Formal Thought Process Formal Thought Process: No Impairment - Obsessions/Compulsions Obsessions: None Compulsions: None - Cognitive Functions Orientation: Person, Place, Situation, Time Sensorium: Alert Estimate of Intelligence: Average Judgement: Intact, as evidence by: Insight regarding need for hospitalization - Risk Risk: Diminished functioning - Strength & Assets Inventory Strength & Assets Inventory: Cooperative, Other (Patient is very pleasant, no major medical issues, no psychosis, no suicidal ideations) - Limitations Limitations: Other (Poor social support, memory problems, loneliness) Psychiatric Physical Exam - Physical Exam Reviewed and confirmed: Emergency Department Physical Exam Results - Vital Signs Recent Vital Signs: Last Vital Signs Temp 97.8 F 09/24/18 06:45 Pulse 62 09/24/18 08:28 Resp 19 09/24/18 06:45 BP 122/64 09/24/18 08:28 Pulse Ox 99 09/23/18 16:05 - Labs Result Diagrams: 09/23/18 13:00 09/23/18 13:00 Labs: Laboratory Results - last 24 hr 09/23/18 09/23/18 09/23/18 12:14 13:00 13:00 WBC 5.8 RBC 4.63 Hgb 14.9 Hct 43.5 MCV 94.0 MCH 32.2 MCHC 34.3 RDW 12.8 Plt Count 221 MPV 10.2 Gran % 64.0 Lymph % (Auto) 27.5 Barber % (Auto) 6.4 H Eos % (Auto) 1.4 L Baso % (Auto) 0.7 Gran # 3.71 Lymph # (Auto) 1.6 Barber # (Auto) 0.4 Eos # (Auto) 0.1 Baso # (Auto) 0.04 Sodium 137 Potassium 4.0 Chloride 99 Carbon Dioxide 29 Anion Gap 13 BUN 14 Creatinine 0.7 Est GFR ( Amer) > 60 Est GFR (Non-Af Amer) > 60 POC Glucose (mg/dL) 157 H Random Glucose 186 H Fasting Glucose Calcium 9.8 Phosphorus 3.7 Magnesium 2.1 Total Bilirubin 0.7 AST 33 ALT 28 Alkaline Phosphatase 152 H D Total Protein 8.1 Albumin 4.3 Globulin 3.8 Albumin/Globulin Ratio 1.1 Triglycerides Cholesterol LDL Cholesterol Direct HDL Cholesterol TSH 3rd Generation Urine Color Urine Appearance Urine pH Ur Specific [place] Urine Protein Urine Glucose (UA) Urine Ketones Urine Blood Urine Nitrate Urine Bilirubin Urine Urobilinogen Ur Leukocyte Esterase Urine RBC Urine WBC Ur Epithelial Cells Amorphous Sediment Urine Bacteria Urine Other Salicylates Urine Opiates Screen Urine Methadone Screen Acetaminophen Ur Barbiturates Screen Ur Phencyclidine Scrn Ur Amphetamines Screen U Benzodiazepines Scrn U Oth Cocaine Metabols U Cannabinoids Screen Alcohol, Quantitative 09/23/18 09/23/18 09/23/18 13:00 13:00 14:02 WBC RBC Hgb Hct MCV MCH MCHC RDW Plt Count MPV Gran % Lymph % (Auto) Barber % (Auto) Eos % (Auto) Baso % (Auto) Gran # Lymph # (Auto) Barber # (Auto) Eos # (Auto) Baso # (Auto) Sodium Potassium Chloride Carbon Dioxide Anion Gap BUN Creatinine Est GFR ( Amer) Est GFR (Non-Af Amer) POC Glucose (mg/dL) Random Glucose Fasting Glucose Calcium Phosphorus Magnesium Total Bilirubin AST ALT Alkaline Phosphatase Total Protein Albumin Globulin Albumin/Globulin Ratio Triglycerides Cholesterol LDL Cholesterol Direct HDL Cholesterol TSH 3rd Generation Urine Color Yellow Urine Appearance Clear Urine pH 6.0 Ur Specific [place] 1.025 Urine Protein Trace H Urine Glucose (UA) Negative Urine Ketones 15 H Urine Blood Negative Urine Nitrate Negative Urine Bilirubin Negative Urine Urobilinogen 0.2 Ur Leukocyte Esterase Negative Urine RBC 1 - 3 H Urine WBC 0 - 2 Ur Epithelial Cells 4 - 5 Amorphous Sediment Few Urine Bacteria Mod Urine Other Fiber Salicylates < 1 L Urine Opiates Screen Urine Methadone Screen Acetaminophen < 10.0 L Ur Barbiturates Screen Ur Phencyclidine Scrn Ur Amphetamines Screen U Benzodiazepines Scrn U Oth Cocaine Metabols U Cannabinoids Screen Alcohol, Quantitative < 10 09/23/18 09/23/18 09/24/18 14:02 21:16 05:30 WBC RBC Hgb Hct MCV MCH MCHC RDW Plt Count MPV Gran % Lymph % (Auto) Barber % (Auto) Eos % (Auto) Baso % (Auto) Gran # Lymph # (Auto) Barber # (Auto) Eos # (Auto) Baso # (Auto) Sodium Potassium Chloride Carbon Dioxide Anion Gap BUN Creatinine Est GFR ( Amer) Est GFR (Non-Af Amer) POC Glucose (mg/dL) 276 H Random Glucose Fasting Glucose 173 H Calcium Phosphorus Magnesium Total Bilirubin AST ALT Alkaline Phosphatase Total Protein Albumin Globulin Albumin/Globulin Ratio Triglycerides 142 Cholesterol 200 LDL Cholesterol Direct 142 H HDL Cholesterol 31 TSH 3rd Generation Urine Color Urine Appearance Urine pH Ur Specific [place] Urine Protein Urine Glucose (UA) Urine Ketones Urine Blood Urine Nitrate Urine Bilirubin Urine Urobilinogen Ur Leukocyte Esterase Urine RBC Urine WBC Ur Epithelial Cells Amorphous Sediment Urine Bacteria Urine Other Salicylates Urine Opiates Screen Negative Urine Methadone Screen Negative Acetaminophen Ur Barbiturates Screen Negative Ur Phencyclidine Scrn Negative Ur Amphetamines Screen Negative U Benzodiazepines Scrn Negative U Oth Cocaine Metabols Negative U Cannabinoids Screen Negative Alcohol, Quantitative 09/24/18 05:30 WBC RBC Hgb Hct MCV MCH MCHC RDW Plt Count MPV Gran % Lymph % (Auto) Barber % (Auto) Eos % (Auto) Baso % (Auto) Gran # Lymph # (Auto) Barber # (Auto) Eos # (Auto) Baso # (Auto) Sodium Potassium Chloride Carbon Dioxide Anion Gap BUN Creatinine Est GFR ( Amer) Est GFR (Non-Af Amer) POC Glucose (mg/dL) Random Glucose Fasting Glucose Calcium Phosphorus Magnesium Total Bilirubin AST ALT Alkaline Phosphatase Total Protein Albumin Globulin Albumin/Globulin Ratio Triglycerides Cholesterol LDL Cholesterol Direct HDL Cholesterol TSH 3rd Generation 18.70 H Urine Color Urine Appearance Urine pH Ur Specific [place] Urine Protein Urine Glucose (UA) Urine Ketones Urine Blood Urine Nitrate Urine Bilirubin Urine Urobilinogen Ur Leukocyte Esterase Urine RBC Urine WBC Ur Epithelial Cells Amorphous Sediment Urine Bacteria Urine Other Salicylates Urine Opiates Screen Urine Methadone Screen Acetaminophen Ur Barbiturates Screen Ur Phencyclidine Scrn Ur Amphetamines Screen U Benzodiazepines Scrn U Oth Cocaine Metabols U Cannabinoids Screen Alcohol, Quantitative - EKG Data EKG Interpreted by: ER Physician DSM Plan - DSM 5 DSM 5 Diagnosis: Major depressive disorder Generalized anxiety order Mild cognitive disorder - Recommended/Plan of Treatment Treatment Recommendations and Plan of Treatment: Milieu/structure/supportive therapy Medical consult appreciated, see medical team note for more detailed info SW consultation for discharge plan and social issues, possible [facility] placement Med management Cymbalta was resumed for depression and anxiety Sonata was resumed as needed for insomnia Physical therapy evaluation Follow up on labs Will monitor closely Pt was educated about risk/benefits and alternatives of medications, coping strategies (safety plan, suicide prevention), relapse prevention Projected ELOS: 7 days Prognosis: Fair Discharge Plan and Discharge Criteria: Pt will be not depressed or manic, will be more hopeful, will be not psychotic or anxious, will be not having thoughts of harming self or others, will be tolerating medications well, will not have major side effects, will be able to function, will not pose threat to self or others. - Tobacco Cessation Tobacco Use Status for the last 30 days: Non User Tobacco Use Treatment Practical Counseling Provided: No Tobacco Use Treatment FDA-Approved Cessation Medication Provided: No Reason for not providing: Other (Patient does not smoke) - Alcohol or Substance Abuse Does the patient have an Alcohol or Substance Abuse Disorder: No Initial Psych Certification - Initial Certification I certify that the inpatient psychiatric facility admission was medically necessary for either: Treatment which could reasonbly be expected to improve pt's condition I estimate of hospitalization is necessary for proper treatment of the patient: 7 Unit of Time: Days My plans for post-hospital care for this patient are: Possible placement to [place]
[2018-09-25] MEDS: Levothyroxine 175 MCG TAB PO SCH (06:45)
--- NOTE | 2018-09-25 08:10 | CP.PCM.PN ---
Subjective - Date & Time of Evaluation Date of Evaluation: 09/25/18 Time of Evaluation: 07:30 - Subjective Subjective: Patient is seen this morning, resting comfortably in bed. Objective - Vital Signs/Intake and Output Vital Signs (last 24 hours): Temp Pulse Resp BP Pulse Ox 98.4 F 52 L 20 142/60 99 09/25/18 07:38 09/25/18 07:38 09/25/18 07:38 09/25/18 07:38 09/23/18 16:05 - Medications Medications: Current Medications Acetaminophen (Tylenol 325mg Tab) 650 mg PO Q6H PRN PRN Reason: Pain, moderate (4-7) Al Hydrox/Mg Hydrox/Simethicone (Maalox Plus 30 Ml) 30 ml PO DAILY PRN PRN Reason: Indigestion / Heartburn Atorvastatin Calcium (Lipitor) 40 mg PO DIN [facility] Last Admin: 09/24/18 17:44 Dose: 40 mg Duloxetine HCl (Cymbalta) 30 mg PO DAILY [facility] Last Admin: 09/24/18 08:28 Dose: 30 mg Insulin Detemir (Levemir) 15 unit SC AMHS [facility] Last Admin: 09/24/18 21:15 Dose: 15 u Insulin Human Lispro (Humalog) 10 units SC AC [facility] Last Admin: 09/24/18 17:44 Dose: 10 unit Levothyroxine Sodium (Synthroid) 150 mcg PO THFRSA@0600 [facility] Levothyroxine Sodium (Synthroid) 175 mcg PO SUMOTUWE@0600 [facility] Last Admin: 09/25/18 06:45 Dose: 175 mcg Magnesium Hydroxide (Milk Of Magnesia) 30 ml PO DAILY PRN PRN Reason: Constipation Metoprolol Succinate (Toprol Xl) 25 mg PO BRK [facility] Last Admin: 09/24/18 08:28 Dose: 25 mg Zaleplon (Sonata) 5 mg PO HS PRN PRN Reason: Insomnia Last Admin: 09/24/18 21:22 Dose: 5 mg - Labs Labs: 09/23/18 13:00 09/23/18 13:00 - Constitutional Appears: No Acute Distress - Head Exam Head Exam: ATRAUMATIC, NORMOCEPHALIC - Respiratory Exam Respiratory Exam: Clear to Ausculation Bilateral, NORMAL BREATHING PATTERN - Cardiovascular Exam Cardiovascular Exam: REGULAR RHYTHM, +S1, +S2 - GI/Abdominal Exam GI & Abdominal Exam: Soft, Normal Bowel Sounds. absent: Tenderness - Neurological Exam Neurological Exam: Alert, Awake Assessment and Plan - Assessment and Plan (Free Text) Assessment: HTN DMII Hypothyroidism Dementia Anxiety Plan: continue current medications blood sugar is well controlled on insulin blood pressure is controlled with Toprol
[2018-09-25] MEDS: Insulin Lispro 1 UNITS/0.01 ML SC SCH ×3 (09:42→18:01)
[2018-09-25] MEDS: Metoprolol Succinate 25 mg XL Tab PO SCH (09:43)
[2018-09-25] MEDS: Insulin Detemir 100 units/ml Vial (Levemir) SC SCH ×2 (09:46→21:47)
--- NOTE | 2018-09-25 16:47 | PCM.PYCHPN ---
Psychiatric Progress Note - Psychiatric Progress Note Patient seen today, length of contact: 30 minutes Patient Chief Complaint: "I was very scared at the nighttime, a lot of things were going on..." Problems Identified/Issues Discussed: Suicide/ homicide prevention, past psychiatric h/o, current psychiatric symptoms, medical problems, risk/benefits and alternatives of medications, medications compliance, coping strategies, substance abuse h/o, relapse prevention, importance of follow up with psychiatrist and therapist, discharge plan. Medical Problems: See HPI Patient has history of diabetes, hypertension, patient was seen by PMD Diagnostic Results: 09/23/18 13:00 09/23/18 13:00 Lab Results 09/25/18 07:23: POC Glucose (mg/dL) 129 H 09/24/18 20:29: POC Glucose (mg/dL) 100 09/24/18 17:20: POC Glucose (mg/dL) 128 H 09/24/18 11:04: POC Glucose (mg/dL) 229 H 09/24/18 07:27: POC Glucose (mg/dL) 161 H 09/24/18 05:30: RPR Nonreactive 09/24/18 05:30: TSH 3rd Generation 18.70 H 09/24/18 05:30: Fasting Glucose 173 H, Triglycerides 142, Cholesterol 200, LDL Cholesterol Direct 142 H, HDL Cholesterol 31 09/23/18 21:16: POC Glucose (mg/dL) 276 H 09/23/18 14:02: Urine Opiates Screen Negative, Urine Methadone Screen Negative, Ur Barbiturates Screen Negative, Ur Phencyclidine Scrn Negative, Ur Amphetamines Screen Negative, U Benzodiazepines Scrn Negative, U Oth Cocaine Metabols Negative, U Cannabinoids Screen Negative 09/23/18 14:02: Urine Color Yellow, Urine Appearance Clear, Urine pH 6.0, Ur Specific [place] 1.025, Urine Protein Trace H, Urine Glucose (UA) Negative, Urine Ketones 15 H, Urine Blood Negative, Urine Nitrate Negative, Urine Bilirubin Negative, Urine Urobilinogen 0.2, Ur Leukocyte Esterase Negative, Urine RBC 1 - 3 H, Urine WBC 0 - 2, Ur Epithelial Cells 4 - 5, Amorphous Sediment Few, Urine Bacteria Mod, Urine Other Fiber 09/23/18 13:00: Alcohol, Quantitative < 10 09/23/18 13:00: Salicylates < 1 L, Acetaminophen < 10.0 L 09/23/18 13:00: Sodium 137, Potassium 4.0, Chloride 99, Carbon Dioxide 29, Anion Gap 13, BUN 14, Creatinine 0.7, Est GFR ( Amer) > 60, Est GFR (Non-Af Amer) > 60, Random Glucose 186 H, Calcium 9.8, Phosphorus 3.7, Magnesium 2.1, Total Bilirubin 0.7, AST 33, ALT 28, Alkaline Phosphatase 152 H D, Total Protein 8.1, Albumin 4.3, Globulin 3.8, Albumin/Globulin Ratio 1.1 09/23/18 13:00: WBC 5.8, RBC 4.63, Hgb 14.9, Hct 43.5, MCV 94.0, MCH 32.2, MCHC 34.3, RDW 12.8, Plt Count 221, MPV 10.2, Gran % 64.0, Lymph % (Auto) 27.5, [place] % (Auto) 6.4 H, Eos % (Auto) 1.4 L, Baso % (Auto) 0.7, Gran # 3.71, Lymph # (Auto) 1.6, [place] # (Auto) 0.4, Eos # (Auto) 0.1, Baso # (Auto) 0.04 09/23/18 12:14: POC Glucose (mg/dL) 157 H Vital Signs Temp Pulse Resp BP Pulse Ox 09/25/18 09:43 52 L 142/60 09/25/18 07:38 98.4 F 52 L 20 142/60 09/24/18 15:00 97.7 F 68 17 136/75 09/24/18 08:28 62 122/64 09/24/18 06:45 97.8 F 57 L 19 124/66 09/23/18 16:05 87 18 123/67 99 09/23/18 12:22 97.8 F 85 18 168/78 H 97 DSM 5 Symptoms Update: Shortly patient is a 88 year old female, whose past medical history includes hypertension, diabetes, and hypothyroidism, and mild cognitive impairment, history of all with depression and anxiety, patient has 1 previous psychiatric admission in August 2018 here in [facility], patient was brought [facility] for evaluation and stabilization of depressive symptoms, uncontrolled anxiety, memory problems, confusion, inability to function independently. Patient was seen and examined today next to the nursing station, patient was participating patient appears anxious, patient said that physical therapy, night was "restless", as per staff it was a lot of admissions overnight, and patient was feeling anxious. Patient still presents to be depressed, but visible in the unit, patient started to participate in groups. Patient reported that she feels depressed, hopeless and helpless, but denied any thoughts of harming herself or others. Patient denied hallucinations, or any other perceptual disturbances. Patient tolerates medications well, no side effects observed or reported, aims 0, no EPS. Impression: Major depressive disorder Generalized anxiety disorder Medication Change: Yes (Cymbalta increased to 40 mg) Medical Record Reviewed: Yes Consults ordered or reviewed: Medical consult appreciated physical therapy consult appreciated Mental Status Examination - Cognitive Function Orientation: Person, Place, Situation, Time Attention: Poor Concentration: Poor Association: WNL Fund of Knowledge: WNL - Mood Mood: Depressed, Anxious - Affect Affect: Flat - Formal Thought Process Formal Thought Process: No Impairment - Suicidal Ideation Suicidal Ideation: No - Homicidal Ideation Homicidal Ideation: No Goal/Treatment Plan - Goal/Treatment Plan Need for Continued Stay: Remain at risks for inpatient hospitalization, Severe depression anxiety, Discharge may exacerbated symptoms, Failed transitioning, Severe functional impairment Progress Toward Problem(s) and Goals/Treatment Plan: Milieu/structure/supportive therapy Medical consult appreciated, see medical team note for more detailed info SW consultation for discharge plan and social issues, possible skilled nursing placement Med management Cymbalta increased to 40 mg daily for depression and anxiety Sonata was resumed as needed for insomnia Physical therapy evaluation Follow up on labs Will monitor closely Pt was educated about risk/benefits and alternatives of medications, coping strategies (safety plan, suicide prevention), relapse prevention Estimated Date of D/C: 10/01/18
[2018-09-26] MEDS: Levothyroxine 175 MCG TAB PO SCH (06:39)
[2018-09-26] MEDS: Insulin Lispro 1 UNITS/0.01 ML SC SCH ×3 (08:00→18:12)
--- NOTE | 2018-09-26 08:13 | CP.PCM.PN ---
Subjective - Date & Time of Evaluation Date of Evaluation: 09/26/18 Time of Evaluation: 07:25 - Subjective Subjective: Patient is doing well. She has no complaints. Objective - Vital Signs/Intake and Output Vital Signs (last 24 hours): Temp Pulse Resp BP Pulse Ox 98.7 F 56 L 20 128/63 99 09/26/18 07:21 09/26/18 07:21 09/26/18 07:21 09/26/18 07:21 09/23/18 16:05 - Medications Medications: Current Medications Acetaminophen (Tylenol 325mg Tab) 650 mg PO Q6H PRN PRN Reason: Pain, moderate (4-7) Al Hydrox/Mg Hydrox/Simethicone (Maalox Plus 30 Ml) 30 ml PO DAILY PRN PRN Reason: Indigestion / Heartburn Atorvastatin Calcium (Lipitor) 40 mg PO DIN [facility] Last Admin: 09/25/18 18:02 Dose: 40 mg Duloxetine HCl (Cymbalta) 40 mg PO DAILY [facility] Insulin Detemir (Levemir) 15 unit SC AMHS [facility] Last Admin: 09/25/18 21:47 Dose: Not Given Insulin Human Lispro (Humalog) 10 units SC AC [facility] Last Admin: 09/25/18 18:01 Dose: 10 unit Levothyroxine Sodium (Synthroid) 150 mcg PO THFRSA@0600 [facility] Levothyroxine Sodium (Synthroid) 175 mcg PO SUMOTUWE@0600 [facility] Last Admin: 09/26/18 06:39 Dose: 175 mcg Magnesium Hydroxide (Milk Of Magnesia) 30 ml PO DAILY PRN PRN Reason: Constipation Metoprolol Succinate (Toprol Xl) 25 mg PO BRK [facility] Last Admin: 09/25/18 09:43 Dose: 25 mg Zaleplon (Sonata) 5 mg PO HS PRN PRN Reason: Insomnia Last Admin: 09/25/18 21:27 Dose: 5 mg - Labs Labs: 09/23/18 13:00 09/23/18 13:00 - Constitutional Appears: No Acute Distress - Head Exam Head Exam: ATRAUMATIC, NORMOCEPHALIC - Respiratory Exam Respiratory Exam: Clear to Ausculation Bilateral, NORMAL BREATHING PATTERN - Cardiovascular Exam Cardiovascular Exam: REGULAR RHYTHM, +S1, +S2 - GI/Abdominal Exam GI & Abdominal Exam: Soft, Normal Bowel Sounds. absent: Tenderness - Extremities Exam Extremities Exam: Normal Inspection - Neurological Exam Neurological Exam: Alert, Awake Assessment and Plan - Assessment and Plan (Free Text) Assessment: HTN DMII Hypothyroidism Dementia Anxiety Plan: Patient's blood sugar is well controlled with levemir and humalog insulin with meals. continue synthroid for hypothyroidism continue Toprol for hypertension Patient's memory is poor and she lives alone. She is awaiting [facility] placement. behavioral treatment as per psychiatry
[2018-09-26] MEDS: Metoprolol Succinate 25 mg XL Tab PO SCH (09:21)
[2018-09-26] MEDS: Insulin Detemir 100 units/ml Vial (Levemir) SC SCH ×2 (11:26→22:04)
--- NOTE | 2018-09-26 15:04 | PCM.PYCHPN ---
Psychiatric Progress Note - Psychiatric Progress Note Patient seen today, length of contact: 30 minutes Patient Chief Complaint: "I slept little bit better" Problems Identified/Issues Discussed: Suicide/ homicide prevention, past psychiatric h/o, current psychiatric symptom s, medical problems, risk/benefits and alternatives of medications, medications compliance, coping strategies, substance abuse h/o, relapse prevention, importance of follow up with psychiatrist and therapist, discharge plan. Medical Problems: See HPI Patient has history of diabetes, hypertension, patient was seen by PMD Diagnostic Results: 09/23/18 13:00 09/23/18 13:00 Lab Results 09/25/18 07:23: POC Glucose (mg/dL) 129 H 09/24/18 20:29: POC Glucose (mg/dL) 100 09/24/18 17:20: POC Glucose (mg/dL) 128 H 09/24/18 11:04: POC Glucose (mg/dL) 229 H 09/24/18 07:27: POC Glucose (mg/dL) 161 H 09/24/18 05:30: RPR Nonreactive 09/24/18 05:30: TSH 3rd Generation 18.70 H 09/24/18 05:30: Fasting Glucose 173 H, Triglycerides 142, Cholesterol 200, LDL Cholesterol Direct 142 H, HDL Cholesterol 31 09/23/18 21:16: POC Glucose (mg/dL) 276 H 09/23/18 14:02: Urine Opiates Screen Negative, Urine Methadone Screen Negative, Ur Barbiturates Screen Negative, Ur Phencyclidine Scrn Negative, Ur Amphetamines Screen Negative, U Benzodiazepines Scrn Negative, U Oth Cocaine Metabols Negative, U Cannabinoids Screen Negative 09/23/18 14:02: Urine Color Yellow, Urine Appearance Clear, Urine pH 6.0, Ur Specific [place] 1.025, Urine Protein Trace H, Urine Glucose (UA) Negative, Urine Ketones 15 H, Urine Blood Negative, Urine Nitrate Negative, Urine Bilirubin Negative, Urine Urobilinogen 0.2, Ur Leukocyte Esterase Negative, Urine RBC 1 - 3 H, Urine WBC 0 - 2, Ur Epithelial Cells 4 - 5, Amorphous Sediment Few, Urine Bacteria Mod, Urine Other Fiber 09/23/18 13:00: Alcohol, Quantitative < 10 09/23/18 13:00: Salicylates < 1 L, Acetaminophen < 10.0 L 09/23/18 13:00: Sodium 137, Potassium 4.0, Chloride 99, Carbon Dioxide 29, Anion Gap 13, BUN 14, Creatinine 0.7, Est GFR ( Amer) > 60, Est GFR (Non-Af Amer) > 60, Random Glucose 186 H, Calcium 9.8, Phosphorus 3.7, Magnesium 2.1, Total Bilirubin 0.7, AST 33, ALT 28, Alkaline Phosphatase 152 H D, Total Protein 8.1, Albumin 4.3, Globulin 3.8, Albumin/Globulin Ratio 1.1 09/23/18 13:00: WBC 5.8, RBC 4.63, Hgb 14.9, Hct 43.5, MCV 94.0, MCH 32.2, MCHC 34.3, RDW 12.8, Plt Count 221, MPV 10.2, Gran % 64.0, Lymph % (Auto) 27.5, [place] % (Auto) 6.4 H, Eos % (Auto) 1.4 L, Baso % (Auto) 0.7, Gran # 3.71, Lymph # (Auto) 1.6, [place] # (Auto) 0.4, Eos # (Auto) 0.1, Baso # (Auto) 0.04 09/23/18 12:14: POC Glucose (mg/dL) 157 H Vital Signs Temp Pulse Resp BP Pulse Ox 09/25/18 09:43 52 L 142/60 09/25/18 07:38 98.4 F 52 L 20 142/60 09/24/18 15:00 97.7 F 68 17 136/75 09/24/18 08:28 62 122/64 09/24/18 06:45 97.8 F 57 L 19 124/66 09/23/18 16:05 87 18 123/67 99 09/23/18 12:22 97.8 F 85 18 168/78 H 97 DSM 5 Symptoms Update: Shortly patient is a 88 year old female, whose past medical history includes hypertension, diabetes, and hypothyroidism, and mild cognitive impairment, history of all with depression and anxiety, patient has 1 previous psychiatric admission in August 2018 here in [facility], patient was brought by [facility] for evaluation and stabilization of depressive symptoms, uncontrolled anxiety, memory problems, confusion, inability to function independently. Patient was seen and examined today at the dining area, patient was less anxious, patient said that she slept better, patient reported that she still has transient feeling of hopelessness about she is looking for snf placement. Patient still presents to be depressed, but visible in the unit, patient started to participate in groups. Patient reported that she feels depressed, hopeless and helpless, but denied any thoughts of harming herself or others. Patient denied hallucinations, or any other perceptual disturbances. Patient tolerates medications well, no side effects observed or reported, aims 0, no EPS. Impression: Major depressive disorder Generalized anxiety disorder Medication Change: Yes (Cymbalta increased to 40 mg) Medical Record Reviewed: Yes Consults ordered or reviewed: Medical consult appreciated physical therapy consult appreciated Mental Status Examination - Cognitive Function Orientation: Person, Place, Situation, Time Attention: Poor Concentration: Poor Association: WNL Fund of Knowledge: WNL - Mood Mood: Depressed, Anxious - Affect Affect: Flat - Formal Thought Process Formal Thought Process: No Impairment - Suicidal Ideation Suicidal Ideation: No - Homicidal Ideation Homicidal Ideation: No Goal/Treatment Plan - Goal/Treatment Plan Need for Continued Stay: Remain at risks for inpatient hospitalization, Severe depression anxiety, Discharge may exacerbated symptoms, Failed transitioning, Severe functional impairment Progress Toward Problem(s) and Goals/Treatment Plan: Milieu/structure/supportive therapy Medical consult appreciated, see medical team note for more detailed info SW consultation for discharge plan and social issues, possible snf placement Med management Cymbalta 40 mg daily for depression and anxiety Sonataas needed for insomnia Physical therapy evaluation Follow up on labs Will monitor closely Pt was educated about risk/benefits and alternatives of medications, coping strategies (safety plan, suicide prevention), relapse prevention Estimated Date of D/C: 10/01/18
[2018-09-27] MEDS: Levothyroxine 150 MCG TAB PO SCH (07:02)
[2018-09-27] MEDS: Insulin Lispro 1 UNITS/0.01 ML SC SCH ×3 (09:01→18:59)
[2018-09-27] MEDS: Metoprolol Succinate 25 mg XL Tab PO SCH (09:02)
--- NOTE | 2018-09-27 09:35 | CP.PCM.PN ---
Subjective - Date & Time of Evaluation Date of Evaluation: 09/27/18 Time of Evaluation: 07:30 - Subjective Subjective: Patient is seen this morning. She seems to be sleeping better. Objective - Vital Signs/Intake and Output Vital Signs (last 24 hours): Temp Pulse Resp BP Pulse Ox 98.8 F 55 L 20 140/72 99 09/27/18 07:39 09/27/18 07:39 09/27/18 07:39 09/27/18 07:39 09/23/18 16:05 - Medications Medications: Current Medications Acetaminophen (Tylenol 325mg Tab) 650 mg PO Q6H PRN PRN Reason: Pain, moderate (4-7) Al Hydrox/Mg Hydrox/Simethicone (Maalox Plus 30 Ml) 30 ml PO DAILY PRN PRN Reason: Indigestion / Heartburn Atorvastatin Calcium (Lipitor) 40 mg PO DIN [facility] Last Admin: 09/26/18 18:12 Dose: 40 mg Duloxetine HCl (Cymbalta) 40 mg PO DAILY [facility] Last Admin: 09/27/18 09:00 Dose: 40 mg Insulin Detemir (Levemir) 15 unit SC AMHS [facility] Last Admin: 09/26/18 22:04 Dose: 15 u Insulin Human Lispro (Humalog) 10 units SC AC [facility] Last Admin: 09/27/18 09:01 Dose: 10 unit Levothyroxine Sodium (Synthroid) 150 mcg PO THFRSA@0600 [facility] Last Admin: 09/27/18 07:02 Dose: 150 mcg Levothyroxine Sodium (Synthroid) 175 mcg PO SUMOTUWE@0600 [facility] Last Admin: 09/26/18 06:39 Dose: 175 mcg Magnesium Hydroxide (Milk Of Magnesia) 30 ml PO DAILY PRN PRN Reason: Constipation Metoprolol Succinate (Toprol Xl) 25 mg PO BRK [facility] Last Admin: 09/27/18 09:02 Dose: 25 mg Zaleplon (Sonata) 5 mg PO HS PRN PRN Reason: Insomnia Last Admin: 09/25/18 21:27 Dose: 5 mg - Labs Labs: 09/23/18 13:00 09/23/18 13:00 - Constitutional Appears: No Acute Distress - Head Exam Head Exam: ATRAUMATIC, NORMOCEPHALIC - Respiratory Exam Respiratory Exam: Clear to Ausculation Bilateral, NORMAL BREATHING PATTERN - Cardiovascular Exam Cardiovascular Exam: REGULAR RHYTHM, +S1, +S2 - GI/Abdominal Exam GI & Abdominal Exam: Soft, Normal Bowel Sounds. absent: Tenderness - Neurological Exam Neurological Exam: Alert, Awake Assessment and Plan - Assessment and Plan (Free Text) Assessment: HTN Diabetes HLP Hypothyroidism Dementia Anxiety/Depression Plan: continue treatment for anxiety, depression and insomnia as per psychiatrist continue current management awaiting intermediate placement
[2018-09-27] MEDS: Insulin Detemir 100 units/ml Vial (Levemir) SC SCH ×2 (14:02→21:34)
--- NOTE | 2018-09-27 15:31 | PCM.PYCHPN ---
Psychiatric Progress Note - Psychiatric Progress Note Patient seen today, length of contact: 30 minutes Patient Chief Complaint: "I did not sleep well, I was keep waking up" Problems Identified/Issues Discussed: Suicide/ homicide prevention, past psychiatric h/o, current psychiatric symptoms, medical problems, risk/benefits and alternatives of medications, medications compliance, coping strategies, substance abuse h/o, relapse prevention, importance of follow up with psychiatrist and therapist, discharge plan. Medical Problems: See HPI Patient has history of diabetes, hypertension, patient was seen by PMD Diagnostic Results: 09/23/18 13:00 09/23/18 13:00 Lab Results 09/25/18 07:23: POC Glucose (mg/dL) 129 H 09/24/18 20:29: POC Glucose (mg/dL) 100 09/24/18 17:20: POC Glucose (mg/dL) 128 H 09/24/18 11:04: POC Glucose (mg/dL) 229 H 09/24/18 07:27: POC Glucose (mg/dL) 161 H 09/24/18 05:30: RPR Nonreactive 09/24/18 05:30: TSH 3rd Generation 18.70 H 09/24/18 05:30: Fasting Glucose 173 H, Triglycerides 142, Cholesterol 200, LDL Cholesterol Direct 142 H, HDL Cholesterol 31 09/23/18 21:16: POC Glucose (mg/dL) 276 H 09/23/18 14:02: Urine Opiates Screen Negative, Urine Methadone Screen Negative, Ur Barbiturates Screen Negative, Ur Phencyclidine Scrn Negative, Ur Amphetamines Screen Negative, U Benzodiazepines Scrn Negative, U Oth Cocaine Metabols Negative, U Cannabinoids Screen Negative 09/23/18 14:02: Urine Color Yellow, Urine Appearance Clear, Urine pH 6.0, Ur Specific [place] 1.025, Urine Protein Trace H, Urine Glucose (UA) Negative, Urine Ketones 15 H, Urine Blood Negative, Urine Nitrate Negative, Urine Bilirubin Negative, Urine Urobilinogen 0.2, Ur Leukocyte Esterase Negative, Urine RBC 1 - 3 H, Urine WBC 0 - 2, Ur Epithelial Cells 4 - 5, Amorphous Sediment Few, Urine Bacteria Mod, Urine Other Fiber 09/23/18 13:00: Alcohol, Quantitative < 10 09/23/18 13:00: Salicylates < 1 L, Acetaminophen < 10.0 L 09/23/18 13:00: Sodium 137, Potassium 4.0, Chloride 99, Carbon Dioxide 29, Anion Gap 13, BUN 14, Creatinine 0.7, Est GFR ( Amer) > 60, Est GFR (Non-Af Amer) > 60, Random Glucose 186 H, Calcium 9.8, Phosphorus 3.7, Magnesium 2.1, Total Bilirubin 0.7, AST 33, ALT 28, Alkaline Phosphatase 152 H D, Total Protein 8.1, Albumin 4.3, Globulin 3.8, Albumin/Globulin Ratio 1.1 09/23/18 13:00: WBC 5.8, RBC 4.63, Hgb 14.9, Hct 43.5, MCV 94.0, MCH 32.2, MCHC 34.3, RDW 12.8, Plt Count 221, MPV 10.2, Gran % 64.0, Lymph % (Auto) 27.5, [place] % (Auto) 6.4 H, Eos % (Auto) 1.4 L, Baso % (Auto) 0.7, Gran # 3.71, Lymph # (Auto) 1.6, [place] # (Auto) 0.4, Eos # (Auto) 0.1, Baso # (Auto) 0.04 09/23/18 12:14: POC Glucose (mg/dL) 157 H Vital Signs Temp Pulse Resp BP Pulse Ox 09/25/18 09:43 52 L 142/60 09/25/18 07:38 98.4 F 52 L 20 142/60 09/24/18 15:00 97.7 F 68 17 136/75 09/24/18 08:28 62 122/64 09/24/18 06:45 97.8 F 57 L 19 124/66 09/23/18 16:05 87 18 123/67 99 09/23/18 12:22 97.8 F 85 18 168/78 H 97 DSM 5 Symptoms Update: Shortly patient is a 88 year old female, whose past medical history includes hypertension, diabetes, and hypothyroidism, and mild cognitive impairment, history of all with depression and anxiety, patient has 1 previous psychiatric admission in August 2018 here in [facility], patient was brought [facility] for evaluation and stabilization of depressive symptoms, uncontrolled anxiety, memory problems, confusion, inability to function independently. 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 patient reported that she still has transient feeling of hopelessness about she is looking for correction placement. Patient still presents to be depressed, but visible in the unit, patient started to participate in groups. Patient reported that she feels depressed, hopeless and helpless, but denied any thoughts of harming herself or others. Patient denied hallucinations, or any other perceptual disturbances. Patient still wants to go to correction, patient was seen by Dr. Merino, awaiting for Medicaid nurse evaluation, please see social work lecturer notes for more detailed information. Patient tolerates medications well, no side effects observed or reported, aims 0, no EPS. Impression: Major depressive disorder Generalized anxiety disorder Medication Change: Yes (Cymbalta increased to 40 mg) Medical Record Reviewed: Yes Mental Status Examination - Cognitive Function Orientation: Person, Place, Situation, Time Attention: Poor Concentration: Poor Association: WNL Fund of Knowledge: WNL - Mood Mood: Depressed, Anxious - Affect Affect: Flat - Formal Thought Process Formal Thought Process: No Impairment - Suicidal Ideation Suicidal Ideation: No - Homicidal Ideation Homicidal Ideation: No Goal/Treatment Plan - Goal/Treatment Plan Need for Continued Stay: Remain at risks for inpatient hospitalization, Severe depression anxiety, Discharge may exacerbated symptoms, Failed transitioning, Severe functional impairment Progress Toward Problem(s) and Goals/Treatment Plan: Milieu/structure/supportive therapy Medical consult appreciated, see medical team note for more detailed info SW consultation for discharge plan and social issues, possible correction placement Med management Cymbalta 40 mg daily for depression and anxiety Sonataas 5mg jessica for insomnia Physical therapy Follow up on labs Will monitor closely Pt was educated about risk/benefits and alternatives of medications, coping strategies (safety plan, suicide prevention), relapse prevention Estimated Date of D/C: 10/01/18
[2018-09-28] MEDS: Levothyroxine 150 MCG TAB PO SCH (06:26)
--- NOTE | 2018-09-28 08:14 | CP.PCM.PN ---
Subjective - Date & Time of Evaluation Date of Evaluation: 09/28/18 Time of Evaluation: 07:55 - Subjective Subjective: Patient is seen this morning in the sitting room watching TV. Objective - Vital Signs/Intake and Output Vital Signs (last 24 hours): Temp Pulse Resp BP Pulse Ox 98.1 F 55 L 18 139/61 99 09/28/18 07:34 09/28/18 07:34 09/28/18 07:34 09/28/18 07:34 09/23/18 16:05 - Medications Medications: Current Medications Acetaminophen (Tylenol 325mg Tab) 650 mg PO Q6H PRN PRN Reason: Pain, moderate (4-7) Al Hydrox/Mg Hydrox/Simethicone (Maalox Plus 30 Ml) 30 ml PO DAILY PRN PRN Reason: Indigestion / Heartburn Atorvastatin Calcium (Lipitor) 40 mg PO DIN [facility] Last Admin: 09/27/18 19:02 Dose: 40 mg Duloxetine HCl (Cymbalta) 40 mg PO DAILY [facility] Last Admin: 09/27/18 09:00 Dose: 40 mg Insulin Detemir (Levemir) 15 unit SC AMHS [facility] Last Admin: 09/27/18 21:34 Dose: 15 u Insulin Human Lispro (Humalog) 10 units SC AC [facility] Last Admin: 09/27/18 18:59 Dose: 1 unit Levothyroxine Sodium (Synthroid) 150 mcg PO THFRSA@0600 [facility] Last Admin: 09/28/18 06:26 Dose: 150 mcg Levothyroxine Sodium (Synthroid) 175 mcg PO SUMOTUWE@0600 [facility] Last Admin: 09/26/18 06:39 Dose: 175 mcg Magnesium Hydroxide (Milk Of Magnesia) 30 ml PO DAILY PRN PRN Reason: Constipation Metoprolol Succinate (Toprol Xl) 25 mg PO BRK [facility] Last Admin: 09/27/18 09:02 Dose: 25 mg Zaleplon (Sonata) 5 mg PO HS [facility] Last Admin: 09/27/18 21:34 Dose: 5 mg - Labs Labs: 09/23/18 13:00 09/23/18 13:00 - Constitutional Appears: No Acute Distress - Head Exam Head Exam: ATRAUMATIC, NORMOCEPHALIC - Respiratory Exam Respiratory Exam: Clear to Ausculation Bilateral, NORMAL BREATHING PATTERN - Cardiovascular Exam Cardiovascular Exam: REGULAR RHYTHM, +S1, +S2 - Extremities Exam Extremities Exam: Normal Inspection - Neurological Exam Neurological Exam: Alert, Awake Assessment and Plan - Assessment and Plan (Free Text) Assessment: HTN HLP DMII hypothyroidism dementia Plan: Patient is watching television. Her memory is poor. She is asking to be placed in a care home. continue current medications. continue treatment for depression and anxiety as per Dr. Rodrigez, psychiatrist.
[2018-09-28] MEDS: Metoprolol Succinate 25 mg XL Tab PO SCH (08:22)
[2018-09-28] MEDS: Insulin Lispro 1 UNITS/0.01 ML SC SCH ×3 (08:23→18:04)
--- NOTE | 2018-09-28 13:46 | PCM.PYCHPN ---
Psychiatric Progress Note - Psychiatric Progress Note Patient seen today, length of contact: 30 minutes Patient Chief Complaint: "I am okay, did not know when I will go to the alf?" Problems Identified/Issues Discussed: Suicide/ homicide prevention, past psychiatric h/o, current psychiatric symptoms, medical problems, risk/benefits and alternatives of medications, medications compliance, coping strategies, substance abuse h/o, relapse prevention, importance of follow up with psychiatrist and therapist, discharge plan. Medical Problems: See HPI Patient has history of diabetes, hypertension, patient was seen by PMD Diagnostic Results: 09/23/18 13:00 09/23/18 13:00 Lab Results 09/25/18 07:23: POC Glucose (mg/dL) 129 H 09/24/18 20:29: POC Glucose (mg/dL) 100 09/24/18 17:20: POC Glucose (mg/dL) 128 H 09/24/18 11:04: POC Glucose (mg/dL) 229 H 09/24/18 07:27: POC Glucose (mg/dL) 161 H 09/24/18 05:30: RPR Nonreactive 09/24/18 05:30: TSH 3rd Generation 18.70 H 09/24/18 05:30: Fasting Glucose 173 H, Triglycerides 142, Cholesterol 200, LDL Cholesterol Direct 142 H, HDL Cholesterol 31 09/23/18 21:16: POC Glucose (mg/dL) 276 H 09/23/18 14:02: Urine Opiates Screen Negative, Urine Methadone Screen Negative, Ur Barbiturates Screen Negative, Ur Phencyclidine Scrn Negative, Ur Amphetamines Screen Negative, U Benzodiazepines Scrn Negative, U Oth Cocaine Metabols Negative, U Cannabinoids Screen Negative 09/23/18 14:02: Urine Color Yellow, Urine Appearance Clear, Urine pH 6.0, Ur Specific [place] 1.025, Urine Protein Trace H, Urine Glucose (UA) Negative, Urine Ketones 15 H, Urine Blood Negative, Urine Nitrate Negative, Urine Bilirubin Negative, Urine Urobilinogen 0.2, Ur Leukocyte Esterase Negative, Urine RBC 1 - 3 H, Urine WBC 0 - 2, Ur Epithelial Cells 4 - 5, Amorphous Sediment Few, Urine Bacteria Mod, Urine Other Fiber 09/23/18 13:00: Alcohol, Quantitative < 10 09/23/18 13:00: Salicylates < 1 L, Acetaminophen < 10.0 L 09/23/18 13:00: Sodium 137, Potassium 4.0, Chloride 99, Carbon Dioxide 29, Anion Gap 13, BUN 14, Creatinine 0.7, Est GFR ( Amer) > 60, Est GFR (Non-Af Amer) > 60, Random Glucose 186 H, Calcium 9.8, Phosphorus 3.7, Magnesium 2.1, Total Bilirubin 0.7, AST 33, ALT 28, Alkaline Phosphatase 152 H D, Total Protein 8.1, Albumin 4.3, Globulin 3.8, Albumin/Globulin Ratio 1.1 09/23/18 13:00: WBC 5.8, RBC 4.63, Hgb 14.9, Hct 43.5, MCV 94.0, MCH 32.2, MCHC 34.3, RDW 12.8, Plt Count 221, MPV 10.2, Gran % 64.0, Lymph % (Auto) 27.5, [place] % (Auto) 6.4 H, Eos % (Auto) 1.4 L, Baso % (Auto) 0.7, Gran # 3.71, Lymph # (Auto) 1.6, [place] # (Auto) 0.4, Eos # (Auto) 0.1, Baso # (Auto) 0.04 09/23/18 12:14: POC Glucose (mg/dL) 157 H Vital Signs Temp Pulse Resp BP Pulse Ox 09/25/18 09:43 52 L 142/60 09/25/18 07:38 98.4 F 52 L 20 142/60 09/24/18 15:00 97.7 F 68 17 136/75 09/24/18 08:28 62 122/64 09/24/18 06:45 97.8 F 57 L 19 124/66 09/23/18 16:05 87 18 123/67 99 09/23/18 12:22 97.8 F 85 18 168/78 H 97 Temp Pulse Resp BP Pulse Ox 98.1 F 55 L 18 139/61 99 09/28/18 07:34 09/28/18 07:34 09/28/18 07:34 09/28/18 07:34 09/23/18 16:05 DSM 5 Symptoms Update: Shortly patient is a 88 year old female, whose past medical history includes hypertension, diabetes, and hypothyroidism, and mild cognitive impairment, history of all with depression and anxiety, patient has 1 previous psychiatric admission in August 2018 here in [facility], patient was brought [facility] for evaluation and stabilization of depressive symptoms, uncontrolled anxiety, memory problems, confusion, inability to function independently. Patient was seen and examined today in her room with mental health worker, patient presented to be sleepy, reported that she feels "okay, but I am very anxious, do you know when I will go to the alf?", patient was anxious. pt hope to go to the alf, still waiting for medicaid RN. patient reported that she still has transient feeling of hopelessness about she is lo oking for alf placement. Patient still presents to be depressed, but visible in the unit, patient started to participate in groups. Patient denied hallucinations, or any other perceptual disturbances. Patient still wants to go to alf, patient was seen by Dr. Merino, awaiting for Medicaid nurse evaluation, please see social media job titles notes for more detailed information. Patient tolerates medications well, no side effects observed or reported, aims 0, no EPS. Impression: Major depressive disorder Generalized anxiety disorder Medication Change: Yes (Adjusted 09/27/2018) Medical Record Reviewed: Yes Mental Status Examination - Cognitive Function Orientation: Person, Place, Situation, Time Attention: Poor (Somewhat better) Concentration: Poor (Some improvement) Association: WNL Fund of Knowledge: WNL - Mood Mood: Depressed, Anxious - Affect Affect: Constricted (But more reactive and congruent) - Formal Thought Process Formal Thought Process: No Impairment - Suicidal Ideation Suicidal Ideation: No - Homicidal Ideation Homicidal Ideation: No Goal/Treatment Plan - Goal/Treatment Plan Need for Continued Stay: Remain at risks for inpatient hospitalization, Severe depression anxiety, Discharge may exacerbated symptoms, Failed transitioning, Severe functional impairment Progress Toward Problem(s) and Goals/Treatment Plan: Milieu/structure/supportive therapy Medical consult appreciated, see medical team note for more detailed info SW consultation for discharge plan and social issues, possible alf placement Med management Cymbalta 40 mg daily for depression and anxiety [place] 5mg jessica for insomnia Physical therapy Follow up on labs Will monitor closely Pt was educated about risk/benefits and alternatives of medications, coping strategies (safety plan, suicide prevention), relapse prevention NH placement Estimated Date of D/C: 10/01/18
[2018-09-28] MEDS: Insulin Detemir 100 units/ml Vial (Levemir) SC SCH ×2 (14:45→22:05)
[2018-09-29] MEDS: Levothyroxine 150 MCG TAB PO SCH (07:10)
--- NOTE | 2018-09-29 08:00 | CP.PCM.PN ---
Subjective - Date & Time of Evaluation Date of Evaluation: 09/29/18 Time of Evaluation: 07:30 - Subjective Subjective: Patient wants to be placed in a longterm. She is very anxious about living alone. Objective - Vital Signs/Intake and Output Vital Signs (last 24 hours): Temp Pulse Resp BP Pulse Ox 97.9 F 68 18 142/70 99 09/29/18 07:00 09/29/18 07:00 09/29/18 07:00 09/29/18 07:00 09/23/18 16:05 - Medications Medications: Current Medications Acetaminophen (Tylenol 325mg Tab) 650 mg PO Q6H PRN PRN Reason: Pain, moderate (4-7) Al Hydrox/Mg Hydrox/Simethicone (Maalox Plus 30 Ml) 30 ml PO DAILY PRN PRN Reason: Indigestion / Heartburn Atorvastatin Calcium (Lipitor) 40 mg PO DIN [facility] Last Admin: 09/28/18 18:06 Dose: 40 mg Duloxetine HCl (Cymbalta) 40 mg PO DAILY [facility] Last Admin: 09/28/18 08:22 Dose: 40 mg Insulin Detemir (Levemir) 15 unit SC AMHS [facility] Last Admin: 09/28/18 22:05 Dose: 15 u Insulin Human Lispro (Humalog) 10 units SC AC [facility] Last Admin: 09/28/18 18:04 Dose: 10 unit Levothyroxine Sodium (Synthroid) 150 mcg PO THFRSA@0600 [facility] Last Admin: 09/29/18 07:10 Dose: 150 mcg Levothyroxine Sodium (Synthroid) 175 mcg PO SUMOTUWE@0600 [facility] Last Admin: 09/26/18 06:39 Dose: 175 mcg Magnesium Hydroxide (Milk Of Magnesia) 30 ml PO DAILY PRN PRN Reason: Constipation Metoprolol Succinate (Toprol Xl) 25 mg PO BRK [facility] Last Admin: 09/28/18 08:22 Dose: 25 mg Zaleplon (Sonata) 5 mg PO HS [facility] Last Admin: 09/28/18 22:06 Dose: 5 mg - Labs Labs: 09/23/18 13:00 09/23/18 13:00 - Constitutional Appears: No Acute Distress - Head Exam Head Exam: ATRAUMATIC, NORMOCEPHALIC - Respiratory Exam Respiratory Exam: Clear to Ausculation Bilateral, NORMAL BREATHING PATTERN - Cardiovascular Exam Cardiovascular Exam: REGULAR RHYTHM, +S1, +S2 - Neurological Exam Neurological Exam: Alert, Awake Assessment and Plan - Assessment and Plan (Free Text) Assessment: HTN HLP Dementia DMII Hypothyroidism Anxiety/Depression Plan: continue behavioral treatment for anxiety and depression as per psychiatrist, Dr. Rodrigez continue synthroid for hypothyroidism continue Lipitor for hyperlipidemia continue insulin for diabetes continue Toprol for hypertension we will add a small dose of an PHILLIP inhibitor as patient is diabetic
[2018-09-29] MEDS: Insulin Lispro 1 UNITS/0.01 ML SC SCH ×4 (08:59→17:19)
[2018-09-29] MEDS: Metoprolol Succinate 25 mg XL Tab PO SCH (09:03)
[2018-09-29] MEDS: Insulin Detemir 100 units/ml Vial (Levemir) SC SCH ×2 (10:00→22:12)
--- NOTE | 2018-09-29 11:01 | PCM.PYCHPN ---
Psychiatric Progress Note - Psychiatric Progress Note Patient seen today, length of contact: 30 minutes Problems Identified/Issues Discussed: I reviewed assessment and recent notes. Patient is familiar to this provider from her admission to his unit last month. Patient was interviewed at bedside. Grooming is fair and patient remains oriented x3. She seems more reactive and spontaneous than my memory of her last month. Patient reports that she is feeling good and denies any major new concerns except for constipation x2-3 days. Thought process is coherent and she denies any SI or AVH. Patient seems comfortable and well-related. She is more visible on the unit and attending some groups. There were no behavioral issues on the unit overnight. Diagnostic Results: Major depressive disorder Generalized anxiety disorder Medication Change: No ( ) Medical Record Reviewed: Yes Mental Status Examination - Cognitive Function Orientation: Person, Place, Situation, Time Attention: Poor (Somewhat better) Concentration: Poor (Some improvement) Association: WNL Fund of Knowledge: WNL - Mood Mood: Depressed, Anxious - Affect Affect: Constricted (But more reactive and congruent) - Formal Thought Process Formal Thought Process: No Impairment - Suicidal Ideation Suicidal Ideation: No - Homicidal Ideation Homicidal Ideation: No Goal/Treatment Plan - Goal/Treatment Plan Need for Continued Stay: Remain at risks for inpatient hospitalization, Severe depression anxiety, Discharge may exacerbated symptoms, Failed transitioning, Severe functional impairment Progress Toward Problem(s) and Goals/Treatment Plan: * c/w current tx and plan * Vitals reviewed and noted below: Selected Entries 09/28/18 09/28/18 07:34 16:30 Temperature 98.1 F Pulse Rate 55 L 50 L Respiratory 18 Rate Blood Pressure 139/61 108/65 * No new weekend lab results thus far. Estimated Date of D/C: 10/01/18
[2018-09-30] MEDS: Levothyroxine 175 MCG TAB PO SCH (06:46)
[2018-09-30] MEDS: Insulin Lispro 1 UNITS/0.01 ML SC SCH ×3 (09:00→17:23)
[2018-09-30] MEDS: Metoprolol Succinate 25 mg XL Tab PO SCH (09:01)
--- NOTE | 2018-09-30 11:00 | PCM.PYCHPN ---
Psychiatric Progress Note - Psychiatric Progress Note Patient seen today, length of contact: 30 minutes Problems Identified/Issues Discussed: I reviewed recent notes and met with patient at bedside again. Grooming is fair and patient remains calm, cooperative and oriented x3. Affect is constricted but she appears more reactive and related than my memory of her last month. Patient reports that she is "feeling good so far" and denies any side effects, discomfort or pain. Patient seems comfortable and well-related. She is more visible on the unit and attending some groups. Patient informs me that she prefers to be discharge to a senior living instead of assisted living. She feels that she would be less lonely and depressed in a senior living. Slept well with sonata prn and appetite is good. There were no behavioral issues on the unit over the weekend. Diagnostic Results: Major depressive disorder Generalized anxiety disorder Medication Change: No ( ) Medical Record Reviewed: Yes Mental Status Examination - Cognitive Function Orientation: Person, Place, Situation, Time Attention: WNL (Somewhat better) Concentration: Poor (Some improvement) Association: WNL Fund of Knowledge: WNL - Mood Mood: Depressed, Anxious - Affect Affect: Constricted (But more reactive and congruent) - Formal Thought Process Formal Thought Process: No Impairment - Suicidal Ideation Suicidal Ideation: No - Homicidal Ideation Homicidal Ideation: No Goal/Treatment Plan - Goal/Treatment Plan Need for Continued Stay: Remain at risks for inpatient hospitalization, Severe depression anxiety, Discharge may exacerbated symptoms, Failed transitioning, Severe functional impairment Progress Toward Problem(s) and Goals/Treatment Plan: * c/w current tx and plan * Appreciate f/u by Dr. Hu on 09/29/18~adding small dose of ACEi as patient is diabetic * Vitals reviewed and noted below: 09/29/18 09/29/18 07:00 09:03 Temperature 97.9 F Pulse Rate 68 68 Respiratory 18 Rate Blood Pressure 142/70 142/70 * No new weekend lab results Estimated Date of D/C: 10/01/18
[2018-09-30] MEDS: Insulin Detemir 100 units/ml Vial (Levemir) SC SCH ×2 (11:40→21:43)
[2018-10-01] MEDS: Levothyroxine 175 MCG TAB PO SCH (06:34)
[2018-10-01] MEDS: Insulin Lispro 1 UNITS/0.01 ML SC SCH ×3 (08:19→18:03)
--- NOTE | 2018-10-01 08:30 | PN ---
DATE: 09/30/2018 LOCATION: The patient is in Behavioral Care Unit at [facility] in [place], room 519, bed 1. SUBJECTIVE: The patient is seen this morning, lying in bed, resting. He says that he is very tired and down. The patient has a history of hypothyroidism, behavioral disorder, depression, and the patient is also being treated for diabetes, hypertension. PHYSICAL EXAMINATION VITAL SIGNS: This morning, pulse is 59, blood pressure 140/75, respirations are 20. HEENT: The patient's head is normocephalic on examination. NECK: The thyroid is not enlarged clinically. There is no lymphadenopathy in the neck. Carotid pulses are present. LUNGS: Trachea central. Breath sounds are vesicular. No adventitious sounds are heard. HEART: Normal sinus rhythm. S1, S2 present. No murmur. ABDOMEN: Soft. Liver and spleen not palpable. CENTRAL NERVOUS SYSTEM: No focal neurological deficits are seen. DIAGNOSTIC DATA: The patient's chest x-ray shows no active findings. The patient's EKG shows evidence of SVT changes are consistent with ischemic heart disease, not acute. MEDICATIONS: The patient's list of medications, the patient is on Cymbalta 40 mg daily, insulin coverage for diabetes, Lipitor 40 mg daily. The patient is on Sonata 5 mg daily at night for sleep. The patient is on Synthroid 150 mcg to alternate with 175 mcg. The patient is also getting metoprolol 25 mg once a day, lisinopril 2.5 mg daily. DIET: Heart-healthy diet. ASSESSMENT AND PLAN: The patient will continue current management and we will follow up medically. He seems to be stable at this point, but needs care for medical management. Leida Hu MD
[2018-10-01] MEDS: Metoprolol Succinate 25 mg XL Tab PO SCH (09:51)
[2018-10-01] MEDS: Insulin Detemir 100 units/ml Vial (Levemir) SC SCH ×2 (10:16→21:36)
--- NOTE | 2018-10-01 10:28 | PN ---
DATE: 10/01/2018 SUBJECTIVE: The patient is in [facility] Behavioral Care Unit. She was admitted with depression. The patient has medical condition diabetes, hypertension, hypothyroidism, depression associated with other medical conditions. The patient is seen this morning, she is resting. She is as usual lethargic. PHYSICAL EXAMINATION VITAL SIGNS: The patient pulse is 60, blood pressure 144/75 and respirations are 20. HEENT: The patient's head is normocephalic. NECK: Thyroid is not enlarged clinically. LUNGS: Clear. HEART: Normal sinus rhythm. ABDOMEN: Soft. Liver and spleen not palpable. CENTRAL NERVOUS SYSTEM: The patient had no focal neurological deficits. MEDICATIONS LIST: The patient is on Cymbalta 40 mg daily, insulin coverage for diabetes. The patient is on Lipitor 40 mg daily, Sonata 5 mg at bedtime for sleep. The patient is on Synthroid alternating dose 175 mcg and 150 mcg on every other day. The patient is on metoprolol 25 mg daily. DIET: Heart healthy diet. The patient is clinically improving. Leida Hu MD
--- NOTE | 2018-10-01 15:47 | PCM.PYCHPN ---
Psychiatric Progress Note - Psychiatric Progress Note Patient seen today, length of contact: 30 minutes Patient Chief Complaint: "I am okay, did not know when I will go to the half-way?" Problems Identified/Issues Discussed: Suicide/ homicide prevention, past psychiatric h/o, current psychiatric symptoms, medical problems, risk/benefits and alternatives of medications, medications compliance, coping strategies, substance abuse h/o, relapse prevention, importance of follow up with psychiatrist and therapist, discharge plan. Medical Problems: See HPI Patient has history of diabetes, hypertension, patient was seen by PMD Diagnostic Results: 09/23/18 13:00 09/23/18 13:00 Lab Results 09/25/18 07:23: POC Glucose (mg/dL) 129 H 09/24/18 20:29: POC Glucose (mg/dL) 100 09/24/18 17:20: POC Glucose (mg/dL) 128 H 09/24/18 11:04: POC Glucose (mg/dL) 229 H 09/24/18 07:27: POC Glucose (mg/dL) 161 H 09/24/18 05:30: RPR Nonreactive 09/24/18 05:30: TSH 3rd Generation 18.70 H 09/24/18 05:30: Fasting Glucose 173 H, Triglycerides 142, Cholesterol 200, LDL Cholesterol Direct 142 H, HDL Cholesterol 31 09/23/18 21:16: POC Glucose (mg/dL) 276 H 09/23/18 14:02: Urine Opiates Screen Negative, Urine Methadone Screen Negative, Ur Barbiturates Screen Negative, Ur Phencyclidine Scrn Negative, Ur Amphetamines Screen Negative, U Benzodiazepines Scrn Negative, U Oth Cocaine Metabols Negative, U Cannabinoids Screen Negative 09/23/18 14:02: Urine Color Yellow, Urine Appearance Clear, Urine pH 6.0, Ur Specific [place] 1.025, Urine Protein Trace H, Urine Glucose (UA) Negative, Urine Ketones 15 H, Urine Blood Negative, Urine Nitrate Negative, Urine Bilirubin Negative, Urine Urobilinogen 0.2, Ur Leukocyte Esterase Negative, Urine RBC 1 - 3 H, Urine WBC 0 - 2, Ur Epithelial Cells 4 - 5, Amorphous Sediment Few, Urine Bacteria Mod, Urine Other Fiber 09/23/18 13:00: Alcohol, Quantitative < 10 09/23/18 13:00: Salicylates < 1 L, Acetaminophen < 10.0 L 09/23/18 13:00: Sodium 137, Potassium 4.0, Chloride 99, Carbon Dioxide 29, Anion Gap 13, BUN 14, Creatinine 0.7, Est GFR ( Amer) > 60, Est GFR (Non-Af Amer) > 60, Random Glucose 186 H, Calcium 9.8, Phosphorus 3.7, Magnesium 2.1, Total Bilirubin 0.7, AST 33, ALT 28, Alkaline Phosphatase 152 H D, Total Protein 8.1, Albumin 4.3, Globulin 3.8, Albumin/Globulin Ratio 1.1 09/23/18 13:00: WBC 5.8, RBC 4.63, Hgb 14.9, Hct 43.5, MCV 94.0, MCH 32.2, MCHC 34.3, RDW 12.8, Plt Count 221, MPV 10.2, Gran % 64.0, Lymph % (Auto) 27.5, [place] % (Auto) 6.4 H, Eos % (Auto) 1.4 L, Baso % (Auto) 0.7, Gran # 3.71, Lymph # (Auto) 1.6, [place] # (Auto) 0.4, Eos # (Auto) 0.1, Baso # (Auto) 0.04 09/23/18 12:14: POC Glucose (mg/dL) 157 H Vital Signs Temp Pulse Resp BP Pulse Ox 09/25/18 09:43 52 L 142/60 09/25/18 07:38 98.4 F 52 L 20 142/60 09/24/18 15:00 97.7 F 68 17 136/75 09/24/18 08:28 62 122/64 09/24/18 06:45 97.8 F 57 L 19 124/66 09/23/18 16:05 87 18 123/67 99 09/23/18 12:22 97.8 F 85 18 168/78 H 97 Temp Pulse Resp BP Pulse Ox 98.1 F 55 L 18 139/61 99 09/28/18 07:34 09/28/18 07:34 09/28/18 07:34 09/28/18 07:34 09/23/18 16:05 DSM 5 Symptoms Update: Shortly patient is a 88 year old female, whose past medical history includes hypertension, diabetes, and hypothyroidism, and mild cognitive impairment, history of all with depression and anxiety, patient has 1 previous psychiatric admission in August 2018 here in [facility], patient was brought [facility] for evaluation and stabilization of depressive symptoms, uncontrolled anxiety, memory problems, confusion, inability to function independently. Patient was seen and examined today at the treatment team meeting, patient presented to be alert, reported that she feels "okay, but I am very anxious, do you know when I will go to the half-way?", patient was anxious. pt hope to go to the half-way, still waiting for medicaid RN. patient reported that she still has transient feeling of hopelessness about she is looking for half-way /assisted living placement. Patient still presents to be depressed, but visible in the unit, patient started to participate in groups. Patient denied hallucinations, or any other perceptual disturbances. Patient still wants to go to half-way, patient was seen by Dr. Merino, luis miguel hernandez for Medicaid nurse evaluation, please see social media campaign manager notes for more detailed information. Patient tolerates medications well, no side effects observed or reported, aims 0, no EPS. Impression: Major depressive disorder Generalized anxiety disorder Medication Change: No ( ) Medical Record Reviewed: Yes Mental Status Examination - Cognitive Function Orientation: Person, Place, Situation, Time Attention: WNL (Somewhat better) Concentration: Poor (Some improvement) Association: WNL Fund of Knowledge: WNL - Mood Mood: Depressed, Anxious - Affect Affect: Constricted (But more reactive and congruent) - Formal Thought Process Formal Thought Process: No Impairment - Suicidal Ideation Suicidal Ideation: No - Homicidal Ideation Homicidal Ideation: No Goal/Treatment Plan - Goal/Treatment Plan Need for Continued Stay: Remain at risks for inpatient hospitalization, Severe depression anxiety, Discharge may exacerbated symptoms, Failed transitioning, Severe functional impairment Progress Toward Problem(s) and Goals/Treatment Plan: Milieu/structure/supportive therapy Medical consult appreciated, see medical team note for more detailed info SW consultation for discharge plan and social issues, possible half-way placement Med management Cymbalta 40 mg daily for depression and anxiety Sonata 5mg jessica for insomnia Physical therapy Follow up on labs Will monitor closely Pt was educated about risk/benefits and alternatives of medications, coping strategies (safety plan, suicide prevention), relapse prevention NH placement Estimated Date of D/C: 10/05/18
--- NOTE | 2018-10-01 19:47 | PCM.BM ---
Treatment Plan Problems - Problems identified on initial assessmt Anxiety Date Initiated: 09/23/18 (10/01/18 tx reviewed less anxious and improving) Time Initiated: 17:00 Assessment reference: NA Status: Active Priority: 1 Feelings of Worthlessness Date Initiated: 09/23/18 Time Initiated: 17:00 Date resolved: 10/01/18 Assessment reference: NA Status: Active Priority: 2 Ineffective Coping Date Initiated: 09/23/18 Time Initiated: 17:00 Date resolved: 10/01/18 Assessment reference: NA Status: Active Priority: 3 Social Isolation Date Initiated: 09/23/18 Time Initiated: 17:00 Date resolved: 10/01/18 Assessment reference: NA Status: Active Priority: 4 Altered Sleep Patterns Date Initiated: 09/23/18 Time Initiated: 17:00 Date resolved: 10/01/18 Assessment reference: NA Status: Active Priority: 5 Treatment assets and liabiliti Patient Assests: cooperative, motivated, ADL independent, negotiates basic needs, cognitively intact, good interpersonal skills, strong anthony Patient Liabilities: live alone, financial problems, poor support system - Milieu Protocol Maintain good personal hygiene: daily Encourage regular showers, every shift Remind patient to perform daily oral care, every shift Assist patient to perform ADL's Maintain personal safety: every shift Educate patient to report safety concerns to staff, every shift Monitor environment for contraband/sharps Medication safety: Monitor for expected outcome, potential side effects: every shift, Assess barriers to learning: every shift, Assess readiness for medication education: every shift Milieu Narrative: Milieu/structure/supportive therapy Medical consult appreciated, see medical team note for more detailed info SW consultation for discharge plan and social issues, possible [facility] placement Med management Cymbalta 40 mg daily for depression and anxiety Sonata 5mg jessica for insomnia Physical therapy Follow up on labs Will monitor closely Pt was educated about risk/benefits and alternatives of medications, coping strategies (safety plan, suicide prevention), relapse prevention NH placement Family Contact Family involvement: No known Family/SO - Goals for Treatment Patient goals for treatment: "I think it's safe for me to go to a [facility]." Discharge/Continuing Care - Education Needs Education Needs: Patient Medication, Patient Diagnosis/Disease Process, Patient Coping Skills, Patient Anger Management skills, Patient Placement options, Patient Community resources, Patient Activities of Daily Living, Patient Pain, Patient Nutrition, Patient Uses of Medical Equipment, Patient Health Practices/Safety, Patient Personal Hygiene/Grooming, Patient Aftercare Safety Plan - Discharge Discharge Criteria: Tolerates medication w/o severe side effects, Normal sleep pattern - Treatment Team Participation Patient/Family/SO Statement: Milieu/structure/supportive therapy Medical consult appreciated, see medical team note for more detailed info SW consultation for discharge plan and social issues, possible [facility] placement Med management Cymbalta 40 mg daily for depression and anxiety Sonata 5mg jessica for insomnia Physical therapy Follow up on labs Will monitor closely Pt was educated about risk/benefits and alternatives of medications, coping strategies (safety plan, suicide prevention), relapse prevention NH placement Treatment Plan Review - Problem Anxiety Time Initiated: 17:00 Feelings of Worthlessness Time Initiated: 17:00 Ineffective Coping Time Initiated: 17:00 Social Isolation Time Initiated: 17:00 Altered Sleep Patterns Time Initiated: 17:00
[2018-10-02] MEDS: Levothyroxine 175 MCG TAB PO SCH (06:28)
[2018-10-02] MEDS: Insulin Lispro 1 UNITS/0.01 ML SC SCH ×4 (07:30→17:54)
[2018-10-02] MEDS: Metoprolol Succinate 25 mg XL Tab PO SCH (09:53)
[2018-10-02] MEDS: Insulin Detemir 100 units/ml Vial (Levemir) SC SCH ×2 (09:59→21:34)
--- NOTE | 2018-10-02 11:59 | PN ---
DATE: 10/02/2018 LOCATION: The patient is in [facility], room 519, bed 1. SUBJECTIVE: The patient is an 88-year-old white female. She is admitted with depression, lethargy, weakness. The patient is known to have hypothyroidism, insulin-dependent diabetes, hypertension. The patient is seen this morning. She is resting in bed. She continues to complain of being lethargic. PHYSICAL EXAMINATION VITAL SIGNS: The pulse is 59, blood pressure 159/74, respirations 18. HEENT: The patient's head is normocephalic. NECK: Thyroid is not enlarged. No lymphadenopathy in the neck. LUNGS: Clear. HEART: Normal sinus rhythm. ABDOMEN: Soft. Liver and spleen not palpable. CENTRAL NERVOUS SYSTEM: No focal deficit. LABORATORY DATA: The patient's blood work is not repeated. We will do CBC and SMA-18 and also we will repeat the thyroid function studies. DIET: Heart-healthy diet. PLAN: We will continue current management and followup. Leida Hu MD
--- NOTE | 2018-10-02 15:48 | PCM.PYCHPN ---
Psychiatric Progress Note - Psychiatric Progress Note Patient seen today, length of contact: 30 minutes Patient Chief Complaint: "I am okay, did not know when I will go to the longterm?" Problems Identified/Issues Discussed: Suicide/ homicide prevention, past psychiatric h/o, current psychiatric symptoms, medical problems, risk/benefits and alternatives of medications, medications compliance, coping strategies, substance abuse h/o, relapse prevention, importance of follow up with psychiatrist and therapist, discharge plan. Medical Problems: See HPI Patient has history of diabetes, hypertension, patient was seen by PMD Diagnostic Results: 09/23/18 13:00 09/23/18 13:00 Lab Results 09/25/18 07:23: POC Glucose (mg/dL) 129 H 09/24/18 20:29: POC Glucose (mg/dL) 100 09/24/18 17:20: POC Glucose (mg/dL) 128 H 09/24/18 11:04: POC Glucose (mg/dL) 229 H 09/24/18 07:27: POC Glucose (mg/dL) 161 H 09/24/18 05:30: RPR Nonreactive 09/24/18 05:30: TSH 3rd Generation 18.70 H 09/24/18 05:30: Fasting Glucose 173 H, Triglycerides 142, Cholesterol 200, LDL Cholesterol Direct 142 H, HDL Cholesterol 31 09/23/18 21:16: POC Glucose (mg/dL) 276 H 09/23/18 14:02: Urine Opiates Screen Negative, Urine Methadone Screen Negative, Ur Barbiturates Screen Negative, Ur Phencyclidine Scrn Negative, Ur Amphetamines Screen Negative, U Benzodiazepines Scrn Negative, U Oth Cocaine Metabols Negative, U Cannabinoids Screen Negative 09/23/18 14:02: Urine Color Yellow, Urine Appearance Clear, Urine pH 6.0, Ur Specific [place] 1.025, Urine Protein Trace H, Urine Glucose (UA) Negative, Urine Ketones 15 H, Urine Blood Negative, Urine Nitrate Negative, Urine Bilirubin Negative, Urine Urobilinogen 0.2, Ur Leukocyte Esterase Negative, Urine RBC 1 - 3 H, Urine WBC 0 - 2, Ur Epithelial Cells 4 - 5, Amorphous Sediment Few, Urine Bacteria Mod, Urine Other Fiber 09/23/18 13:00: Alcohol, Quantitative < 10 09/23/18 13:00: Salicylates < 1 L, Acetaminophen < 10.0 L 09/23/18 13:00: Sodium 137, Potassium 4.0, Chloride 99, Carbon Dioxide 29, Anion Gap 13, BUN 14, Creatinine 0.7, Est GFR ( Amer) > 60, Est GFR (Non-Af Amer) > 60, Random Glucose 186 H, Calcium 9.8, Phosphorus 3.7, Magnesium 2.1, Total Bilirubin 0.7, AST 33, ALT 28, Alkaline Phosphatase 152 H D, Total Protein 8.1, Albumin 4.3, Globulin 3.8, Albumin/Globulin Ratio 1.1 09/23/18 13:00: WBC 5.8, RBC 4.63, Hgb 14.9, Hct 43.5, MCV 94.0, MCH 32.2, MCHC 34.3, RDW 12.8, Plt Count 221, MPV 10.2, Gran % 64.0, Lymph % (Auto) 27.5, [place] % (Auto) 6.4 H, Eos % (Auto) 1.4 L, Baso % (Auto) 0.7, Gran # 3.71, Lymph # (Auto) 1.6, [place] # (Auto) 0.4, Eos # (Auto) 0.1, Baso # (Auto) 0.04 09/23/18 12:14: POC Glucose (mg/dL) 157 H Vital Signs Temp Pulse Resp BP Pulse Ox 09/25/18 09:43 52 L 142/60 09/25/18 07:38 98.4 F 52 L 20 142/60 09/24/18 15:00 97.7 F 68 17 136/75 09/24/18 08:28 62 122/64 09/24/18 06:45 97.8 F 57 L 19 124/66 09/23/18 16:05 87 18 123/67 99 09/23/18 12:22 97.8 F 85 18 168/78 H 97 Temp Pulse Resp BP Pulse Ox 98.1 F 55 L 18 139/61 99 09/28/18 07:34 09/28/18 07:34 09/28/18 07:34 09/28/18 07:34 09/23/18 16:05 DSM 5 Symptoms Update: Shortly patient is a 88 year old female, whose past medical history includes hypertension, diabetes, and hypothyroidism, and mild cognitive impairment, history of all with depression and anxiety, patient has 1 previous psychiatric admission in August 2018 here in [facility], patient was brought by [facility] for evaluation and stabilization of depressive symptoms, uncontrolled anxiety, memory problems, confusion, inability to function independently. Patient was seen and examined today in her room with mental health worker, patient presented to be alert, reported that she feels "okay, but I am very anxious, do you know when I will go to the longterm?"pt hope to go to the longterm/assisted living, still waiting for medicaid RN. patient reported that she still has transient feeling of hopelessness about she is looking for longterm /assisted living placement. Patient still presents to be depressed, but visible in the unit, patient started to participate in groups. Patient denied hallucinations, or any other perceptual disturbances. Patient still wants to go to longterm, patient was seen by kary Caro for Medicaid nurse evaluation, please see social insurance specialist notes for more detailed information. Patient tolerates medications well, no side effects observed or reported, aims 0, no EPS. Impression: Major depressive disorder Generalized anxiety disorder Medication Change: No ( ) Medical Record Reviewed: Yes Mental Status Examination - Cognitive Function Orientation: Person, Place, Situation, Time Attention: WNL (Somewhat better) Concentration: Poor (Some improvement) Association: WNL Fund of Knowledge: WNL - Mood Mood: Depressed, Anxious - Affect Affect: Constricted (But more reactive and congruent) - Formal Thought Process Formal Thought Process: No Impairment - Suicidal Ideation Suicidal Ideation: No - Homicidal Ideation Homicidal Ideation: No Goal/Treatment Plan - Goal/Treatment Plan Need for Continued Stay: Remain at risks for inpatient hospitalization, Severe depression anxiety, Discharge may exacerbated symptoms, Failed transitioning, Severe functional impairment Progress Toward Problem(s) and Goals/Treatment Plan: Milieu/structure/supportive therapy Medical consult appreciated, see medical team note for more detailed info SW consultation for discharge plan and social issues, possible longterm placement Med management Cymbalta 40 mg daily for depression and anxiety Sonata 5mg jessica for insomnia Physical therapy Follow up on labs Will monitor closely Pt was educated about risk/benefits and alternatives of medications, coping strategies (safety plan, suicide prevention), relapse prevention NH placement Estimated Date of D/C: 10/05/18
[2018-10-03] MEDS: Levothyroxine 175 MCG TAB PO SCH (05:18)
[2018-10-03 07:51] VITALS: RESP 20
[2018-10-03] MEDS: Metoprolol Succinate 25 mg XL Tab PO SCH (09:52)
[2018-10-03] MEDS: Insulin Detemir 100 units/ml Vial (Levemir) SC SCH ×2 (09:54→21:02)
[2018-10-03] MEDS: Insulin Lispro 1 UNITS/0.01 ML SC SCH ×3 (09:54→17:52)
[2018-10-03 10:15] LABS: BASO # 0.03 K/mm3 (0.0-2.0); BASO % 0.4 % (0.0-3.0); EOS # 0.2 (0.0-0.7); EOS % 2.2 % (1.5-5.0); GRAN # 4.67 (1.4-6.5); GRAN % 63.8 % (50.0-68.0); HEMOGLOBIN 13.4 g/dL (12.0-16.0); LYMPH # 1.7 (1.2-3.4); LYMPH % 23.8 % (22.0-35.0); MEAN CORPUSCULAR HEMOGLOBIN 31.9 pg (25.0-35.0); MEAN CORPUSCULAR HGB CONC 33.9 g/dl (31.0-37.0); MEAN PLATELET VOLUME 10.4 fl (7.0-11.0); MONO # 0.7 (0.1-0.6); MONO % 9.8 % (1.0-6.0); RBC 4.2 10^6/uL (3.5-6.1); RED CELL DISTRIBUTION WIDTH 12.7 % (11.5-14.5); WHITE BLOOD COUNT 7.3 10^3/uL (4.5-11.0)
[2018-10-03 10:25] LABS: BLOOD UREA NITROGEN 15 mg/dL (7-21); CALCIUM 9.6 mg/dL (8.4-10.5); GFR NON-AFRICAN AMERICAN > 60
[2018-10-03 10:42] LABS: FREE T4 1.66 ng/dL (0.78-2.19)
--- NOTE | 2018-10-03 13:50 | PN ---
DATE: 10/03/2018 SUBJECTIVE: The patient is in [facility]. She is an 88-year-old white female. She was admitted with depression. She has history of hypertension, hypothyroidism, and diabetes mellitus. The patient is seen this morning, she is resting in bed. PHYSICAL EXAMINATION: VITAL SIGNS: The patient's pulse is 58, blood pressure 148/77, and respiratory rate 20. HEENT: The patient's head is normocephalic. NECK: Thyroid is not enlarged clinically. JVP is flat. LUNGS: Clear. HEART: Normal sinus rhythm. S1, S2 present. No murmur. ABDOMEN: Soft. Liver and spleen not palpable. No tenderness. CENTRAL NERVOUS SYSTEM: No focal deficits. The patient has ability to walk. She is very passive. MEDICATIONS LIST: Consist of Cymbalta, insulin, Lipitor, magnesium oxide, metoprolol, Synthroid, and lisinopril. The patient is on a heart-healthy diet and we will continue current management and follow up. Leida Hu MD
--- NOTE | 2018-10-03 15:19 | PCM.PYCHPN ---
Psychiatric Progress Note - Psychiatric Progress Note Patient seen today, length of contact: 30 minutes Patient Chief Complaint: "I am okay, I feel fine" Problems Identified/Issues Discussed: Suicide/ homicide prevention, past psychiatric h/o, current psychiatric symptoms, medical problems, risk/benefits and alternatives of medications, medications compliance, coping strategies, substance abuse h/o, relapse prevention, importance of follow up with psychiatrist and therapist, discharge plan. Medical Problems: See HPI Patient has history of diabetes, hypertension, patient was seen by PMD Diagnostic Results: 09/23/18 13:00 09/23/18 13:00 Lab Results 09/25/18 07:23: POC Glucose (mg/dL) 129 H 09/24/18 20:29: POC Glucose (mg/dL) 100 09/24/18 17:20: POC Glucose (mg/dL) 128 H 09/24/18 11:04: POC Glucose (mg/dL) 229 H 09/24/18 07:27: POC Glucose (mg/dL) 161 H 09/24/18 05:30: RPR Nonreactive 09/24/18 05:30: TSH 3rd Generation 18.70 H 09/24/18 05:30: Fasting Glucose 173 H, Triglycerides 142, Cholesterol 200, LDL Cholesterol Direct 142 H, HDL Cholesterol 31 09/23/18 21:16: POC Glucose (mg/dL) 276 H 09/23/18 14:02: Urine Opiates Screen Negative, Urine Methadone Screen Negative, Ur Barbiturates Screen Negative, Ur Phencyclidine Scrn Negative, Ur Amphetamines Screen Negative, U Benzodiazepines Scrn Negative, U Oth Cocaine Metabols Negative, U Cannabinoids Screen Negative 09/23/18 14:02: Urine Color Yellow, Urine Appearance Clear, Urine pH 6.0, Ur Specific [place] 1.025, Urine Protein Trace H, Urine Glucose (UA) Negative, Urine Ketones 15 H, Urine Blood Negative, Urine Nitrate Negative, Urine Bilirubin Negative, Urine Urobilinogen 0.2, Ur Leukocyte Esterase Negative, Urine RBC 1 - 3 H, Urine WBC 0 - 2, Ur Epithelial Cells 4 - 5, Amorphous Sediment Few, Urine Bacteria Mod, Urine Other Fiber 09/23/18 13:00: Alcohol, Quantitative < 10 09/23/18 13:00: Salicylates < 1 L, Acetaminophen < 10.0 L 09/23/18 13:00: Sodium 137, Potassium 4.0, Chloride 99, Carbon Dioxide 29, Anion Gap 13, BUN 14, Creatinine 0.7, Est GFR ( Amer) > 60, Est GFR (Non-Af Amer) > 60, Random Glucose 186 H, Calcium 9.8, Phosphorus 3.7, Magnesium 2.1, Total Bilirubin 0.7, AST 33, ALT 28, Alkaline Phosphatase 152 H D, Total Protein 8.1, Albumin 4.3, Globulin 3.8, Albumin/Globulin Ratio 1.1 09/23/18 13:00: WBC 5.8, RBC 4.63, Hgb 14.9, Hct 43.5, MCV 94.0, MCH 32.2, MCHC 34.3, RDW 12.8, Plt Count 221, MPV 10.2, Gran % 64.0, Lymph % (Auto) 27.5, [place] % (Auto) 6.4 H, Eos % (Auto) 1.4 L, Baso % (Auto) 0.7, Gran # 3.71, Lymph # (Auto) 1.6, [place] # (Auto) 0.4, Eos # (Auto) 0.1, Baso # (Auto) 0.04 09/23/18 12:14: POC Glucose (mg/dL) 157 H Vital Signs Temp Pulse Resp BP Pulse Ox 09/25/18 09:43 52 L 142/60 09/25/18 07:38 98.4 F 52 L 20 142/60 09/24/18 15:00 97.7 F 68 17 136/75 09/24/18 08:28 62 122/64 09/24/18 06:45 97.8 F 57 L 19 124/66 09/23/18 16:05 87 18 123/67 99 09/23/18 12:22 97.8 F 85 18 168/78 H 97 Temp Pulse Resp BP Pulse Ox 98.1 F 55 L 18 139/61 99 09/28/18 07:34 09/28/18 07:34 09/28/18 07:34 09/28/18 07:34 09/23/18 16:05 Laboratory Results - last 24 hr 10/02/18 10/02/18 10/02/18 11:14 16:21 21:29 WBC RBC Hgb Hct MCV MCH MCHC RDW Plt Count MPV Gran % Lymph % (Auto) [place] % (Auto) Eos % (Auto) Baso % (Auto) Gran # Lymph # (Auto) [place] # (Auto) Eos # (Auto) Baso # (Auto) Sodium Potassium Chloride Carbon Dioxide Anion Gap BUN Creatinine Est GFR ( Amer) Est GFR (Non-Af Amer) POC Glucose (mg/dL) 149 H 152 H 188 H Random Glucose Calcium Free T4 TSH 3rd Generation 10/03/18 10/03/18 10/03/18 07:23 10:09 10:09 WBC 7.3 D RBC 4.20 Hgb 13.4 Hct 39.5 MCV 94.0 MCH 31.9 MCHC 33.9 RDW 12.7 Plt Count 224 MPV 10.4 Gran % 63.8 Lymph % (Auto) 23.8 [place] % (Auto) 9.8 H Eos % (Auto) 2.2 Baso % (Auto) 0.4 Gran # 4.67 Lymph # (Auto) 1.7 [place] # (Auto) 0.7 H Eos # (Auto) 0.2 Baso # (Auto) 0.03 Sodium 139 Potassium 4.6 Chloride 102 Carbon Dioxide 30 Anion Gap 12 BUN 15 Creatinine 0.6 L Est GFR ( Amer) > 60 Est GFR (Non-Af Amer) > 60 POC Glucose (mg/dL) 91 Random Glucose 104 Calcium 9.6 Free T4 TSH 3rd Generation 10/03/18 10:09 WBC RBC Hgb Hct MCV MCH MCHC RDW Plt Count MPV Gran % Lymph % (Auto) [place] % (Auto) Eos % (Auto) Baso % (Auto) Gran # Lymph # (Auto) [place] # (Auto) Eos # (Auto) Baso # (Auto) Sodium Potassium Chloride Carbon Dioxide Anion Gap BUN Creatinine Est GFR ( Amer) Est GFR (Non-Af Amer) POC Glucose (mg/dL) Random Glucose Calcium Free T4 1.66 TSH 3rd Generation 1.91 DSM 5 Symptoms Update: Shortly patient is a 88 year old female, whose past medical history includes hypertension, diabetes, and hypothyroidism, and mild cognitive impairment, history of all with depression and anxiety, patient has 1 previous psychiatric admission in August 2018 here in [facility], patient was brought by [facility] ambulance for evaluation and stabilization of depressive symptoms, uncontrolled anxiety, memory problems, confusion, inability to function independently. Patient was seen and examined today in her room with mental health worker, patient presented to be sleepy, reported that she feels "okay", pt was evaluated by Medicaid RN, pt is waiting for a assisted living placement. Patient still presents to be depressed, but visible in the unit, patient started to participate in groups. Patient denied hallucinations, or any other perceptual disturbances. Patient tolerates medications well, no side effects observed or reported, aims 0, no EPS. Impression: Major depressive disorder Generalized anxiety disorder Medication Change: No ( ) Medical Record Reviewed: Yes Mental Status Examination - Cognitive Function Orientation: Person, Place, Situation, Time Attention: WNL (Somewhat better) Concentration: Poor (Some improvement) Association: WNL Fund of Knowledge: WNL - Mood Mood: Depressed, Anxious - Affect Affect: Constricted (But more reactive and congruent) - Formal Thought Process Formal Thought Process: No Impairment - Suicidal Ideation Suicidal Ideation: No - Homicidal Ideation Homicidal Ideation: No Goal/Treatment Plan - Goal/Treatment Plan Need for Continued Stay: Remain at risks for inpatient hospitalization, Severe depression anxiety, Discharge may exacerbated symptoms, Failed transitioning, Severe functional impairment Progress Toward Problem(s) and Goals/Treatment Plan: Milieu/structure/supportive therapy Medical consult appreciated, see medical team note for more detailed info SW consultation for discharge plan and social issues, assisted living placement Med management Cymbalta 40 mg daily for depression and anxiety Sonata 5mg jessica for insomnia Physical therapy Follow up on labs Will monitor closely Pt was educated about risk/benefits and alternatives of medications, coping strategies (safety plan, suicide prevention), relapse prevention NH placement Estimated Date of D/C: 10/05/18
[2018-10-04] MEDS: Levothyroxine 150 MCG TAB PO SCH (05:22)
[2018-10-04] MEDS: Insulin Lispro 1 UNITS/0.01 ML SC SCH ×3 (07:30→17:00)
--- NOTE | 2018-10-04 09:59 | PN ---
DATE: 10/04/2018 LOCATION: The patient is seen in [facility] in room 519, bed 1. SUBJECTIVE: The patient is seen this morning. She is comfortable, more alert today. She is 88-year-old female. PHYSICAL EXAMINATION: VITAL SIGNS: Pulse is 61, blood pressure 126/59, and respirations are 20. HEENT: The patient's head is normocephalic. NECK: The thyroid is not enlarged. No lymph nodes. Carotid pulses are present. LUNGS: Trachea central. Breath sounds are vesicular. No adventitious sounds are heard. HEART: Normal sinus rhythm. S1 and S2 present. No murmur. ABDOMEN: Soft. Liver and spleen not palpable. CENTRAL NERVOUS SYSTEM: The patient has no focal neurological deficits. LABORATORY DATA: The patient's lab work; the hemoglobin is 13.4. The patient's chemistry; the sugar is 133. The patient's BNP is in normal range. The patient's thyroid function studies within normal range. MEDICATIONS: She is on Cymbalta 40 mg daily and insulin coverage for diabetes. She is on Sonata for sleep, Synthroid for hypothyroidism, metoprolol for blood pressure, lisinopril for blood pressure and diabetes. The patient's medications . DIET: 2 g sodium, heart healthy diet, diabetic type. ASSESSMENT AND PLAN: We will continue current management and followup. The patient's overall condition is stable. Overall, prognosis is guarded. Leida Hu MD
[2018-10-04] MEDS: Insulin Detemir 100 units/ml Vial (Levemir) SC SCH ×2 (10:00→22:17)
[2018-10-04] MEDS: Metoprolol Succinate 25 mg XL Tab PO SCH (13:26)
--- NOTE | 2018-10-04 14:37 | PCM.PYCHPN ---
Psychiatric Progress Note - Psychiatric Progress Note Patient seen today, length of contact: 30 minutes Patient Chief Complaint: "I am feeling fine, i am okay" Problems Identified/Issues Discussed: Suicide/ homicide prevention, past psychiatric h/o, current psychiatric symp toms, medical problems, risk/benefits and alternatives of medications, medications compliance, coping strategies, substance abuse h/o, relapse prevention, importance of follow up with psychiatrist and therapist, discharge plan. Medical Problems: See HPI Patient has history of diabetes, hypertension, patient was seen by PMD Diagnostic Results: 09/23/18 13:00 09/23/18 13:00 Lab Results 09/25/18 07:23: POC Glucose (mg/dL) 129 H 09/24/18 20:29: POC Glucose (mg/dL) 100 09/24/18 17:20: POC Glucose (mg/dL) 128 H 09/24/18 11:04: POC Glucose (mg/dL) 229 H 09/24/18 07:27: POC Glucose (mg/dL) 161 H 09/24/18 05:30: RPR Nonreactive 09/24/18 05:30: TSH 3rd Generation 18.70 H 09/24/18 05:30: Fasting Glucose 173 H, Triglycerides 142, Cholesterol 200, LDL Cholesterol Direct 142 H, HDL Cholesterol 31 09/23/18 21:16: POC Glucose (mg/dL) 276 H 09/23/18 14:02: Urine Opiates Screen Negative, Urine Methadone Screen Negative, Ur Barbiturates Screen Negative, Ur Phencyclidine Scrn Negative, Ur Amphetamines Screen Negative, U Benzodiazepines Scrn Negative, U Oth Cocaine Metabols Negative, U Cannabinoids Screen Negative 09/23/18 14:02: Urine Color Yellow, Urine Appearance Clear, Urine pH 6.0, Ur Specific Logan 1.025, Urine Protein Trace H, Urine Glucose (UA) Negative, Urine Ketones 15 H, Urine Blood Negative, Urine Nitrate Negative, Urine Bilirubin Negative, Urine Urobilinogen 0.2, Ur Leukocyte Esterase Negative, Urine RBC 1 - 3 H, Urine WBC 0 - 2, Ur Epithelial Cells 4 - 5, Amorphous Sediment Few, Urine Bacteria Mod, Urine Other Fiber 09/23/18 13:00: Alcohol, Quantitative < 10 09/23/18 13:00: Salicylates < 1 L, Acetaminophen < 10.0 L 09/23/18 13:00: Sodium 137, Potassium 4.0, Chloride 99, Carbon Dioxide 29, Anion Gap 13, BUN 14, Creatinine 0.7, Est GFR ( Amer) > 60, Est GFR (Non-Af Amer) > 60, Random Glucose 186 H, Calcium 9.8, Phosphorus 3.7, Magnesium 2.1, Total Bilirubin 0.7, AST 33, ALT 28, Alkaline Phosphatase 152 H D, Total Protein 8.1, Albumin 4.3, Globulin 3.8, Albumin/Globulin Ratio 1.1 09/23/18 13:00: WBC 5.8, RBC 4.63, Hgb 14.9, Hct 43.5, MCV 94.0, MCH 32.2, MCHC 34.3, RDW 12.8, Plt Count 221, MPV 10.2, Gran % 64.0, Lymph % (Auto) 27.5, [place] % (Auto) 6.4 H, Eos % (Auto) 1.4 L, Baso % (Auto) 0.7, Gran # 3.71, Lymph # (Auto) 1.6, [place] # (Auto) 0.4, Eos # (Auto) 0.1, Baso # (Auto) 0.04 09/23/18 12:14: POC Glucose (mg/dL) 157 H Vital Signs Temp Pulse Resp BP Pulse Ox 09/25/18 09:43 52 L 142/60 09/25/18 07:38 98.4 F 52 L 20 142/60 09/24/18 15:00 97.7 F 68 17 136/75 09/24/18 08:28 62 122/64 09/24/18 06:45 97.8 F 57 L 19 124/66 09/23/18 16:05 87 18 123/67 99 09/23/18 12:22 97.8 F 85 18 168/78 H 97 Temp Pulse Resp BP Pulse Ox 98.1 F 55 L 18 139/61 99 09/28/18 07:34 09/28/18 07:34 09/28/18 07:34 09/28/18 07:34 09/23/18 16:05 Laboratory Results - last 24 hr 10/02/18 10/02/18 10/02/18 11:14 16:21 21:29 WBC RBC Hgb Hct MCV MCH MCHC RDW Plt Count MPV Gran % Lymph % (Auto) [place] % (Auto) Eos % (Auto) Baso % (Auto) Gran # Lymph # (Auto) [place] # (Auto) Eos # (Auto) Baso # (Auto) Sodium Potassium Chloride Carbon Dioxide Anion Gap BUN Creatinine Est GFR ( Amer) Est GFR (Non-Af Amer) POC Glucose (mg/dL) 149 H 152 H 188 H Random Glucose Calcium Free T4 TSH 3rd Generation 10/03/18 10/03/18 10/03/18 07:23 10:09 10:09 WBC 7.3 D RBC 4.20 Hgb 13.4 Hct 39.5 MCV 94.0 MCH 31.9 MCHC 33.9 RDW 12.7 Plt Count 224 MPV 10.4 Gran % 63.8 Lymph % (Auto) 23.8 [place] % (Auto) 9.8 H Eos % (Auto) 2.2 Baso % (Auto) 0.4 Gran # 4.67 Lymph # (Auto) 1.7 [place] # (Auto) 0.7 H Eos # (Auto) 0.2 Baso # (Auto) 0.03 Sodium 139 Potassium 4.6 Chloride 102 Carbon Dioxide 30 Anion Gap 12 BUN 15 Creatinine 0.6 L Est GFR ( Amer) > 60 Est GFR (Non-Af Amer) > 60 POC Glucose (mg/dL) 91 Random Glucose 104 Calcium 9.6 Free T4 TSH 3rd Generation 10/03/18 10:09 WBC RBC Hgb Hct MCV MCH MCHC RDW Plt Count MPV Gran % Lymph % (Auto) [place] % (Auto) Eos % (Auto) Baso % (Auto) Gran # Lymph # (Auto) [place] # (Auto) Eos # (Auto) Baso # (Auto) Sodium Potassium Chloride Carbon Dioxide Anion Gap BUN Creatinine Est GFR ( Amer) Est GFR (Non-Af Amer) POC Glucose (mg/dL) Random Glucose Calcium Free T4 1.66 TSH 3rd Generation 1.91 DSM 5 Symptoms Update: Shortly patient is a 88 year old female, whose past medical history includes hypertension, diabetes, and hypothyroidism, and mild cognitive impairment, history of all with depression and anxiety, patient has 1 previous psychiatric admission in August 2018 here in [facility], patient [place] [facility] [place] evaluation and stabilization of depressive symptoms, uncontrolled anxiety, memory problems, confusion, inability to function independently. Patient was seen and examined today in her room, patient presented to be sleepy, reported that she feels "I am fine, I am okay", pt was evaluated by Medicaid RN, pt is waiting for a assisted living placement. Patient still presents to be depressed, but visible in the unit, patient started to participate in groups. Patient denied hallucinations, or any other perceptual disturbances. Patient tolerates medications well, no side effects observed or reported, aims 0, no EPS. Impression: Major depressive disorder Generalized anxiety disorder Medication Change: No ( ) Medical Record Reviewed: Yes Mental Status Examination - Cognitive Function Orientation: Person, Place, Situation, Time Attention: WNL (Somewhat better) Concentration: Poor (Some improvement) Association: WNL Fund of Knowledge: WNL - Mood Mood: Depressed, Anxious - Affect Affect: Constricted (But more reactive and congruent) - Formal Thought Process Formal Thought Process: No Impairment - Suicidal Ideation Suicidal Ideation: No - Homicidal Ideation Homicidal Ideation: No Goal/Treatment Plan - Goal/Treatment Plan Need for Continued Stay: Remain at risks for inpatient hospitalization, Severe depression anxiety, Discharge may exacerbated symptoms, Failed transitioning, Severe functional impairment Progress Toward Problem(s) and Goals/Treatment Plan: Milieu/structure/supportive therapy Medical consult appreciated, see medical team note for more detailed info SW consultation for discharge plan and social issues, assisted living placement Med management Cymbalta 40 mg daily for depression and anxiety Sonata 5mg jessica for insomnia Physical therapy Follow up on labs Will monitor closely Pt was educated about risk/benefits and alternatives of medications, coping strategies (safety plan, suicide prevention), relapse prevention Assisted-living placement Estimated Date of D/C: 10/08/18
--- NOTE | 2018-10-04 23:01 | CP.PCM.PN ---
Subjective - Date & Time of Evaluation Date of Evaluation: 10/04/18 Time of Evaluation: 22:52 - Subjective Subjective: PGY-[address] Dave, [place] Doc CC: Walking leaning to one side 88 year old female with history of Hx colon ca, hypertension, d iabetes, dementia and poor memory, hypothyroidism admitted to psych for anxious. RN paged because the day RN noticed that the pt walked leaning to one side since AM. Per RN, patient chronically have nasal labile flattening in right. No choking or coughing while eating dinner tonight. Pt complained of L knee pain. No recent falls VS: stable HEENT: EOMI non-icteric Card: regular S1 S2 Pulm: BSCTA b/1 Abd: soft NTND Ext: slight edema. Mus/skeletal: No back pain Neuro: AAO x 1 to person, not to place and time, per RN that is baseline nasal labile flattening in right, per RN, chronic Motor: Upper ext - no drifting, motor 5/5 Lower ext - no drifting, proximal motor 5/5, distal motor 5/5 Sensory: all 4 limbs intact A: gait dysfunction likely due to L knee pain uncontrolled DM2 - A1C 11 P: [place] for L knee. L knee x-ray. CT head in AM Physical therapy continue statin. Defer to primary team re: starting ASA to control cardiovascular risk continue psych management per pscych Sugar control per primary. Diabetic education Objective - Vital Signs/Intake and Output Vital Signs (last 24 hours): Temp Pulse Resp BP Pulse Ox 98.5 F 65 20 135/55 L 99 10/04/18 07:19 10/04/18 15:00 10/04/18 07:19 10/04/18 15:00 09/23/18 16:05 - Medications Medications: Current Medications Acetaminophen (Tylenol 325mg Tab) 650 mg PO Q6H PRN PRN Reason: Pain, moderate (4-7) Last Admin: 10/02/18 12:24 Dose: 650 mg Al Hydrox/Mg Hydrox/Simethicone (Maalox Plus 30 Ml) 30 ml PO DAILY PRN PRN Reason: Indigestion / Heartburn Atorvastatin Calcium (Lipitor) 40 mg PO DIN [facility] Last Admin: 10/04/18 17:00 Dose: Not Given Duloxetine HCl (Cymbalta) 40 mg PO DAILY [facility] Last Admin: 10/04/18 13:28 Dose: 40 mg Ibuprofen (Motrin Tab) 400 mg PO BID PRN PRN Reason: Pain, moderate (4-7) Insulin Detemir (Levemir) 15 unit SC AMHS [facility] Last Admin: 10/04/18 22:17 Dose: 15 unit Insulin Human Lispro (Humalog) 10 units SC AC [facility] Last Admin: 10/04/18 17:00 Dose: Not Given Levothyroxine Sodium (Synthroid) 150 mcg PO THFRSA@0600 [facility] Last Admin: 10/04/18 05:22 Dose: 150 mcg Levothyroxine Sodium (Synthroid) 175 mcg PO SUMOTUWE@0600 [facility] Last Admin: 10/03/18 05:18 Dose: 175 mcg Lisinopril (Zestril) 2.5 mg PO DAILY [facility] Last Admin: 10/04/18 13:27 Dose: 2.5 mg Magnesium Hydroxide (Milk Of Magnesia) 30 ml PO DAILY PRN PRN Reason: Constipation Metoprolol Succinate (Toprol Xl) 25 mg PO BRK [facility] Last Admin: 10/04/18 13:26 Dose: 25 mg Zaleplon (Sonata) 5 mg PO HS [facility] Last Admin: 10/04/18 22:16 Dose: Not Given - Labs Labs: 10/03/18 10:09 10/03/18 10:09
[2018-10-04] MEDS ORDERED: Menthol/Methyl Salicylate Ointment(1 oz) TOP PRN (23:09)
[2018-10-05] MEDS: Levothyroxine 150 MCG TAB PO SCH (06:44)
[2018-10-05 07:29] VITALS: BP 166/79; PULSE 62; TEMP 98.7
[2018-10-05] MEDS: Insulin Lispro 1 UNITS/0.01 ML SC SCH (07:30)
--- NOTE | 2018-10-05 09:17 | CT ---
Date of service: 10/05/2018 PROCEDURE: CT HEAD WITHOUT CONTRAST. HISTORY: ?vasculardementia, nasal labile r/o central cause COMPARISON: 08/12/2017 TECHNIQUE: Axial computed tomography images were obtained through the head/brain without intravenous contrast. Radiation dose: Total exam DLP = 908.15 mGy-cm. This CT exam was performed using one or more of the following dose reduction techniques: Automated exposure control, adjustment of the mA and/or kV according to patient size, and/or use of iterative reconstruction technique. FINDINGS: HEMORRHAGE: No intracranial hemorrhage. BRAIN: No mass effect or edema. Chronic microvascular changes are seen. There is mild atrophy VENTRICLES: Unremarkable. No hydrocephalus. CALVARIUM: Unremarkable. PARANASAL SINUSES: Unremarkable as visualized. No significant inflammatory changes. MASTOID AIR CELLS: Unremarkable as visualized. No inflammatory changes. OTHER FINDINGS: None. IMPRESSION: No acute intracranial findings
[2018-10-05] MEDS: Metoprolol Succinate 25 mg XL Tab PO SCH (10:03)
--- NOTE | 2018-10-05 10:09 | PN ---
DATE: 10/05/2018 LOCATION: The patient is in [facility], room 519, bed 1. SUBJECTIVE: The patient is seen this morning. She had an episode last night where she had like slurring of speech and some drooping of the left side of the face. The patient was slow to respond, question of cerebrovascular insufficiency was entertained. The patient was seen by the [facility] to see the patient last night. The patient continually appears to be stable. She is able to answer questions, but she has a slow response. PHYSICAL EXAMINATION VITAL SIGNS: Pulse is 62, blood pressure 166/79, respirations are 20. LUNGS: Clear. HEART: Normal sinus rhythm. S1 and S2 present. CENTRAL NERVOUS SYSTEM: The patient has some neurological signs and not descript and definitive vague weakness of left side of the face, questionable response to questions, slow response to questions and the patient has and rib on the left side is normal. We will have Neurology evaluate the patient and render . She is going to have a PET scan of the head today without contrast and continue current management. MEDICATIONS: She is on Cymbalta 40 mg daily, insulin coverage for diabetes. The patient is on Lipitor 40 mg daily, Motrin 400 mg twice daily, Synthroid 175 mcg alternate with the 150 mcg. Thyroid function studies are within normal range. The patient is on Sonata 5 mg at night, metoprolol 25 mg daily, lisinopril 2.5 mg daily. Discontinue current management and followup on the consultation and keep a close eye on the patient's neurological findings. She is treated with statin. She is also getting aspirin, so there is a diagnosis of possible TIA. The patient is covered and medically treated. Leida Hu MD
[2018-10-05] MEDS: Insulin Detemir 100 units/ml Vial (Levemir) SC SCH (10:10)
--- NOTE | 2018-10-05 11:13 | RAD ---
Date of service: 10/05/2018 PROCEDURE: Left Knee Radiographs. HISTORY: Pain. COMPARISON: None. FINDINGS: BONES: Normal. No fracture. JOINTS: Normal. No osteoarthritis. JOINT EFFUSION: None. OTHER FINDINGS: None. IMPRESSION: Normal radiographs of the left knee.
--- NOTE | 2018-10-05 16:13 | CON ---
DATE: 10/05/2018 NEUROLOGY CONSULTATION CHIEF COMPLAINT: Evaluation for CVA. HISTORY OF PRESENT ILLNESS: This is an 88-year-old woman with a history of colon cancer, hypertension, diabetes, dementia, cognitive impairment, hypothyroidism, admitted to psychiatry for anxious and depression, on Cymbalta 40 mg for anxiety and depression and Sonata for insomnia, history of chronic nasolabial flattening to the right, was noticed to have mild slurred speech and some drooping of the left side of the face. The patient is slow to respond, but has a very depressed affect. The patient has diabetic neuropathy and has also diabetic gait . MRI of the brain has been ordered. She is able to answer questions but is slow to respond with depressed affect. PAST MEDICAL HISTORY: As above. SOCIAL HISTORY: No illicit drug use, smoking or EtOH abuse. REVIEW OF SYSTEMS: A 14-point review of systems is negative except as per HPI. ALLERGIES: NO KNOWN DRUG ALLERGIES. MEDICATIONS: Reviewed by nurses' reconciliation sheet. FAMILY HISTORY: Noncontributory. LABORATORY DATA: No new labs done today. PHYSICAL EXAMINATION GENERAL: The patient is sitting up in chair and in no acute distress. VITAL SIGNS: Temperature 98.7, pulse rate 62, blood pressure 166/79, respiratory rate 20, and oxygen saturation 98% on room air. HEENT: Atraumatic and normocephalic. PERRLA. Extraocular muscles intact. NECK: Supple. No JVD. No adenopathy noted. LUNGS: Clear to auscultation. No adventitious sounds. HEART: S1 and S2 normal. Normal rate and rhythm. No murmurs, rubs or gallops. ABDOMEN: Soft, nontender and nondistended. Bowel sounds are present. EXTREMITIES: No clubbing and no cyanosis. Peripheral pulses are 2+ felt bilaterally. Has some trace slight edema bilaterally. NEUROLOGICAL: The patient is alert and oriented to person, place and not much for month and year. Disorganized thought and flat affect. Slow to respond, but answers questions appropriately. Speech is hypophonic, but no aphasia. Cranial nerves II through XII are intact, there is some chronic right nasolabial fold flattening. Motor exam; moves all extremities equally. No pronator drift seen, slightly increased tone throughout. Sensory; withdraws to localized noxious stimulus. Decreased light touch and pinprick up to the calves bilaterally. Decreased vibration at the toes. DTRs are 2+ throughout and 1 at both knees and absent at the ankles. Toes are downgoing bilaterally. Coordination and gait are deferred for now. IMPRESSION: This is a 88-year-old woman with a history of colon cancer, hypertension, type 2 diabetes mellitus, moderate dementia in terms of severe cognitive impairment, hypothyroidism, admitted to psychiatric floor for anxious and depression, on Cymbalta and Sonata for insomnia. I noticed the patient walking, leaning toward side, was slow to respond. There is suspecting for some cerebrovascular insufficiency. The facial droop is chronic in nature. No pronator drift is seen. Her gait dysfunction is likely secondary to severe diabetic peripheral neuropathy causing poor gait. RECOMMENDATIONS: 1. Aspirin 81 mg and atorvastatin 40 mg p.o. daily for stroke prevention. 2. Keep blood pressure between 140 to 180 and needs diabetic education. 3. Physical therapy for balance and muscle strengthening, coordination exercises. 4. Get MRI of the brain to see any strokes or abnormalities causing symptoms and continue present psychiatric management. Thank you for this consult. Kane Ayon MD
--- NOTE | 2018-10-05 17:07 | PCM.PYCHDC ---
Mental Status Examination - Mental Status Examination Orientation: Person, Place, Situation, Time Memory: Intact Mood: Neutral Affect: Constricted (But reactive and mood congruent) Speech: Appropriate Attention: Poor (But with much improvement) Concentration: Poor (But with much improvement) Association: WNL Fund of Knowledge: WNL Formal Thought Process: No Impairment Description of patient's judgement and insight: Pt has improved insight into mental and medical illness, pt was compliant with medications and unit rules and regulations, pt was going to groups, was calm, cooperative, socially appropriate, no behavioral incidents, no agitation, no aggression. Psychotic Thoughts and Behaviors: Pt denied v/a/t hallucinations, denied paranoid ideations, pt does not appear to be psychotic, and thought process is goal directed. Suicidal Ideation: No Current Homicidal Ideation?: No Plan: pt adamantly denied thoughts of harming self or others denied intent or plan. Discharge Summary - Discharge Note Reason for Hospitalization: Patient was admitted to the psychiatric inpatient unit for evaluation and stabilization of depressive symptoms, anxiety, inability to function, memory problems and confusion. Psychiatric History (includes Medical, Family, Personal Hx): as per HPI Laboratory Data: Abnormal Lab Results 10/04/18 10/04/18 10/05/18 17:55 21:29 07:21 POC Glucose (mg/dL) 173 H 181 H 157 H 10/03/18 10:09 10/03/18 10:09 Lab Results 10/05/18 07:21: POC Glucose (mg/dL) 157 H 10/04/18 21:29: POC Glucose (mg/dL) 181 H 10/04/18 17:55: POC Glucose (mg/dL) 173 H 10/04/18 15:58: POC Glucose (mg/dL) 197 H 10/04/18 11:27: POC Glucose (mg/dL) 135 H 10/04/18 07:32: POC Glucose (mg/dL) 127 H 10/03/18 20:57: POC Glucose (mg/dL) 133 H 10/03/18 16:16: POC Glucose (mg/dL) 240 H 10/03/18 11:18: POC Glucose (mg/dL) 110 10/03/18 10:09: Free T4 1.66, TSH 3rd Generation 1.91 10/03/18 10:09: WBC 7.3 D, RBC 4.20, Hgb 13.4, Hct 39.5, MCV 94.0, MCH 31.9, MCHC 33.9, RDW 12.7, Plt Count 224, MPV 10.4, Gran % 63.8, Lymph % (Auto) 23.8, Mercer % (Auto) 9.8 H, Eos % (Auto) 2.2, Baso % (Auto) 0.4, Gran # 4.67, Lymph # (Auto) 1.7, Mercer # (Auto) 0.7 H, Eos # (Auto) 0.2, Baso # (Auto) 0.03 10/03/18 10:09: Sodium 139, Potassium 4.6, Chloride 102, Carbon Dioxide 30, Anion Gap 12, BUN 15, Creatinine 0.6 L, Est GFR ( Amer) > 60, Est GFR (Non-Af Amer) > 60, Random Glucose 104, Calcium 9.6 10/03/18 07:23: POC Glucose (mg/dL) 91 10/02/18 21:29: POC Glucose (mg/dL) 188 H 10/02/18 16:21: POC Glucose (mg/dL) 152 H 10/02/18 11:14: POC Glucose (mg/dL) 149 H 10/02/18 07:28: POC Glucose (mg/dL) 81 10/01/18 21:14: POC Glucose (mg/dL) 123 H 10/01/18 16:44: POC Glucose (mg/dL) 134 H 10/01/18 11:14: POC Glucose (mg/dL) 182 H 10/01/18 07:32: POC Glucose (mg/dL) 104 09/30/18 21:30: POC Glucose (mg/dL) 214 H 09/30/18 16:34: POC Glucose (mg/dL) 102 09/30/18 15:37: POC Glucose (mg/dL) 45 L 09/30/18 11:13: POC Glucose (mg/dL) 188 H 09/30/18 08:04: POC Glucose (mg/dL) 113 H 09/29/18 21:53: POC Glucose (mg/dL) 143 H 09/29/18 16:08: POC Glucose (mg/dL) 156 H 09/29/18 11:14: POC Glucose (mg/dL) 118 H 09/29/18 07:29: POC Glucose (mg/dL) 112 H 09/28/18 21:26: POC Glucose (mg/dL) 165 H 09/28/18 16:11: POC Glucose (mg/dL) 217 H 09/28/18 11:34: POC Glucose (mg/dL) 178 H 09/28/18 07:43: POC Glucose (mg/dL) 137 H 09/27/18 21:22: POC Glucose (mg/dL) 200 H 09/27/18 16:26: POC Glucose (mg/dL) 186 H 09/27/18 11:22: POC Glucose (mg/dL) 133 H 09/27/18 07:29: POC Glucose (mg/dL) 86 09/26/18 21:32: POC Glucose (mg/dL) 140 H 09/26/18 16:20: POC Glucose (mg/dL) 111 H 09/26/18 11:16: POC Glucose (mg/dL) 260 H 09/26/18 07:26: POC Glucose (mg/dL) 134 H 09/25/18 21:00: POC Glucose (mg/dL) 87 09/25/18 16:21: POC Glucose (mg/dL) 119 H 09/25/18 11:16: POC Glucose (mg/dL) 241 H 09/25/18 07:23: POC Glucose (mg/dL) 129 H 09/24/18 20:29: POC Glucose (mg/dL) 100 09/24/18 17:20: POC Glucose (mg/dL) 128 H 09/24/18 11:04: POC Glucose (mg/dL) 229 H 09/24/18 07:27: POC Glucose (mg/dL) 161 H 09/24/18 05:30: RPR Nonreactive 09/24/18 05:30: TSH 3rd Generation 18.70 H 09/24/18 05:30: Fasting Glucose 173 H, Triglycerides 142, Cholesterol 200, LDL Cholesterol Direct 142 H, HDL Cholesterol 31 09/23/18 21:16: POC Glucose (mg/dL) 276 H 09/23/18 14:02: Urine Opiates Screen Negative, Urine Methadone Screen Negative, Ur Barbiturates Screen Negative, Ur Phencyclidine Scrn Negative, Ur Amphetamines Screen Negative, U Benzodiazepines Scrn Negative, U Oth Cocaine Metabols Negat marty, U Cannabinoids Screen Negative 09/23/18 14:02: Urine Color Yellow, Urine Appearance Clear, Urine pH 6.0, Ur Specific [employer] 1.025, Urine Protein Trace H, Urine Glucose (UA) Negative, Urine Ketones 15 H, Urine Blood Negative, Urine Nitrate Negative, Urine Bilirubin Negative, Urine Urobilinogen 0.2, Ur Leukocyte Esterase Negative, Urine RBC 1 - 3 H, Urine WBC 0 - 2, Ur Epithelial Cells 4 - 5, Amorphous Sediment Few, Urine Bacteria Mod, Urine Other Fiber 09/23/18 13:00: Alcohol, Quantitative < 10 09/23/18 13:00: Salicylates < 1 L, Acetaminophen < 10.0 L 09/23/18 13:00: Sodium 137, Potassium 4.0, Chloride 99, Carbon Dioxide 29, Anion Gap 13, BUN 14, Creatinine 0.7, Est GFR ( Amer) > 60, Est GFR (Non-Af Amer) > 60, Random Glucose 186 H, Calcium 9.8, Phosphorus 3.7, Magnesium 2.1, T otal Bilirubin 0.7, AST 33, ALT 28, Alkaline Phosphatase 152 H D, Total Protein 8.1, Albumin 4.3, Globulin 3.8, Albumin/Globulin Ratio 1.1 09/23/18 13:00: WBC 5.8, RBC 4.63, Hgb 14.9, Hct 43.5, MCV 94.0, MCH 32.2, MCHC 34.3, RDW 12.8, Plt Count 221, MPV 10.2, Gran % 64.0, Lymph % (Auto) 27.5, Mercer % (Auto) 6.4 H, Eos % (Auto) 1.4 L, Baso % (Auto) 0.7, Gran # 3.71, Lymph # (Auto) 1.6, Mercer # (Auto) 0.4, Eos # (Auto) 0.1, Baso # (Auto) 0.04 09/23/18 12:14: POC Glucose (mg/dL) 157 H Vital Signs Temp Pulse Resp BP Pulse Ox 10/05/18 10:04 62 166/79 H 10/05/18 10:03 62 166/79 H 10/05/18 07:28 98.7 F 62 20 166/79 H 10/04/18 15:00 65 135/55 L 10/04/18 13:27 61 156/69 H 10/04/18 13:26 61 156/69 H 10/04/18 07:19 98.5 F 61 20 156/69 H 10/03/18 16:00 64 133/69 10/03/18 07:50 98.5 F 58 L 20 148/77 10/02/18 16:30 65 152/80 H 10/02/18 09:56 59 L 159/74 H 10/02/18 09:53 59 L 159/74 H 10/02/18 07:00 97.9 F 59 L 18 159/74 H 10/01/18 16:30 61 131/66 10/01/18 09:51 60 144/75 10/01/18 09:50 60 144/75 10/01/18 07:25 98.4 F 60 20 144/75 09/30/18 15:00 97.3 F L 72 16 156/90 H 09/30/18 09:02 60 141/75 09/30/18 09:01 60 141/75 09/30/18 07:30 97.7 F 59 L 20 141/75 09/29/18 09:03 68 142/70 09/29/18 09:02 68 142/70 09/29/18 07:00 97.9 F 68 18 142/70 09/28/18 16:30 50 L 108/65 09/28/18 07:34 98.1 F 55 L 18 139/61 09/27/18 16:30 58 L 150/69 09/27/18 07:39 98.8 F 55 L 20 140/72 09/26/18 16:00 57 L 133/66 09/26/18 09:21 67 124/70 09/26/18 07:21 98.7 F 56 L 20 128/63 09/25/18 16:00 53 L 133/64 09/25/18 09:43 52 L 142/60 09/25/18 07:38 98.4 F 52 L 20 142/60 09/24/18 15:00 97.7 F 68 17 136/75 09/24/18 08:28 62 122/64 09/24/18 06:45 97.8 F 57 L 19 124/66 09/23/18 16:05 87 18 123/67 99 09/23/18 12:22 97.8 F 85 18 168/78 H 97 Consultations:: List each consultation separately and include: 1. Reason for request. 2. Findings. 3. Follow-up Consultations: Medical consult appreciated physical therapy consult appreciated Overnight October 05, 2018 patient was observed walking leaning towards one side, patient had CT scan of the head as well as knee x-ray Patient was seen by medical team, was recommended to be transferred to the medical side to rule out stroke because patient was not able to walk. Please see medical team notes for more detailed information. Summary of Hospital Course include:: 1. Description of specific treatment plan utilized for patients during their course of treatmen. 2. Summarize the time- course for resolution of acute symptoms and/or regressed behaviors. 3. Describe issues identified and worked on during hospitalization. 4. Describe medication utilized. 5. Describe medical problems identified and treated. 6. Reassessment of suicide risk Summary of Hospital Course: Shortly patient is a 88 year old female, whose past medical history includes hypertension, diabetes, and hypothyroidism, and mild cognitive impairment, history of all with depression and anxiety, patient has 1 previous psychiatric admission in August 2018 here in [facility], patient was brought by [facility] for evaluation and stabilization of depressive symptoms, uncontrolled anxiety, memory problems, confusion, inability to function independently. Please see admission note for more detailed information. Over the course of this hospitalization patient was stabilized on the following medications: DULoxetine [Cymbalta] 40 mg PO DAILY for depression and anxiety Zaleplon [Sonata] 5 mg PO HS PRN for insomnia patient tolerated medications well, No side effects observed or reported Patient was accepted to assisted living facility, please see social work lecturer notes for more detailed information. At the day of discharge October 05, 2018 patient required to be admitted to the medical side to rule out stroke versus TIA. Patient was transferred to the emergency room uneventfully, this race and sports book writer provided prescriptions for all of the psychotropic medications for 30 days, please see social work lecturer notes for more detailed information. Over the course of this hospitalization pt was attending groups, pt also had medication management, had therapeutic milieu. Overall pt improved significantly, pt's affect became brighter, pt was less depressed, has realistic future oriented plans, pt also does not appear to be psychotic, or anxious, pt was socially appropriate, no behavioral issues, pts insight improved as well and soon pt deemed to be ready for discharge, but patient required transfer to the medical side. At the time of the transfer patient pose no imminent danger to self or others, will be following up with psychiatrist at assisted living facility, please see social work lecturer notes for more detailed information. In case patient will need to obtain results of studies pending at discharge, patient was provided with contact information of Psychiatric Inpatient unit [phone] as well as Medical Record Department [phone], as well as [facility] team [phone]. Patient denies smoking, denied using drugs pt was provided with prescriptions for 1 month, the rest of meds up to the medical team. Pt was educated about safety plan in case of worsening of symptoms or in case of suicidal or homicidal ideation call 911 or go to the nearest ER, also was educated to take meds as prescribed and stay away from drugs, pt verbalized understanding. 09/23/18 13:00 09/23/18 13:00 Lab Results 09/24/18 05:30: TSH 3rd Generation 18.70 H 09/24/18 05:30: Fasting Glucose 173 H, Triglycerides 142, Cholesterol 200, LDL Cholesterol Direct 142 H, HDL Cholesterol 31 09/23/18 21:16: POC Glucose (mg/dL) 276 H 09/23/18 14:02: Urine Opiates Screen Negative, Urine Methadone Screen Negative, Ur Barbiturates Screen Negative, Ur Phencyclidine Scrn Negative, Ur Amphetamines Screen Negative, U Benzodiazepines Scrn Negative, U Oth Cocaine Metabols Negative, U Cannabinoids Screen Negative 09/23/18 14:02: Urine Color Yellow, Urine Appearance Clear, Urine pH 6.0, Ur Specific [employer] 1.025, Urine Protein Trace H, Urine Glucose (UA) Negative, Urine Ketones 15 H, Urine Blood Negative, Urine Nitrate Negative, Urine Bilirubin Negative, Urine Urobilinogen 0.2, Ur Leukocyte Esterase Negative, Urine RBC 1 - 3 H, Urine WBC 0 - 2, Ur Epithelial Cells 4 - 5, Amorphous Sediment Few, Urine Bacteria Mod, Urine Other Fiber 09/23/18 13:00: Alcohol, Quantitative < 10 09/23/18 13:00: Salicylates < 1 L, Acetaminophen < 10.0 L 09/23/18 13:00: Sodium 137, Potassium 4.0, Chloride 99, Carbon Dioxide 29, Anion Gap 13, BUN 14, Creatinine 0.7, Est GFR ( Amer) > 60, Est GFR (Non-Af Amer) > 60, Random Glucose 186 H, Calcium 9.8, Phosphorus 3.7, Magnesium 2.1, Total Bilirubin 0.7, AST 33, ALT 28, Alkaline Phosphatase 152 H D, Total Protein 8.1, Albumin 4.3, Globulin 3.8, Albumin/Globulin Ratio 1.1 09/23/18 13:00: WBC 5.8, RBC 4.63, Hgb 14.9, Hct 43.5, MCV 94.0, MCH 32.2, MCHC 34.3, RDW 12.8, Plt Count 221, MPV 10.2, Gran % 64.0, Lymph % (Auto) 27.5, Mercer % (Auto) 6.4 H, Eos % (Auto) 1.4 L, Baso % (Auto) 0.7, Gran # 3.71, Lymph # (Auto) 1.6, Mercer # (Auto) 0.4, Eos # (Auto) 0.1, Baso # (Auto) 0.04 09/23/18 12:14: POC Glucose (mg/dL) 157 H Vital Signs Temp Pulse Resp BP Pulse Ox 09/24/18 08:28 62 122/64 09/24/18 06:45 97.8 F 57 L 19 124/66 09/23/18 16:05 87 18 123/67 99 09/23/18 12:22 97.8 F 85 18 168/78 H 97 - Diagnosis (1) Depression Status: Chronic Priority: Medium (2) Generalized anxiety disorder Status: Chronic Priority: High - Final Diagnosis (DSM 5) Condition upon Discharge: IMPROVED Disposition: OTHER INSTITUTION Follow-up Treatment Plan: At the time of the transfer patient pose no imminent danger to self or others, will be following up with psychiatrist at assisted living facility, please see social work lecturer notes for more detailed information. In case patient will need to obtain results of studies pending at discharge, patient was provided with contact information of Psychiatric Inpatient unit [phone] as well as Medical Record Department [phone], as well as [facility] team [phone]. Patient denies smoking, denied using drugs pt was provided with prescriptions for 1 month, the rest of meds up to the medical team. Pt was educated about safety plan in case of worsening of symptoms or in case of suicidal or homicidal ideation call 911 or go to the nearest ER, also was educated to take meds as prescribed and stay away from drugs, pt verbalized understanding. - Smoking Cessation Smoking Cessation Medication prescribed: No Reason for not providing: Patient denies smoking - Antipsychotic Medications Pt discharged on 2 or more routine antipsychotic medications: No
== END 2018-10-05 14:26 | disposition short-term general hospital (02) | DRG 881 ==
LOC: ED 11:59 → ERH 15:21 → PSYC 16:45
PROVIDERS: ADMIT Psychiatry & Neurology Psychiatry; ATTEND Psychiatry & Neurology Psychiatry
DX: F32.9 Major depressive disorder, single episode, unspecified (principal); F41.1 Generalized anxiety disorder; F03.90 Unspecified dementia, unspecified severity, without behavioral disturbance, psychotic disturbance, mood disturbance, and anxiety; E03.9 Hypothyroidism, unspecified; I10 Essential (primary) hypertension; E78.5 Hyperlipidemia, unspecified; E11.42 Type 2 diabetes mellitus with diabetic polyneuropathy; H40.9 Unspecified glaucoma; H54.61 Unqualified visual loss, right eye, normal vision left eye; J44.9 Chronic obstructive pulmonary disease, unspecified; Z85.038 Personal history of other malignant neoplasm of large intestine; Z79.4 Long term (current) use of insulin; Z87.891 Personal history of nicotine dependence

== ENCOUNTER 2018-10-05 14:26 | Inpatient (IN) | payer MEDICARE ==
[2018-10-05 14:30] VITALS: BMI 51.2
[2018-10-05] MEDS ORDERED: Iohexol 350 MG/100 ML VIAL ONE (15:14)
--- NOTE | 2018-10-05 15:21 | ED PDOC ---
Arrival/HPI - General EM Caveat: Altered Mental Status - History of Present Illness Quality: Unable to Describe Activities at Onset: Rest Context: Home <Awais Otto - Last Filed: 10/07/18 18:11> - General Historian: Patient, Other (Primary care doctor) EM Caveat: Altered Mental Status - Critical Care Critical Care Minutes: 30 minutes - History of Present Illness Narrative History of Present Illness (Text): Patient is a 88 yr old female with PMH depression and anxiety brought to [facility] from the psych unit after developing gait changes yesterday and worsening facial droop, confusion and dysarthria this morning. Patient was unable to feed herself and had difficulty following commands which is not her baseline. Patient is able to answer questions and follow commands but is not orient to time or place, she states she is in [facility] it is 1989 and Lamont is the president. After discussion with Dr. short her PMD it is confirmed that her right sided facial droop is a change from baseline and was not present in the past. 10/05/18 15:22 Time/Duration: Prior to Arrival, 24 hours Symptom Onset: Gradual Symptom Course: Worsening Quality: Unable to Describe Activities at Onset: Rest Context: Home <Leticia Raymond - Last Filed: 10/10/18 11:11> - General Chief Complaint: Weakness/Neurological Deficit Time Seen by Provider: 10/05/18 14:34 Past Medical History - Provider Review Nursing Documentation Reviewed: Yes - Travel History Have you recently traveled outside [place] w/in the past 3 mons?: No <Awais Otto - Last Filed: 10/07/18 18:11> - Provider Review Nursing Documentation Reviewed: Yes - Travel History Have you recently traveled outside [place] w/in the past 3 mons?: No - Past History Past History: No Previous - Infectious Disease Hx of Infectious Diseases: None - Tetanus Immunization Tetanus Immunization: Unknown - Cardiac Hx Cardiac Disorders: Yes Hx Hypertension: Yes - Pulmonary Hx Respiratory Disorders: Yes Hx Chronic Obstructive Pulmonary Disease (COPD): Yes - Neurological Hx Neurological Disorder: Yes Other/Comment: neuropathy - HEENT Hx HEENT Disorder: Yes Hx Cataracts: Yes (LEFT WITH BLURRY VISION) Hx Glaucoma: Yes (RIGHT EYE) - Renal Hx Renal Disorder: No - Endocrine/Metabolic Hx Endocrine Disorders: Yes Hx Diabetes Mellitus Type 2: Yes Hx Hypothyroidism: Yes - Hematological/Oncological Hx Blood Disorders: No - Integumentary Hx Dermatological Disorder: No - Musculoskeletal/Rheumatological Hx Musculoskeletal Disorders: Yes Hx Falls: Yes (08-11-17) Other/Comment: neuropathy - Gastrointestinal Hx Gastrointestinal Disorders: Yes (ACUTE COLITIS) - Genitourinary/Gynecological Hx Genitourinary Disorders: No - Psychiatric Hx Anxiety: Yes Hx Depression: Yes Hx Substance Use: No - Surgical History Hx Appendectomy: Yes Hx Cholecystectomy: Yes Other/Comment: Colon tumor removal (benign) - Anesthesia Hx Anesthesia: Yes Hx Anesthesia Reactions: No Hx Malignant Hyperthermia: No - Suicidal Assessment Feels Threatened In Home Enviroment: No <Leticia Raymond - Last Filed: 10/10/18 11:11> Family/Social History - Physician Review Nursing Documentation Reviewed: Yes Family/Social History: Unknown Family HX Smoking Status: Former Smoker Hx Alcohol Use: No Hx Substance Use: No Hx Substance Use Treatment: No <Leticia Raymond - Last Filed: 10/10/18 11:11> Allergies/Home Meds <Awais Otto - Last Filed: 10/07/18 18:11> <Leticia Raymond - Last Filed: 10/10/18 11:11> Allergies/Adverse Reactions: Allergies No Known Allergies Allergy (Verified 10/08/18 23:22) Home Medications: Home Meds Medication Instructions Recorded Confirmed RX: Metoprolol Succinate 25 mg PO DAILY 10/04/12 10/08/18 Insulin Detemir [Levemir] 15 unit SC HS #0 09/23/18 10/08/18 Enoxaparin [Lovenox] 40 mg SQ DAILY 10/08/18 10/08/18 Insulin Human Regular-MED [HumuLIN See Protocol SC ACHS 10/08/18 10/08/18 R MED] Ondansetron [Zofran Inj] 4 mg IVP Q4H PRN 10/08/18 10/08/18 Pantoprazole [Protonix] 40 mg PO 0600 10/08/18 10/08/18 RX: DULoxetine [Cymbalta] 40 mg PO DAILY 10/08/18 10/08/18 Review of Systems - Review of Systems Systems not reviewed;Unavailable: Altered Mental Status (Code stroke patient having difficulty answering questions) <Leticia Raymond - Last Filed: 10/10/18 11:11> Physical Exam Vital Signs Temp Pulse Resp BP Pulse Ox 10/05/18 14:29 98.4 F 69 19 130/85 95 - Systems Exam Head: Present: Other Pupils: Present: PERRL Extroacular Muscles: Present: EOMI Conjunctiva: Present: Normal Mouth: Present: Dry Neck: Present: Normal Range of Motion Respiratory/Chest: Present: Clear to Auscultation Cardiovascular: Present: Regular Rate and Rhythm, Normal S1, S2 Abdomen: Present: Normal Bowel Sounds Neurological: Present: GCS=15, Other (Slurred speech. R sided facial droop. RUE weakness noted. ) Skin: Present: Warm, Dry Psychiatric: Present: Alert <Awais Otto - Last Filed: 10/07/18 18:11> Vital Signs Temp Pulse Resp BP Pulse Ox 10/05/18 14:29 98.4 F 69 19 130/85 95 Temperature: Afebrile Blood Pressure: Normal Pulse: Regular Respiratory Rate: Normal Appearance: Positive for: Well-Appearing, Non-Toxic, Comfortable Pain Distress: None Mental Status: Positive for: Confused. No: Alert and Oriented X 3 - Systems Exam Pupils: Present: PERRL Extroacular Muscles: Present: EOMI Conjunctiva: Present: Normal Mouth: Present: Dry Neck: Present: Normal Range of Motion Respiratory/Chest: Present: Clear to Auscultation Cardiovascular: Present: Regular Rate and Rhythm, Normal S1, S2 Abdomen: Present: Normal Bowel Sounds. No: Tenderness, Peritoneal Signs Neurological: Present: GCS=15, Other Skin: Present: Warm, Dry Psychiatric: Present: Alert <RaymondLeticia olivarez - Last Filed: 10/10/18 11:11> Medical Decision Making ED Course and Treatment: 10/05/18 16:36 Impression 88 y/o F w/ h/o HTN presenting with new onset R sided facial droop and dysarthria NIHSS: 7 Differential Diagnosis Includes But Is Not Limited To: --CVA/TIA Plan --Labs --CXR --CTH --CT Angio Head/Neck --Aspirin --UA --Neurology Consult Progress Notes 10/05/18 15:15 CODE STROKE called. Patient taken to CT. 10/05/18 15:[address] Brown(radiologist) whom after reviewing CTH/CT angio of head and neck , states there is periventricular white matter prominence with lacunar type infarcts seen within the garcia radiata. However, patient is NOT a candidate for tPA due to duration of symptoms. 10/05/18 16:42 Labs reviewed with no leukocytosis noted. CXR shows no evidence of focal consolidation or pulmonary infiltrates Spoke to Dr. Lugo(medical service) who accepts patient onto his service. He requests medical planner to be called. 10/05/18 17:08 Spoke to medical planner who will come down to see the patient. - Lab Interpretations Lab Results: PT 11.9 SECONDS (9.4-12.5) 10/05/18 15:57 INR 1.04 10/05/18 15:57 APTT 36.2 Seconds (25.1-36.5) 10/05/18 15:57 - RAD Interpretation Radiology Orders: 10/05/18 15:06 CTA HEAD/NECK CODE STROKE [CT] Stat HEAD W/O (CODE STROKE) [CT] Stat CHEST PORTABLE [RAD] Stat - Medication Orders Current Medication Orders: Sodium Chloride (Sodium Chloride 0.9%) 1,000 mls @ 100 mls/hr IV .Q10H ISAI Last Admin: 10/05/18 15:56 Dose: 100 mls/hr eMAR Start Stop Document 10/05/18 15:56 HN (Rec: 10/05/18 15:56 HN [id number]) Intravenous Solution Start Date 10/05/18 Start Time 15:56 Discontinued Medications Aspirin (Aspirin Supp) 300 mg RC STAT STA Stop: 10/05/18 15:43 Last Admin: 10/05/18 15:56 Dose: 300 mg <Awais Otto - Last Filed: 10/07/18 18:11> - RAD Interpretation Radiology Orders: 10/05/18 15:06 CTA HEAD/NECK CODE STROKE [CT] Stat HEAD W/O (CODE STROKE) [CT] Stat CHEST PORTABLE [RAD] Stat - Medication Orders Current Medication Orders: Sodium Chloride (Sodium Chloride 0.9%) 1,000 mls @ 100 mls/hr IV .Q10H ISAI <Leticia Raymond - Last Filed: 10/10/18 11:11> rTPA Inclusion/Exclusion - Inclusion Criteria for Altepase The Clinical Diagnosis of Ischemic Stroke That is Causing a Potentially Disabling Neurological Deficit: Yes Risk/Benefit Discussed With Patient/Family Member Present: No - Warning to TPA With Conditions Following Conditions Weighed Against Anticipated Benefit: Yes <Awais Otto - Last Filed: 10/07/18 18:11> - Refusal of Treatment Patient Refused Treatment: No - Inclusion Criteria for Altepase Patient is 18 years or Older: Yes Time of Onset is Well Established to be Less Than 270 Minute Before Treatment Would Begin: No - Exclusion Criteria for Altepase Uncontrolled Hypertension at Time of Treatment (Systolic BP above 185 or Diastolic BP above 110 mmHg): No - Warning to TPA With Conditions Additional Condition (For 3-4.5 Hour Window): Age Greater Than 80 <Leticia Raymond - Last Filed: 10/10/18 11:11> NIHSS Stroke Scale 3 - Date/Time Evaluation Performed Date Performed: 10/05/18 Time Performed: 15:19 When Was NIHSS Performed: Baseline - How Severe is the Stroke Level of Consciousness: 0=Alert LOC to Questions: 2=Neither correct LOC to commands: 0=Obeys both correctly Best Gaze: 0=Normal Visual: 0=No visual loss Facial: 2=Partial (lower face paralysis) Motor Arm - Left: 0=No drift Motor Arm - Right: 0=No drift Motor Leg - Left: 0=No drift Motor Leg - Right: 0=No drift Limb Ataxia: 1=Present Upper or Lower Sensory: 0=Normal Best Language: 1=Mild to moderate aphasia Dysarthia: 1=Mild to moderate slurring Extinction & Inattention (Neglect): 0=Normal, no object Score: 7 <Melissa Raymondah - Last Filed: 10/10/18 11:11> Disposition/Present on Arrival - Present on Arrival Any Indicators Present on Arrival: No - Disposition Have Diagnosis and Disposition been Completed?: Yes Disposition Time: 16:42 Patient Plan: Admission <Awais Otto - Last Filed: 10/07/18 18:11> - Present on Arrival History of DVT/PE: No History of Uncontrolled Diabetes: No Urinary Catheter: No History of Decub. Ulcer: No History Surgical Site Infection Following: None <Leticia Raymond - Last Filed: 10/10/18 11:11> - Disposition Diagnosis: CVA (cerebral vascular accident) Disposition: HOSPITALIZED Patient Problems: Current Active Problems Problem Status Onset DVT prophylaxis Acute Condition: GUARDED
--- NOTE | 2018-10-05 15:42 | CT ---
Date of service: 10/05/2018 PROCEDURE: CT HEAD WITHOUT CONTRAST. HISTORY: Code Stroke COMPARISON: 10/05/2018 TECHNIQUE: Axial computed tomography images were obtained through the head/brain without intravenous contrast. Radiation dose: Total exam DLP = 893.72 mGy-cm. This CT exam was performed using one or more of the following dose reduction techniques: Automated exposure control, adjustment of the mA and/or kV according to patient size, and/or use of iterative reconstruction technique. FINDINGS: HEMORRHAGE: No intracranial hemorrhage. BRAIN: No mass effect or edema. There is an area of hypodensity in the left garcia radiata and basal ganglia measuring 13 mm. This has a more well-defined appearance than on the earlier study. This is consistent with an acute infarct. VENTRICLES: Unremarkable. No hydrocephalus. CALVARIUM: Unremarkable. PARANASAL SINUSES: Unremarkable as visualized. No significant inflammatory changes. MASTOID AIR CELLS: Unremarkable as visualized. No inflammatory changes. OTHER FINDINGS: Findings were discussed with Dr. Otto at 3:37 p.m. IMPRESSION: There is an area of hypodensity in the left garcia radiata and basal ganglia measuring 13 mm. This has a more well-defined appearance than on the earlier study. This is consistent with an acute infarct.
--- NOTE | 2018-10-05 15:46 | RAD ---
Date of service: 10/05/2018 HISTORY: Code Stroke COMPARISON: 09/23/2018 FINDINGS: LUNGS: No active pulmonary disease. PLEURA: No significant pleural effusion identified, no pneumothorax apparent. CARDIOVASCULAR: No aortic atherosclerotic calcification present. Normal cardiac size. No pulmonary vascular congestion. OSSEOUS STRUCTURES: No significant abnormalities. VISUALIZED UPPER ABDOMEN: Normal. OTHER FINDINGS: None. IMPRESSION: No active disease.
[2018-10-05] MEDS: Sodium Chloride 0.9% 1,000 ML IV SCH (15:56)
--- NOTE | 2018-10-05 15:57 | CT ---
Date of service: 10/05/2018 PROCEDURE: CT Angiography of the neck with contrast HISTORY: r sided facial droop COMPARISON: None. TECHNIQUE: Contiguous axial images of the neck were obtained from the level of the skull-base to the superior mediastinum in the arteriographic phase of enhancement. Coronal and sagittal reformats or also generated. IV contrast dose: 100 cc of Omni 350 Radiation dose: Total exam DLP = 555.86 mGy-cm. This CT exam was performed using one or more of the following dose reduction techniques: Automated exposure control, adjustment of the mA and/or kV according to patient size, and/or use of iterative reconstruction technique. FINDINGS: RIGHT CAROTID ARTERIES: Common Carotid Artery: Normal. Carotid Bifurcation: Normal. Internal Carotid Artery:Normal. External Carotid Artery (proximal branches): Normal. LEFT CAROTID ARTERIES: Common Carotid Artery: Normal. Carotid Bifurcation: Normal. Internal Carotid Artery:Normal. External Carotid Artery (proximal branches): Normal. VERTEBRAL ARTERIES: Right Vertebral Artery: Normal. Left Vertebral Artery: Normal. OTHER FINDINGS: no aortic atherosclerotic calcification or mural plaque present. IMPRESSION: No evidence of stenosis or occlusion CT Angiography of the Brain. HISTORY: r sided facial droop COMPARISON: Earlier noncontrast CT same day TECHNIQUE: CT angiography of the intracranial arteries was performed. Coronal and sagittal maximum intensity projection reformated images were generated. Radiation dose: Total exam DLP = 555.86 mGy-cm. This CT exam was performed using one or more of the following dose reduction techniques: Automated exposure control, adjustment of the mA and/or kV according to patient size, and/or use of iterative reconstruction technique. FINDINGS: INTERNAL CEREBRAL ARTERIES: Unremarkable. The skull base, petrous, cavernous and supraclinoid segments are bilaterally widely patent. ANTERIOR CEREBRAL ARTERIES: Unremarkable. A1 and A2 segments are widely patent. Smaller distal branches unremarkable, as visualized. MIDDLE CEREBRAL ARTERIES: Unremarkable. M1 and M2 segments are widely patent. Perisylvian branches grossly symmetric. POSTERIOR CIRCULATION: Basilar Artery: Unremarkable. Distal Vertebral Arteries: Unremarkable. Posterior Cerebral Arteries: Unremarkable. Posterior Inferior Cerebellar Arteries: Unremarkable. ANEURYSM/ VASCULAR MALFORMATIONS: None. OTHER FINDINGS: None. IMPRESSION: Unremarkable CT Angiography of the Brain.
[2018-10-05 15:59] LABS: BASO # 0.02 K/mm3 (0.0-2.0); BASO % 0.3 % (0.0-3.0); EOS # 0.1 (0.0-0.7); EOS % 1.2 % (1.5-5.0); GRAN # 3.86 (1.4-6.5); GRAN % 66.6 % (50.0-68.0); HEMOGLOBIN 14.1 g/dL (12.0-16.0); LYMPH # 1.3 (1.2-3.4); LYMPH % 22.1 % (22.0-35.0); MEAN CELL VOLUME 94.8 fl (80.0-105.0); MEAN CORPUSCULAR HEMOGLOBIN 31.7 pg (25.0-35.0); MEAN CORPUSCULAR HGB CONC 33.4 g/dl (31.0-37.0); MEAN PLATELET VOLUME 10.9 fl (7.0-11.0); MONO # 0.6 (0.1-0.6); MONO % 9.8 % (1.0-6.0); RBC 4.45 10^6/uL (3.5-6.1); RED CELL DISTRIBUTION WIDTH 12.8 % (11.5-14.5); WHITE BLOOD COUNT 5.8 10^3/uL (4.5-11.0)
[2018-10-05 16:10] LABS: INR 1.04; PARTIAL THROMBOPLASTIN TIME 36.2 Seconds (25.1-36.5); PROTHROMBIN TIME 11.9 SECONDS (9.4-12.5)
[2018-10-05 16:29] LABS: ALB/GLOB RATIO 1.2 (1.1-1.8); ALBUMIN 4.1 g/dL (3.0-4.8); ALT/SGPT 51 U/L (7-56); AST/SGOT 53 U/L (14-36); BLOOD UREA NITROGEN 22 mg/dL (7-21); CALCIUM 9.8 mg/dL (8.4-10.5); GFR NON-AFRICAN AMERICAN > 60; HDL CHOLESTEROL 35 mg/dL (29-60)
[2018-10-05 16:38] LABS: LDL CHOLESTEROL 106 mg/dL (0-129)
[2018-10-05 16:41] LABS: TROPONIN I < 0.01 ng/mL
--- NOTE | 2018-10-05 17:36 | CARD ---
APPROVED REPORT Date of service: 10/05/2018 EKG Measurement Heart [id number] <Conclusion> Poor data quality, interpretation may be adversely affected Normal sinus rhythm Nonspecific T wave abnormality Abnormal ECG
--- NOTE | 2018-10-05 18:20 | CP.PCM.HP ---
History of Present Illness - History of Present Illness History of Present Illness: Jarek Aleman PGY1, History and Physical for Dr Lugo Pt is an 88 yo female with a PMH of HTN, HLD, DM, hypothyroid, glaucoma, and colon cancer who presented [facility] ED complaining of anxiety, during her hospital stay in the psyc unit, she was taken to the ED for shuffling gait, right sided facial droop, and confusion. Pt is not oriented, she states [place] is president, the year is 1989, and she is unsure of where she is. Pt has no other complaints. From speaking with nurses and chart review, pt has declined from her baseline mentation and also coordination. PMH: HTN, HLD, DM, hypothyroidism PSH: appendectomy, cholecystectomy FH: unobtainable SH: 10 pack year, quit 30 years ago, denies alcohol or illicit drugs Allergies: denies Present on Admission - Present on Admission Any Indicators Present on Admission: No Review of Systems - Review of Systems Review of Systems: a 12 point ROS was obtained and added to the HPI where appropriate Past Patient History - Infectious Disease Hx of Infectious Diseases: None - Tetanus Immunizations Tetanus Immunization: Unknown - Past Social History Smoking Status: Former Smoker - CARDIAC Hx Cardiac Disorders: Yes Hx Hypertension: Yes - PULMONARY Hx Respiratory Disorders: Yes Hx Chronic Obstructive Pulmonary Disease (COPD): Yes - NEUROLOGICAL Hx Neurological Disorder: Yes Other/Comment: neuropathy - HEENT Hx HEENT Problems: Yes Hx Cataracts: Yes (LEFT WITH BLURRY VISION) Hx Glaucoma: Yes (RIGHT EYE) - RENAL Hx Chronic Kidney Disease: No - ENDOCRINE/METABOLIC Hx Endocrine Disorders: Yes Hx Diabetes Mellitus Type 2: Yes Hx Hypothyroidism: Yes - HEMATOLOGICAL/ONCOLOGICAL Hx Blood Disorders: No - INTEGUMENTARY Hx Dermatological Problems: No - MUSCULOSKELETAL/RHEUMATOLOGICAL Hx Musculoskeletal Disorders: Yes Hx Falls: Yes (08-11-17) Other/Comment: neuropathy - GASTROINTESTINAL Hx Gastrointestinal Disorders: Yes (ACUTE COLITIS) - GENITOURINARY/GYNECOLOGICAL Hx Genitourinary Disorders: No - PSYCHIATRIC Hx Anxiety: Yes Hx Depression: Yes Hx Substance Use: No - SURGICAL HISTORY Hx Appendectomy: Yes Hx Cholecystectomy: Yes Other/Comment: Colon tumor removal (benign) - ANESTHESIA Hx Anesthesia: Yes Hx Anesthesia Reactions: No Hx Malignant Hyperthermia: No Meds Allergies/Adverse Reactions: Allergies Allergy/AdvReac Type Severity Reaction Status Date / Time No Known Allergies Allergy Verified 10/05/18 14:34 Physical Exam - Head Exam Additional comments: right sided facial droop - Eye Exam Eye Exam: EOMI Pupil Exam: PERRL - ENT Exam ENT Exam: Mucous Membranes Moist - Neck Exam Neck exam: Positive for: Full Rom - Respiratory Exam Respiratory Exam: Clear to Auscultation Bilateral, NORMAL BREATHING PATTERN. absent: Accessory Muscle Use, Respiratory Distress - Cardiovascular Exam Cardiovascular Exam: RRR, +S1, +S2. absent: Diastolic murmur, Systolic Murmur - GI/Abdominal Exam GI & Abdominal Exam: Normal Bowel Sounds, Soft - Extremities Exam Extremities exam: Positive for: full ROM, pedal pulses present. Negative for: calf tenderness, pedal edema - Neurological Exam Neurological exam: Alert Additional comments: pt only oriented to self right sided facial droop mild ataxia for finger to nose right arm muscle strength equal all 4 extremities - Psychiatric Exam Psychiatric exam: Normal Affect, Normal Mood - Skin Skin Exam: Dry, Intact, Warm Results - Vital Signs Recent Vital Signs: Last Vital Signs Temp 98.1 F 10/05/18 16:49 Pulse 60 10/05/18 16:49 Resp 21 10/05/18 16:49 BP 162/74 H 10/05/18 16:49 Pulse Ox 96 10/05/18 16:49 - Labs Result Diagrams: 10/05/18 15:57 10/05/18 15:57 Labs: Laboratory Results - last 24 hr 10/05/18 10/05/18 10/05/18 15:57 15:57 15:57 WBC 5.8 D RBC 4.45 Hgb 14.1 Hct 42.2 MCV 94.8 MCH 31.7 MCHC 33.4 RDW 12.8 Plt Count 218 MPV 10.9 Gran % 66.6 Lymph % (Auto) 22.1 [place] % (Auto) 9.8 H Eos % (Auto) 1.2 L Baso % (Auto) 0.3 Gran # 3.86 Lymph # (Auto) 1.3 [place] # (Auto) 0.6 Eos # (Auto) 0.1 Baso # (Auto) 0.02 PT 11.9 INR 1.04 APTT 36.2 Sodium 139 Potassium 5.0 Chloride 100 Carbon Dioxide 30 Anion Gap 14 BUN 22 H Creatinine 0.7 Est GFR ( Amer) > 60 Est GFR (Non-Af Amer) > 60 POC Glucose (mg/dL) Random Glucose 242 H Calcium 9.8 Total Bilirubin 0.7 AST 53 H D ALT 51 Alkaline Phosphatase 208 H D Troponin I < 0.01 Total Protein 7.5 Albumin 4.1 Globulin 3.3 Albumin/Globulin Ratio 1.2 Triglycerides 122 Cholesterol 164 LDL Cholesterol Direct 106 HDL Cholesterol 35 Blood Type Antibody Screen BBK History Checked 10/05/18 10/05/18 15:58 16:06 WBC RBC Hgb Hct MCV MCH MCHC RDW Plt Count MPV Gran % Lymph % (Auto) [place] % (Auto) Eos % (Auto) Baso % (Auto) Gran # Lymph # (Auto) [place] # (Auto) Eos # (Auto) Baso # (Auto) PT INR APTT Sodium Potassium Chloride Carbon Dioxide Anion Gap BUN Creatinine Est GFR ( Amer) Est GFR (Non-Af Amer) POC Glucose (mg/dL) 231 H Random Glucose Calcium Total Bilirubin AST ALT Alkaline Phosphatase Troponin I Total Protein Albumin Globulin Albumin/Globulin Ratio Triglycerides Cholesterol LDL Cholesterol Direct HDL Cholesterol Blood Type A POSITIVE Antibody Screen Negative BBK History Checked No verified bt Assessment & Plan - Assessment and Plan (Free Text) Assessment: Pt is an 88 yo female with a PMH of HTN, HLD, DM, hypothyroid, glaucoma, and colon cancer who presented [facility] ED complaining of anxiety, during her hospital stay in the psyc unit, she was taken to the ED for shuffling gait, right sided facial droop, and confusion. Plan: CVA - code stroke called - EKG no signs of ischemia or a-fib - CT Head: area of hypodensity in the left garcia radiata and basal ganglia measuring 13mm. More well defined appearance than an earlier study. This is consistent with an acute infarct. - MRA head: Unremarkable CT angio of the brain - MRI head follow up - Neuro checks - carotid doppler follow up - admit to tele - ASA - lipitor 80mg - ECHO follow up - INR 1.04 - trop negative - Cardio consulted, Dr Navas - Neuro consulted, [place] HTN - allow permissive hypertension HLD - lipid panel: trig 122, TC 164, LDL 106, HDL 35 - lipitor DM - SSI Hypothyroidism - TSH follow up Ppx - lovenox - protonix Pt seen, examined, assessment and plan discussed with Dr Brittney Aleman PGY1 - Date & Time Date: 10/05/18 Time: 19:07
[2018-10-05 21:24] LABS: TROPONIN I < 0.01 ng/mL
[2018-10-05] MEDS: Insulin Reg-MEDIUM-Coverage SC SCH (22:30)
[2018-10-06] MEDS ORDERED: Labetalol 5mg/ml (4ml) IVP ONE (00:38)
--- NOTE | 2018-10-06 01:02 | CP.PCM.PN ---
<Asia Mccauley - Last Filed: 10/06/18 00:55> Subjective - Date & Time of Evaluation Date of Evaluation: 10/06/18 Time of Evaluation: 00:55 - Subjective Subjective: PGY-[address] Ventura CC: BP 180/70. S: Pt was admitted for acute ischemic stroke. No TPA. Denies KHANNA, change of vision, KHANNA, CP, SOB, dizziness O: HEENT: EOMI, non-icteric Card: regular s1 s2 pulm: CTA b/l Neuro: AAOx1. able to make needs known. move all extremities equally, sensation grossly intact. R nasal-labile flattening with facial droop. slurr of speech A: elevated blood pressure in the setting of acute ischemic stroke P: labetalol IV x 1 per "BP stroke" protocol Objective - Vital Signs/Intake and Output Vital Signs (last 24 hours): Temp Pulse Resp BP Pulse Ox 98.1 F 59 L 18 180/70 H 98 10/05/18 16:49 10/05/18 20:48 10/05/18 20:48 10/06/18 00:29 10/05/18 20:48 - Medications Medications: Current Medications Acetaminophen (Tylenol 325mg Tab) 650 mg PO Q6 PRN PRN Reason: TEMP>=99.5F Acetaminophen (Tylenol 650 Mg Supp) 650 mg RC Q6H PRN PRN Reason: TEMP>=99.5F Aspirin (Ecotrin) 81 mg PO DAILY [facility] Atorvastatin Calcium (Lipitor) 80 mg PO DIN [facility] Last Admin: 10/05/18 20:41 Dose: Not Given Duloxetine HCl (Cymbalta) 30 mg PO DAILY [facility] Enoxaparin Sodium (Lovenox) 40 mg SC DAILY [facility]; Protocol Sodium Chloride (Sodium Chloride 0.9%) 1,000 mls @ 100 mls/hr IV .Q10H [facility] Last Admin: 10/05/18 15:56 Dose: 100 mls/hr Insulin Human Regular (Humulin R Med) 0 units SC ACHS [facility]; Protocol Last Admin: 10/05/18 22:30 Dose: Not Given Metoprolol Succinate (Toprol Xl) 25 mg PO DAILY [facility] Ondansetron HCl (Zofran Inj) 4 mg IVP Q4H PRN PRN Reason: Nausea/Vomiting Pantoprazole Sodium (Protonix Ec Tab) 40 mg PO 0600 [facility] Pantoprazole Sodium (Protonix Ec Tab) 40 mg PO 0600 [facility] Zaleplon (Sonata) 5 mg PO HS PRN PRN Reason: Insomnia - Labs Labs: 10/05/18 15:57 10/05/18 15:57 PT 11.9 SECONDS (9.4-12.5) 10/05/18 15:57 INR 1.04 10/05/18 15:57 APTT 36.2 Seconds (25.1-36.5) 10/05/18 15:57 <Stanley Ventura - Last Filed: 10/06/18 02:07> Objective - Vital Signs/Intake and Output Vital Signs (last 24 hours): Temp Pulse Resp BP Pulse Ox 98.1 F 63 18 137/60 98 10/05/18 16:49 10/06/18 01:30 10/05/18 22:00 10/06/18 01:30 10/05/18 20:48 - Medications Medications: Current Medications Acetaminophen (Tylenol 325mg Tab) 650 mg PO Q6 PRN PRN Reason: TEMP>=99.5F Acetaminophen (Tylenol 650 Mg Supp) 650 mg RC Q6H PRN PRN Reason: TEMP>=99.5F Aspirin (Ecotrin) 81 mg PO DAILY [facility] Atorvastatin Calcium (Lipitor) 80 mg PO DIN [facility] Last Admin: 10/05/18 20:41 Dose: Not Given Duloxetine HCl (Cymbalta) 30 mg PO DAILY [facility] Enoxaparin Sodium (Lovenox) 40 mg SC DAILY [facility]; Protocol Sodium Chloride (Sodium Chloride 0.9%) 1,000 mls @ 100 mls/hr IV .Q10H [facility] Last Admin: 10/06/18 01:22 Dose: 100 mls/hr Insulin Human Regular (Humulin R Med) 0 units SC [facility]; Protocol Last Admin: 10/05/18 22:30 Dose: Not Given Metoprolol Succinate (Toprol Xl) 25 mg PO DAILY [facility] Ondansetron HCl (Zofran Inj) 4 mg IVP Q4H PRN PRN Reason: Nausea/Vomiting Pantoprazole Sodium (Protonix Ec Tab) 40 mg PO 0600 [facility] Pantoprazole Sodium (Protonix Ec Tab) 40 mg PO 0600 [facility] Zaleplon (Sonata) 5 mg PO HS PRN PRN Reason: Insomnia - Labs Labs: 10/05/18 15:57 10/05/18 15:57 PT 11.9 SECONDS (9.4-12.5) 10/05/18 15:57 INR 1.04 10/05/18 15:57 APTT 36.2 Seconds (25.1-36.5) 10/05/18 15:57 Attending/Attestation - Attestation I have personally seen and examined this patient.: Yes I have fully participated in the care of the patient.: Yes I have reviewed all pertinent clinical information, including history, physical exam and plan: Yes
[2018-10-06 01:21] LABS: TROPONIN I < 0.01 ng/mL
[2018-10-06] MEDS: Sodium Chloride 0.9% 1,000 ML IV SCH ×3 (01:22→22:15)
[2018-10-06] MEDS ORDERED: Pantoprazole 40 mg EC Tab PO SCH ×2 (06:00)
[2018-10-06 08:11] LABS: BASO # 0.02 K/mm3 (0.0-2.0); BASO % 0.3 % (0.0-3.0); EOS # 0.1 (0.0-0.7); EOS % 1.2 % (1.5-5.0); GRAN # 5.33 (1.4-6.5); GRAN % 72.3 % (50.0-68.0); HEMOGLOBIN 12.2 g/dL (12.0-16.0); LYMPH # 1.2 (1.2-3.4); LYMPH % 15.9 % (22.0-35.0); MEAN CELL VOLUME 93.5 fl (80.0-105.0); MEAN CORPUSCULAR HEMOGLOBIN 30.7 pg (25.0-35.0); MEAN CORPUSCULAR HGB CONC 32.9 g/dl (31.0-37.0); MEAN PLATELET VOLUME 10.6 fl (7.0-11.0); MONO # 0.8 (0.1-0.6); MONO % 10.3 % (1.0-6.0); RBC 3.97 10^6/uL (3.5-6.1); RED CELL DISTRIBUTION WIDTH 12.5 % (11.5-14.5); WHITE BLOOD COUNT 7.4 10^3/uL (4.5-11.0)
[2018-10-06] MEDS: Insulin Reg-MEDIUM-Coverage SC SCH ×4 (08:28→21:40)
[2018-10-06 08:54] LABS: ALB/GLOB RATIO 1.1 (1.1-1.8); ALBUMIN 3.5 g/dL (3.0-4.8); ALT/SGPT 44 U/L (7-56); AST/SGOT 42 U/L (14-36); BLOOD UREA NITROGEN 16 mg/dL (7-21); CALCIUM 9.2 mg/dL (8.4-10.5); GFR NON-AFRICAN AMERICAN > 60
[2018-10-06 09:00] LABS: TROPONIN I < 0.01 ng/mL
[2018-10-06 10:04] LABS: FREE T4 1.76 ng/dL (0.78-2.19); T4 13.2 ug/dL (5.5-11.0)
[2018-10-06 10:17] LABS: T3 1.08 ng/mL (0.97-1.69)
[2018-10-06] MEDS: Metoprolol Succinate 25 mg XL Tab PO SCH ×2 (10:26→15:56)
[2018-10-06] MEDS: Enoxaparin 40 mg Syringe SC SCH (10:28)
--- NOTE | 2018-10-06 11:16 | PN ---
Covering for Dr. Lugo. SUBJECTIVE: The patient was seen and examined at bedside on the telemetry [place]. No acute events overnight. She remains afebrile, hemodynamically stable and clinically unchanged. She has ongoing neurological workup for her acute CVA. OBJECTIVE: VITAL SIGNS: Temperature 97.8, pulse 62, blood pressure 158/76, respiratory rate 16, oxygen saturation 92% on room air. GENERAL: Elderly woman lying in bed in no apparent distress. HEENT: PERRL. EOMI. No scleral icterus. No conjunctival pallor. NECK: No JVD. LUNGS: Clear to auscultation. CARDIOVASCULAR: Regular rate and rhythm. Normal S1 and S2. ABDOMEN: Normoactive bowel sounds. Soft, nontender, nondistended. EXTREMITIES: No edema. NEUROLOGIC: Somnolent but arousable, confused and not answering questions. Motor 4/5 in all extremities. LABORATORY DATA: WBC 7.4 with 72% neutrophils, hemoglobin 12, hematocrit 37, platelets 194. Sodium 140, potassium 3.9, chloride 105, bicarb 27, BUN 16, creatinine 0.5, glucose 185. Troponin < 0.01 x 4 sets. Hemoglobin A1c 9.5. Cholesterol 164, triglycerides 122, LDL 106, HDL 35, TSH 0.55. IMAGING STUDIES: 1. CT of the head without contrast demonstrated hypodensity to the left garcia radiata and basal ganglia consistent with acute CVA. 2. CTA of the head and neck demonstrated no acute pathology. ASSESSMENT: The patient is an 88-year-old woman with a past medical history of hypertension, hyperlipidemia and type 2 diabetes mellitus who was initially admitted to the psychiatric unit for management of anxiety and whose hospital course was complicated by development of right-sided facial droop and confusion who was subsequently transferred to the telemetry [place] for continued management of an acute CVA. PLAN: 1. 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 Neurological evaluation with Dr. Coleman is ongoing. Carotid ultrasonography and MRI of the brain are pending. Continue with medical therapy including Aspirin 81 mg p.o. daily and Lipitor 80 mg p.o. daily. PT/OT evaluation, Speech & Swallow evaluation pending. 2. Hypertension. Continue Toprol XL 25 mg p.o. daily. 3. Hyperlipidemia. Continue Lipitor 80 mg p.o. daily. 4. Type 2 diabetes mellitus, uncontrolled, with most recent A1c of 9.5. Fingersticks remain elevated. Continue medium-dose insulin sliding scale for coverage and we will resume Levemir 15 units SC at bedtime. 5. Anxiety disorder. Continue Duloxetine 30 mg p.o. daily. 6. Glaucoma. 7. History of colon cancer. 8. Prophylaxis. Continue with Protonix for GI prophylaxis and Lovenox for DVT prophylaxis. CODE STATUS: Full code. Dany Monk MD MTDD
--- NOTE | 2018-10-06 14:30 | CP.PCM.CON ---
History of Present Illness - History of Present Illness History of Present Illness: Neurology Consultation Note Consult requested by Dr. Lugo Mrs. Mcgraw is an 88-year-old woman with a past medical history of HTN, HLD, DM, hypothyroid, glaucoma, and colon cancer who presented [facility] ED complaining of anxiety, and was admitted to the psychiatric unit. However, she was noted to also be confused, disoriented, had shuffling gait and was found to have a right facial droop. CT head showed a left basal ganglia subacute infarct. CTA of the head/neck did not show any acute findings. Review of Systems - Review of Systems Systems not reviewed;Unavailable: Altered Mental Status Past Patient History - Infectious Disease Hx of Infectious Diseases: None - Tetanus Immunizations Tetanus Immunization: Unknown - Past Social History Smoking Status: Never Smoked - CARDIAC Hx Cardiac Disorders: Yes Hx Hypertension: Yes - PULMONARY Hx Chronic Obstructive Pulmonary Disease (COPD): Yes - NEUROLOGICAL Hx Neurological Disorder: Yes Other/Comment: neuropathy - HEENT Hx HEENT Problems: Yes Hx Cataracts: Yes (LEFT WITH BLURRY VISION) Hx Glaucoma: Yes (RIGHT EYE) - RENAL Hx Chronic Kidney Disease: No - ENDOCRINE/METABOLIC Hx Diabetes Mellitus Type 2: Yes - HEMATOLOGICAL/ONCOLOGICAL Hx Blood Disorders: No - INTEGUMENTARY Hx Dermatological Problems: No - MUSCULOSKELETAL/RHEUMATOLOGICAL Hx Falls: No - GASTROINTESTINAL Hx Gastrointestinal Disorders: Yes (ACUTE COLITIS) - GENITOURINARY/GYNECOLOGICAL Hx Genitourinary Disorders: No - PSYCHIATRIC Hx Anxiety: Yes Hx Depression: Yes - SURGICAL HISTORY Hx Appendectomy: Yes Hx Cholecystectomy: Yes Other/Comment: Colon tumor removal (benign) - ANESTHESIA Hx Anesthesia: Yes Hx Anesthesia Reactions: No Hx Malignant Hyperthermia: No Meds Allergies/Adverse Reactions: Allergies Allergy/AdvReac Type Severity Reaction Status Date / Time No Known Allergies Allergy Verified 10/05/18 14:34 - Medications Medications: Current Medications Acetaminophen (Tylenol 325mg Tab) 650 mg PO Q6 PRN PRN Reason: TEMP>=99.5F Acetaminophen (Tylenol 650 Mg Supp) 650 mg RC Q6H PRN PRN Reason: TEMP>=99.5F Aspirin (Ecotrin) 81 mg PO DAILY [facility] Last Admin: 10/06/18 10:26 Dose: Not Given Atorvastatin Calcium (Lipitor) 80 mg PO DIN [facility] Last Admin: 10/05/18 20:41 Dose: Not Given Duloxetine HCl (Cymbalta) 40 mg PO DAILY [facility] Enoxaparin Sodium (Lovenox) 40 mg SC DAILY [facility]; Protocol Last Admin: 10/06/18 10:28 Dose: 40 mg Sodium Chloride (Sodium Chloride 0.9%) 1,000 mls @ 100 mls/hr IV .Q10H [facility] Last Admin: 10/06/18 11:38 Dose: Not Given Insulin Detemir (Levemir) 15 unit SC HS [facility] Insulin Human Regular (Humulin R Med) 0 units SC [facility]; Protocol Last Admin: 10/06/18 11:39 Dose: Not Given Metoprolol Succinate (Toprol Xl) 25 mg PO DAILY [facility] Last Admin: 10/06/18 10:26 Dose: Not Given Ondansetron HCl (Zofran Inj) 4 mg IVP Q4H PRN PRN Reason: Nausea/Vomiting Pantoprazole Sodium (Protonix Ec Tab) 40 mg PO 0600 [facility] Last Admin: 10/06/18 07:09 Dose: Not Given Pantoprazole Sodium (Protonix Ec Tab) 40 mg PO 0600 [facility] Last Admin: 10/06/18 07:09 Dose: Not Given Zaleplon (Sonata) 5 mg PO HS PRN PRN Reason: Insomnia Physical Exam - Constitutional Appears: Well - Head Exam Head Exam: ATRAUMATIC, NORMAL INSPECTION, NORMOCEPHALIC - Eye Exam Eye Exam: EOMI, Normal appearance, PERRL Pupil Exam: NORMAL ACCOMODATION, PERRL - ENT Exam ENT Exam: Mucous Membranes Moist, Normal Exam - Neck Exam Neck exam: Positive for: Normal Inspection - Respiratory Exam Respiratory Exam: Clear to Auscultation Bilateral, NORMAL BREATHING PATTERN - Cardiovascular Exam Cardiovascular Exam: REGULAR RHYTHM, +S1, +S2 - GI/Abdominal Exam GI & Abdominal Exam: Normal Bowel Sounds, Soft. absent: Tenderness - Rectal Exam Rectal Exam: Deferred - Extremities Exam Extremities exam: Positive for: normal inspection - Back Exam Back exam: NORMAL INSPECTION - Neurological Exam Neurological exam: Alert, Altered, CN II-XII Intact, Normal Gait, Reflexes Normal Additional comments: Right side pronator drift on exam, but has generalized weakness. - Psychiatric Exam Psychiatric exam: Normal Affect, Normal Mood - Skin Skin Exam: Dry, Intact, Normal Color, Warm Results - Vital Signs Recent Vital Signs: Last Vital Signs Temp 97.8 F 10/06/18 12:03 Pulse 58 L 10/06/18 12:03 Resp 18 10/06/18 12:03 BP 138/65 10/06/18 12:03 Pulse Ox 92 L 10/06/18 05:00 - Labs Result Diagrams: 10/08/18 07:20 10/08/18 08:30 Labs: Laboratory Results - last 24 hr 10/05/18 10/05/18 10/05/18 15:57 15:57 15:57 WBC 5.8 D RBC 4.45 Hgb 14.1 Hct 42.2 MCV 94.8 MCH 31.7 MCHC 33.4 RDW 12.8 Plt Count 218 MPV 10.9 Gran % 66.6 Lymph % (Auto) 22.1 [place] % (Auto) 9.8 H Eos % (Auto) 1.2 L Baso % (Auto) 0.3 Gran # 3.86 Lymph # (Auto) 1.3 [place] # (Auto) 0.6 Eos # (Auto) 0.1 Baso # (Auto) 0.02 PT 11.9 INR 1.04 APTT 36.2 Sodium 139 Potassium 5.0 Chloride 100 Carbon Dioxide 30 Anion Gap 14 BUN 22 H Creatinine 0.7 Est GFR ( Amer) > 60 Est GFR (Non-Af Amer) > 60 POC Glucose (mg/dL) Random Glucose 242 H Hemoglobin A1c Calcium 9.8 Total Bilirubin 0.7 AST 53 H D ALT 51 Alkaline Phosphatase 208 H D Total Creatine Kinase Troponin I < 0.01 Total Protein 7.5 Albumin 4.1 Globulin 3.3 Albumin/Globulin Ratio 1.2 Triglycerides 122 Cholesterol 164 LDL Cholesterol Direct 106 HDL Cholesterol 35 Vitamin B12 25-OH Vitamin D Total Folate Free T4 Thyroxine (T4) Total T3 TSH 3rd Generation Blood Type Blood Type Confirm Antibody Screen BBK History Checked 10/05/18 10/05/18 10/05/18 15:57 15:58 16:06 WBC RBC Hgb Hct MCV MCH MCHC RDW Plt Count MPV Gran % Lymph % (Auto) [place] % (Auto) Eos % (Auto) Baso % (Auto) Gran # Lymph # (Auto) [place] # (Auto) Eos # (Auto) Baso # (Auto) PT INR APTT Sodium Potassium Chloride Carbon Dioxide Anion Gap BUN Creatinine Est GFR ( Amer) Est GFR (Non-Af Amer) POC Glucose (mg/dL) 231 H Random Glucose Hemoglobin A1c 9.5 H Calcium Total Bilirubin AST ALT Alkaline Phosphatase Total Creatine Kinase Troponin I Total Protein Albumin Globulin Albumin/Globulin Ratio Triglycerides Cholesterol LDL Cholesterol Direct HDL Cholesterol Vitamin B12 25-OH Vitamin D Total Folate Free T4 Thyroxine (T4) Total T3 TSH 3rd Generation Blood Type A POSITIVE Blood Type Confirm Antibody Screen Negative BBK History Checked No verified bt 10/05/18 10/05/18 10/05/18 20:00 20:59 20:59 WBC RBC Hgb Hct MCV MCH MCHC RDW Plt Count MPV Gran % Lymph % (Auto) [place] % (Auto) Eos % (Auto) Baso % (Auto) Gran # Lymph # (Auto) [place] # (Auto) Eos # (Auto) Baso # (Auto) PT INR APTT Sodium Potassium Chloride Carbon Dioxide Anion Gap BUN Creatinine Est GFR ( Amer) Est GFR (Non-Af Amer) POC Glucose (mg/dL) Random Glucose Hemoglobin A1c Calcium Total Bilirubin AST ALT Alkaline Phosphatase Total Creatine Kinase 46 Troponin I < 0.01 Total Protein Albumin Globulin Albumin/Globulin Ratio Triglycerides Cholesterol LDL Cholesterol Direct HDL Cholesterol Vitamin B12 301 25-OH Vitamin D Total 34.9 Folate 14.0 Free T4 Thyroxine (T4) Total T3 TSH 3rd Generation 0.55 Blood Type Blood Type Confirm Antibody Screen BBK History Checked 10/05/18 10/06/18 10/06/18 21:49 00:40 07:00 WBC RBC Hgb Hct MCV MCH MCHC RDW Plt Count MPV Gran % Lymph % (Auto) [place] % (Auto) Eos % (Auto) Baso % (Auto) Gran # Lymph # (Auto) [place] # (Auto) Eos # (Auto) Baso # (Auto) PT INR APTT Sodium 140 Potassium 3.9 Chloride 105 Carbon Dioxide 27 Anion Gap 12 BUN 16 Creatinine 0.5 L Est GFR ( Amer) > 60 Est GFR (Non-Af Amer) > 60 POC Glucose (mg/dL) 174 H Random Glucose 185 H Hemoglobin A1c Calcium 9.2 Total Bilirubin 0.7 AST 42 H D ALT 44 Alkaline Phosphatase 174 H Total Creatine Kinase 51 51 Troponin I < 0.01 < 0.01 Total Protein 6.8 Albumin 3.5 Globulin 3.3 Albumin/Globulin Ratio 1.1 Triglycerides Cholesterol LDL Cholesterol Direct HDL Cholesterol Vitamin B12 25-OH Vitamin D Total Folate Free T4 Thyroxine (T4) Total T3 TSH 3rd Generation Blood Type Blood Type Confirm Antibody Screen BBK History Checked 10/06/18 10/06/18 10/06/18 07:12 08:00 08:00 WBC 7.4 D RBC 3.97 Hgb 12.2 Hct 37.1 MCV 93.5 MCH 30.7 MCHC 32.9 RDW 12.5 Plt Count 194 MPV 10.6 Gran % 72.3 H Lymph % (Auto) 15.9 L [place] % (Auto) 10.3 H Eos % (Auto) 1.2 L Baso % (Auto) 0.3 Gran # 5.33 Lymph # (Auto) 1.2 [place] # (Auto) 0.8 H Eos # (Auto) 0.1 Baso # (Auto) 0.02 PT INR APTT Sodium Potassium Chloride Carbon Dioxide Anion Gap BUN Creatinine Est GFR ( Amer) Est GFR (Non-Af Amer) POC Glucose (mg/dL) 186 H Random Glucose Hemoglobin A1c Calcium Total Bilirubin AST ALT Alkaline Phosphatase Total Creatine Kinase Troponin I Total Protein Albumin Globulin Albumin/Globulin Ratio Triglycerides Cholesterol LDL Cholesterol Direct HDL Cholesterol Vitamin B12 25-OH Vitamin D Total Folate Free T4 1.76 Thyroxine (T4) 13.2 H Total T3 1.08 TSH 3rd Generation Blood Type Blood Type Confirm Antibody Screen BBK History Checked 10/06/18 10/06/18 10:00 11:13 WBC RBC Hgb Hct MCV MCH MCHC RDW Plt Count MPV Gran % Lymph % (Auto) [place] % (Auto) Eos % (Auto) Baso % (Auto) Gran # Lymph # (Auto) [place] # (Auto) Eos # (Auto) Baso # (Auto) PT INR APTT Sodium Potassium Chloride Carbon Dioxide Anion Gap BUN Creatinine Est GFR ( Amer) Est GFR (Non-Af Amer) POC Glucose (mg/dL) 195 H Random Glucose Hemoglobin A1c Calcium Total Bilirubin AST ALT Alkaline Phosphatase Total Creatine Kinase Troponin I Total Protein Albumin Globulin Albumin/Globulin Ratio Triglycerides Cholesterol LDL Cholesterol Direct HDL Cholesterol Vitamin B12 25-OH Vitamin D Total Folate Free T4 Thyroxine (T4) Total T3 TSH 3rd Generation Blood Type Blood Type Confirm A POSITIVE Antibody Screen BBK History Checked Assessment & Plan (1) CVA (cerebral vascular accident) Assessment and Plan: The location of the infarct is consistent with small vessel disease. There was no LVO. The patient was not a candidate for IV tPA due to an unknown last normal time. I recommend the followin. Telemetry 2. MRI brain with and without contrast 3. Echocardioram 4. Aspirin 81 mg daily and Plavix 75 mg daily for 21 days, then continue Plavix indefinitely and stop aspirin 5. Fluids with NS at 100 mL/hr 6. Permissive HTN for the next 24 hours (only treat BP that is higher than 220/110 mm Hg) 7. PT/OT eval and treatment 8. Check HbA1c, lipid panel, B12, folate, TSH, homocysteine 9. Lipitor 40 mg daily 10. Case management consult Thank you for this consultation. Status: Acute
[2018-10-06] MEDS: Insulin Detemir 100 units/ml Vial (Levemir) SC SCH (21:44)
--- NOTE | 2018-10-06 23:03 | CON ---
DATE: 10/06/2018 HISTORY OF PRESENT ILLNESS: The patient is an 88-year-old female with a history of depression and anxiety, one prior psych admission in 08/2018 in [facility], and was treated on the psychiatric floor for depression, anxiety, memory issues, confusion, and inability to function independently. The patient was transferred to the medical floor and considered to be psychiatrically stable upon transit to the medical floor, which was done to rule out stroke versus TIA. This provider checks up on the patient today as formality to ensure that she continues to be stable, and she denies any other issues. She still continues to be difficult to understand, but has been tolerating the medications Cymbalta, Sonata that were prescribed to her. There have been no major behavioral issues. She seems to be getting brighter than prior visits with her. No psychosis is noted, and did not present to be an imminent danger to herself or others. LABORATORY DATA: Reviewed. VITAL SIGNS: Reviewed. MEDICATIONS: Reviewed. DIAGNOSES: Depression and generalized anxiety disorder. RECOMMENDATIONS: Cymbalta should be increased to 40 mg daily, which is her discharge dose, and continue with Sonata 5 mg at bedtime p.r.n. Otherwise, Psychiatry will sign off. Moustapha Hernández MD
--- NOTE | 2018-10-07 00:11 | CON ---
DATE: 10/06/2018 CARDIOLOGY CONSULTATION REASON FOR CONSULTATION: Acute CVA. HISTORY OF PRESENT ILLNESS: The patient is an 88-year-old female who has a history of depression and anxiety, who was brought to the emergency room through the psychiatric unit after experiencing weakness and right facial drooping, confusion and gait changes with difficulty to follow commands and also verbal aphasia. Head CT scan revealed an area of hypodensity in the left garcia radiata and basal ganglia measuring 15 mm consistent with acute infarct, and the patient denies any chest pain at this time. SOCIAL HISTORY: Nonsmoker and nondrinker. MEDICATIONS: Cymbalta 40 mg once a day, aspirin 81 mg once a day, Levemir 15 units subcutaneously at bedtime, Lipitor 80 mg once a daily, Lovenox 40 mg subcutaneously twice a day. All oral medications are on hold for now and they include Toprol-XL 25 mg once a day, Protonix 40 mg p.o. once a day, Lipitor 80 mg once a day and aspirin 81 mg once a day. REVIEW OF SYSTEMS: No reported hypotension. Mild bradycardia was reported. The patient denies any chest pain. No reports of nausea or vomiting. PHYSICAL EXAMINATION: GENERAL: The patient is an elderly female, who does not appear to be in acute distress. VITAL SIGNS: Blood pressure 138/65, heart rate 58, temperature 97.8 and respirations 18. HEENT: Loss of right nasolabial fold. NECK: No JVD. CHEST: Clear. HEART: S1 and S2 regular. ABDOMEN: Soft. EXTREMITIES: No edema. LABORATORY DATA: Today's hemoglobin and hematocrit 12.2 and 37.1. White count and platelet counts are within normal limits. Today's SMA-7: Sodium 140, potassium 3.9, chloride 105, CO2 of 27, glucose 185, BUN 16, creatinine 0.5. Two sets of troponin are negative. TSH level is within normal limits. PT/PTT and INR are within normal limits. EKG revealed sinus rhythm at rate of 64, nonspecific T wave abnormality. ASSESSMENT: 1. Acute cerebrovascular accident involving the left garcia radiata and basal ganglia, resolving facial drooping and expressive aphasia. 2. Depression. 3. Diabetes mellitus and hypertension. RECOMMENDATIONS: 1. Resume oral medications including aspirin, Lipitor and Toprol-XL once cleared from the neurological point of view. 2. Continue telemetry monitoring. 3. I would review the echocardiographic study performed today. Oliver Plascencia MD
[2018-10-07] MEDS: Pantoprazole 40 mg Susp UD PO SCH (05:20)
[2018-10-07 07:16] LABS: BASO # 0.03 K/mm3 (0.0-2.0); BASO % 0.4 % (0.0-3.0); EOS # 0.2 (0.0-0.7); GRAN # 4.39 (1.4-6.5); GRAN % 62.1 % (50.0-68.0); HEMOGLOBIN 11.7 g/dL (12.0-16.0); LYMPH # 1.8 (1.2-3.4); LYMPH % 25.3 % (22.0-35.0); MEAN CELL VOLUME 93.9 fl (80.0-105.0); MEAN CORPUSCULAR HEMOGLOBIN 31.1 pg (25.0-35.0); MEAN CORPUSCULAR HGB CONC 33.1 g/dl (31.0-37.0); MEAN PLATELET VOLUME 10.4 fl (7.0-11.0); MONO # 0.7 (0.1-0.6); MONO % 9.2 % (1.0-6.0); RBC 3.76 10^6/uL (3.5-6.1); RED CELL DISTRIBUTION WIDTH 12.8 % (11.5-14.5); WHITE BLOOD COUNT 7.1 10^3/uL (4.5-11.0)
[2018-10-07 07:44] LABS: ALB/GLOB RATIO 1.1 (1.1-1.8); ALBUMIN 3.4 g/dL (3.0-4.8); ALT/SGPT 41 U/L (7-56); AST/SGOT 31 U/L (14-36); BLOOD UREA NITROGEN 13 mg/dL (7-21); CALCIUM 8.8 mg/dL (8.4-10.5); GFR NON-AFRICAN AMERICAN > 60
[2018-10-07] MEDS: Sodium Chloride 0.9% 1,000 ML IV SCH ×2 (07:45→17:25)
[2018-10-07] MEDS: Insulin Reg-MEDIUM-Coverage SC SCH ×4 (08:21→22:19)
[2018-10-07] MEDS: Enoxaparin 40 mg Syringe SC SCH (10:35)
[2018-10-07] MEDS: Metoprolol Succinate 25 mg XL Tab PO SCH (10:36)
--- NOTE | 2018-10-07 12:59 | US ---
PROCEDURE: Bilateral carotid artery duplex ultrasound HISTORY: Carotid stenosis PHYSICIAN(S): Rafi Townsend MD. TECHNIQUE: Duplex sonography and color-flow Doppler were used to evaluate the carotid bifurcations and limited segments of the vertebral arteries bilaterally. The exam is very limited by body habitus and the patient's inability to cooperate FINDINGS: There is mild smooth heterogeneous plaque noted at the carotid bifurcations bilaterally. The peak systolic velocity in the proximal right internal carotid artery is 90 cm/sec. This corresponds to a 20 to 39% proximal right ICA stenosis. Normal systolic velocities are noted in the proximal right external carotid artery. There is antegrade flow in the right vertebral artery. The peak systolic velocity in the proximal left internal carotid artery is 70 cm/sec. This corresponds to a 20 to 39% proximal left ICA stenosis. Normal systolic velocities are noted in the proximal left external carotid artery. There is antegrade flow in the left vertebral artery. IMPRESSION: 1. Bilateral 20-39% proximal ICA stenoses. 2. Antegrade flow in both vertebral arteries.
--- NOTE | 2018-10-07 13:36 | PN ---
Covering for Dr. Lugo. SUBJECTIVE: The patient was seen and examined at bedside on the telemetry [place]. No acute events overnight. She remains afebrile, hemodynamically stable and clinically unchanged. OBJECTIVE: VITAL SIGNS: Temperature 99.1, pulse 65, blood pressure 163/67, respiratory rate 19, oxygen saturation 96% on room air. GENERAL: Elderly woman, lying in bed, in no apparent distress. HEENT: PERRL, EOMI. No scleral icterus. No conjunctival pallor. NECK: No JVD. LUNGS: Clear to auscultation. CARDIOVASCULAR: Regular rate and rhythm. Normal S1 and S2. ABDOMEN: Normoactive bowel sounds. Soft, nontender, nondistended. EXTREMITIES: No edema. NEUROLOGIC: Somnolent but arousable, not answering questions. Motor 4/5 in all extremities. LABORATORY DATA: WBC 7.1 with 62% neutrophils, hemoglobin 11.7, hematocrit 35, platelets 185. Sodium 141, potassium 3.7, chloride 108, bicarb 27, BUN 13, creatinine 0.6, glucose 147. ASSESSMENT: The patient is an 88-year-old woman with a past medical history of hypertension, hyperlipidemia and type 2 diabetes mellitus who was initially admitted to the psychiatric unit for management of anxiety and whose hospital course was complicated by development of right sided facial droop and confusion and who was subsequently transferred to the telemetry [place] for continued management of acute cerebrovascular accident. PLAN: 1. 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 Input from Dr. Virginia grady. Continue with medical therapy consisting of Aspirin 81 mg p.o. daily, Lipitor 80 mg p.o. daily and Plavix 75 mg p.o. daily. PT/OT evaluation and Speech & Swallow evaluation pending. 2. Hypertension. Continue Toprol XL 25 mg p.o. daily. We will allow for permissive hypertension given the patient's acute CVA. 3. Hyperlipidemia. Continue Lipitor 80 mg p.o. daily. 4. Type 2 diabetes mellitus, uncontrolled, with most recent A1c of 9.5. Continue medium-dose insulin sliding scale for coverage and Levemir 15 units SC at bedtime. 5. Anxiety disorder. Continue Duloxetine 30 mg p.o. daily 6. Glaucoma. 7. History of colon cancer. 8. Prophylaxis. Continue Protonix for GI prophylaxis and Lovenox for DVT prophylaxis. CODE STATUS: Full code. Dany Monk MD [facility]
--- NOTE | 2018-10-07 16:13 | PN ---
DATE: 10/07/2018 SUBJECTIVE: The patient is able to articulate her speech reasonably well. She denies any headache. She is able to swallow her food without any choking. No retrosternal chest pain. PHYSICAL EXAMINATION: VITAL SIGNS: Blood pressure 156/71, heart rate 59, temperature 97.9 and respiration 18. HEENT: Loss of right nasolabial fold. CHEST: Clear. HEART: S1 and S2, regular. EXTREMITIES: No edema. LABORATORY DATA: SMA-7; sodium 141, potassium 3.7, chloride 108, CO2 of 27, glucose 147, BUN 15, and creatinine 0.6. Today's hemoglobin and hematocrit 11.7 and 35.3. White count and platelet counts are within normal limits. I did review Dr. Coleman's neurological evaluation and the plan is MRI of the brain with and without contrast to be performed. MEDICATIONS: Aspirin 81 mg daily and Plavix 75 mg days for 21 days and then continue Plavix indefinitely and stop aspirin. ASSESSMENT: 1. Acute cerebrovascular accident involving the left garcia radiata and basal ganglia. 2. Depression. 3. Hypertension and diabetes mellitus. RECOMMENDATIONS: Continue aspirin 81 mg once a day, Lipitor 80 mg once a day, subcutaneous Lovenox at 40 mg once a day, Plavix 75 mg once a day, Protonix 40 mg p.o. once a day, Toprol XL 25 mg once a day. Preliminary review of echo cardiac study revealed normal left atrial size, normal ejection fraction and moderate pulmonary hypertension. Final report is still pending. Oliver Plascencia MD
[2018-10-07] MEDS: Insulin Detemir 100 units/ml Vial (Levemir) SC SCH (22:21)
[2018-10-08 00:09] VITALS: O2SAT 94
--- NOTE | 2018-10-08 03:26 | CP.PCM.PN ---
<Finesse Oliveira - Last Filed: 10/08/18 03:22> Subjective - Date & Time of Evaluation Date of Evaluation: 10/08/18 Time of Evaluation: 03:22 - Subjective Subjective: S: Pt is an 88 yo female with a PMH of HTN, HLD, DM, hypothyroid, glaucoma, and colon cancer who presented [facility] ED complaining of anxiety, during her hospital stay in the psych unit, she was taken to the ED for shuffling gait, right sided facial droop, and confusion. Patient had 6 beats of V-Tach on monitor tech. Patient denies chest pain, SOB, abdominal pain, or any other complaints. O: Vitals stable Gen: resting comfortably in bed, NAD HEENT: PERRLA Lung: CTA B/L Heart: RRR, S1, S2 Abdomen: Soft, NT, ND Extremities: no edema or calf tenderness A: Patient had 6 beats of V-Tach on monitor tech. P: - Stat EKG: Shows NSR - Patient is asymptomatic - Medications reviewed - CBC, CMP, Magnesium - Will continue to monitor Objective - Vital Signs/Intake and Output Vital Signs (last 24 hours): Temp Pulse Resp BP Pulse Ox 98.6 F 64 19 156/64 H 94 L 10/08/18 00:01 10/08/18 02:00 10/08/18 00:01 10/08/18 00:01 10/08/18 00:01 Intake and Output: 10/07/18 10/08/18 18:59 06:59 Intake Total 360 1200 Output Total 550 Balance -190 1200 - Medications Medications: Current Medications Acetaminophen (Tylenol 325mg Tab) 650 mg PO Q6 PRN PRN Reason: TEMP>=99.5F Acetaminophen (Tylenol 650 Mg Supp) 650 mg RC Q6H PRN PRN Reason: TEMP>=99.5F Aspirin (Ecotrin) 81 mg PO DAILY [facility] Last Admin: 10/07/18 10:35 Dose: 81 mg Atorvastatin Calcium (Lipitor) 80 mg PO DIN [facility] Last Admin: 10/07/18 17:24 Dose: 80 mg Clopidogrel Bisulfate (Plavix) 75 mg PO DAILY [facility] Last Admin: 10/07/18 10:36 Dose: 75 mg Duloxetine HCl (Cymbalta) 40 mg PO DAILY [facility] Last Admin: 10/07/18 10:35 Dose: 40 mg Enoxaparin Sodium (Lovenox) 40 mg SC DAILY [facility]; Protocol Last Admin: 10/07/18 10:35 Dose: 40 mg Sodium Chloride (Sodium Chloride 0.9%) 1,000 mls @ 100 mls/hr IV .Q10H [facility] Last Admin: 10/07/18 17:25 Dose: 100 mls/hr Insulin Detemir (Levemir) 15 unit SC HS [facility] Last Admin: 10/07/18 22:21 Dose: 15 units Insulin Human Regular (Humulin R Med) 0 units SC ACHS [facility]; Protocol Last Admin: 10/07/18 22:19 Dose: Not Given Metoprolol Succinate (Toprol Xl) 25 mg PO DAILY [facility] Last Admin: 10/07/18 10:36 Dose: 25 mg Ondansetron HCl (Zofran Inj) 4 mg IVP Q4H PRN PRN Reason: Nausea/Vomiting Pantoprazole Sodium (Protonix Susp) 40 mg PO 0600 [facility] Last Admin: 10/07/18 05:20 Dose: 40 mg Zaleplon (Sonata) 5 mg PO HS PRN PRN Reason: Insomnia - Labs Labs: 10/07/18 06:35 10/07/18 06:35 PT 11.9 SECONDS (9.4-12.5) 10/05/18 15:57 INR 1.04 10/05/18 15:57 APTT 36.2 Seconds (25.1-36.5) 10/05/18 15:57 <Alverto Bruce - Last Filed: 10/08/18 06:36> Objective - Vital Signs/Intake and Output Vital Signs (last 24 hours): Temp Pulse Resp BP Pulse Ox 98.5 F 72 19 169/72 H 94 L 10/08/18 06:00 10/08/18 06:00 10/08/18 06:00 10/08/18 06:00 10/08/18 06:00 Intake and Output: 10/07/18 10/08/18 18:59 06:59 Intake Total 360 2400 Output Total 550 600 Balance -190 1800 - Medications Medications: Current Medications Acetaminophen (Tylenol 325mg Tab) 650 mg PO Q6 PRN PRN Reason: TEMP>=99.5F Acetaminophen (Tylenol 650 Mg Supp) 650 mg RC Q6H PRN PRN Reason: TEMP>=99.5F Aspirin (Ecotrin) 81 mg PO DAILY [facility] Last Admin: 10/07/18 10:35 Dose: 81 mg Atorvastatin Calcium (Lipitor) 80 mg PO DIN [facility] Last Admin: 10/07/18 17:24 Dose: 80 mg Clopidogrel Bisulfate (Plavix) 75 mg PO DAILY [facility] Last Admin: 10/07/18 10:36 Dose: 75 mg Duloxetine HCl (Cymbalta) 40 mg PO DAILY [facility] Last Admin: 10/07/18 10:35 Dose: 40 mg Enoxaparin Sodium (Lovenox) 40 mg SC DAILY [facility]; Protocol Last Admin: 10/07/18 10:35 Dose: 40 mg Sodium Chloride (Sodium Chloride 0.9%) 1,000 mls @ 100 mls/hr IV .Q10H [facility] Last Admin: 10/08/18 04:30 Dose: 100 mls/hr Insulin Detemir (Levemir) 15 unit SC HS [facility] Last Admin: 10/07/18 22:21 Dose: 15 units Insulin Human Regular (Humulin R Med) 0 units SC [facility]; Protocol Last Admin: 10/07/18 22:19 Dose: Not Given Metoprolol Succinate (Toprol Xl) 25 mg PO DAILY [facility] Last Admin: 10/07/18 10:36 Dose: 25 mg Ondansetron HCl (Zofran Inj) 4 mg IVP Q4H PRN PRN Reason: Nausea/Vomiting Pantoprazole Sodium (Protonix Susp) 40 mg PO 0600 [facility] Last Admin: 10/08/18 05:32 Dose: 40 mg Zaleplon (Sonata) 5 mg PO HS PRN PRN Reason: Insomnia - Labs Labs: 10/07/18 06:35 10/07/18 06:35 PT 11.9 SECONDS (9.4-12.5) 10/05/18 15:57 INR 1.04 10/05/18 15:57 APTT 36.2 Seconds (25.1-36.5) 10/05/18 15:57 Attending/Attestation - Attestation Notes (Text): Patient was NOT evaluated by me as I was not called regarding the care of this patient
[2018-10-08] MEDS: Sodium Chloride 0.9% 1,000 ML IV SCH (04:30)
[2018-10-08] MEDS: Pantoprazole 40 mg Susp UD PO SCH (05:32)
[2018-10-08 07:31] LABS: BASO # 0.02 K/mm3 (0.0-2.0); BASO % 0.3 % (0.0-3.0); EOS # 0.2 (0.0-0.7); EOS % 2.2 % (1.5-5.0); GRAN # 5.05 (1.4-6.5); GRAN % 69.6 % (50.0-68.0); HEMOGLOBIN 11.9 g/dL (12.0-16.0); LYMPH # 1.3 (1.2-3.4); LYMPH % 17.2 % (22.0-35.0); MEAN CELL VOLUME 93.9 fl (80.0-105.0); MEAN CORPUSCULAR HEMOGLOBIN 31.6 pg (25.0-35.0); MEAN CORPUSCULAR HGB CONC 33.6 g/dl (31.0-37.0); MEAN PLATELET VOLUME 10.8 fl (7.0-11.0); MONO # 0.8 (0.1-0.6); MONO % 10.7 % (1.0-6.0); RBC 3.77 10^6/uL (3.5-6.1); RED CELL DISTRIBUTION WIDTH 12.5 % (11.5-14.5); WHITE BLOOD COUNT 7.3 10^3/uL (4.5-11.0)
--- NOTE | 2018-10-08 07:58 | CARD ---
APPROVED REPORT Date of service: 10/06/2018 EXAM: Two-dimensional and M-mode echocardiogram with Doppler and color Doppler. INDICATION CVA 2D DIMENSIONS Left Atrium (2D)3.6 (1.6-4.0cm)IVSd1.3 (0.7-1.1cm) LVDd4.4 (3.9-5.9cm)PWd1.3 (0.7-1.1cm) LVDs2.9 (2.5-4.0cm)FS (%) 34.0 % LVEF (%)63.2 (>50%) M-Mode DIMENSIONS Aortic Root2.80 (2.2-3.7cm)Aortic Cusp Exc.1.80 (1.5-2.0cm) Aortic Valve AoV Peak Iynmimka565.0cm/Kandi Peak GR.12mmHg Mitral Valve MV E Dhzluokj466.0cm/sMV A Lklzuncp41.0cm/sE/A ratio1.4 TDI Lateral E' Peak V6.44cm/sMedial E' Peak V7.17cm/sE/Lateral E'17.1 E/Medial E'15.3 Tricuspid Valve TR Peak [id number]/sRAP [id number] Peak Gr.44mmHg [id number] LEFT VENTRICLE The left ventricle is normal size. There is mild concentric left ventricular hypertrophy. The left ventricular function is normal. The left ventricular ejection fraction is within the normal range. There is normal LV segmental wall motion. RIGHT VENTRICLE The right ventricle is normal size. The right ventricular systolic function is normal. ATRIA The left atrium size is normal. The right atrium is mildly dilated. The interatrial septum is intact with no evidence for an atrial septal defect. AORTIC VALVE The aortic valve is mildly to moderately sclerotic. No aortic regurgitation is present. There is no aortic valvular stenosis. MITRAL VALVE Mitral annular calcification is mild. There is no mitral valve regurgitation noted. TRICUSPID VALVE The tricuspid valve is normal in structure. There is moderate tricuspid regurgitation. There is moderate pulmonary hypertension. PULMONIC VALVE The pulmonary valve is normal in structure. There is mild pulmonic valvular regurgitation. GREAT VESSELS The aortic root is normal in size. The IVC is normal in size and collapses >50% with inspiration. PERICARDIAL EFFUSION There is no pleural effusion. There is no pericardial effusion. <Conclusion> Dilated RA. Normal LV size and systolic function. Mild concentric LVH. Moderate TR. Sclerotic aortic valve with no . Moderate pulmonary HTN. No obvious cardiac source of embolus seen, but if clinical suspicion is high, consider YOMI imaging.
[2018-10-08] MEDS: Insulin Reg-MEDIUM-Coverage SC SCH ×3 (08:21→17:53)
[2018-10-08 09:01] LABS: ALB/GLOB RATIO 1.1 (1.1-1.8); ALBUMIN 3.5 g/dL (3.0-4.8); ALT/SGPT 49 U/L (7-56); AST/SGOT 41 U/L (14-36); BLOOD UREA NITROGEN 9 mg/dL (7-21); CALCIUM 8.9 mg/dL (8.4-10.5); GFR NON-AFRICAN AMERICAN > 60
[2018-10-08] MEDS: Enoxaparin 40 mg Syringe SC SCH (09:46)
[2018-10-08] MEDS: Metoprolol Succinate 25 mg XL Tab PO SCH (09:47)
[2018-10-08 12:36] VITALS: RESP 18
--- NOTE | 2018-10-08 12:52 | DS ---
DATE: 10/08/2018 SUBJECTIVE: The patient is seen sitting up in the bed having breakfast in room 277, bed one. Overnight nurse's notes were reviewed. OBJECTIVE: VITAL SIGNS: T-max 98.5. Telemetry shows sinus rhythm. Blood pressure 132/64,169/72, 176/74, 156,71, respirations 19, O2 sat 94, 96 to 97%. Head: Normocephalic, atraumatic. HEENT examination shows pinkish conjunctivae. No oropharyngeal lesion. NECK: No neck rigidity. Questionable soft carotid bruit. CHEST: Kyphosis. LUNGS: Shows occasional anterior upper lung field rhonchi. CARDIOVASCULAR: S1, S2, regular rhythm. Questionable systolic murmur left sternal border, right second intercostal space, left second intercostal space. ABDOMEN: Soft. Positive bowel sound. GENITALIA: Female. RECTAL: Deferred. ABDOMEN: Soft. Positive bowel sound. No palpable hepatosplenomegaly noted. EXTREMITIES: Shows positive NETO stocking. MUSCULOSKELETAL: Shows a body mass index of 29. NEUROLOGIC: Cranial nerves II-XII limited. FINAL IMPRESSION AND PLAN AND DISCHARGE DIAGNOSES 1. LEFT BASAL GANGLIA & LEFT ABREU RADIATA Acute cerebral INFARCT WITH small- vessel MICRO VASCULAR ISCHEMIC disease OF WENDI VENTRICULAR WHITE MATTER. 2. Acute cerebrovascular accident with left abreu radiata and basal ganglia area of hypodensity more well defined than the previous studies consistent with acute cerebrovascular infarct. 3. Questionable right-sided facial droop. 4. Gait dysfunction. 5. Bilateral 20-39% proximal internal carotid artery stenosis. 6. Age-indeterminate lateral infarct. 7. Left ventricular ejection fraction of 63% with concentric left ventricular hypertrophy. 8. Mild mitral annular calcification. 9. Moderate tricuspid regurgitation with moderate pulmonary hypertension with right ventricular systolic pressure of 54 mmHg. 10. Mild mitral annular calcification. 11. Mild pulmonic valvular regurgitation. 12. Gait dysfunction. 13. Deconditioning. 14. Gait dysfunction and facial droop with confusion and dysarthria. 15. Hypertension. 16. Normocytic anemia with granulocytosis. 17. Uncontrolled insulin-requiring diabetes mellitus with hemoglobin A1c of 9.5. 18. History of hyperthyroidism with elevated T4 of 13.2. 19. Uncontrolled insulin-requiring diabetes mellitus with elevated hemoglobin A1c of 9.5 and with fructosamine level of 338. 20. Hypercholesteremia with elevated LDL and decreased HDL. 21. Generalized anxiety disorder and depression. 22. History of generalized anxiety disorder and depression. 23. History of hypothyroidism and 24. History of diabetic neuropathy. 25. Insulin-requiring diabetes mellitus. 26. Hyperlipidemia. 27. Insomnia. 28. History of hypothyroidism. 30. History of glaucoma, history of hearing deficit. 31. History of anxiety and depression. 32. History of chronic obstructive pulmonary disease. 33. History of hyperlipidemia. 34. History of thyroidism with TSH of 0.55 and elevated T4 of 13.2. 35. Moderate oropharyngeal dysphagia with right-sided facial and oral motor weakness and neglect with moderate dysarthria and cognitive deficits and disorientation. PLAN: At this time, the patient is awaiting for the MRI of the brain. Repeat labs ordered. Current consultation, Neurology, Cardiology and Psychiatry. CURRENT MEDICATIONS: The patient is on Cymbalta 40 mg daily Ecotrin 81 mg daily Humulin medium-dose sliding scale coverage a.c. and at bedtime, Levemir 15 units at bedtime, Lipitor 80 mg daily Lovenox 40 mg subcu daily, Plavix 75 mg daily by Neurology, Protonix 40 mg daily, Sonata 5 mg at bedtime p.r.n., Toprol XL 25 mg daily, Tylenol p.r.n., Zofran 4 mg IV every four hours p.r.n. MRI of the brain with and without gadolinium pending. The patient is on heart-healthy diet, occupational therapy, physical therapy ordered. At present, the patient is to be continued on physical therapy, occupational therapy, ambulation therapy, gait training. The patient's further management will be dependent upon the patient's clinical condition, hemodynamic status and as per the patient response to therapeutic intervention as per the patient's diagnostic test results and recommendation by all the physician involved in the care of the patient. PATIENT CLEARED BY NEUROLOGY FOR DISCHARGE TO [facility] PATIENT TO BE DISCHARGED TO [facility] TIME SPENT IN DISCHARGE PROCESS 45 MINUTES. Dictated and electronically signed, not read. Jv Lugo MD [facility]
[2018-10-08] MEDS ORDERED: Gadodiamide 287 MG/ML VIAL (15ML) IV ONE (13:51)
--- NOTE | 2018-10-08 14:16 | MRI ---
Date of service: 10/08/2018 PROCEDURE: MRI BRAIN WITH AND WITHOUT CONTRAST HISTORY: CVA COMPARISON: None available. TECHNIQUE: Multiplanar, multisequence MR images of the brain were obtained with and without intravenous contrast enhancement. 15 cc of Omniscan FINDINGS: HEMORRHAGE: None DWI: There is an acute infarct in the left basal ganglia and garcia radiata measuring 15 x 24 mm. This is best seen on image 15 series 3 and is also seen on FLAIR and T2 imaging.. BRAIN PARENCHYMA: No mass,mass effect or edema. Chronic microvascular changes are seen in the periventricular white matter. ENHANCEMENT: No abnormal intracranial enhancement. VENTRICLES: Unremarkable. No hydrocephalus. CRANIUM: Unremarkable. ORBITS: Grossly unremarkable. PARANASAL SINUSES/MASTOIDS: Clear VASCULAR SYSTEM: Skull base flow voids intact. OTHER FINDINGS: None . IMPRESSION: There is an acute infarct in the left basal ganglia and garcia radiata measuring 15 x 24 mm.
--- NOTE | 2018-10-08 17:30 | CP.PCM.PN ---
<Cam Venegas - Last Filed: 10/08/18 17:31> Subjective - Date & Time of Evaluation Date of Evaluation: 10/08/18 Time of Evaluation: 17:29 - Subjective Subjective: Neurology Progress Note: Patient seen and assessed at bedside. No acute events overnight noted. Patient denies any complaints at this time and 12 point ROS unremarkable. Objective - Vital Signs/Intake and Output Vital Signs (last 24 hours): Temp Pulse Resp BP Pulse Ox 97.9 F 64 18 152/80 H 94 L 10/08/18 12:00 10/08/18 13:52 10/08/18 12:00 10/08/18 13:00 10/08/18 06:00 Intake and Output: 10/08/18 10/08/18 06:59 18:59 Intake Total 2400 Output Total 600 Balance 1800 - Medications Medications: Current Medications Acetaminophen (Tylenol 325mg Tab) 650 mg PO Q6 PRN PRN Reason: TEMP>=99.5F Acetaminophen (Tylenol 650 Mg Supp) 650 mg RC Q6H PRN PRN Reason: TEMP>=99.5F Aspirin (Ecotrin) 81 mg PO DAILY [facility] Last Admin: 10/08/18 09:45 Dose: 81 mg Atorvastatin Calcium (Lipitor) 80 mg PO DIN [facility] Last Admin: 10/07/18 17:24 Dose: 80 mg Clopidogrel Bisulfate (Plavix) 75 mg PO DAILY [facility] Last Admin: 10/08/18 09:44 Dose: 75 mg Duloxetine HCl (Cymbalta) 40 mg PO DAILY [facility] Last Admin: 10/08/18 10:08 Dose: Not Given Enoxaparin Sodium (Lovenox) 40 mg SC DAILY [facility]; Protocol Last Admin: 10/08/18 09:46 Dose: 40 mg Insulin Detemir (Levemir) 15 unit SC HS [facility] Last Admin: 10/07/18 22:21 Dose: 15 units Insulin Human Regular (Humulin R Med) 0 units SC [facility]; Protocol Last Admin: 10/08/18 13:00 Dose: 1 unit Metoprolol Succinate (Toprol Xl) 25 mg PO DAILY [facility] Last Admin: 10/08/18 09:47 Dose: 25 mg Ondansetron HCl (Zofran Inj) 4 mg IVP Q4H PRN PRN Reason: Nausea/Vomiting Pantoprazole Sodium (Protonix Susp) 40 mg PO 0600 [facility] Last Admin: 10/08/18 05:32 Dose: 40 mg Zaleplon (Sonata) 5 mg PO HS PRN PRN Reason: Insomnia - Labs Labs: 10/08/18 07:20 10/08/18 08:30 PT 11.9 SECONDS (9.4-12.5) 10/05/18 15:57 INR 1.04 10/05/18 15:57 APTT 36.2 Seconds (25.1-36.5) 10/05/18 15:57 - Constitutional Appears: No Acute Distress - Head Exam Head Exam: ATRAUMATIC, NORMOCEPHALIC - Eye Exam Eye Exam: EOMI, Normal appearance, PERRL Pupil Exam: NORMAL ACCOMODATION - ENT Exam ENT Exam: Mucous Membranes Moist - Neck Exam Neck Exam: Full ROM - Respiratory Exam Respiratory Exam: NORMAL BREATHING PATTERN - Cardiovascular Exam Cardiovascular Exam: REGULAR RHYTHM - GI/Abdominal Exam GI & Abdominal Exam: Soft, Normal Bowel Sounds. absent: Tenderness - Neurological Exam Neurological Exam: Alert, Awake, CN II-XII Intact, Oriented x3 Neuro motor strength exam: Left Upper Extremity: 4, Right Upper Extremity: 4, Left Lower Extremity: 4, Right Lower Extremity: 4 Additional comments: + Pronator drift of RUE - Psychiatric Exam Psychiatric exam: Normal Affect, Normal Mood - Skin Skin Exam: Dry, Warm Assessment and Plan - Assessment and Plan (Free Text) Assessment: 88 year old female with a past medical history significant for HTN, HLD, DM, hypothyroid, glaucoma, and colon cancer who presented complaining of anxiety. Patient developed stroke like symptoms and a CT head showed a subacute infarct in the left basal ganglia. Plan: -Brain MRI showed acute infarct in the left basal ganglia and garcia radiata -CTA Head and Neck were unremarkable -Continue daily low dose ASA, Plavix and Statin -Continue PT, OT and ST -Further recommendations as per Dr. Coleman Disposition: Patient medically optimized for discharge to rehabilitation facility from a neurological perspective. Patient seen and case discussed with attending, Dr. Coleman. Cam Venegas PGY2 <Markus Coleman - Last Filed: 10/08/18 17:46> Objective - Vital Signs/Intake and Output Vital Signs (last 24 hours): Temp Pulse Resp BP Pulse Ox 97.9 F 64 18 152/80 H 94 L 10/08/18 12:00 10/08/18 13:52 10/08/18 12:00 10/08/18 13:00 10/08/18 06:00 Intake and Output: 10/08/18 10/08/18 06:59 18:59 Intake Total 2400 Output Total 600 Balance 1800 - Medications Medications: Current Medications Acetaminophen (Tylenol 325mg Tab) 650 mg PO Q6 PRN PRN Reason: TEMP>=99.5F Acetaminophen (Tylenol 650 Mg Supp) 650 mg RC Q6H PRN PRN Reason: TEMP>=99.5F Aspirin (Ecotrin) 81 mg PO DAILY [facility] Last Admin: 10/08/18 09:45 Dose: 81 mg Atorvastatin Calcium (Lipitor) 80 mg PO DIN [facility] Last Admin: 10/07/18 17:24 Dose: 80 mg Clopidogrel Bisulfate (Plavix) 75 mg PO DAILY [facility] Last Admin: 10/08/18 09:44 Dose: 75 mg Duloxetine HCl (Cymbalta) 40 mg PO DAILY [facility] Last Admin: 10/08/18 10:08 Dose: Not Given Enoxaparin Sodium (Lovenox) 40 mg SC DAILY [facility]; Protocol Last Admin: 10/08/18 09:46 Dose: 40 mg Insulin Detemir (Levemir) 15 unit SC HS [facility] Last Admin: 10/07/18 22:21 Dose: 15 units Insulin Human Regular (Humulin R Med) 0 units SC ACHS [facility]; Protocol Last Admin: 10/08/18 13:00 Dose: 1 unit Metoprolol Succinate (Toprol Xl) 25 mg PO DAILY [facility] Last Admin: 10/08/18 09:47 Dose: 25 mg Ondansetron HCl (Zofran Inj) 4 mg IVP Q4H PRN PRN Reason: Nausea/Vomiting Pantoprazole Sodium (Protonix Susp) 40 mg PO 0600 [facility] Last Admin: 10/08/18 05:32 Dose: 40 mg Zaleplon (Sonata) 5 mg PO HS PRN PRN Reason: Insomnia - Labs Labs: 10/08/18 07:20 10/08/18 08:30 PT 11.9 SECONDS (9.4-12.5) 10/05/18 15:57 INR 1.04 10/05/18 15:57 APTT 36.2 Seconds (25.1-36.5) 10/05/18 15:57 Assessment and Plan (1) CVA (cerebral vascular accident) Status: Acute Attending/Attestation - Attestation I have personally seen and examined this patient.: Yes I have fully participated in the care of the patient.: Yes I have reviewed all pertinent clinical information, including history, physical exam and plan: Yes Notes (Text): I agree with the assessment and plan. 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 Will continue current management with dual antiplatelet therapy, high dose statin and PT/OT. The patient is cleared for transfer to acute rehab from a neurological standpoint.
[2018-10-08 18:34] VITALS: TEMP 98.2
--- NOTE | 2018-10-08 18:46 | CARD ---
APPROVED REPORT Date of service: 10/08/2018 EKG Measurement Heart [id number] <Conclusion> Normal sinus rhythm Lateral infarct, age undetermined Abnormal ECG
--- NOTE | 2018-10-08 19:58 | CP.PCM.PN ---
<Asia Mccauley - Last Filed: 10/08/18 19:47> Subjective - Date & Time of Evaluation Date of Evaluation: 10/08/18 Time of Evaluation: 19:48 - Subjective Subjective: PGY-3 for House Doc CC: SBP 184 at 6:30pm S: Got paged for high SBP. Recheck BP at 7:30pm is 174/84. Pt denies KHANNA, dizziness, change of vision, SOB, CP, N/V/D/C, dysuria O: VS - see RN note HEENT: EMOI, non-icteric Card: regular, S1,S2 Pulm: CTA b/l Abd: soft NTND Neuro: AAOx2, facial droop (same as 2 days ago), visual field intact, motor 5/5 all extremities, sensory intact A: Asymptomatic hypertension P: No action needed for now. Continue observe If SBP > 180, will give hydralazine x 1 Objective - Vital Signs/Intake and Output Vital Signs (last 24 hours): Temp Pulse Resp BP Pulse Ox 98.2 F 69 18 183/75 H 94 L 10/08/18 18:00 10/08/18 18:00 10/08/18 18:00 10/08/18 18:00 10/08/18 06:00 Intake and Output: 10/08/18 10/09/18 18:59 06:59 Intake Total 360 400 Output Total 1200 Balance -840 400 - Medications Medications: Current Medications Acetaminophen (Tylenol 325mg Tab) 650 mg PO Q6 PRN PRN Reason: TEMP>=99.5F Acetaminophen (Tylenol 650 Mg Supp) 650 mg RC Q6H PRN PRN Reason: TEMP>=99.5F Aspirin (Ecotrin) 81 mg PO DAILY [facility] Last Admin: 10/08/18 09:45 Dose: 81 mg Atorvastatin Calcium (Lipitor) 80 mg PO DIN [facility] Last Admin: 10/08/18 17:57 Dose: 80 mg Clopidogrel Bisulfate (Plavix) 75 mg PO DAILY [facility] Last Admin: 10/08/18 09:44 Dose: 75 mg Duloxetine HCl (Cymbalta) 40 mg PO DAILY [facility] Last Admin: 10/08/18 10:08 Dose: Not Given Enoxaparin Sodium (Lovenox) 40 mg SC DAILY [facility]; Protocol Last Admin: 01/21/19 09:46 Dose: 40 mg Insulin Detemir (Levemir) 15 unit SC [facility] Last Admin: 10/07/18 22:21 Dose: 15 units Insulin Human Regular (Humulin R Med) 0 units SC [facility]; Protocol Last Admin: 10/08/18 17:53 Dose: Not Given Metoprolol Succinate (Toprol Xl) 25 mg PO DAILY [facility] Last Admin: 10/08/18 09:47 Dose: 25 mg Ondansetron HCl (Zofran Inj) 4 mg IVP Q4H PRN PRN Reason: Nausea/Vomiting Pantoprazole Sodium (Protonix Susp) 40 mg PO 0600 [facility] Last Admin: 10/08/18 05:32 Dose: 40 mg Zaleplon (Sonata) 5 mg PO HS PRN PRN Reason: Insomnia - Labs Labs: 10/08/18 07:20 10/08/18 08:30 PT 11.9 SECONDS (9.4-12.5) 10/05/18 15:57 INR 1.04 10/05/18 15:57 APTT 36.2 Seconds (25.1-36.5) 10/05/18 15:57 <Casey Saucedo - Last Filed: 10/08/18 20:02> Objective - Vital Signs/Intake and Output Vital Signs (last 24 hours): Temp Pulse Resp BP Pulse Ox 98.2 F 69 18 190/80 H 94 L 10/08/18 18:00 10/08/18 18:00 10/08/18 18:00 10/08/18 20:00 10/08/18 06:00 Intake and Output: 10/08/18 10/09/18 18:59 06:59 Intake Total 360 400 Output Total 1200 Balance -840 400 - Medications Medications: Current Medications Acetaminophen (Tylenol 325mg Tab) 650 mg PO Q6 PRN PRN Reason: TEMP>=99.5F Acetaminophen (Tylenol 650 Mg Supp) 650 mg RC Q6H PRN PRN Reason: TEMP>=99.5F Aspirin (Ecotrin) 81 mg PO DAILY [facility] Last Admin: 10/08/18 09:45 Dose: 81 mg Atorvastatin Calcium (Lipitor) 80 mg PO DIN [facility] Last Admin: 10/08/18 17:57 Dose: 80 mg Clopidogrel Bisulfate (Plavix) 75 mg PO DAILY [facility] Last Admin: 10/08/18 09:44 Dose: 75 mg Duloxetine HCl (Cymbalta) 40 mg PO DAILY [facility] Last Admin: 10/08/18 10:08 Dose: Not Given Enoxaparin Sodium (Lovenox) 40 mg SC DAILY [facility]; Protocol Last Admin: 10/08/18 09:46 Dose: 40 mg Insulin Detemir (Levemir) 15 unit SC HS [facility] Last Admin: 10/07/18 22:21 Dose: 15 units Insulin Human Regular (Humulin R Med) 0 units SC ACHS [facility]; Protocol Last Admin: 10/08/18 17:53 Dose: Not Given Metoprolol Succinate (Toprol Xl) 25 mg PO DAILY [facility] Last Admin: 10/08/18 09:47 Dose: 25 mg Ondansetron HCl (Zofran Inj) 4 mg IVP Q4H PRN PRN Reason: Nausea/Vomiting Pantoprazole Sodium (Protonix Susp) 40 mg PO 0600 [facility] Last Admin: 10/08/18 05:32 Dose: 40 mg Zaleplon (Sonata) 5 mg PO HS PRN PRN Reason: Insomnia - Labs Labs: 10/08/18 07:20 10/08/18 08:30 PT 11.9 SECONDS (9.4-12.5) 10/05/18 15:57 INR 1.04 10/05/18 15:57 APTT 36.2 Seconds (25.1-36.5) 10/05/18 15:57 Attending/Attestation - Attestation I have personally seen and examined this patient.: No I have fully participated in the care of the patient.: No I have reviewed all pertinent clinical information, including history, physical exam and plan: No
[2018-10-08 20:41] VITALS: BP 170/90; PULSE 61
--- NOTE | 2018-10-08 20:42 | CON ---
DATE OF CONSULTATION: 10/08/2018 REQUESTING PHYSICIAN: Jv Lugo MD REASON FOR CONSULTATION: Possible cerebrovascular accident resection. HISTORY: This is an 88-year-old woman with a complex past history of hypertension, hyperlipidemia, diabetes, colon cancer and anxiety disorder. She was recently admitted to the psychiatric unit and was noted to have a right-sided facial droop and a shuffling gait. She was sent to the emergency room for evaluation and felt to have a possible cerebrovascular accident. Cardiac evaluation was requested. An MRI revealed evidence of an acute infarct of the left basal ganglia and garcia radiata. She is seen sitting in a chair on telemetry. She states she is comfortable. She denies any sensory motor deficits. She does state she is frequently very anxious. PAST HISTORY: Notable for the problems mentioned above. She has a history of hypothyroidism. She has had a prior appendectomy and cholecystectomy. FAMILY HISTORY: She cannot recall. SOCIAL HISTORY: She is a former smoker. She denies alcohol use. CURRENT MEDICATIONS: Cymbalta, Ecotrin, insulin, Lipitor, Lovenox, Plavix, Protonix, Sonata, and Toprol XL. ALLERGIES: NONE. REVIEW OF SYSTEMS: A 10-point review of systems is notable for visual difficulties as well as symptoms of neuropathy. She also reportedly had a prior colonic polyp removed. PHYSICAL EXAMINATION: GENERAL: She is a very elderly woman, appears comfortable at rest. VITAL SIGNS: Blood pressure is 150/80 with a pulse of 64 and sinus. Respirations are 16. She is afebrile. HEENT: Mild facial asymmetry is noted on the right. NECK: No JVD. CHEST: Few scattered rhonchi heard. HEART: PMI is displaced laterally with a soft systolic murmur at the base as well as the left sternal border. ABDOMEN: Soft and nontender with normoactive bowel sounds. EXTREMITIES: No edema. SKIN: Warm and dry. PSYCHIATRIC: Somewhat flat affect, although moderate anxiety present as well. NEUROLOGIC: Oriented to person, place and year. No gross motor or sensory deficits noted. DIAGNOSTIC DATA: White count 7.3, hemoglobin and hematocrit 11.9 and 35.4 with platelet count of 154,000. PT/PTT are normal. Potassium 3.9, BUN and creatinine are 9 and 0.6, glucose is 110. Three sets of cardiac enzymes were negative. Electrocardiogram revealed sinus rhythm with nonspecific ST-T abnormalities. An echocardiogram showed evidence of dilated right atrium, normal LV size systolic function, mild concentric LVH, moderate tricuspid regurgitation and aortic sclerosis. Chest x-ray revealed normal cardiac silhouette with clear lung solitario. IMPRESSION: 1. Apparent acute cerebrovascular accident, appears clinically stable at the present time. 2. Multiple cardiac risk factors, but no clear evidence of cardiac source of embolus. RECOMMENDATIONS: At this time, control of hypertension and other risk factors would be most important. Given her age and general condition, conservative management would be advised. No further cardiac workup will be planned at this time. Thank you for this consultation. We will be happy to see her as needed. Tevin Aguayo MD
[2018-10-09 13:21] LABS: GLYCOMARK(R) 3.9 mcg/mL (7.5-28.4)
== END 2018-10-08 22:12 | DRG 65 ==
LOC: ED 14:26 → ERH 16:50 → 2RSO 21:13
PROVIDERS: ADMIT Internal Medicine; ATTEND Internal Medicine
DX: I63.9 Cerebral infarction, unspecified (principal); I47.2 Ventricular tachycardia; R29.707 NIHSS score 7; R29.810 Facial weakness; R47.01 Aphasia; J44.9 Chronic obstructive pulmonary disease, unspecified; I10 Essential (primary) hypertension; E11.65 Type 2 diabetes mellitus with hyperglycemia; E03.9 Hypothyroidism, unspecified; E11.40 Type 2 diabetes mellitus with diabetic neuropathy, unspecified; I65.23 Occlusion and stenosis of bilateral carotid arteries; I27.20 Pulmonary hypertension, unspecified; I07.1 Rheumatic tricuspid insufficiency; H40.9 Unspecified glaucoma; F32.9 Major depressive disorder, single episode, unspecified; F41.1 Generalized anxiety disorder; E78.5 Hyperlipidemia, unspecified; R47.1 Dysarthria and anarthria; D64.9 Anemia, unspecified; E78.00 Pure hypercholesterolemia, unspecified; R13.12 Dysphagia, oropharyngeal phase; Z79.4 Long term (current) use of insulin; Z87.891 Personal history of nicotine dependence; Z79.82 Long term (current) use of aspirin; Z85.038 Personal history of other malignant neoplasm of large intestine; Z79.02 Long term (current) use of antithrombotics/antiplatelets